=== PATIENT | male | born 1950 | race Caucasian/White ===

== ENCOUNTER 2016-09-20 20:37 | Emergency (ER) | payer MEDICARE, OTHER ==
[~2016-09-20] VITALS: Ht 167.6 cm; Wt 77.0 kg
[~2016-09-20 20:37] MED LIST: ACET325 PO; BACL10TA PO; CALC0.25 PO; CARB0.5D16 EACH EYE; CLON.5 PO; ERYT1O EACH EYE; FERR324T4 PO; KONS520C PO; LEVE750T8 PO; PHEN100 PO; POTA-243 PO; RISP1 PO; SUPETAB30 PO; VITA500C PO; VITATAB25 PO; [UNRECOGNIZED DRUG - CODE] PO
[2016-09-20 20:43] VITALS: PULSE 97; RESP 14; TEMP 97.8; O2SAT 97
--- NOTE | 2016-09-20 21:13 | PD ---
Physical Exam Time Seen by Provider: 21:10 Narrative 65yo M comes from [facility] ([place]). Had x-ray of L clavicle today and is fractured. Unknown fall or injury. Noticed on Saturday. note taker denies change in behavior. Patient nonverbal. No fever or vomiting. Patient stable. Patient seen in triage. Patient awaiting bed placement. Data Data Last Documented VS Vital Signs Date Time Temp Pulse Resp B/P Pulse Ox O2 Delivery O2 Flow Rate FiO2 09/20/16 20:43 97.8 97 14 97 Room Air MDM Supervised Visit with VERONICA: Alondra Morton Sep 20, 2016 21:13
[2016-09-20 21:14] VITALS: BP 118/83; PULSE 97; RESP 14; TEMP 97.8; O2SAT 97
--- NOTE | 2016-09-20 21:29 | PD ---
HPI Chief Complaint: Injury Time Seen by Provider: 21:20 Travel History International Travel<30 days: No Contact w/Intl Traveler<30days: No Traveled to known affect area: No History of Present Illness HPI 65-year-old male with history of mental retardation presents with a turbo operator for evaluation of reported left clavicle fracture. The patient is a [facility] The turbo operator who is with him reports that yesterday when she saw him she noticed a deformity to his left clavicle. An x-ray performed today reportedly showed a left clavicle fracture and he was sent here for further evaluation. There was no known injury. The patient was not seen on the ground and there is no reported fall. The turbo operator last saw his left shoulder 2 days ago and it appeared normal at that time. He has had no change in mentation. He has had no vomiting. He ambulates mostly in a wheelchair but he is able to walk and he doesn't appear to have any gait disturbance per the turbo operator. She has not noticed any bruises or open wounds. No other complaints at this time. History limited secondary to the patient being nonverbal. PFSH Past Medical History Arthritis: Yes Autoimmune Disease: No Anxiety: Yes Heart Rhythm Problems: Yes (bradycardia) Cancer: No Cardiovascular Problems: Yes High Cholesterol: No Chest Pain: No Congestive Heart Failure: No Cerebrovascular Accident: No Diabetes: No Diminished Hearing: No Endocrine: No Genitourinary: Yes Hypertension: Yes Immune Disorder: No Kidney Stones: No Musculoskeletal: Yes Neurologic: Yes Psychiatric: Yes (significant hx of mental disorders) Reproductive: No Respiratory: No Migraines: No Renal Failure: Yes Seizures: Yes (last seizure >6 yrs) Thyroid Disease: No Past Surgical History Other Surgery: No ( ) Social History Alcohol Use: No Tobacco Use: No Substance Use: No Allergies-Medications (Allergen,Severity, Reaction): Coded Allergies: *MDRO Multi-Drug Resistant Organism (Verified Allergy, Unknown, 09/20/16) MRSA wound 2004 Gabapentin (Verified Allergy, Unknown, 09/20/16) Mellaril (Verified Allergy, Unknown, 09/20/16) Neurontin (Verified Allergy, Unknown, 09/20/16) Thioridazine Hcl (Verified Allergy, Unknown, 09/20/16) Septra (Verified Adverse Reaction, Severe, 09/20/16) Reported Meds & Prescriptions Reported Meds & Active Scripts Active Reported Klonopin (Clonazepam) 0.5 Mg Tab 0.5 Mg PO BID Dilantin 100 Mg Kapseals (Phenytoin Sodium) 100 Mg Caper 100 Mg PO TID Ascorbic Acid 500 Mg Tab 500 Mg PO DAILY Calcitriol 0.25 Mcg Cap 0.25 Mcg PO DAILY Vitamin D-1000 (Cholecalciferol) 1,000 Unit Tab 1,000 Unit PO DAILY Tears Naturale (Artificial Tears) 15 Ml Soln 2 Drop EACH EYE BID PRN Tylenol (Acetaminophen) 325 Mg Tab 650 Mg PO Q6 PRN 2 [id number] Theragran M (Multivitamins/Minerals Therapeutic) 1 Tab Tab 1 Tab PO EVERY OTHER DAY Risperdal (Risperidone) 1 Mg Tab 1.5 Mg PO BID 1&1/2 TABS=1.5MG Antiseptic Mouth Rinse (Mouthwashes) Original Liq 1 Applic PO BID MOISTEN TOOTHETTE SWAB Keppra (Levetriacetam) 750 Mg Tab 750 Mg PO BID Ferrous Sulfate 325 Mg Tab 325 Mg PO BID Erythromycin Opht 0.5% Oint (Erythromycin) 0.5 % Oint 1 Applic EACH EYE HS APPLY 1/4 INCH RIBBON Lioresal (Baclofen) 10 Mg Tab 10 Mg PO BID Klor-Con 10 Meq (Potassium Chloride) 10 Meq Tabcr 10 Meq PO DAILY Metamucil (Psyllium Hydrophilic Mucilloid) 0.52 Gm Cap 2 Cap PO MON,E,SAT,TH ,FRI Review of Systems ROS Limitations: Poor Historian Except as stated in HPI: all other systems reviewed are Neg Physical Exam Exam Limitations: Poor Historian Narrative GENERAL: This is a well-developed well-nourished male in no acute distress. SKIN: Warm and dry. No open wounds. No bruising noted. HEAD: Atraumatic. Normocephalic. EYES: Pupils equal and round. No scleral icterus. No injection or drainage. ENT: No nasal bleeding or discharge. Mucous membranes pink and moist. NECK: Trachea midline. No JVD. CARDIOVASCULAR: Regular rate and rhythm. No murmur appreciated. RESPIRATORY: No accessory muscle use. Clear to auscultation. Breath sounds equal bilaterally. GASTROINTESTINAL: Abdomen soft, non-tender, nondistended. Hepatic and splenic margins not palpable. MUSCULOSKELETAL: There appears to be a deformity to the left clavicle. There is no apparent tenderness to palpation. He does not wince or withdrawal to palpation. He is using his left and right arm spontaneously without apparent discomfort. He has no evidence of discomfort with palpation along the cervical thoracic or lumbar midline spine. There is no bony crepitus. There is no apparent discomfort with palpation of the hips, legs, rib cage. The patient is able to ambulate with assistance with no apparent limp. NEUROLOGICAL: Awake and alert. No obvious cranial nerve deficits. Data Data Last Documented VS Vital Signs Date Time Temp Pulse Resp B/P Pulse Ox O2 Delivery O2 Flow Rate FiO2 09/20/16 21:14 97.8 97 14 118/83 97 Room Air Orders Lorazepam Inj (Ativan Inj) (09/20/16 21:45) Shoulder, One View (09/20/16 ) MDM Medical Decision Making Medical Screen Exam Complete: Yes Emergency Medical Condition: Yes Medical Record Reviewed: Yes Differential Diagnosis Left clavicle fracture, acromioclavicular separation, sprain Narrative Course This is a 65-year-old male who reportedly was found to have a left clavicle deformity yesterday by caretakers at his assisted living facility. Sent here for further evaluation. No apparent discomfort with movement. Appears to have a deformity to the left clavicle. The history is very limited secondary to patient's condition, CT of the brain and cervical spine have been ordered. Left shoulder x-ray has been ordered. I was called by the community service technician and told that the patient is being significantly combative during attempts at CT and x-ray imaging. Ativan has been ordered. 2258: CT of the brain and cervical spine at been canceledthe history is that the patients shoulder injury was first noticed yesterday and he has no evidence of neurologic change at his assisted living building facility or here and he has been observed several times rotating his neck about with no apparent difficulty. Awaiting left shoulder x-ray. The tech was able to obtain only a single view of the left shoulder and this reveals a distal left clavicle fracture of uncertain chronicity. Once again the patient has no apparent limitation in range of motion of the left shoulder, he is using his left arm spontaneously and he has no apparent tenderness to palpation of the left clavicle. This is suggesting at this clavicle fracture is chronic and not acute. We attempted to put a sling on the patient however he was very combative and was fighting against us and most likely this patient would be noncompliant with a sling on. I discussed with my attending Dr. Stevens who agrees with plan of care. At this point in time the plan is to have him follow-up as an outpatient with an orthopedic physician. Discussed this with the turbo operator. He is stable for discharge. Diagnosis Primary Impression: Closed left clavicular fracture Qualified Code: S42.002A - Closed displaced fracture of left clavicle, unspecified part of clavicle, initial encounter Referrals: Isaac Hastings Jr., MD, Todd A. MD Additional Instructions: Follow-up with an orthopedist such as Dr. Hastings or Dr. Garcias next week. Sling as tolerated. Return for any emergent medical conditions. Med/Other Pt SpecificInfo: Orthopedic Instructions Disposition: 01 DISCHARGE HOME Condition: Stable Josh Denney Sep 20, 2016 21:29
[2016-09-20] MEDS ORDERED: LORazepam 2 MG/ML VIAL IM ONE (21:45)
--- NOTE | 2016-09-20 23:55 | RADRPT ---
EXAM DATE/TIME: 09/20/2016 23:11 [facility] COMPARISON: No previous studies available for comparison. INDICATIONS : Left shoulder pain. MEDICAL HISTORY : Unobtainable. SURGICAL HISTORY : Unobtainable. ENCOUNTER: Initial ACUITY: 1 day PAIN SCORE: Non-responsive. LOCATION: Left shoulder. FINDINGS: A single frontal view of the left shoulder is within significant obliquity. This generates significan t limitations. There is a fracture involving the distal third of the clavicle. I'm unable to determin e whether this is acute or chronic. The proximal humerus is intact. CONCLUSION: 1. Significantly limited study. 2. Distal clavicular fracture. I cannot determine whether this is acute or chronic. Alfa Ugarte Jr., MD on September 20, 2016 at 23:53 Board Certified Radiologist. This report was verified electronically.
== END 2016-09-21 00:23 | disposition home or self-care (01) ==
LOC: NEPK 20:37
DX: S42.035A Nondisplaced fracture of lateral end of left clavicle, initial encounter for closed fracture (principal); X58.XXXA Exposure to other specified factors, initial encounter; Y93.9 Activity, unspecified; Y92.199 Unspecified place in other specified residential institution as the place of occurrence of the external cause; Y99.9 Unspecified external cause status; I10 Essential (primary) hypertension
CPT/HCPCS: 73020; 96372; 99283; J2060

== ENCOUNTER 2017-01-31 10:34 | Inpatient (IN) | payer MEDICARE, OTHER ==
[2017-01-31 10:55] VITALS: PULSE 115; RESP 18; O2SAT 100
[2017-01-31] MEDS ORDERED: SODIUM CHLOR 0.9% 1000 ML INJ 1,000 ML IV SCH (11:07)
[2017-01-31] MEDS ORDERED: LORazepam 2 MG/ML VIAL IM ONE (11:15)
[2017-01-31] MEDS ORDERED: SODIUM CHLORIDE 0.9% FLUSH 10 ML FLUSH IV FLUSH PRN ×2 (11:15→14:15)
--- NOTE | 2017-01-31 11:17 | PD ---
HPI Chief Complaint: Edema Time Seen by Provider: 11:07 Travel History International Travel<30 days: No Contact w/Intl Traveler<30days: No Traveled to known affect area: No History of Present Illness HPI [facility] evaluation of left lower extremity erythema, edema, and warmth to touch per paperwork. Patient's caregiver with him states this is new. Patient has a speech impairment and suffers from mental retardation is not able to contribute to his history at this time. Patient has a history of seizures, psychosis, anemia, autism, systolic ejection murmur, hypertension, stage II kidney disease , BPH, bipolar disorder, OCD, onychomycosis, PVD, cerebral atrophy, arachnoid cyst in the posterior fossa, weakness, cellulitis of the left lower extremity, and DVT per his records that were sent with him. Patient is on Xerelto for his DVT. Patient is being combative currently. PFSH Past Medical History Hx Anticoagulant Therapy: Yes Arthritis: Yes Autoimmune Disease: No Anxiety: Yes Heart Rhythm Problems: Yes (bradycardia) Cancer: No Cardiovascular Problems: Yes High Cholesterol: No Chest Pain: No Congestive Heart Failure: No Cerebrovascular Accident: No Diabetes: No Diminished Hearing: No Endocrine: No Genitourinary: Yes Hypertension: Yes Immune Disorder: No Kidney Stones: No Musculoskeletal: Yes Neurologic: Yes Psychiatric: Yes (significant hx of mental disorders) Reproductive: No Respiratory: No Migraines: No Renal Failure: Yes Seizures: Yes (last seizure >6 yrs) Thyroid Disease: No Past Surgical History Other Surgery: No ( ) Social History Alcohol Use: No Tobacco Use: No Substance Use: No Allergies-Medications (Allergen,Severity, Reaction): Coded Allergies: *MDRO Multi-Drug Resistant Organism (Verified Allergy, Unknown, 01/31/17) MRSA wound 2004 gabapentin (Verified Allergy, Unknown, 01/31/17) thioridazine (Verified Allergy, Unknown, 01/31/17) sulfamethoxazole (Verified Adverse Reaction, Severe, 01/31/17) trimethoprim (Verified Adverse Reaction, Severe, 01/31/17) Reported Meds & Prescriptions Reported Meds & Active Scripts Active Reported Klonopin (Clonazepam) 0.5 Mg Tab 0.5 Mg PO BID Dilantin 100 Mg Kapseals (Phenytoin Sodium) 100 Mg Caper 100 Mg PO TID Ascorbic Acid 500 Mg Tab 500 Mg PO DAILY Calcitriol 0.25 Mcg Cap 0.25 Mcg PO DAILY Vitamin D-1000 (Cholecalciferol) 1,000 Unit Tab 1,000 Unit PO DAILY Tears Naturale (Artificial Tears) 15 Ml Soln 2 Drop EACH EYE BID PRN Tylenol (Acetaminophen) 325 Mg Tab 650 Mg PO Q6 PRN 2 [id number] Theragran M (Multivitamins/Minerals Therapeutic) 1 Tab Tab 1 Tab PO EVERY OTHER DAY Risperdal (Risperidone) 1 Mg Tab 1.5 Mg PO BID 1&1/2 TABS=1.5MG Antiseptic Mouth Rinse (Mouthwashes) Original Liq 1 Applic PO BID MOISTEN TOOTHETTE SWAB Keppra (Levetriacetam) 750 Mg Tab 750 Mg PO BID Ferrous Sulfate 325 Mg Tab 325 Mg PO BID Erythromycin Opht 0.5% Oint (Erythromycin) 0.5 % Oint 1 Applic EACH EYE HS APPLY 1/4 INCH RIBBON Lioresal (Baclofen) 10 Mg Tab 10 Mg PO BID Klor-Con 10 Meq (Potassium Chloride) 10 Meq Tabcr 10 Meq PO DAILY Metamucil (Psyllium Hydrophilic Mucilloid) 0.52 Gm Cap 2 Cap PO MON,E,SAT, ,SAT Review of Systems ROS Limitations: Speech Impaired, Poor Historian Except as stated in HPI: all other systems reviewed are Neg Physical Exam Exam Limitations: Poor Historian, Combative Narrative GENERAL: Well-developed, well nourished, in no acute distress, and non-ill appearing. SKIN: Erythematous, edema, and febrile feeling left leg findings are consistent with cellulitis there are some scabbed over lesions as well. There is no fluctuation, drainage, or crepitus. HEAD: Atraumatic. Normocephalic. EYES: Pupils equal and round. EOMI. No scleral icterus. ENT: No nasal bleeding or discharge. Mucous membranes pink and moist. NECK: Trachea midline. Supple. No nuclear rigidity. CARDIOVASCULAR: Regular rate and rhythm. Murmur appreciated. Dorsal pulses 2+ , nontender, and equal bilaterally. RESPIRATORY: No accessory muscle use. No respiratory distress. Clear to auscultation. Breath sounds equal bilaterally. MUSCULOSKELETAL: No obvious deformities. No clubbing. No cyanosis. 1+ edema left lower extremity. Full range of motion. NEUROLOGICAL: Awake and alert. No obvious cranial nerve deficits. Motor grossly within normal limits. PSYCHIATRIC: Combative. Data Data Last Documented VS Vital Signs Date Time Temp Pulse Resp B/P (MAP) Pulse Ox O2 Delivery O2 Flow Rate FiO2 01/31/17 13:27 98 Room Air 01/31/17 12:30 105 14 127/91 (103) Orders Orders Lorazepam Inj (Ativan Inj) (01/31/17 11:15) Complete Blood Count With Diff (01/31/17 11:07) Prothrombin Time / Inr (Pt) (01/31/17 11:07) Act Partial Throm Time (Ptt) (01/31/17 11:07) Iv Access Insert/Monitor (01/31/17 11:07) Ecg Monitoring (01/31/17 11:07) Oximetry (01/31/17 11:07) Sodium Chlor 0.9% 1000 Ml Inj (Ns 1000 M (01/31/17 11:07) Sodium Chloride 0.9% Flush (Ns Flush) (01/31/17 11:15) Us Leg Venous Doppler (01/31/17 11:15) Electrocardiogram (01/31/17 11:26) Comprehensive Metabolic Panel (01/31/17 11:26) Lactic Acid Sepsis Protocol (01/31/17 11:26) Urinalysis - C+S If Indicated (01/31/17 11:26) Blood Culture (01/31/17 11:26) Chest, Single Ap (01/31/17 11:26) Blood Glucose (01/31/17 11:26) Oxygen Administration (01/31/17 11:26) Piperacil-Tazo 4.5 Gm Premix (Zosyn 4.5 (01/31/17 11:26) Vancomycin Inj (Vancomycin Inj) (01/31/17 11:26) Acetaminophen Supp (Tylenol Supp) (01/31/17 11:30) Phenytoin (Dilantin) (01/31/17 11:44) Levetiracetam (01/31/17 11:44) Haloperidol Inj (Haldol Inj) (01/31/17 12:15) Sodium Chlor 0.9% 1000 Ml Inj (Ns 1000 M (01/31/17 13:15) Cath For Specimen (01/31/17 13:15) Sodium Chlor 0.9% 1000 Ml Inj (Ns 1000 M (01/31/17 13:45) Admit To Inpatient (01/31/17 ) Vital Signs (Adult) Q4H (01/31/17 14:08) Activity Oob With Assistance (01/31/17 14:08) Matte Cutter / Telemetry .CONTINUOUS (01/31/17 14:08) Intake + Output CATERINA.QSHIFT (01/31/17 14:08) Diet Heart Healthy (01/31/17 Dinner) Sodium Chlor 0.45% 1000 Ml Inj (1/2 Ns 1 (01/31/17 15:00) Sodium Chloride 0.9% Flush (Ns Flush) (01/31/17 14:15) Sodium Chloride 0.9% Flush (Ns Flush) (01/31/17 21:00) Acetaminophen (Tylenol) (01/31/17 14:15) Ondansetron Inj (Zofran Inj) (01/31/17 14:15) Naloxone Inj (Narcan Inj) (01/31/17 14:15) Docusate Sodium-Senna (Inna-Colace) (01/31/17 21:00) Magnesium Hydroxide Liq (Milk Of Magnesi (01/31/17 14:15) Sennosides (Senokot) (01/31/17 14:15) Bisacodyl Supp (Dulcolax Supp) (01/31/17 14:15) Lactulose Liq (Lactulose Liq) (01/31/17 14:15) Inpatient Certification (01/31/17 ) Vancomycin Consult Pharmacy (Vancomycin (01/31/17 14:15) Piperacil-Tazo 3.375 Gm Premix (Zosyn 3. (01/31/17 18:00) Admit Order (Ed Use Only) (01/31/17 14:11) Labs Laboratory Tests Test 01/31/17 12:10 01/31/17 13:45 White Blood Count 26.0 TH/MM3 Red Blood Count 3.48 MIL/MM3 Hemoglobin 10.5 GM/DL Hematocrit 31.8 % Mean Corpuscular Volume 91.4 FL Mean Corpuscular Hemoglobin 30.1 PG Mean Corpuscular Hemoglobin Concent 32.9 % Red Cell Distribution Width 14.0 % Platelet Count 163 TH/MM3 Mean Platelet Volume 8.2 FL Neutrophils (%) (Auto) 92.2 % Lymphocytes (%) (Auto) 2.9 % Monocytes (%) (Auto) 4.8 % Eosinophils (%) (Auto) 0.0 % Basophils (%) (Auto) 0.1 % Neutrophils # (Auto) 23.9 TH/MM3 Lymphocytes # (Auto) 0.7 TH/MM3 Monocytes # (Auto) 1.2 TH/MM3 Eosinophils # (Auto) 0.0 TH/MM3 Basophils # (Auto) 0.0 TH/MM3 CBC Comment DIFF FINAL Differential Comment Prothrombin Time 13.3 SEC Prothromb Time International Ratio 1.2 RATIO Activated Partial Thromboplast Time 36.2 SEC Blood Urea Nitrogen 19 MG/DL Creatinine 1.25 MG/DL Random Glucose 119 MG/DL Total Protein 7.7 GM/DL Albumin 2.7 GM/DL Calcium Level 7.9 MG/DL Alkaline Phosphatase 127 U/L Aspartate Amino Transf (AST/SGOT) 29 U/L Alanine Aminotransferase (ALT/SGPT) 22 U/L Total Bilirubin 0.6 MG/DL Sodium Level 137 MEQ/L Potassium Level 4.2 MEQ/L Chloride Level 102 MEQ/L Carbon Dioxide Level 23.0 MEQ/L Anion Gap 12 MEQ/L Estimat Glomerular Filtration Rate 58 ML/MIN Lactic Acid Level 3.0 mmol/L Urine Color YELLOW Urine Turbidity CLEAR Urine pH 6.0 Urine Specific [place] 1.008 Urine Protein TRACE mg/dL Urine Glucose (UA) NEG mg/dL Urine Ketones NEG mg/dL Urine Occult Blood SMALL Urine Nitrite NEG Urine Bilirubin NEG Urine Urobilinogen LESS THAN 2.0 MG/DL Urine Leukocyte Esterase MOD Urine RBC 1 /hpf Urine WBC 7 /hpf Urine Bacteria MANY /hpf Urine Mucus FEW /lpf Microscopic Urinalysis Comment CATH-CULTURE IND MDM Medical Decision Making Medical Screen Exam Complete: Yes Emergency Medical Condition: Yes Interpretation(s) Ultrasound read by the radiologist shows: Normal examination. Chest x-ray read by the radiologist shows: Scattered interstitial nodular opacity particularly within the right upper lobe is new from the prior exam of 2013. This could relate to chronic interstitial changes. I cannot exclude acute developing infiltrate. Consider followup studies to document stability. Cardiomegaly. EKG reviewed by Dr. Valdivia shows tachycardia with ventricular rate of 112. No STEMI. Differential Diagnosis Cellulitis, DVT, sepsis, electrolyte abnormality, UTI, other Narrative Course Patient was seen and evaluated this to combative and violent to examine at this time. We'll try to calm patient down so he can be evaluated. Initial laboratory and radiologic studies were ordered. 1120 patient was initially attempted placed in soft restraints as he was being combative and violent towards staff delaying his care and trying to fall out of bed. Patient however he bit through the soft restraints and will be placed and locked restraints. Patient will also be given Ativan IM to try to help calm him. 1210 patient reassessed remains combative. Will give patient a dose of Haldol IM to protect patient and staff along with allowing the patient to receive appropriate treatment. Laboratory and Radiological studies were reviewed. Patient was given Tylenol rectally for his fever. Hydrated with IV fluid. Given IV Zosyn and vancomycin. Will admit patient for intrauterine IV antibiotic secondary to sepsis. Discussed patient with Dr. Valdivia, who is in agreement with plan of care and disposition. Discussed patient with hospitalist who is agreeable to admit the patient. Sepsis Criteria SIRS Criteria (2 or more): Temp > 100.9 or < 96.8, Heart rate over 90, WBC > 55692, < 4000 or > 10% bands Sepsis Criteria (SIRS+source): Infect source susp/known Severe Sepsis (+one): Lactate >2 Physician Communication Physician Communication [address] Alejandre, who is agreeable to admit the patient. Diagnosis Primary Impression: Sepsis Qualified Codes: A41.9 - Sepsis, unspecified organism Additional Impressions: Left leg cellulitis UTI (urinary tract infection) Qualified Codes: N39.0 - Urinary tract infection, site not specified Admitting Information Admitting Physician Requests: Admit Condition: Stable Elotn Cardona Jan 31, 2017 11:17
[2017-01-31] MEDS ORDERED: VANCOMYCIN INJ 1,000 MG in SODIUM CHLOR 0.9% 250 ML INJ 250 ML IV STA (11:26)
[2017-01-31] MEDS ORDERED: PIPERACIL-TAZO 4.5 GM PREMIX 100 ML IV STA (11:26)
[2017-01-31] MEDS ORDERED: ACETAMINOPHEN 650 MG SUPP RECTAL ONE (11:30)
--- NOTE | 2017-01-31 12:11 | RADRPT ---
EXAM DATE/TIME: 01/31/2017 11:37 [facility] COMPARISON: No previous studies available for comparison. INDICATIONS : Left leg swelling. MEDICAL HISTORY : Hypertension. Arthritis. Vision impaired. Seizures. Dizziness. Anticoagulant therapy. Venous insu fficiancy. Bradycardia. Renal disease. Renal failure. Urinary tract infection. Anxiety. Violent behav ior. MRSA. SURGICAL HISTORY : None. ENCOUNTER: Initial ACUITY: 2 day PAIN SCORE: Non-responsive LOCATION: Left leg. TECHNIQUE: Venous ultrasound of the leg was performed from the inguinal ligament to the proximal calf. Real-obie e, color Doppler and spectral tracing, compression and augmentation techniques were used. FINDINGS: There is normal compressibility of the deep venous system from the inguinal region to the proximal ca lf. No echogenic clot is seen in the lumen of the common femoral, femoral, popliteal, and posterior tibial veins. There is a normal response of the venous system to proximal and distal augmentation an d respiration. CONCLUSION: Normal examination. Carlos Turner MD on January 31, 2017 at 12:04 Board Certified Radiologist. This report was verified electronically.
--- NOTE | 2017-01-31 12:14 | RADRPT ---
EXAM DATE/TIME: 01/31/2017 11:52 [facility] COMPARISON: CHEST SINGLE AP, September 03, 2013, 13:35. INDICATIONS : Fever. MEDICAL HISTORY : Hypertension. SURGICAL HISTORY : None. ENCOUNTER: Initial ACUITY: 1 day PAIN SCORE: Non-responsive. LOCATION: Bilateral chest FINDINGS: A single portable frontal view of the chest is obliqued towards the patient's right. Moderate cardiom egaly. Scattered areas of interstitial prominence some of which is nodular located within the right u pper lobe. No intralobular opacity. No effusions. Bony structures are unremarkable for a patient of t his age. CONCLUSION: Scattered interstitial nodular opacity particularly within the right upper lobe is new from the prior exam of 2013. This could relate to chronic interstitial changes. I cannot exclude acute developing i nfiltrate. Consider followup studies to document stability. Cardiomegaly. Alfa Ugarte Jr., MD on January 31, 2017 at 12:10 Board Certified Radiologist. This report was verified electronically.
[2017-01-31] MEDS ORDERED: HALOPERIDOL LACTATE 5 MG/ML AMP IM ONE (12:15)
[2017-01-31 12:30] VITALS: BP_SYST 121; BP_SYST 127; BP_DIAS 62; BP_DIAS 91; PULSE 105; PULSE 113; RESP 14; O2SAT 97; O2SAT 98
[2017-01-31 13:01] LABS: AUTOMATED NEUTROPHIL # 23.9 TH/MM3 (1.8-7.7); BASOPHIL % 0.1 % (0.0-2.0); HEMATOCRIT 31.8 % (39.0-51.0); HEMO FLAGS DIFF FINAL; LYMPH % 2.9 % (9.0-44.0); LYMPHOCYTE # 0.7 TH/MM3 (1.0-4.8); MEAN CELL VOLUME 91.4 FL (80.0-100.0); MEAN CORPUSCULAR HEMOGLOBIN 30.1 PG (27.0-34.0); MEAN CORPUSCULAR HGB CONC 32.9 % (32.0-36.0); MONO % 4.8 % (0.0-8.0); NEUT % 92.2 % (16.0-70.0); PLATELET COUNT 163 TH/MM3 (150-450); RED BLOOD COUNT 3.48 MIL/MM3 (4.50-5.90)
[2017-01-31] MEDS ORDERED: SODIUM CHLOR 0.9% 1000 ML INJ 1,000 ML IV ONE ×2 (13:15→13:45)
[2017-01-31 13:19] LABS: APTT (PATIENT) 36.2 SEC (24.3-30.1); INTERNATIONAL NORMALIZED RATIO 1.2 RATIO; PROTHROMBIN TIME - PATIENT 13.3 SEC (9.8-11.6)
[2017-01-31 13:27] LABS: ALKALINE PHOSPHATASE 127 U/L (45-117); ALT (GPT) 22 U/L (12-78); TOTAL BILIRUBIN ADULT 0.6 MG/DL (0.2-1.0)
[2017-01-31 13:30] LABS: ANION GAP 12 MEQ/L (5-15); AST (GOT) 29 U/L (15-37); BLOOD UREA NITROGEN 19 MG/DL (7-18); CHLORIDE 102 MEQ/L (98-107); GLOMERULAR FILTRATION RATE 58 ML/MIN (>89); SODIUM (NA) 137 MEQ/L (136-145)
[2017-01-31 13:32] LABS: POTASSIUM 4.2 MEQ/L (3.5-5.1)
[2017-01-31] MEDS ORDERED: ONDANSETRON HCL 4 MG/2 ML VIAL IVP PRN (14:15)
[2017-01-31] MEDS ORDERED: LACTULOSE SYRUP 20 GM/30 ML CUP PO PRN (14:15)
[2017-01-31] MEDS ORDERED: MAGNESIUM HYDROXIDE SUSP 30 ML CUP PO PRN (14:15)
[2017-01-31] MEDS ORDERED: SENNOSIDES 8.6 MG TAB PO PRN (14:15)
[2017-01-31] MEDS ORDERED: Vancomycin Consult Pharmacy 1 EA OTHER SCH (14:15)
[2017-01-31] MEDS ORDERED: BISACODYL 10 MG SUPP RECTAL PRN (14:15)
[2017-01-31] MEDS ORDERED: NALOXONE HCL 0.4 MG/ML AMP IV PRN (14:15)
[2017-01-31] MEDS ORDERED: ACETAMINOPHEN 325 MG TAB PO PRN (14:15)
[2017-01-31 14:32] LABS: BACTERIA, URINE MANY /hpf; BLOOD, URINE SMALL (NEG); GLUCOSE,URINE NEG (NEG); KETONE, URINE NEG (NEG); MUCUS URINE FEW /lpf (OCC); NITRITE,URINE NEG (NEG); URINE COLOR YELLOW (YELLW/STRAW)
[2017-01-31 14:33] LABS: COMMENT (UR) CATH-CULTURE IND; CULTURE IF INDICATED CATH CULTURE IND
[2017-01-31 14:35] VITALS: BP 121/62; PULSE 113; RESP 15; TEMP 99; O2SAT 97
--- NOTE | 2017-01-31 14:39 | HHI.HP ---
[facility] Service [facility] Primary Care Physician Cesario Martin MD Admission Diagnosis sepsis, left lower extremity cellulitis Diagnoses: Chief Complaint: Sepsis and lower extremity cellulitis Travel History International Travel<30 Days: No Contact w/Intl Traveler <30 Da: No Traveled to Known Affected Are: No History of Present Illness This is a 66-year-old male past medical history of seizure disorder and mental retardation who presented with evaluation for left lower extremity. Due to patient's mental status unable to get a history. Dealt with [facility] emergency medicine and his nurse. Patient was brought in from a detention secondary to lower extremity edema and erythema. His caregiver stated that this was happening overnight. Patient has a history of speech impairment and suffers from mental retardation. Per patient's nurse patient was agitated and was given Haldol and put in restraints. Patient's nurse also stated that DCF just saw patient due to patient having a black eye. He stated that his caregiver stated that patient sometimes would drop to the ground to get attention and they let him do this which may be the reason why he has a black eye. Unable to do ROS secondary to patient's mental status. Past Family Social History Past Medical History 1. Bipolar disorder. 2. Obsessive-compulsive disorder. 3. BPH. 4. Onychomycosis. 5. Arachnoid cyst. 6. Chronic kidney disease. 7. Seizures. 8. Bradycardia. Has seen Dr. Heredia in the past. 9. Orthostatic hypotension. 10. Peripheral vascular disease. 11. Hypertension. 12. Seizure disorder. 13. Chronic cellulitis lower extremity. 14. Previous UTIs. 15. Mental retardation. 16. Venous insufficiency. 17. Tremors. 18. History of DVT MEDICATION ALLERGIES GABAPENTIN. MELLARIL. NEURONTIN. SEPTRA. THIORIDAZINE HCl. HOME MEDICATIONS Reviewed. See electronic medical record. SOCIAL HISTORY There is no history of smoking, alcohol or substance abuse. The patient is a resident of a detention for the last 15 years. He has no other family. He does not require any assistive devices for ambulation. FAMILY HISTORY Unable to obtain. Past Surgical History Unable to obtain. Reported Medications Unable to obtain. Allergies: Coded Allergies: *MDRO Multi-Drug Resistant Organism (Verified Allergy, Unknown, 01/31/17) MRSA wound 2005 gabapentin (Verified Allergy, Unknown, 01/31/17) thioridazine (Verified Allergy, Unknown, 01/31/17) sulfamethoxazole (Verified Adverse Reaction, Severe, 01/31/17) trimethoprim (Verified Adverse Reaction, Severe, 01/31/17) Active Ordered Medications Current Medications Lorazepam (Ativan Inj) 2 mg ONCE ONCE IM Last administered on 01/31/17 11:16 ; Start 01/31/17 at 11:15; Stop 01/31/17 at 11:16; Status DC Sodium Chloride 1,000 ml @ 1,000 mls/hr Q1H IV Last administered on 01/31/17 11:17; Start 01/31/17 at 11:07; Stop 01/31/17 at 12:06; Status DC Sodium Chloride (NS Flush) 2 ml UNSCH PRN IV FLUSH FLUSH AFTER USING IV ACCESS ; Start 01/31/17 at 11:15; Stop 01/31/17 at 14:29; Status DC Piperacillin Sod/ Tazobactam Sod 100 ml @ 200 mls/hr ONCE STAT IV Last administered on 01/31/17 11:54; Start 01/31/17 at 11:26; Stop 01/31/17 at 11:55 ; Status DC Vancomycin HCl 1000 mg/Sodium Chloride 250 ml @ 250 mls/hr ONCE STAT IV Last administered on 01/31/17 11:55; Start 01/31/17 at 11:26; Stop 01/31/17 at 12:25 ; Status DC Acetaminophen (Tylenol Supp) 650 mg ONCE ONCE RECTAL Last administered on 01/31 11:55; Start 01/31/17 at 11:30; Stop 01/31/17 at 11:31; Status DC Haloperidol Lactate (Haldol Inj) 5 mg ONCE ONCE IM Last administered on 12:40; Start 01/31/17 at 12:15; Stop 01/31/17 at 12:16; Status DC Sodium Chloride 1,000 ml @ 999 mls/hr BOLUS ONCE IV Last administered on 01/31 13:15; Start 01/31/17 at 13:15; Stop 01/31/17 at 14:15; Status DC Sodium Chloride 1,000 ml @ 999 mls/hr BOLUS ONCE IV Last administered on 01/31t 13:45; Start 01/31/17 at 13:45; Stop 01/31/17 at 14:45 Sodium Chloride 1,000 ml @ 75 mls/hr [id number] IV ; Start 01/31/17 at 15:00 Sodium Chloride (NS Flush) 2 ml UNSCH PRN IV FLUSH FLUSH AFTER USING IV ACCESS ; Start 01/31/17 at 14:15 Sodium Chloride (NS Flush) 2 ml BID IV FLUSH ; Start 01/31/17 at 21:00 Acetaminophen (Tylenol) 650 mg Q4H PRN PO TEMP > 100.4; Start 01/31/17 at 14:15 Ondansetron HCl (Zofran Inj) 4 mg Q6H PRN IVP NAUSEA OR VOMITING; Start at 14:15 Naloxone HCl (Narcan Inj) 0.4 mg UNSCH PRN IV SEE LABEL COMMENTS; Start at 14:15 Senna/Docusate Sodium (Inna-Colace) 1 tab BID PO ; Start 01/31/17 at 21:00 Magnesium Hydroxide (Milk Of Magnesia Liq) 30 ml Q12H PRN PO MILD - MODERATE CONSTIPATION; Start 01/31/17 at 14:15 Sennosides (Senokot) 17.2 mg Q12H PRN PO MODERATE - SEVERE CONSTIPATION; Start 01/31/17 at 14:15 Bisacodyl (Dulcolax Supp) 10 mg DAILY PRN RECTAL SEVERE CONSITIPATION; Start at 14:15 Lactulose (Lactulose Liq) 30 ml DAILY PRN PO SEVERE CONSITIPATION; Start at 14:15 Pharmacy Profile Note 0 ml @ 0 mls/hr UNSCH OTHER ; Start 01/31/17 at 14:15 Piperacillin Sod/ Tazobactam Sod 50 ml @ 100 mls/hr Q6H IV ; Start 01/31/17 at 18:00 Family History Unable to obtain due to mental status. Social History Patient lives in a detention. Physical Exam Vital Signs Vital Signs Date Time Temp Pulse Resp B/P (MAP) Pulse Ox O2 Delivery O2 Flow Rate FiO2 01/31/17 13:27 98 Room Air 01/31/17 12:30 113 121/62 (81) 97 01/31/17 10:55 97 Room Air 01/31/17 10:55 115 18 100 Room Air Physical Exam GENERAL: This is an unkempt male in NAD SKIN: Left lower extremity with some excoriations and erythema below the knee with swelling and warmth. HEAD: Atraumatic. Normocephalic. No temporal or scalp tenderness. EYES: Pupils equal round and reactive. Extraocular motions intact. Positive for bilateral injection. Ecchymosis of the left eye ENT: Nose without bleeding, purulent drainage or septal hematoma. Throat without erythema, tonsillar hypertrophy or exudate. Uvula midline. Airway patent. NECK: Trachea midline. No JVD or lymphadenopathy. Supple, nontender, no meningeal signs. CARDIOVASCULAR: Regular rate and rhythm without murmurs, gallops, or rubs. RESPIRATORY: Clear to auscultation. Breath sounds equal bilaterally. No wheezes , rales, or rhonchi. GASTROINTESTINAL: Abdomen soft, non-tender, nondistended. No hepato-splenomegaly , or palpable masses. No guarding. MUSCULOSKELETAL: Extremities without clubbing, cyanosis, or edema. No joint tenderness, effusion, or edema noted. No calf tenderness. Negative Homans sign bilaterally. NEUROLOGICAL: Awake. Motor is grossly intact. The heart to do a neurological exam since patient does not follow command. He does look [employer]rak. Laboratory Laboratory Tests Test 01/31/17 12:10 01/31/17 13:45 White Blood Count 26.0 Red Blood Count 3.48 Hemoglobin 10.5 Hematocrit 31.8 Mean Corpuscular Volume 91.4 Mean Corpuscular Hemoglobin 30.1 Mean Corpuscular Hemoglobin Concent 32.9 Red Cell Distribution Width 14.0 Platelet Count 163 Mean Platelet Volume 8.2 Neutrophils (%) (Auto) 92.2 Lymphocytes (%) (Auto) 2.9 Monocytes (%) (Auto) 4.8 Eosinophils (%) (Auto) 0.0 Basophils (%) (Auto) 0.1 Neutrophils # (Auto) 23.9 Lymphocytes # (Auto) 0.7 Monocytes # (Auto) 1.2 Eosinophils # (Auto) 0.0 Basophils # (Auto) 0.0 CBC Comment DIFF FINAL Differential Comment Prothrombin Time 13.3 Prothromb Time International Ratio 1.2 Activated Partial Thromboplast Time 36.2 Blood Urea Nitrogen 19 Creatinine 1.25 Random Glucose 119 Total Protein 7.7 Albumin 2.7 Calcium Level 7.9 Alkaline Phosphatase 127 Aspartate Amino Transf (AST/SGOT) 29 Alanine Aminotransferase (ALT/SGPT) 22 Total Bilirubin 0.6 Sodium Level 137 Potassium Level 4.2 Chloride Level 102 Carbon Dioxide Level 23.0 Anion Gap 12 Estimat Glomerular Filtration Rate 58 Lactic Acid Level 3.0 Urine Color YELLOW Urine Turbidity CLEAR Urine pH 6.0 Urine Specific [place] 1.008 Urine Protein TRACE Urine Glucose (UA) NEG Urine Ketones NEG Urine Occult Blood SMALL Urine Nitrite NEG Urine Bilirubin NEG Urine Urobilinogen LESS THAN 2.0 Urine Leukocyte Esterase MOD Urine RBC 1 Urine WBC 7 Urine Bacteria MANY Urine Mucus FEW Microscopic Urinalysis Comment CATH-CULTURE IND Date/Time Source Procedure Growth Status 01/31/17 12:00 Blood Peripheral Aerobic Blood Culture Pending Received 01/31/17 12:00 Blood Peripheral Anaerobic Blood Culture Pending Received 01/31/17 13:45 Urine Catheterized Urine Urine Culture Pending Received Result Diagram: 01/31/17 1210 01/31/17 1210 Imaging Last Impressions Chest X-Ray 01/31/17 1126 Signed Impressions: Service Date/Time: January 11:52 - CONCLUSION: Scattered interstitial nodular opacity particularly within the right upper lobe is new from the prior exam of 2013. This could relate to chronic interstitial changes. I cannot exclude acute developing infiltrate. Consider followup studies to document stability. Cardiomegaly. Alfa Ugarte Jr., MD Lower Extremity Ultrasound 01/31/17 1115 Signed Impressions: Service Date/Time: January 11:37 - CONCLUSION: Normal examination. Carlos Turner MD Septic Shock Reassessment Heart: Irregular Lungs: Clear Skin: Warm Capillary Refill: Brisk Caprini VTE Risk Assessment Caprini VTE Risk Assessment: Mod/High Risk (score >= 2) Caprini Risk Assessment Model Point Value = 1 Point Value = 2 Point Value = 3 Point Value = 5 Age 41-60 Minor surgery BMI > 25 kg/m2 Swollen legs Varicose veins or History of unexplained or recurrent spontaneous Oral contraceptives or hormone replacement Sepsis (< 1 month) Serious lung disease, including pneumonia (< 1 month) Abnormal pulmonary function Acute myocardial infarction Congestive heart failure (< 1 month) History of inflammatory bowel disease Medical patient at bed rest Age 61-74 Arthroscopic surgery Major open surgery (> 45 min) Laparoscopic surgery (> 45 min) Malignancy Confined to bed (> 72 hours) Immobilizing plaster cast Central venous access Age >= 75 History of VTE Family history of VTE Factor V Leiden Prothrombin [id number] Lupus anticoagulant Anticardiolipin antibodies Elevated serum homocysteine Heparin-induced thrombocytopenia Other congenital or acquired thrombophilia Stroke (< 1 month) Elective arthroplasty Hip, pelvis, or leg fracture Acute spinal cord injury (< 1 month) Prophylaxis Regimen Total Risk Factor Score Risk Level Prophylaxis Regimen 0-1 Low Early ambulation 2 Moderate Order ONE of the following: *Sequential Compression Device (SCD) *Heparin 5000 units SQ BID 3-4 Higher Order ONE of the following medications: *Heparin 5000 units SQ TID *Enoxaparin/Lovenox 40 mg SQ daily (WT < 150 kg, CrCl > 30 mL/min) *Enoxaparin/Lovenox 30 mg SQ daily (WT < 150 kg, CrCl > 10-29 mL/min) *Enoxaparin/Lovenox 30 mg SQ BID (WT < 150 kg, CrCl > 30 mL/min) AND/OR *Sequential Compression Device (SCD) 5 or more Highest Order ONE of the following medications: *Heparin 5000 units SQ TID (Preferred with Epidurals) *Enoxaparin/Lovenox 40 mg SQ daily (WT < 150 kg, CrCl > 30 mL/min) *Enoxaparin/Lovenox 30 mg SQ daily (WT < 150 kg, CrCl > 10-29 mL/min) *Enoxaparin/Lovenox 30 mg SQ BID (WT < 150 kg, CrCl > 30 mL/min) AND *Sequential Compression Device (SCD) Assessment and Plan Assessment and Plan 57-year-old male with recent mental retardation, seizure disorder and bipolar disorder who presented with left lower extremity edema, erythema, warmth Sepsis -Source left lower extremity cellulitis. WBC 26,000, tachycardia 1:15, lactic acid 3.0. UA suggesting UTI. Urine cultures obtained. Chest x-ray showed scattered interstitial nodule in the upper right upper lobe was suggest a new infiltrate versus chronic interstitial lung disease. Recommend to repeat chest x-ray later on to look for resolution versus stability. -Will give fluid resuscitation. Patient received vancomycin and Zosyn in the emergency department. Will continue her regimen. -Blood Cultures already obtained. Will follow cultures. -Continue to monitor clinically. Left lower extremity cellulitis -Will continue with vancomycin and Zosyn. Continue to monitor clinically. History of seizure disorder, bipolar disorder, mental retardation, orthostatic hypotension, hypertension, chronic kidney disease, chronic UTIs, history of DVT -Patient med list is not updated. Dealt with patient's nurse who contacted electron beam photo mask technician to update med list. -Once completed can do med reconciliation. -Pending lab to be drawn for Dilantin and Keppra and level Left eye ecchymosis -DCF is involved. Will need to consult case management. DVT prophylaxis -Patient is on Xarelto. Discussed Condition With nurse Physician Certification 2 Midnight Certification Type: Admission for Inpatient Services Order for Inpatient Services The services are ordered in accordance with Medicare regulations or non- Medicare payer requirements, as applicable. In the case of services not specified as inpatient-only, they are appropriately provided as inpatient services in accordance with the 2-midnight benchmark. Estimated LOS (days): 3 3 days is the estimated time the patient will need to remain in the hospital, assuming treatment plan goals are met and no additional complications. Post-Hospital Plan: [facility] Bessy Alejandre MD Jan 31, 2017 14:39
[2017-01-31 14:52] LABS: LACTIC ACID GHOST NOT REPORTABLE
[2017-01-31] MEDS ORDERED: HALOPERIDOL LACTATE 5 MG/ML AMP IM PRN (15:00)
[2017-01-31] MEDS: SODIUM CHLOR 0.45% 1000 ML INJ 1,000 ML IV SCH ×2 (15:00→23:40)
[2017-01-31 16:32] VITALS: BP 126/82
[2017-01-31 17:00] VITALS: BP 159/58; PULSE 107; RESP 19; TEMP 97.2
[2017-01-31] MEDS: PIPERACIL-TAZO 3.375 GM PREMIX 50 ML IV SCH ×2 (17:58→23:40)
[2017-01-31 20:00] VITALS: BP 103/65; PULSE 114; RESP 17; TEMP 98; O2SAT 96
[2017-01-31] MEDS: SODIUM CHLORIDE 0.9% FLUSH 10 ML FLUSH IV FLUSH SCH (20:20)
[2017-01-31] MEDS: DOCUSATE SODIUM 50 MG/SENNA 8.6 MG TAB PO SCH (20:20)
[2017-01-31] MEDS: LORazepam 2 MG/ML VIAL IV PUSH PRN (20:21)
[2017-02-01] VITALS: BP 117/61; PULSE 58; RESP 18; TEMP 97.7; O2SAT 96
[2017-02-01 04:00] VITALS: BP 129/88; PULSE 74; RESP 17; TEMP 98.6; O2SAT 96
[2017-02-01] MEDS: PIPERACIL-TAZO 3.375 GM PREMIX 50 ML IV SCH ×4 (05:58→23:06)
[2017-02-01] MEDS: SODIUM CHLOR 0.45% 1000 ML INJ 1,000 ML IV SCH ×3 (07:03→23:03)
[2017-02-01 07:17] LABS: BICARBONATE 20.2 MEQ/L (21.0-32.0); MAGNESIUM 2.1 MG/DL (1.5-2.5); POTASSIUM 3.9 MEQ/L (3.5-5.1)
[2017-02-01] MEDS ORDERED: LORazepam 2 MG/ML VIAL IM ONE (07:45)
[2017-02-01] MEDS: SODIUM CHLORIDE 0.9% FLUSH 10 ML FLUSH IV FLUSH SCH ×2 (08:10→19:22)
[2017-02-01] MEDS: DOCUSATE SODIUM 50 MG/SENNA 8.6 MG TAB PO SCH ×2 (08:10→19:21)
[2017-02-01 12:00] VITALS: BP 139/75; PULSE 138; RESP 17; TEMP 98.2; O2SAT 98
[2017-02-01] MEDS: VANCOMYCIN INJ 1,750 MG in SODIUM CHLORID 0.9% 500 ML INJ 500 ML IV SCH (12:00)
[2017-02-01] MEDS: LORazepam 2 MG/ML VIAL IV PUSH PRN ×2 (13:09→18:14)
--- NOTE | 2017-02-01 15:34 | PD.ID.CON ---
History of Present Illness Service ID Consult Requested By Dr Alejandre Reason for Consult UTI Primary Care Physician Cesario Martin MD Diagnoses: History of Present Illness Chart was reviewe Pt with mental disability and unable to to contribute to his history Pt is 66 yo male with speech impairment, mental retardation and a history of seizures, psychosis, anemia, autism, systolic ejection murmur, hypertension, stage II kidney disease, BPH, bipolar disorder, OCD, onychomycosis, PVD, cerebral atrophy, arachnoid cyst in the posterior fossa, non verbal He presented yday to emergency Department from the intermediate where he lives for evaluation of left lower extremity new onset erythema, edema, and warmth to touch per paperwork. On presentation he was found to have bordeline temp elevation of 99.0 , but significant leukocytosis of 26K, lactic cidosisi, mild pyurina in UA Creatinine is elevated HIs blood and urine cultures are negative CXR showed scattered interstitial nodular opacity particularly within the right upper lobe is new from the prior exam of 2013. This could relate to chronic interstitial changes vs acute developing infiltrate. Review of Systems ROS Limitations: Clinical Condition, Speech Impaired Past Family Social History Allergies: Coded Allergies: gabapentin (Verified Allergy, Unknown, 01/31/17) thioridazine (Verified Allergy, Unknown, 01/31/17) sulfamethoxazole (Verified Adverse Reaction, Severe, 01/31/17) trimethoprim (Verified Adverse Reaction, Severe, 01/31/17) Past Medical History 1. Bipolar disorder. 2. Obsessive-compulsive disorder. 3. BPH. 4. Onychomycosis. 5. Arachnoid cyst. 6. Chronic kidney disease. 7. Seizures. 8. Bradycardia. Has seen Dr. Heredia in the past. 9. Orthostatic hypotension. 10. Peripheral vascular disease. 11. Hypertension. 12. Seizure disorder. 13. Chronic cellulitis lower extremity. 14. Previous UTIs. 15. Mental retardation. 16. Venous insufficiency. 17. Tremors. 18. History of DVT Past Surgical History Unable to obtain. Active Ordered Medications Medications where reviewed in EMR Antibiotics Include: zosyn vancomycin Family History Unable to obtain. Social History There is no history of smoking, alcohol or substance abuse. The patient resides in a intermediate for the last 15 years. He has no other family. He does not require any assistive devices for ambulation. Physical Exam Vital Signs Vital Signs Date Time Temp Pulse Resp B/P (MAP) Pulse Ox O2 Delivery O2 Flow Rate FiO2 02/01/17 12:00 98.2 138 17 139/75 (96) 98 02/01/17 04:00 98.6 74 17 129/88 (102) 96 02/01/17 00:00 97.7 58 18 117/61 (79) 96 01/31/17 20:00 98.0 114 17 103/65 (78) 96 01/31/17 17:00 97.2 107 19 159/58 (91) 01/31/17 16:32 113 15 126/82 (97) 98 Physical Exam CONSTITUTIONAL/GENERAL: This is an adequately nourished patient, in no apparent distress. TUBES/LINES/DRAINS: SKIN: No jaundice, rashes, or lesions. . Skin temperature appropriate. Not diaphoretic. HEAD: L periorbital echymoses Normocephalic. EYES: Pupils equal and round and reactive. Extraocular motions intact. No scleral icterus. No injection or drainage. Fundi not examined. ENT: Hearing not tested Nose without bleeding or purulent drainage. Throat without visible erythema, exudates, masses, or lesions. CARDIOVASCULAR: Regular rate and rhythm without murmurs, gallops, or rubs. No JVD. Peripheral pulses symmetric. RESPIRATORY/CHEST: Symmetric, unlabored respirations. Clear to auscultation. Breath sounds equal bilaterally. No wheezes, rales, or rhonchi. GASTROINTESTINAL: Abdomen soft, non-tender, nondistended. No hepato-splenomegaly , or palpable masses. No guarding. Bowel sounds present. GENITOURINARY: Without palpable bladder distension. MUSCULOSKELETAL: Extremities without clubbing, cyanosis, + b/l significant onychomycosis LLE prominen t erythema, edema. Extremiety does not appear to be tendet topalpation LYMPHATICS: No palpable cervical or supraclavicular adenopathy. NEUROLOGICAL: Awake and alert. Non verbal. Monimally interactive. Moves all extremities. PSYCHIATRIC: unable to assess Laboratory Laboratory Tests Test 01/31/17 16:00 01/31/17 16:15 02/01/17 05:23 Lactic Acid Level 1.6 Phenytoin (Dilantin) Level 14.3 Blood Urea Nitrogen 16 Creatinine 1.24 Random Glucose 99 Calcium Level 8.3 Magnesium Level 2.1 Sodium Level 141 Potassium Level 3.9 Chloride Level 111 Carbon Dioxide Level 20.2 Anion Gap 10 Estimat Glomerular Filtration Rate 59 Date/Time Source Procedure Growth Status 01/31/17 12:00 Blood Peripheral Aerobic Blood Culture - Preliminary NO GROWTH IN 1 DAY Resulted 01/31/17 12:00 Blood Peripheral Anaerobic Blood Culture - Preliminary NO GROWTH IN 1 DAY Resulted 01/31/17 13:45 Urine Catheterized Urine Urine Culture - Preliminary NO GROWTH IN 24 HOURS. Resulted Result Diagram: 01/31/17 1210 02/01/17 0523 Imaging Last Impressions Chest X-Ray 01/31/17 1126 Signed Impressions: Service Date/Time: , January 31, 2017 11:52 - CONCLUSION: Scattered interstitial nodular opacity particularly within the right upper lobe is new from the prior exam of 2013. This could relate to chronic interstitial changes. I cannot exclude acute developing infiltrate. Consider followup studies to document stability. Cardiomegaly. Alfa Ugarte Jr., MD Lower Extremity Ultrasound 01/31/17 1115 Signed Impressions: Service Date/Time: January 11:37 - CONCLUSION: Normal examination. Carlos Turner MD Assessment and Plan Assessment and Plan Leukocytosis , leukemoid reaction Severe LLE cellulitis - most obvious source ? UTI PATRICIA Non verbal pt with severe mental disability cont current abx fu P blood clx fu urine clx monitor WBC Colleen Page MD Feb 01, 2017 15:34
[2017-02-01 16:00] VITALS: BP 142/65; PULSE 100; RESP 17; TEMP 97.2; O2SAT 98
--- NOTE | 2017-02-01 16:56 | HHI.PR ---
Subjective Remarks Pt doesn't really say much except for "where is my car". He has a toy car that he likes to hold. Currently on restraints as he has pulled TELE monitor and IVs. He keps pulling his clothes off as well. Discussed w RN, ativan works better than Hadol. Objective Vitals Vital Signs Date Time Temp Pulse Resp B/P (MAP) Pulse Ox O2 Delivery O2 Flow Rate FiO2 02/01/17 12:00 98.2 138 17 139/75 (96) 98 02/01/17 04:00 98.6 74 17 129/88 (102) 96 02/01/17 00:00 97.7 58 18 117/61 (79) 96 01/31/17 20:00 98.0 114 17 103/65 (78) 96 01/31/17 17:00 97.2 107 19 159/58 (91) I/O 01/31/17 01/31/17 01/31/17 02/01/17 02/01/17 02/01/17 07:00 15:00 23:00 07:00 15:00 23:00 Intake Total 3350 ml 240 ml 1063 ml Output Total 950 ml Balance 3350 ml -710 ml 1063 ml Intake Oral 240 ml 120 ml IV Total 3350 ml 943 ml Output Urine Total 950 ml # Voids 3 # Bowel Movements 4 Result Diagram: 01/31/17 1210 02/01/17 0523 Imaging Last Impressions Chest X-Ray 01/31/17 1126 Signed Impressions: Service Date/Time: January 11:52 - CONCLUSION: Scattered interstitial nodular opacity particularly within the right upper lobe is new from the prior exam of 2013. This could relate to chronic interstitial changes. I cannot exclude acute developing infiltrate. Consider followup studies to document stability. Cardiomegaly. Alfa Ugarte Jr., MD Lower Extremity Ultrasound 01/31/17 1115 Signed Impressions: Service Date/Time: January 11:37 - CONCLUSION: Normal examination. Carlos Turner MD Objective Remarks GENERAL: This is an unkempt male in NAD SKIN: Left lower extremity with some excoriations and erythema below the knee with swelling and warmth. some bruising noted on chest where TELE pads were located. ENT: Nose without drainage. Airway patent. NECK: Trachea midline. No JVD or lymphadenopathy. Supple, nontender, no meningeal signs. CARDIOVASCULAR: Regular rate and rhythm without murmurs. RESPIRATORY: Clear to auscultation. Breath sounds equal bilaterally. No wheezes , rales, or rhonchi. GASTROINTESTINAL: Abdomen soft, non-tender, nondistended. No hepato-splenomegaly , or palpable masses. No guarding. MUSCULOSKELETAL: mild edema on the left lower extremity NEUROLOGICAL: Awake. Motor is grossly intact. it is hard to do a neurological exam since patient does not follow command. A/P Assessment and Plan 57-year-old male with recent mental retardation, seizure disorder and bipolar disorder who presented with left lower extremity edema, erythema, warmth Sepsis -Source left lower extremity cellulitis. WBC 26,000, tachycardia 1:15, lactic acid 3.0. UA suggesting UTI. Urine cultures obtained. Chest x-ray showed scattered interstitial nodule in the upper right upper lobe was suggest a new infiltrate versus chronic interstitial lung disease. will repeat chest x-ray in AM -on vancomycin and Zosyn in the emergency department. if no improvement will consult ID. -Blood Cultures neg x 1 day -Continue to monitor clinically. Left lower extremity cellulitis -Will continue with vancomycin and Zosyn. Continue to monitor clinically. History of seizure disorder, bipolar disorder, mental retardation, orthostatic hypotension, hypertension, chronic kidney disease, chronic UTIs, history of DVT -Patient med list is not updated. RN will try again to contact date night caregiver or pharmacy -Once completed can do med reconciliation. -Dilantin level wnl and Keppra level pending Left eye ecchymosis -DCF is involved. Consult case management. DVT prophylaxis -Patient is on Xarelto. Discharge Planning Pt still requiring restraints. switch hadol to IV/IM ativan as this seems to work better. Will try to obtain sitter if available. Lois Jacobo MD Feb 01, 2017 16:56
[2017-02-01] MEDS ORDERED: CLON1TAB PO (19:46)
[2017-02-01] MEDS ORDERED: LEVE750T8 PO (19:48)
[2017-02-01 20:00] VITALS: BP 141/86; PULSE 82; RESP 18; TEMP 96.9; O2SAT 95
[2017-02-01] MEDS ORDERED: PHEN200C3 PO (20:01)
[2017-02-01] MEDS ORDERED: XARE20TA PO (20:01)
[2017-02-01] MEDS ORDERED: ESCI20TA PO (20:01)
[2017-02-01] MEDS ORDERED: DILA100C PO (20:01)
[2017-02-02] VITALS: BP 170/95; PULSE 120; RESP 18; TEMP 98.7; O2SAT 96
--- NOTE | 2017-02-02 01:18 | EKG ---
Date Performed: 01/31/2017 Time Performed: 14:04:03 PTAGE: 66 years EKG: ATRIAL FLUTTER/TACHYCARDIA WITH RAPID VENTRICULAR RESPONSE INTRAVENTRICULAR CONDUCTION JOE Y LEFT VENTRICULAR HYPERTROPHY AND ST-T CHANGE ABNORMAL ECG PREVIOUS TRACING : 09/03/2013 13.57 Compared to the previous tracing, rate has increased DOCTOR: Mao Stewart Interpretating Date/Time 02/02/2017 01:16:24
[2017-02-02] MEDS: PIPERACIL-TAZO 3.375 GM PREMIX 50 ML IV SCH ×3 (05:27→17:57)
[2017-02-02] MEDS: SODIUM CHLOR 0.45% 1000 ML INJ 1,000 ML IV SCH ×4 (05:28→22:18)
--- NOTE | 2017-02-02 06:45 | RADRPT ---
EXAM DATE/TIME: 02/02/2017 05:24 [facility] COMPARISON: CHEST SINGLE AP, January 31, 2017, 11:52. INDICATIONS : Infiltrate. MEDICAL HISTORY : Hypertension. SURGICAL HISTORY : None. ENCOUNTER: Subsequent ACUITY: 1 day PAIN SCORE: Non-responsive. LOCATION: Bilateral chest FINDINGS: A single view of the chest demonstrates cardiomegaly with mild edema pattern. There is also some cons olidation in the right upper lobe. Trace pleural fluid. No pneumothorax. CONCLUSION: 1. Cardiomegaly with mild edema pattern. Airspace disease in right upper lobe could represent superim posed pneumonia. Mike Naik MD on February 02, 2017 at 6:41 Board Certified Radiologist. This report was verified electronically.
[2017-02-02 08:00] VITALS: BP 136/91; PULSE 126; RESP 17; TEMP 99.2; O2SAT 95
[2017-02-02] MEDS: LORazepam 2 MG/ML VIAL IV PUSH PRN (09:29)
[2017-02-02] MEDS: DOCUSATE SODIUM 50 MG/SENNA 8.6 MG TAB PO SCH ×2 (09:29→20:58)
[2017-02-02 10:00] VITALS: PULSE 113
[2017-02-02 12:00] VITALS: BP 123/89; PULSE 121; RESP 18; TEMP 97.3; O2SAT 94
--- NOTE | 2017-02-02 14:01 | HHI.PR ---
Subjective Remarks Pt doesn't talk much to me. Doesn't want his toy car. A bit agitated but not violent Objective Vitals Vital Signs Date Time Temp Pulse Resp B/P (MAP) Pulse Ox O2 Delivery O2 Flow Rate FiO2 02/02/17 12:00 97.3 121 18 123/89 (100) 94 02/02/17 10:00 113 02/02/17 08:00 99.2 126 17 136/91 (106) 95 02/02/17 00:00 98.7 120 18 170/95 (120) 96 02/01/17 20:00 96.9 82 18 141/86 (104) 95 02/01/17 16:00 97.2 100 17 142/65 (90) 98 I/O 02/01/17 02/01/17 02/01/17 02/02/17 02/02/17 02/02/17 07:00 15:00 23:00 07:00 15:00 23:00 Intake Total 1063 ml 120 ml 340 ml Output Total 800 ml 600 ml Balance 1063 ml -680 ml -260 ml Intake Oral 120 ml 120 ml 240 ml IV Total 943 ml 100 ml Output Urine Total 800 ml 600 ml # Voids 3 Result Diagram: 01/31/17 1210 02/01/17 0523 Imaging Last Impressions Chest X-Ray 02/02/17 0000 Signed Impressions: Service Date/Time: Thursday, February 02, 2017 05:24 - CONCLUSION: 1. Cardiomegaly with mild edema pattern. Airspace disease in right upper lobe could represent superimposed pneumonia. Mike Naik MD Lower Extremity Ultrasound 01/31/17 1115 Signed Impressions: Service Date/Time: January 11:37 - CONCLUSION: Normal examination. Carlos Turner MD Objective Remarks GENERAL: This is an unkempt male in NAD SKIN: Left lower extremity with some excoriations and erythema below the knee with swelling and warmth. some bruising noted on chest where TELE pads were located but are fading. ENT: Airway patent. NECK: Trachea midline. No JVD or lymphadenopathy. Supple, nontender, no meningeal signs. CARDIOVASCULAR: Regular rate and rhythm without murmurs. RESPIRATORY: Clear to auscultation. Breath sounds equal bilaterally. No wheezes , rales, or rhonchi. GASTROINTESTINAL: Abdomen soft, non-tender, nondistended. No hepato-splenomegaly , or palpable masses. No guarding. MUSCULOSKELETAL: mild edema on the left lower extremity, erythema much improved. NEUROLOGICAL: Awake. Motor is grossly intact. it is hard to do a neurological exam since patient does not follow command. A/P Assessment and Plan 57-year-old male with recent mental retardation, seizure disorder and bipolar disorder who presented with left lower extremity edema, erythema, warmth Sepsis -Source left lower extremity cellulitis. WBC 26,000, tachycardia 115, lactic acid 3.0. UA suggesting UTI. Urine cultures obtained. Chest x-ray showed scattered interstitial nodule in the upper right upper lobe was suggest a new infiltrate versus chronic interstitial lung disease. Repeat chest x-ray airspace disease w ? superimposed PNA. Pt on abx. -on vancomycin and Zosyn in the emergency department. ID following and recommends continuing abx. -Blood Cultures neg x 2 days and urine cx neg x 48hrs -Continue to monitor clinically. Left lower extremity cellulitis -continue with vancomycin and Zosyn. monitor clinically. He is improving. repeat CBC in AM History of seizure disorder, bipolar disorder, mental retardation, orthostatic hypotension, hypertension, chronic kidney disease, chronic UTIs, history of DVT -I have restarted pt's home meds -Dilantin level wnl and Keppra level pending Left eye ecchymosis -DCF is involved. case management consulted. DVT prophylaxis -Patient is on Xarelto. Discharge Planning Pt still requiring restraints. repeat labs in AM Lois Jacobo MD Feb 02, 2017 14:01
[2017-02-02] MEDS: VANCOMYCIN INJ 1,750 MG in SODIUM CHLORID 0.9% 500 ML INJ 500 ML IV SCH (14:47)
[2017-02-02] MEDS: LORazepam 2 MG/ML VIAL IM PRN (14:55)
[2017-02-02 16:00] VITALS: BP 147/88; PULSE 125; RESP 19; TEMP 96.6
[2017-02-02 16:33] LABS: HEMATOCRIT 33.8 % (39.0-51.0); MEAN CELL VOLUME 91.8 FL (80.0-100.0); MEAN CORPUSCULAR HEMOGLOBIN 29.5 PG (27.0-34.0); MEAN CORPUSCULAR HGB CONC 32.1 % (32.0-36.0); PLATELET COUNT 155 TH/MM3 (150-450); RED BLOOD COUNT 3.68 MIL/MM3 (4.50-5.90); RED CELL DISTRIBUTION WIDTH 14.2 % (11.6-17.2); REVIEW FLAG FINAL; WHITE BLOOD COUNT 16.4 TH/MM3 (4.0-11.0)
[2017-02-02] MEDS ORDERED: METOPROLOL TARTRATE 25 MG TAB PO ONE (17:30)
[2017-02-02] MEDS: SODIUM CHLORIDE 0.9% FLUSH 10 ML FLUSH IV FLUSH SCH ×2 (17:55→20:57)
[2017-02-02] MEDS: PHENYTOIN SODIUM 100 MG CAP PO SCH (17:55)
--- NOTE | 2017-02-02 18:47 | HHI.IDPN ---
Subjective Subjective Remarks no fever urine, blood clx negative @ 48 hrs Antibiotics zosyn vancomycin Allergies: Coded Allergies: gabapentin (Verified Allergy, Unknown, 01/31/17) thioridazine (Verified Allergy, Unknown, 01/31/17) sulfamethoxazole (Verified Adverse Reaction, Severe, 01/31/17) trimethoprim (Verified Adverse Reaction, Severe, 01/31/17) Objective . Vital Signs Date Time Temp Pulse Resp B/P (MAP) Pulse Ox O2 Delivery O2 Flow Rate FiO2 02/02/17 16:00 96.6 125 19 147/88 (107) 02/02/17 12:00 97.3 121 18 123/89 (100) 94 02/02/17 10:00 113 02/02/17 08:00 99.2 126 17 136/91 (106) 95 02/02/17 00:00 98.7 120 18 170/95 (120) 96 02/01/17 20:00 96.9 82 18 141/86 (104) 95 02/02/17 02/02/17 02/03/17 15:00 23:00 07:00 Intake Total 140 ml Output Total 200 ml Balance -60 ml Intake Oral 140 ml Output Urine Total 200 ml # Voids 2 # Bowel Movements 2 . Laboratory Tests Test 02/02/17 16:25 White Blood Count 16.4 TH/MM3 Red Blood Count 3.68 MIL/MM3 Hemoglobin 10.9 GM/DL Hematocrit 33.8 % Mean Corpuscular Volume 91.8 FL Mean Corpuscular Hemoglobin 29.5 PG Mean Corpuscular Hemoglobin Concent 32.1 % Red Cell Distribution Width 14.2 % Platelet Count 155 TH/MM3 Mean Platelet Volume 7.8 FL Laboratory Tests Test 02/01/17 05:23 Blood Urea Nitrogen 16 MG/DL Creatinine 1.24 MG/DL Random Glucose 99 MG/DL Calcium Level 8.3 MG/DL Magnesium Level 2.1 MG/DL Sodium Level 141 MEQ/L Potassium Level 3.9 MEQ/L Chloride Level 111 MEQ/L Carbon Dioxide Level 20.2 MEQ/L Anion Gap 10 MEQ/L Estimat Glomerular Filtration Rate 59 ML/MIN Microbiology Date/Time Source Procedure Growth Status 01/31/17 12:00 Blood Peripheral Aerobic Blood Culture - Preliminary NO GROWTH IN 2 DAYS Resulted 01/31/17 12:00 Blood Peripheral Anaerobic Blood Culture - Preliminary NO GROWTH IN 2 DAYS Resulted 01/31/17 12:00 Blood Peripheral Aerobic Blood Culture - Preliminary NO GROWTH IN 2 DAYS Resulted 01/31/17 12:00 Blood Peripheral Anaerobic Blood Culture - Preliminary NO GROWTH IN 2 DAYS Resulted 01/31/17 13:45 Urine Catheterized Urine Urine Culture - Final NO GROWTH IN 48 HOURS. Complete Imaging Last Impressions Chest X-Ray 02/02/17 0000 Signed Impressions: Service Date/Time: Thursday, February 02, 2017 05:24 - CONCLUSION: 1. Cardiomegaly with mild edema pattern. Airspace disease in right upper lobe could represent superimposed pneumonia. Mike Naik MD Lower Extremity Ultrasound 01/31/17 1115 Signed Impressions: Service Date/Time: January 11:37 - CONCLUSION: Normal examination. Carlos Turner MD Physical Exam CONSTITUTIONAL/GENERAL: This is an adequately nourished patient, in no apparent distress. TUBES/LINES/DRAINS: SKIN: No jaundice, rashes, or lesions. . CARDIOVASCULAR: Regular rate and rhythm without murmurs, gallops, or rubs. No JVD. Peripheral pulses symmetric. RESPIRATORY/CHEST: Symmetric, unlabored respirations. Clear to auscultation. Breath sounds equal bilaterally. No wheezes, rales, or rhonchi. GASTROINTESTINAL: Abdomen soft, non-tender, nondistended. No hepato-splenomegaly , or palpable masses. No guarding. Bowel sounds present. GENITOURINARY: Without palpable bladder distension. MUSCULOSKELETAL: Extremities without clubbing, cyanosis, + b/l significant onychomycosis LLE with significantly improved erythema, edema. Extremiety does not appear to be tendet topalpation NEUROLOGICAL: Awake and alert. Non verbal. Monimally interactive. Moves all extremities. PSYCHIATRIC: unable to assess Assessment & Plan Remarks Leukocytosis , leukemoid reaction Severe LLE cellulitis - most obvious source improved no e/o UTI PATRICIA Non verbal pt with severe mental disability dc zosyn, cont vancomycin monitor blood clx untill final anticipate transition to oral abx Colleen Page MD Feb 02, 2017 18:47
[2017-02-02 20:00] VITALS: BP 129/91; PULSE 126; RESP 22; TEMP 99.1; O2SAT 95
[2017-02-02] MEDS: clonazePAM 1 MG TAB PO SCH (20:58)
[2017-02-02] MEDS: METOPROLOL TARTRATE 25 MG TAB PO SCH (20:58)
[2017-02-03] VITALS (12 sets, daily range): BP systolic 102–153; BP diastolic 74–101; PULSE 86–131; RESP 16–22; TEMP 96–99.8; O2SAT 94–100
[2017-02-03] MEDS: SODIUM CHLOR 0.45% 1000 ML INJ 1,000 ML IV SCH ×3 (06:33→22:47)
[2017-02-03 07:23] LABS: AUTOMATED NEUTROPHIL # 11.8 TH/MM3 (1.8-7.7); BASOPHIL # 0.1 TH/MM3 (0-0.2); BASOPHIL % 0.5 % (0.0-2.0); EOSINOPHIL # 0.1 TH/MM3 (0-0.4); EOSINOPHIL % 0.5 % (0.0-4.0); HEMATOCRIT 33.3 % (39.0-51.0); HEMO FLAGS DIFF FINAL; LYMPH % 8.5 % (9.0-44.0); LYMPHOCYTE # 1.2 TH/MM3 (1.0-4.8); MEAN CELL VOLUME 93.4 FL (80.0-100.0); MEAN CORPUSCULAR HEMOGLOBIN 30.2 PG (27.0-34.0); MEAN CORPUSCULAR HGB CONC 32.3 % (32.0-36.0); MONO % 7.9 % (0.0-8.0); NEUT % 82.6 % (16.0-70.0); PLATELET COUNT 168 TH/MM3 (150-450); RED BLOOD COUNT 3.56 MIL/MM3 (4.50-5.90); RED CELL DISTRIBUTION WIDTH 14.1 % (11.6-17.2); WHITE BLOOD COUNT 14.3 TH/MM3 (4.0-11.0)
[2017-02-03 07:34] LABS: POTASSIUM 4.5 MEQ/L (3.5-5.1)
[2017-02-03 07:37] LABS: BICARBONATE 15.4 MEQ/L (21.0-32.0)
[2017-02-03] MEDS ORDERED: PHENYTOIN SODIUM 100 MG CAP PO SCH (08:00)
[2017-02-03] MEDS: DOCUSATE SODIUM 50 MG/SENNA 8.6 MG TAB PO SCH ×2 (09:00→21:14)
--- NOTE | 2017-02-03 09:21 | EKG ---
Date Performed: 02/02/2017 Time Performed: 19:29:37 PTAGE: 66 years EKG: ATRIAL FLUTTER/TACHYCARDIA WITH RAPID VENTRICULAR RESPONSE MARKED LEFT AXIS DEVIATION INTRA VENTRICULAR CONDUCTION DELAY ABNORMAL ECG PREVIOUS TRACING : 01/31/2017 14.04 DOCTOR: Michael Quan Interpretating Date/Time 02/03/2017 09:19:39
[2017-02-03] MEDS: levETIRAcetam 250 MG TAB PO SCH (10:39)
[2017-02-03] MEDS: clonazePAM 1 MG TAB PO SCH ×2 (10:41→21:14)
[2017-02-03] MEDS: PHENYTOIN SODIUM 100 MG CAP PO SCH ×3 (10:41→16:02)
[2017-02-03] MEDS: SODIUM CHLORIDE 0.9% FLUSH 10 ML FLUSH IV FLUSH SCH ×2 (10:41→21:00)
[2017-02-03] MEDS: METOPROLOL TARTRATE 25 MG TAB PO SCH ×2 (10:42→21:14)
[2017-02-03] MEDS: RIVAROXABAN 20 MG TAB PO SCH (10:42)
[2017-02-03] MEDS: ESCITALOPRAM OXALATE 20 MG TAB PO SCH (10:47)
[2017-02-03] MEDS: VANCOMYCIN INJ 1,750 MG in SODIUM CHLORID 0.9% 500 ML INJ 500 ML IV SCH (10:47)
[2017-02-03] MEDS ORDERED: DILTIAZEM HCL 25 MG/5 ML VIAL IV PUSH ONE (11:00)
[2017-02-03] MEDS: LORazepam 2 MG/ML VIAL IM PRN (11:45)
--- NOTE | 2017-02-03 11:58 | HHI.PR ---
Subjective Remarks Pt doesn't say much to me, holds his toy car in hand. Discussed w RN, still requiring restraints. Objective Vitals Vital Signs Date Time Temp Pulse Resp B/P (MAP) Pulse Ox O2 Delivery O2 Flow Rate FiO2 02/03/17 08:00 96.0 129 18 137/101 (113) 100 02/03/17 00:00 99.8 123 22 129/87 (101) 95 02/02/17 20:00 99.1 126 22 129/91 (104) 95 02/02/17 16:00 96.6 125 19 147/88 (107) 02/02/17 12:00 97.3 121 18 123/89 (100) 94 I/O 02/02/17 02/02/17 02/02/17 02/03/17 02/03/17 02/03/17 07:00 15:00 23:00 07:00 15:00 23:00 Intake Total 340 ml 1140 ml 1000 ml Output Total 600 ml 200 ml 400 ml Balance -260 ml 940 ml 600 ml Intake Oral 240 ml 140 ml 0 ml IV Total 100 ml 1000 ml 1000 ml Output Urine Total 600 ml 200 ml 400 ml # Voids 2 2 # Bowel Movements 2 2 Result Diagram: 02/03/17 0645 02/03/17 0645 Imaging Last Impressions Chest X-Ray 02/02/17 0000 Signed Impressions: Service Date/Time: Thursday, February 02, 2017 05:24 - CONCLUSION: 1. Cardiomegaly with mild edema pattern. Airspace disease in right upper lobe could represent superimposed pneumonia. Mike Naik MD Lower Extremity Ultrasound 01/31/17 1115 Signed Impressions: Service Date/Time: January 11:37 - CONCLUSION: Normal examination. Carlos Turner MD Objective Remarks GENERAL: This is an unkempt male in NAD SKIN: Left lower extremity with some excoriations and minimal erythema below the knee but much improved. some bruising noted on chest where TELE pads were located but are fading. ENT: Airway patent. NECK: Trachea midline. No JVD or lymphadenopathy. Supple, nontender, no meningeal signs. CARDIOVASCULAR: tachycardic, appears regular. RESPIRATORY: Clear to auscultation. Breath sounds equal bilaterally. No wheezes GASTROINTESTINAL: Abdomen soft, non-tender, nondistended. No hepato-splenomegaly , or palpable masses. No guarding. MUSCULOSKELETAL: mild edema on the left lower extremity, erythema much improved. NEUROLOGICAL: Awake. Motor is grossly intact. it is hard to do a neurological exam since patient does not follow command. A/P Assessment and Plan 57-year-old male with recent mental retardation, seizure disorder and bipolar disorder who presented with left lower extremity edema, erythema, warmth Sepsis -Source left lower extremity cellulitis. WBC 26,000, tachycardia 115, lactic acid 3.0. UA suggesting UTI. Urine cultures obtained. Chest x-ray showed scattered interstitial nodule in the upper right upper lobe was suggest a new infiltrate versus chronic interstitial lung disease. Repeat chest x-ray airspace disease w ? superimposed PNA. Pt on abx. -on vancomycin, ID has stopped Zosyn. appreciate recs -Blood Cultures neg x 2 days and urine cx neg x 48hrs -Continue to monitor clinically. Left lower extremity cellulitis -continue with vancomycin. monitor clinically. He is improving. repeat CBC in AM History of seizure disorder, bipolar disorder, mental retardation, orthostatic hypotension, hypertension, chronic kidney disease, chronic UTIs, history of DVT -I have restarted pt's home meds -Dilantin level wnl and Keppra level wnl Atrial flutter Reviewed EKG and shows atrial flutter, it has been difficult to keep TELE on however will try mittens in addition to soft restraints. will transfer pt to [facility] or any floor capable to managing pt w cardizem gtt. will give one time dose IV of cardizem and start a drip. will consult cardiology for further recs. Left eye ecchymosis -DCF is involved. case management consulted. DVT prophylaxis -Patient is on Xarelto. Discharge Planning Pt still requiring restraints. transfer pt and start pt on a cardizem IV gtt. Monitor pt closely. Lois Jacobo MD Feb 03, 2017 11:58
[2017-02-03] MEDS: DILTIAZEM INJ 125 MG in SODIUM CHLORIDE 0.9% INJ 100 ML IV PRN ×2 (16:02→23:12)
[2017-02-03] MEDS ORDERED: METOPROLOL TARTRATE 5 MG/5 ML VIAL ONE (16:36)
[2017-02-03] MEDS ORDERED: METOPROLOL TARTRATE 5 MG/5 ML VIAL IV PUSH ONE (16:45)
[2017-02-03] MEDS ORDERED: DILTIAZEM HCL 25 MG/5 ML VIAL IV ONE (17:15)
--- NOTE | 2017-02-03 17:59 | MB ---
cc: [facility] DATE OF CONSULTATION: 02/03/2017. REASON FOR CONSULTATION: Cardiology electrophysiology consultation for atrial flutter with fast ventricular response. HISTORY OF PRESENT ILLNESS: Mr. Weldon is a 66-year-old gentleman with mental retardation admitted due to lower extremity cellulitis and sepsis. He has chronic kidney disease, peripheral vascular disease and high blood pressure as well as seizures also. During hospitalization, he developed atrial flutter with fast ventricular response. Heart rate difficult to control. I was consulted for evaluation. The chart was reviewed. The patient was evaluated. Most of the information was obtained from the medical record and after conversation with the nurse and Dr. Jacobo also. ALLERGIES: 1. NEURONTIN. 2. MELLARIL. 3. SEPTRA. 4. THIORIDAZINE. SOCIAL HISTORY: The gentleman never smoked or drank. He is living in a assisted. FAMILY HISTORY: Noncontributory to his current medical condition. MEDICATIONS: Currently he is on: 1. Cardizem IV. 2. Piperacillin / Tazobactam. 3. Vancomycin. 4. Clonazepam. 5. Keppra. 6. Ativan. 7. Magnesium. 8. Metoprolol. REVIEW OF SYSTEMS: A review of systems cannot be performed as the patient has no verbal communication. PHYSICAL EXAMINATION: GENERAL: Alert. VITAL SIGNS: Blood pressure 141/97, pulse 130, LUNGS: Ventilated. CARDIOVASCULAR: S1-S2 irregular. ABDOMEN: Abdomen soft. EXTREMITIES: No edema. No redness. The patient is in four extremity restraints. LABS: Hemoglobin is 10.7, white blood cell 14.3. Potassium 4.5, creatinine 1.16. INR 1.2. EKGS: Electrocardiogram - the last one from yesterday indicated atrial flutter, diffuse S-T changes. ASSESSMENT AND RECOMMENDATIONS Mr. Weldon's heart rate is very high. I did administer a bolus of 5 mg of IV Lopressor. His rate is coming down to around 89. If necessary, a bolus of Cardizem will be given. Will continue on Cardizem IV. The objective at this point is to control heart rate. If the heart rate cannot be controlled, then I will consider possible ablation. The gentleman is already on Xarelto. His condition is of care. MD OCTAVIO Flores/JCNicki /4:48 PM /5:47 PM
[2017-02-04] VITALS (23 sets, daily range): BP systolic 120–133; BP diastolic 75–98; PULSE 86–126; RESP 18–20; TEMP 98–98.7; O2SAT 96–100
[2017-02-04] MEDS: SODIUM CHLOR 0.45% 1000 ML INJ 1,000 ML IV SCH ×3 (05:52→21:50)
[2017-02-04] MEDS: ESCITALOPRAM OXALATE 20 MG TAB PO SCH (08:29)
[2017-02-04] MEDS: levETIRAcetam 250 MG TAB PO SCH (08:29)
[2017-02-04] MEDS: METOPROLOL TARTRATE 25 MG TAB PO SCH ×2 (08:29→21:49)
[2017-02-04] MEDS: RIVAROXABAN 20 MG TAB PO SCH (08:30)
[2017-02-04] MEDS: DOCUSATE SODIUM 50 MG/SENNA 8.6 MG TAB PO SCH ×2 (08:30→21:49)
[2017-02-04] MEDS: SODIUM CHLORIDE 0.9% FLUSH 10 ML FLUSH IV FLUSH SCH ×2 (08:30→21:00)
[2017-02-04] MEDS: PHENYTOIN SODIUM 100 MG CAP PO SCH ×3 (08:30→17:20)
[2017-02-04] MEDS: clonazePAM 1 MG TAB PO SCH ×2 (08:30→21:49)
[2017-02-04] MEDS: DILTIAZEM INJ 125 MG in SODIUM CHLORIDE 0.9% INJ 100 ML IV PRN (08:41)
[2017-02-04 09:05] LABS: AUTOMATED NEUTROPHIL # 7.7 TH/MM3 (1.8-7.7); BASOPHIL # 0.1 TH/MM3 (0-0.2); BASOPHIL % 0.6 % (0.0-2.0); EOSINOPHIL # 0.1 TH/MM3 (0-0.4); EOSINOPHIL % 1.2 % (0.0-4.0); HEMATOCRIT 31.9 % (39.0-51.0); HEMO FLAGS DIFF FINAL; LYMPH % 19.2 % (9.0-44.0); LYMPHOCYTE # 2.1 TH/MM3 (1.0-4.8); MEAN CELL VOLUME 91.9 FL (80.0-100.0); MEAN CORPUSCULAR HEMOGLOBIN 30.2 PG (27.0-34.0); MEAN CORPUSCULAR HGB CONC 32.9 % (32.0-36.0); MONO % 9.8 % (0.0-8.0); NEUT % 69.2 % (16.0-70.0); PLATELET COUNT 198 TH/MM3 (150-450); RED BLOOD COUNT 3.47 MIL/MM3 (4.50-5.90); WHITE BLOOD COUNT 11.1 TH/MM3 (4.0-11.0)
--- NOTE | 2017-02-04 09:43 | HHI.PR ---
Subjective Remarks Pt stays quiet this morning, looks at me then turns his head Discussed w RN, Pt converted to sinus rhythm this morning but still in the 100' s. pt still requiring IV cardizem at 15ml/hr. Objective Vitals Vital Signs Date Time Temp Pulse Resp B/P (MAP) Pulse Ox O2 Delivery O2 Flow Rate FiO2 02/04/17 09:00 95 02/04/17 08:41 115 148/96 02/04/17 08:00 94 02/04/17 07:00 98 02/04/17 07:00 98.7 86 18 128/75 (92) 96 02/04/17 06:00 108 02/04/17 05:00 100 02/04/17 04:00 102 02/04/17 03:30 100 123/92 02/04/17 03:00 101 02/04/17 03:00 100 18 123/92 (102) 98 02/04/17 02:00 100 02/04/17 01:00 98 02/04/17 00:00 100 02/03/17 23:12 90 102/77 02/03/17 23:10 86 102/77 02/03/17 23:00 104 02/03/17 23:00 90 16 102/77 (85) 94 02/03/17 22:00 98 02/03/17 21:00 96 02/03/17 20:00 96 02/03/17 19:30 97.8 97 18 138/74 (95) 98 02/03/17 19:00 114 02/03/17 18:10 127 132/82 02/03/17 18:00 104 02/03/17 17:15 85 126/82 02/03/17 17:00 86 02/03/17 16:45 130 118/78 02/03/17 16:25 131 138/88 02/03/17 16:02 130 141/97 02/03/17 16:00 98.2 131 16 153/94 (113) 100 02/03/17 16:00 131 02/03/17 12:00 97.2 130 19 131/95 (107) 94 I/O 02/03/17 02/03/17 02/03/17 02/04/17 02/04/17 02/04/17 07:00 15:00 23:00 07:00 15:00 23:00 Intake Total 1000 ml 1000 ml 1420 ml Output Total 400 ml 700 ml Balance 600 ml 1000 ml 720 ml Intake Oral 0 ml 240 ml IV Total 1000 ml 1000 ml 1180 ml Output Urine Total 400 ml 700 ml # Voids 2 # Bowel Movements 2 1 Result Diagram: 02/04/17 0838 02/03/17 0645 Imaging Last Impressions Chest X-Ray 02/02/17 0000 Signed Impressions: Service Date/Time: Thursday, February 02, 2017 05:24 - CONCLUSION: 1. Cardiomegaly with mild edema pattern. Airspace disease in right upper lobe could represent superimposed pneumonia. Mike Naik MD Lower Extremity Ultrasound 01/31/17 1115 Signed Impressions: Service Date/Time: January 11:37 - CONCLUSION: Normal examination. Carlos Turner MD Objective Remarks GENERAL: This is an unkempt male in NAD SKIN: Left lower extremity with some excoriations and minimal erythema below the knee but much improved. some bruising noted on chest where TELE pads were located but are fading. ENT: Airway patent. NECK: Trachea midline. No JVD or lymphadenopathy. CARDIOVASCULAR: tachycardic, appears regular. RESPIRATORY: Clear to auscultation. Breath sounds equal bilaterally. No wheezes GASTROINTESTINAL: Abdomen soft, non-tender, nondistended.No guarding. MUSCULOSKELETAL: mild edema on the left lower extremity, erythema much improved. NEUROLOGICAL: Awake. Motor is grossly intact. it is hard to do a neurological exam since patient does not follow command. A/P Assessment and Plan 57-year-old male with recent mental retardation, seizure disorder and bipolar disorder who presented with left lower extremity edema, erythema, warmth Sepsis -Source left lower extremity cellulitis. WBC 26,000, tachycardia 115, lactic acid 3.0. UA suggesting UTI. Urine cultures obtained. Chest x-ray showed scattered interstitial nodule in the upper right upper lobe was suggest a new infiltrate versus chronic interstitial lung disease. Repeat chest x-ray airspace disease w ? superimposed PNA. Pt on abx. -on vancomycin, ID has stopped Zosyn. appreciate recs -Blood Cultures neg x 2 days and urine cx neg x 48hrs -Continue to monitor clinically. Left lower extremity cellulitis -continue with vancomycin. monitor clinically. He is improving. repeat CBC in AM History of seizure disorder, bipolar disorder, mental retardation, orthostatic hypotension, hypertension, chronic kidney disease, chronic UTIs, history of DVT -I have restarted pt's home meds -Dilantin level wnl and Keppra level wnl Atrial flutter Reviewed EKG and shows atrial flutter,pt was transferred to [facility] and currently on IV cardizem gtt requiring 15ml/hr. TELE reviewed and shows sinus tachy. Cardiology following. Appreciate recs. Left eye ecchymosis -DCF is involved. case management consulted. DVT prophylaxis -Patient is on Xarelto. Discharge Planning Pt still requiring restraints as he will pull tele leads and try to get out of bed.. Cardiology following for his atria flutter, this morning converted to sinus. awaiting recs from cards and ID Lois Jacobo MD Feb 04, 2017 09:43
[2017-02-04 11:19] LABS: BICARBONATE 19.3 MEQ/L (21.0-32.0); POTASSIUM 4.2 MEQ/L (3.5-5.1)
[2017-02-04 11:22] LABS: VANCOMYCIN TROUGH 11.2 MCG/ML (5.0-10.0)
[2017-02-04] MEDS: VANCOMYCIN INJ 1,750 MG in SODIUM CHLORID 0.9% 500 ML INJ 500 ML IV SCH (11:36)
[2017-02-04] MEDS ORDERED: PHARMACY ORDERED LAB ONE (11:45)
--- NOTE | 2017-02-04 13:18 | HHI.PR ---
Subjective Remarks No verbal communication Objective Vital Signs Date Time Temp Pulse Resp B/P (MAP) Pulse Ox O2 Delivery O2 Flow Rate FiO2 02/04/17 13:00 87 02/04/17 12:00 98 02/04/17 11:00 94 02/04/17 11:00 98.7 98 18 133/82 (99) 98 02/04/17 10:00 97 02/04/17 09:00 95 02/04/17 08:41 115 148/96 02/04/17 08:00 94 02/04/17 07:00 98 02/04/17 07:00 98.7 86 18 128/75 (92) 96 02/04/17 06:00 108 02/04/17 05:00 100 02/04/17 04:00 102 02/04/17 03:30 100 123/92 02/04/17 03:00 101 02/04/17 03:00 100 18 123/92 (102) 98 02/04/17 02:00 100 02/04/17 01:00 98 02/04/17 00:00 100 02/03/17 23:12 90 102/77 02/03/17 23:10 86 102/77 02/03/17 23:00 104 02/03/17 23:00 90 16 102/77 (85) 94 02/03/17 22:00 98 02/03/17 21:00 96 02/03/17 20:00 96 02/03/17 19:30 97.8 97 18 138/74 (95) 98 02/03/17 19:00 114 02/03/17 18:10 127 132/82 02/03/17 18:00 104 02/03/17 17:15 85 126/82 02/03/17 17:00 86 02/03/17 16:45 130 118/78 02/03/17 16:25 131 138/88 02/03/17 16:02 130 141/97 02/03/17 16:00 98.2 131 16 153/94 (113) 100 02/03/17 16:00 131 I/O 02/03/17 02/03/17 02/03/17 02/04/17 02/04/17 02/04/17 06:59 14:59 22:59 06:59 14:59 22:59 Intake Total 1000 ml 1000 ml 1420 ml Output Total 400 ml 700 ml Balance 600 ml 1000 ml 720 ml Intake Oral 0 ml 240 ml IV Total 1000 ml 1000 ml 1180 ml Output Urine Total 400 ml 700 ml # Voids 2 # Bowel Movements 2 1 Result Diagram: 02/04/17 0838 02/04/17 1045 Imaging Alert, in bed, four extremities restraint lungs: ventilated Heart: S1, S2 irregular Abdomen: soft, no mass Ext: no edema Last Impressions Chest X-Ray 02/02/17 0000 Signed Impressions: Service Date/Time: Thursday, February 02, 2017 05:24 - CONCLUSION: 1. Cardiomegaly with mild edema pattern. Airspace disease in right upper lobe could represent superimposed pneumonia. Mike Naik MD Lower Extremity Ultrasound 01/31/17 1115 Signed Impressions: Service Date/Time: January 11:37 - CONCLUSION: Normal examination. Carlos Turner MD Current Medications Medications (Trade) Dose Ordered Sig/Kely Route Start Time Stop Time Status Last Admin Sodium Chloride 1,000 ml @ 125 mls/hr Q8H IV 01/31/17 15:00 02/04/17 05:52 (NS Flush) 2 ml UNSCH PRN IV FLUSH 01/31/17 14:15 (NS Flush) 2 ml BID IV FLUSH 01/31/17 21:00 02/03/17 10:41 (Tylenol) 650 mg Q4H PRN PO 01/31/17 14:15 (Zofran Inj) 4 mg Q6H PRN IVP 01/31/17 14:15 (Narcan Inj) 0.4 mg UNSCH PRN IV 01/31/17 14:15 (Inna-Colace) 1 tab BID PO 01/31/17 21:00 02/04/17 08:30 (Milk Of Magnesia Liq) 30 ml Q12H PRN PO 01/31/17 14:15 (Senokot) 17.2 mg Q12H PRN PO 01/31/17 14:15 (Dulcolax Supp) 10 mg DAILY PRN RECTAL 01/31/17 14:15 (Lactulose Liq) 30 ml DAILY PRN PO 01/31/17 14:15 Pharmacy Profile Note 0 ml @ 0 mls/hr UNSCH OTHER 01/31/17 14:15 Vancomycin HCl 1750 mg/Sodium Chloride 517.5 ml @ 250 mls/hr Q24H IV 02/01/17 12:00 02/04/17 11:36 (Ativan Inj) 1 mg Q4H PRN IM 02/01/17 17:00 02/03/17 11:45 (Ativan Inj) 1 mg Q4H PRN IV PUSH 02/01/17 17:00 02/02/17 09:29 (KlonoPIN) 1 mg BID PO 02/02/17 21:00 02/04/17 08:30 (Lexapro) 20 mg DAILY PO 02/03/17 09:00 02/04/17 08:29 (Keppra) 750 mg DAILY PO 02/03/17 09:00 02/04/17 08:29 (Dilantin) 200 mg TID PO 02/02/17 18:00 02/04/17 08:30 (Xarelto) 20 mg DAILY PO 02/03/17 09:00 02/04/17 08:30 (Lopressor) 25 mg Q12HR PO 02/02/17 21:00 02/04/17 08:29 Diltiazem HCl 125 mg/Sodium Chloride 125 ml @ 5 mls/hr TITRATE PRN IV 02/03/17 11:00 02/04/17 08:41 Assessment and Plan Problem List: (1) Atrial flutter with rapid ventricular response ICD Codes: I48.92 - Unspecified atrial flutter Plan: HR control On IV cardizem cardizem PO will be initiated IV will be Emmanuel Campos MD Feb 04, 2017 13:18
[2017-02-04] MEDS: DILTIAZEM HCL 60 MG TAB PO SCH ×3 (13:36→23:49)
[2017-02-05] VITALS (23 sets, daily range): BP systolic 120–149; BP diastolic 83–100; PULSE 62–132; RESP 20–34; TEMP 97.5–98.7; O2SAT 95–100
[2017-02-05] MEDS: DILTIAZEM HCL 60 MG TAB PO SCH ×3 (05:23→12:00)
[2017-02-05] MEDS: LORazepam 2 MG/ML VIAL IV PUSH PRN ×2 (05:28→17:30)
[2017-02-05] MEDS: SODIUM CHLOR 0.45% 1000 ML INJ 1,000 ML IV SCH ×2 (05:31→12:42)
[2017-02-05] MEDS ORDERED: DILTIAZEM HCL 25 MG/5 ML VIAL IV ONE ×2 (05:45→13:30)
[2017-02-05] MEDS: ESCITALOPRAM OXALATE 20 MG TAB PO SCH ×2 (09:00→10:32)
[2017-02-05] MEDS: METOPROLOL TARTRATE 25 MG TAB PO SCH ×3 (09:00→20:37)
[2017-02-05] MEDS: clonazePAM 1 MG TAB PO SCH ×3 (09:00→20:37)
[2017-02-05] MEDS: DOCUSATE SODIUM 50 MG/SENNA 8.6 MG TAB PO SCH ×3 (09:00→20:37)
[2017-02-05] MEDS: levETIRAcetam 250 MG TAB PO SCH ×2 (09:00→10:32)
[2017-02-05] MEDS: RIVAROXABAN 20 MG TAB PO SCH ×2 (09:00→10:32)
--- NOTE | 2017-02-05 09:00 | PD.CARD.PN ---
Subjective Subjective Remarks 4 point restraint with mittens, nonverbal. Objective Medications Current Medications Medications (Trade) Dose Ordered Sig/Kely Route Start Time Stop Time Status Last Admin Sodium Chloride 1,000 ml @ 125 mls/hr Q8H IV 01/31/17 15:00 02/05/17 05:31 (NS Flush) 2 ml UNSCH PRN IV FLUSH 01/31/17 14:15 (NS Flush) 2 ml BID IV FLUSH 01/31/17 21:00 02/03/17 10:41 (Tylenol) 650 mg Q4H PRN PO 01/31/17 14:15 (Zofran Inj) 4 mg Q6H PRN IVP 01/31/17 14:15 (Narcan Inj) 0.4 mg UNSCH PRN IV 01/31/17 14:15 (Inna-Colace) 1 tab BID PO 01/31/17 21:00 02/04/17 21:49 (Milk Of Magnesia Liq) 30 ml Q12H PRN PO 01/31/17 14:15 (Senokot) 17.2 mg Q12H PRN PO 01/31/17 14:15 (Dulcolax Supp) 10 mg DAILY PRN RECTAL 01/31/17 14:15 (Lactulose Liq) 30 ml DAILY PRN PO 01/31/17 14:15 Pharmacy Profile Note 0 ml @ 0 mls/hr UNSCH OTHER 01/31/17 14:15 Vancomycin HCl 1750 mg/Sodium Chloride 517.5 ml @ 250 mls/hr Q24H IV 02/01/17 12:00 02/04/17 11:36 (Ativan Inj) 1 mg Q4H PRN IM 02/01/17 17:00 02/03/17 11:45 (Ativan Inj) 1 mg Q4H PRN IV PUSH 02/01/17 17:00 02/05/17 05:28 (KlonoPIN) 1 mg BID PO 02/02/17 21:00 02/04/17 21:49 (Lexapro) 20 mg DAILY PO 02/03/17 09:00 02/04/17 08:29 (Keppra) 750 mg DAILY PO 02/03/17 09:00 02/04/17 08:29 (Dilantin) 200 mg TID PO 02/02/17 18:00 02/04/17 17:20 (Xarelto) 20 mg DAILY PO 02/03/17 09:00 02/04/17 08:30 (Lopressor) 25 mg Q12HR PO 02/02/17 21:00 02/04/17 21:49 (Cardizem) 60 mg Q6HR PO 02/04/17 13:30 02/04/17 17:20 Vital Signs / I&O Vital Signs Date Time Temp Pulse Resp B/P (MAP) Pulse Ox O2 Delivery O2 Flow Rate FiO2 02/05/17 06:00 94 02/05/17 05:00 128 02/05/17 04:00 128 02/05/17 04:00 98.2 128 20 139/98 (112) 100 02/05/17 03:00 126 02/05/17 02:00 106 02/05/17 01:00 126 02/05/17 00:00 101 02/05/17 00:00 97.7 78 20 120/86 (97) 96 02/04/17 23:00 98 02/04/17 22:00 104 02/04/17 21:00 126 02/04/17 20:00 98.0 105 20 120/98 (105) 100 02/04/17 20:00 94 02/04/17 18:00 88 02/04/17 17:00 115 02/04/17 16:00 98 02/04/17 15:00 95 02/04/17 15:00 98.5 97 18 133/86 (102) 99 02/04/17 14:00 102 02/04/17 13:00 87 02/04/17 12:00 98 02/04/17 11:00 94 02/04/17 11:00 98.7 98 18 133/82 (99) 98 02/04/17 10:00 97 02/04/17 09:00 95 I/O 02/04/17 02/04/17 02/04/17 02/05/17 02/05/17 02/05/17 06:59 14:59 22:59 06:59 14:59 22:59 Intake Total 1420 ml 2346 ml 120 ml Output Total 700 ml 550 ml 1650 ml Balance 720 ml 1796 ml -1530 ml Intake Oral 240 ml 960 ml 120 ml IV Total 1180 ml 1386 ml Output Urine Total 700 ml 550 ml 1650 ml # Bowel Movements 1 Physical Exam GENERAL: Well-nourished patient lying in bed with restraints on all 4 extremities and mittens on hands. Not responsive to verbal or tactile stimuli, nonverbal. SKIN: Warm and dry. HEAD: Normocephalic. EYES: No scleral icterus. No injection or drainage. CARDIOVASCULAR: Irregular rhythm, controlled rate without murmurs, gallops, or rubs. RESPIRATORY: Breath sounds equal bilaterally. No accessory muscle use. GASTROINTESTINAL: Abdomen soft, nondistended. EXTREMITIES: No cyanosis, or edema. NEUROLOGICAL: Nonresponsive to tactile or verbal stimuli. History of mental retardation. Laboratory Laboratory Tests Test 02/04/17 10:45 Blood Urea Nitrogen 27 MG/DL Creatinine 1.27 MG/DL Random Glucose 123 MG/DL Calcium Level 8.3 MG/DL Sodium Level 145 MEQ/L Potassium Level 4.2 MEQ/L Chloride Level 117 MEQ/L Carbon Dioxide Level 19.3 MEQ/L Anion Gap 9 MEQ/L Estimat Glomerular Filtration Rate 57 ML/MIN Vancomycin Level Trough 11.2 MCG/ML Imaging Last Impressions Chest X-Ray 02/02/17 0000 Signed Impressions: Service Date/Time: Thursday, February 02, 2017 05:24 - CONCLUSION: 1. Cardiomegaly with mild edema pattern. Airspace disease in right upper lobe could represent superimposed pneumonia. Mike Naik MD Lower Extremity Ultrasound 01/31/17 1115 Signed Impressions: Service Date/Time: January 11:37 - CONCLUSION: Normal examination. Carlos Turner MD Assessment and Plan Problem List: (1) Atrial flutter with rapid ventricular response ICD Codes: I48.92 - Unspecified atrial flutter Status: Acute Plan: Heart rate is currently controlled. IV diltiazem discontinued and oral dosing ordered. Patient refusing oral dosing at this time. Will continue 60 mg every 6 hour dosing at this time pending patient compliance. Once patient taking PO meds, can convert to Cardizem CD 240 mg daily. Assessment and plan per my discussion with Karina Acosta Feb 05, 2017 09:00
[2017-02-05] MEDS: PHENYTOIN SODIUM 100 MG CAP PO SCH ×3 (10:32→17:56)
[2017-02-05] MEDS: SODIUM CHLORIDE 0.9% FLUSH 10 ML FLUSH IV FLUSH SCH ×2 (10:33→21:00)
--- NOTE | 2017-02-05 11:58 | HHI.PR ---
Subjective Remarks Patient is in restraints. He is agitated and not cooperating. Heart rate still in the 120s. He was given a dose of IV Cardizem overnight. Objective Vitals Vital Signs Date Time Temp Pulse Resp B/P (MAP) Pulse Ox O2 Delivery O2 Flow Rate FiO2 02/05/17 06:00 94 02/05/17 05:00 128 02/05/17 04:00 128 02/05/17 04:00 98.2 128 20 139/98 (112) 100 02/05/17 03:00 126 02/05/17 02:00 106 02/05/17 01:00 126 02/05/17 00:00 101 02/05/17 00:00 97.7 78 20 120/86 (97) 96 02/04/17 23:00 98 02/04/17 22:00 104 02/04/17 21:00 126 02/04/17 20:00 98.0 105 20 120/98 (105) 100 02/04/17 20:00 94 02/04/17 18:00 88 02/04/17 17:00 115 02/04/17 16:00 98 02/04/17 15:00 95 02/04/17 15:00 98.5 97 18 133/86 (102) 99 02/04/17 14:00 102 02/04/17 13:00 87 02/04/17 12:00 98 I/O 02/04/17 02/04/17 02/04/17 02/05/17 02/05/17 02/05/17 07:00 15:00 23:00 07:00 15:00 23:00 Intake Total 1420 ml 2346 ml 120 ml Output Total 700 ml 550 ml 1650 ml Balance 720 ml 1796 ml -1530 ml Intake Oral 240 ml 960 ml 120 ml IV Total 1180 ml 1386 ml Output Urine Total 700 ml 550 ml 1650 ml # Bowel Movements 1 Result Diagram: 02/04/17 0838 02/04/17 1045 Imaging Last Impressions Chest X-Ray 02/02/17 0000 Signed Impressions: Service Date/Time: Thursday, February 02, 2017 05:24 - CONCLUSION: 1. Cardiomegaly with mild edema pattern. Airspace disease in right upper lobe could represent superimposed pneumonia. Miek Naik MD Lower Extremity Ultrasound 01/31/17 1115 Signed Impressions: Service Date/Time: January 11:37 - CONCLUSION: Normal examination. Carlos Turner MD Objective Remarks GENERAL: Patient is nonverbal. Appear agitated. In 4. restraints. CARDIOVASCULAR: Rate in the 120 and irregular. RESPIRATORY: Clear to auscultation anteriorly. GASTROINTESTINAL: Abdomen soft, normal active bowel sounds MUSCULOSKELETAL: Extremities without cyanosis, or edema. NEURO: Nonverbal. Agitated. Does not follow commands. A/P Assessment and Plan 57-year-old male with recent mental retardation, seizure disorder and bipolar disorder who presented with left lower extremity edema, erythema, warmth Sepsis -Source left lower extremity cellulitis. WBC 26,000, tachycardia 115, lactic acid 3.0. UA suggesting UTI. Urine cultures negative. Chest x-ray showed scattered interstitial nodule in the upper right upper lobe was suggest a new infiltrate versus chronic interstitial lung disease. Repeat chest x-ray airspace disease w ? superimposed PNA. Pt on abx. -on vancomycin, ID has stopped Zosyn. appreciate recs -Blood Cultures neg x 2 days and urine cx neg x 48hrs -Continue to monitor clinically. Left lower extremity cellulitis -continue with vancomycin. monitor clinically. Resolving. History of seizure disorder, bipolar disorder, mental retardation, orthostatic hypotension, hypertension, chronic kidney disease, chronic UTIs, history of DVT -Continue Dilantin and Keppra. MR/Agitation: Patient's agitation is interfering with medical treatment. He has MR and no capacity to make medical decision. - Haldol to help with agitations. - Consult psychiatry for assistance. Atrial flutter: - Persistent. Repeat a dose of IV Cardizem 1. Continue to monitor. If no improvement, advised RN to alert cardiology. Cardiology following. Appreciate recs. Left eye ecchymosis -DCF is involved. case management consulted. DVT prophylaxis -Patient is on Xarelto. Geneva Shen MD Feb 05, 2017 11:58
[2017-02-05] MEDS: VANCOMYCIN INJ 1,750 MG in SODIUM CHLORID 0.9% 500 ML INJ 500 ML IV SCH (12:00)
[2017-02-05] MEDS: HALOPERIDOL LACTATE 5 MG/ML AMP IM PRN (14:01)
[2017-02-05 17:06] LABS: AUTOMATED NEUTROPHIL # 9.6 TH/MM3 (1.8-7.7); BASOPHIL # 0.1 TH/MM3 (0-0.2); BASOPHIL % 0.5 % (0.0-2.0); EOSINOPHIL # 0.2 TH/MM3 (0-0.4); EOSINOPHIL % 1.7 % (0.0-4.0); HEMATOCRIT 33.6 % (39.0-51.0); HEMO FLAGS DIFF FINAL; LYMPHOCYTE # 1.5 TH/MM3 (1.0-4.8); MEAN CELL VOLUME 92.1 FL (80.0-100.0); MEAN CORPUSCULAR HGB CONC 32.6 % (32.0-36.0); MONO % 8.4 % (0.0-8.0); NEUT % 77.4 % (16.0-70.0); PLATELET COUNT 259 TH/MM3 (150-450); RED BLOOD COUNT 3.64 MIL/MM3 (4.50-5.90); RED CELL DISTRIBUTION WIDTH 14.1 % (11.6-17.2); WHITE BLOOD COUNT 12.5 TH/MM3 (4.0-11.0)
[2017-02-05 17:36] LABS: BICARBONATE 19.1 MEQ/L (21.0-32.0); POTASSIUM 3.9 MEQ/L (3.5-5.1)
[2017-02-05] MEDS ORDERED: BUMETANIDE INJ 1 MG/4 ML VIAL IV PUSH ONE (21:45)
--- NOTE | 2017-02-05 22:36 | RADRPT ---
EXAM DATE/TIME: 02/05/2017 21:53 [facility] COMPARISON: CHEST SINGLE AP, February 02, 2017, 5:24. INDICATIONS : Shortness of breath. MEDICAL HISTORY : None. SURGICAL HISTORY : None. ENCOUNTER: Subsequent ACUITY: 4 - 6 days PAIN SCORE: 0/10 LOCATION: Bilateral chest FINDINGS: A single view of the chest demonstrates mild edema pattern. Small bilateral effusions. Cardiomegaly. No pneumothorax. CONCLUSION: 1. Cardiomegaly with mild edema pattern and small bilateral pleural effusions. No pneumothorax. Mike Naik MD on February 05, 2017 at 22:33 Board Certified Radiologist. This report was verified electronically.
[2017-02-06] VITALS (29 sets, daily range): BP systolic 129–154; BP diastolic 88–94; PULSE 60–135; RESP 18–21; TEMP 97–98.4; O2SAT 94–100
[2017-02-06] MEDS: clonazePAM 1 MG TAB PO SCH (08:45)
[2017-02-06] MEDS: DOCUSATE SODIUM 50 MG/SENNA 8.6 MG TAB PO SCH ×2 (08:45→21:05)
[2017-02-06] MEDS: PHENYTOIN SODIUM 100 MG CAP PO SCH ×3 (08:45→17:52)
[2017-02-06] MEDS: RIVAROXABAN 20 MG TAB PO SCH (08:46)
[2017-02-06] MEDS: ESCITALOPRAM OXALATE 20 MG TAB PO SCH (08:47)
[2017-02-06] MEDS: METOPROLOL TARTRATE 25 MG TAB PO SCH ×2 (08:47→21:05)
[2017-02-06] MEDS: SODIUM CHLORIDE 0.9% FLUSH 10 ML FLUSH IV FLUSH SCH ×2 (08:47→21:06)
[2017-02-06] MEDS: levETIRAcetam 250 MG TAB PO SCH (08:47)
--- NOTE | 2017-02-06 09:54 | HHI.PR ---
Subjective Remarks Patient is still requiring restraint but overall more calm today. Discussed with senior at bedside he is eating and agreeable to oral medications. Discussed with RN, heart rate still in the 130s. Objective Vitals Vital Signs Date Time Temp Pulse Resp B/P (MAP) Pulse Ox O2 Delivery O2 Flow Rate FiO2 02/06/17 07:01 134 02/06/17 06:33 132 02/06/17 05:01 89 02/06/17 04:09 95 02/06/17 03:50 98.4 60 21 129/88 (102) 100 02/06/17 03:40 90 02/06/17 02:52 98 35 02/06/17 02:00 70 02/06/17 01:00 72 02/06/17 00:00 76 02/05/17 23:40 97.5 98 20 121/87 (98) 95 02/05/17 23:00 93 02/05/17 22:00 62 02/05/17 21:00 62 02/05/17 19:30 107 02/05/17 19:30 97.8 115 22 132/83 (99) 98 02/05/17 19:10 97 35 02/05/17 18:00 132 02/05/17 16:00 130 02/05/17 16:00 98.7 130 26 144/98 (113) 97 02/05/17 14:00 130 02/05/17 13:00 96 02/05/17 12:00 128 02/05/17 12:00 98.1 129 34 149/100 (116) 96 02/05/17 11:00 128 02/05/17 10:00 128 I/O 02/05/17 02/05/17 02/05/17 02/06/17 02/06/17 02/06/17 06:59 14:59 22:59 06:59 14:59 22:59 Intake Total 120 ml 120 ml 420 ml Output Total 1650 ml 900 ml 2850 ml Balance -1530 ml -780 ml -2430 ml Intake Oral 120 ml 120 ml 420 ml Output Urine Total 1650 ml 900 ml 2850 ml # Voids 4 Result Diagram: 02/05/17 1642 02/05/17 1642 Objective Remarks GENERAL: Patient is interacting today. He is asked for his little toy car that was on his chest. CARDIOVASCULAR: Rate in the 120 and irregular. RESPIRATORY: Clear to auscultation anteriorly. GASTROINTESTINAL: Abdomen soft, normal active bowel sounds MUSCULOSKELETAL: Extremities without cyanosis, or edema. NEURO: Does not follow commands well. Moves all extremities. A/P Assessment and Plan 57-year-old male with recent mental retardation, seizure disorder and bipolar disorder who presented with left lower extremity edema, erythema, warmth Sepsis -Source left lower extremity cellulitis. WBC 26,000, tachycardia 115, lactic acid 3.0. UA suggesting UTI. Urine cultures negative. Chest x-ray showed scattered interstitial nodule in the upper right upper lobe was suggest a new infiltrate versus chronic interstitial lung disease. Repeat chest x-ray airspace disease w ? superimposed PNA. Pt on abx. -on vancomycin, ID has stopped Zosyn. appreciate recs -Blood Cultures neg x 2 days and urine cx neg x 48hrs -Continue to monitor clinically. Left lower extremity cellulitis -continue with vancomycin. monitor clinically. Resolving. History of seizure disorder, bipolar disorder, mental retardation, orthostatic hypotension, hypertension, chronic kidney disease, chronic UTIs, history of DVT -Continue Dilantin and Keppra. MR/Agitation: Somewhat improved today. Patient's agitation was interfering with medical treatment. He has MR and no capacity to make medical decision. - Haldol to help with agitations. - Consult psychiatry for assistance. Atrial flutter: - Persistent. Still on IV Cardizem. He is not tolerating by mouth. - Restart oral Cardizem 60 mg every 6 hours. Wean off Cardizem drip as tolerated. Cardiology following. Appreciate further input. Left eye ecchymosis -DCF is involved. case management consulted. DVT prophylaxis -Patient is on Xarelto. Geneva Shen MD Feb 06, 2017 09:54
[2017-02-06] MEDS: DIVALPROEX SODIUM E.R. 250 MG TAB PO SCH ×2 (10:45→21:05)
--- NOTE | 2017-02-06 10:50 | PD.PSY.CON ---
Provisional Diagnosis Admission Date Jan 31, 2017 at 14:13 [place]. Delirium due to underlying medical conditions, intellectual disability History of Present Illness Service Psychiatry Consult Requested By Reason for Consult Agitation Primary Care Physician Cesario Martin MD HPI The patient is a 66-year-old man, with psychiatric history of intellectual disability, bipolar disorder, seizure on Keppra, disorder who presented with left lower extremity edema, erythema. Admitted with Sepsis. Source left lower extremity cellulitis. WBC 26,000, tachycardia 115, lactic acid 3.0. UA suggesting UTI. Urine cultures negative. Chest x-ray showed scattered interstitial nodule in the upper right upper lobe was suggest a new infiltrate versus chronic interstitial lung disease. Repeat chest x-ray airspace disease w ? superimposed PNA. Pt on abx. on vancomycin, ID has stopped Zosyn. Recent consulted to psychiatry for agitation. On psychiatric evaluation patient restrained in 4-points. Non-cooperative, oppositional, no responding to any of our questions. As per nursing charge and primary medical team, patient has been agitated, difficult to handle in the unit, disorganized, hostile.Behavior dysregulation has been treated with clonazepam 1 mg twice a day and Haldol 5 mg IM when necessary. Review of Systems ROS Limitations: Uncooperative Past Family Social History Coded Allergies: gabapentin (Verified Allergy, Unknown, 01/31/17) thioridazine (Verified Allergy, Unknown, 01/31/17) sulfamethoxazole (Verified Adverse Reaction, Severe, 01/31/17) trimethoprim (Verified Adverse Reaction, Severe, 01/31/17) Reported Medications Rivaroxaban (Xarelto) 20 Mg Tab, 20 MG PO DAILY for Blood Clot Prevention, TAB 0 Refills 02/01/17 Escitalopram (Escitalopram) 20 Mg Tab, 20 MG PO DAILY, #30 TAB 0 Refills 02/01/17 Phenytoin Extended (Phenytoin Extended) 200 Mg Cap, 200 MG PO TID for Control Seizures, #90 CAP 0 Refills 02/01/17 Phenytoin Extended (Dilantin) 100 Mg Cap, 200 MG PO DAILYAC for Control Seizures , #180 CAP 0 Refills 02/01/17 Levetiracetam (Levetiracetam) 750 Mg Tab, 750 MG PO DAILY for Control Seizures, #60 TAB 0 Refills 02/01/17 Clonazepam (Clonazepam) 1 Mg Tab, 1 MG PO BID, #60 TAB 0 Refills 02/01/17 Clonazepam (Klonopin) 0.5 Mg Tab, 0.5 MG PO BID, TAB 09/03/13 Phenytoin Sodium (Dilantin 100 Mg Kapseals) 100 Mg Caper, 100 MG PO TID 09/03/13 Ascorbic Acid (Ascorbic Acid) 500 Mg Tab, 500 MG PO DAILY, TAB 09/03/13 Calcitriol (Calcitriol) 0.25 Mcg Cap, 0.25 MCG PO DAILY, CAP 08/27/13 Cholecalciferol (Vitamin D-[address]) 1,000 Unit Tab, 1000 UNIT PO DAILY, TAB 08/27/13 Artificial Tears (Tears Naturale) 15 Ml Soln, 2 DROP EACH EYE BID Y for EYE REDNESS, ML 08/27/13 Acetaminophen (Tylenol) 325 Mg Tab, 650 MG PO Q6 Y for PAIN, TAB 2 EAUZ=037LY 08/27/13 Multiple Vitamins W/ Minerals (Theragran M) 1 Tab Tab, 1 TAB PO EVERY OTHER DAY , TAB 08/27/13 Risperidone (Risperdal) 1 Mg Tab, 1.5 MG PO BID, TAB 1&1/2 TABS=1.5MG 08/27/13 Mouthwashes (Antiseptic Mouth Rinse) Original Liq, 1 APPLIC PO BID MOISTEN TOOTHETTE SWAB 08/27/13 Levetiracetam (Keppra) 750 Mg Tab, 750 MG PO BID, TAB 08/27/13 Ferrous Sulfate (Ferrous Sulfate) 325 Mg Tab, 325 MG PO BID, TAB 08/27/13 Erythromycin (Erythromycin Opht 0.5% Oint) 0.5 % Oint, 1 APPLIC EACH EYE HS APPLY 1/4 INCH RIBBON 08/27/13 Baclofen (Lioresal) 10 Mg Tab, 10 MG PO BID, TAB 08/27/13 Potassium Chloride (Klor-Con 10 Meq) 10 Meq Tabcr, 10 MEQ PO DAILY 05/08/09 Psyllium (Metamucil) 0.52 Gm Cap, 2 CAP PO MON,TUE,WED,THUR,FRI, 0 Refills 05/08/09 Current Medications Medications (Trade) Dose Ordered Sig/Kely Route Start Time Stop Time Status Last Admin (NS Flush) 2 ml UNSCH PRN IV FLUSH 01/31/17 14:15 (NS Flush) 2 ml BID IV FLUSH 01/31/17 21:00 02/06/17 08:47 (Tylenol) 650 mg Q4H PRN PO 01/31/17 14:15 (Zofran Inj) 4 mg Q6H PRN IVP 01/31/17 14:15 (Narcan Inj) 0.4 mg UNSCH PRN IV 01/31/17 14:15 (Inna-Colace) 1 tab BID PO 01/31/17 21:00 02/06/17 08:45 (Milk Of Magnesia Liq) 30 ml Q12H PRN PO 01/31/17 14:15 (Senokot) 17.2 mg Q12H PRN PO 01/31/17 14:15 (Dulcolax Supp) 10 mg DAILY PRN RECTAL 01/31/17 14:15 (Lactulose Liq) 30 ml DAILY PRN PO 01/31/17 14:15 Pharmacy Profile Note 0 ml @ 0 mls/hr UNSCH OTHER 01/31/17 14:15 Vancomycin HCl 1750 mg/Sodium Chloride 517.5 ml @ 250 mls/hr Q24H IV 02/01/17 12:00 02/05/17 12:00 (Ativan Inj) 1 mg Q4H PRN IM 02/01/17 17:00 02/03/17 11:45 (Ativan Inj) 1 mg Q4H PRN IV PUSH 02/01/17 17:00 02/05/17 17:30 (KlonoPIN) 1 mg BID PO 02/02/17 21:00 02/06/17 08:45 (Lexapro) 20 mg DAILY PO 02/03/17 09:00 02/06/17 08:47 (Keppra) 750 mg DAILY PO 02/03/17 09:00 02/06/17 08:47 (Dilantin) 200 mg TID PO 02/02/17 18:00 02/06/17 08:45 (Xarelto) 20 mg DAILY PO 02/03/17 09:00 02/06/17 08:46 (Lopressor) 25 mg Q12HR PO 02/02/17 21:00 02/06/17 08:47 (Haldol Inj) 5 mg Q6H PRN IM 02/05/17 12:00 02/05/17 14:01 Diltiazem HCl 125 mg/Sodium Chloride 125 ml @ 5 mls/hr TITRATE PRN IV 02/05/17 15:15 Physical Exam Vital Signs Vital Signs Date Time Temp Pulse Resp B/P (MAP) Pulse Ox O2 Delivery O2 Flow Rate FiO2 02/06/17 07:01 134 02/06/17 03:50 98.4 21 129/88 (102) 100 02/06/17 02:52 35 I/O 02/06/17 02/06/17 02/07/17 08:00 16:00 00:00 Intake Total 420 ml Output Total 2850 ml Balance -2430 ml Lab Results Test 02/05/17 16:42 White Blood Count 12.5 TH/MM3 Red Blood Count 3.64 MIL/MM3 Hemoglobin 10.9 GM/DL Hematocrit 33.6 % Mean Corpuscular Volume 92.1 FL Mean Corpuscular Hemoglobin 30.0 PG Mean Corpuscular Hemoglobin Concent 32.6 % Red Cell Distribution Width 14.1 % Platelet Count 259 TH/MM3 Mean Platelet Volume 7.4 FL Neutrophils (%) (Auto) 77.4 % Lymphocytes (%) (Auto) 12.0 % Monocytes (%) (Auto) 8.4 % Eosinophils (%) (Auto) 1.7 % Basophils (%) (Auto) 0.5 % Neutrophils # (Auto) 9.6 TH/MM3 Lymphocytes # (Auto) 1.5 TH/MM3 Monocytes # (Auto) 1.1 TH/MM3 Eosinophils # (Auto) 0.2 TH/MM3 Basophils # (Auto) 0.1 TH/MM3 CBC Comment DIFF FINAL Differential Comment Blood Urea Nitrogen 23 MG/DL Creatinine 1.08 MG/DL Random Glucose 102 MG/DL Calcium Level 8.0 MG/DL Magnesium Level 2.0 MG/DL Sodium Level 147 MEQ/L Potassium Level 3.9 MEQ/L Chloride Level 119 MEQ/L Carbon Dioxide Level 19.1 MEQ/L Anion Gap 9 MEQ/L Estimat Glomerular Filtration Rate 69 ML/MIN Date/Time Source Procedure Growth Status 01/31/17 12:00 Blood Peripheral Aerobic Blood Culture - Final NO GROWTH IN 5 DAYS Complete 01/31/17 12:00 Blood Peripheral Anaerobic Blood Culture - Final NO GROWTH IN 5 DAYS Complete 01/31/17 13:45 Urine Catheterized Urine Urine Culture - Final NO GROWTH IN 48 HOURS. Complete Mental Status Examination Mental status limited due to lack of cooperation Appearance man, uncooperative Assessment & Plan Problem List: (1) Delirium due to another medical condition ICD Codes: F05 - Delirium due to known physiological condition Assessment & Plan: Patient could not be fully assessed due to lack of cooperation, he was restrained in 4 points, oppositional, was recently haldolized. Patient has psychiatric history of bipolar disorder, borderline intellectual dysfunction. Previous psychiatric history and delirium due to underlying medical conditions that the patient a bit risk for aggressive behavior and agitation. To manage his aggressive behavior Haldol 5 mg IM every 8 hours when necessary aggressive behavior and agitation can be continued. Avoid benzodiazepines, discontinue clonazepam 1 mg twice a day, since benzodiazepines can actually increase agitation in patients with documented history of mental retardation. Consider inter-consulting with neurology if Keppra can be switched/ cross titrated with Depakote for seizures, since Keppra can also potentially be a source of agitation and aggressive behavior. Will start Depakote 250 mg bid to help with behavioral dysregulation. We'll continue follow-up. Assessment & Plan Estimated LOS: Adarsh Snyder MD Feb 06, 2017 10:50
[2017-02-06] MEDS: VANCOMYCIN INJ 1,750 MG in SODIUM CHLORID 0.9% 500 ML INJ 500 ML IV SCH (12:00)
[2017-02-06] MEDS: DILTIAZEM HCL 60 MG TAB PO SCH ×2 (12:27→17:52)
[2017-02-07] VITALS (25 sets, daily range): BP systolic 114–148; BP diastolic 29–97; PULSE 80–134; RESP 18–20; TEMP 97.7–99.8; O2SAT 92–98
[2017-02-07] MEDS: DILTIAZEM HCL 60 MG TAB PO SCH ×5 (00:54→23:44)
[2017-02-07] MEDS: LORazepam 2 MG/ML VIAL IV PUSH PRN (01:16)
[2017-02-07 06:39] LABS: HEMATOCRIT 33.8 % (39.0-51.0); MEAN CORPUSCULAR HEMOGLOBIN 30.4 PG (27.0-34.0); MEAN CORPUSCULAR HGB CONC 33.1 % (32.0-36.0); PLATELET COUNT 282 TH/MM3 (150-450); RED BLOOD COUNT 3.67 MIL/MM3 (4.50-5.90); RED CELL DISTRIBUTION WIDTH 14.1 % (11.6-17.2); REVIEW FLAG FINAL; WHITE BLOOD COUNT 12.2 TH/MM3 (4.0-11.0)
[2017-02-07 07:06] LABS: BICARBONATE 24.9 MEQ/L (21.0-32.0); POTASSIUM 3.9 MEQ/L (3.5-5.1)
[2017-02-07] MEDS: RIVAROXABAN 20 MG TAB PO SCH (08:06)
[2017-02-07] MEDS: DOCUSATE SODIUM 50 MG/SENNA 8.6 MG TAB PO SCH ×2 (08:06→21:50)
[2017-02-07] MEDS: DIVALPROEX SODIUM E.R. 250 MG TAB PO SCH ×2 (08:06→21:50)
[2017-02-07] MEDS: ESCITALOPRAM OXALATE 20 MG TAB PO SCH (08:06)
[2017-02-07] MEDS: METOPROLOL TARTRATE 25 MG TAB PO SCH ×2 (08:06→21:50)
[2017-02-07] MEDS: SODIUM CHLORIDE 0.9% FLUSH 10 ML FLUSH IV FLUSH SCH ×2 (08:21→21:00)
[2017-02-07] MEDS: PHENYTOIN SODIUM 100 MG CAP PO SCH ×3 (08:21→18:16)
[2017-02-07] MEDS: levETIRAcetam 250 MG TAB PO SCH (08:21)
[2017-02-07] MEDS ORDERED: METOPROLOL TARTRATE 5 MG/5 ML VIAL IV PUSH ONE (09:45)
[2017-02-07] MEDS: DILTIAZEM 125 MG/NS 100 ML IV PRN ×2 (11:49)
[2017-02-07] MEDS: VANCOMYCIN INJ 1,750 MG in SODIUM CHLORID 0.9% 500 ML INJ 500 ML IV SCH (12:48)
--- NOTE | 2017-02-07 16:48 | HHI.PR ---
Subjective Remarks Patient seen earlier this morning. Discussed with RN. Heart rate still in the 120s in atrial fibrillation/A flutter. Objective Vitals Vital Signs Date Time Temp Pulse Resp B/P (MAP) Pulse Ox O2 Delivery O2 Flow Rate FiO2 02/07/17 16:00 98.5 120 20 114/29 (57) 97 02/07/17 15:00 132 02/07/17 14:00 132 02/07/17 13:00 134 02/07/17 12:03 133 02/07/17 12:00 99.8 134 20 145/53 (83) 98 02/07/17 11:49 134 145/97 02/07/17 11:00 132 02/07/17 10:00 134 02/07/17 09:00 134 02/07/17 08:00 134 02/07/17 08:00 Room Air 02/07/17 08:00 97.7 133 20 148/94 (112) 96 02/07/17 07:08 133 02/07/17 06:00 132 02/07/17 05:00 132 02/07/17 04:00 130 02/07/17 04:00 Room Air 02/07/17 04:00 98.3 133 20 138/90 (106) 92 02/07/17 03:00 115 02/07/17 02:00 130 02/07/17 01:00 130 02/07/17 00:00 Room Air 02/07/17 00:00 130 02/07/17 00:00 97.8 131 20 146/97 (113) 92 02/06/17 23:00 130 02/06/17 22:00 108 02/06/17 21:00 132 02/06/17 20:00 Room Air 02/06/17 20:00 132 02/06/17 20:00 97.7 133 20 139/94 (109) 94 02/06/17 19:00 132 02/06/17 18:00 132 02/06/17 17:00 132 I/O 02/06/17 02/06/17 02/06/17 02/07/17 02/07/17 02/07/17 07:00 15:00 23:00 07:00 15:00 23:00 Intake Total 420 ml 1440 ml Output Total 2850 ml 2550 ml 2050 ml Balance -2430 ml -1110 ml -2050 ml Intake Oral 420 ml 1440 ml Output Urine Total 2850 ml 2550 ml 2050 ml # Voids 6 # Bowel Movements 2 Result Diagram: 02/07/1760802/07/17608 Objective Remarks GENERAL: Patient is interacting somewhat today. CARDIOVASCULAR: Rate in the 120 and irregular. RESPIRATORY: Clear to auscultation anteriorly. GASTROINTESTINAL: Abdomen soft, normal active bowel sounds MUSCULOSKELETAL: Extremities without cyanosis, or edema. NEURO: Does not follow commands well. Moves all extremities. A/P Assessment and Plan 57-year-old male with recent mental retardation, seizure disorder and bipolar disorder who presented with left lower extremity edema, erythema, warmth Sepsis -Source left lower extremity cellulitis. WBC 26,000, tachycardia 115, lactic acid 3.0. UA suggesting UTI. Urine cultures negative. Chest x-ray showed scattered interstitial nodule in the upper right upper lobe was suggest a new infiltrate versus chronic interstitial lung disease. Repeat chest x-ray airspace disease w ? superimposed PNA. Pt on abx. -on vancomycin, ID has stopped Zosyn. appreciate recs -Blood Cultures neg and urine cx neg x 48hrs -Continue to monitor clinically. We'll discuss with ID if we can de-escalate antibiotics. Left lower extremity cellulitis -continue with vancomycin. monitor clinically. Resolving. History of seizure disorder, bipolar disorder, mental retardation, orthostatic hypotension, hypertension, chronic kidney disease, chronic UTIs, history of DVT -Continue Dilantin and Keppra. MR/Agitation: Somewhat improved today. Patient's agitation was interfering with medical treatment. He has MR and no capacity to make medical decision. - Haldol to help with agitations. - Consult psychiatry for assistance. Atrial flutter: - Persistent. Will give a dose of IV metoprolol 5 mg 1. Advised nurse to call cardiology for further input. -Continue oral Cardizem 60 mg every 6 hours. Cardiology following. Appreciate further input. Left eye ecchymosis -DCF is involved. case management consulted. DVT prophylaxis -Patient is on Xarelto. Geneva Shen MD Feb 07, 2017 16:48
[2017-02-08] VITALS (23 sets, daily range): BP systolic 110–147; BP diastolic 71–91; PULSE 65–129; RESP 16–18; TEMP 97.5–98.4; O2SAT 96–99
[2017-02-08] MEDS: DILTIAZEM HCL 60 MG TAB PO SCH ×3 (06:01→18:10)
--- NOTE | 2017-02-08 10:53 | HHI.PR ---
Subjective Remarks Persistent afib with rate in the 130's on 15 mcg of Cardizem drip. Patient has significant MR. Does not interact well Objective Vitals Vital Signs Date Time Temp Pulse Resp B/P (MAP) Pulse Ox O2 Delivery O2 Flow Rate FiO2 02/08/17 09:00 126 02/08/17 08:00 129 02/08/17 08:00 129 02/08/17 07:00 101 02/08/17 07:00 97.5 129 16 147/91 (109) 02/08/17 07:00 Room Air 35 02/08/17 07:00 101 02/08/17 06:00 112 02/08/17 05:00 92 02/08/17 04:00 85 02/08/17 03:00 98.0 65 18 140/77 (98) 97 02/08/17 03:00 92 02/08/17 02:00 67 02/08/17 01:00 97 02/08/17 00:00 129 02/07/17 23:00 102 02/07/17 23:00 98.7 80 18 119/78 (92) 97 02/07/17 22:00 132 02/07/17 21:00 96 02/07/17 20:00 97.9 132 18 128/85 (99) 98 02/07/17 20:00 96 Room Air 02/07/17 20:00 132 02/07/17 19:00 131 02/07/17 18:00 132 02/07/17 17:00 106 02/07/17 16:00 133 02/07/17 16:00 98.5 120 20 114/29 (57) 97 02/07/17 15:00 132 02/07/17 14:00 132 02/07/17 13:00 134 02/07/17 12:03 133 02/07/17 12:00 99.8 134 20 145/53 (83) 98 02/07/17 11:49 134 145/97 02/07/17 11:00 132 I/O 02/07/17 02/07/17 02/07/17 02/08/17 02/08/17 02/08/17 07:00 15:00 23:00 07:00 15:00 23:00 Intake Total 480 ml 1680 ml Output Total 2050 ml 1500 ml 1800 ml Balance -2050 ml -1020 ml -120 ml Intake Oral 480 ml 1680 ml Output Urine Total 2050 ml 1500 ml 1800 ml # Bowel Movements 1 Result Diagram: 02/07/1760802/07/17 06 Objective Remarks GENERAL: Patient is interacting somewhat today. CARDIOVASCULAR: Rate in the 120 and irregular. RESPIRATORY: Clear to auscultation anteriorly. GASTROINTESTINAL: Abdomen soft, normal active bowel sounds MUSCULOSKELETAL: Extremities without cyanosis, or edema. Cellulitis have pretty much resolved. NEURO: Does not follow commands well. Moves all extremities. A/P Assessment and Plan 57-year-old male with recent mental retardation, seizure disorder and bipolar disorder who presented with left lower extremity edema, erythema, warmth. In summary the patient had sepsis secondary to cellulitis. Sepsis resolved but persistent rapid afib remain an issue. DCF is involved because he was admitted with a black eye. He has MR and placement may be an issue. Sepsis: Resolving -Source left lower extremity cellulitis. On presentation WBC 26,000, tachycardia 115, lactic acid 3.0. UA suggesting UTI. Urine cultures negative. Chest x-ray showed scattered interstitial nodule in the upper right upper lobe was suggest a new infiltrate versus chronic interstitial lung disease. Repeat chest x-ray airspace disease w ? superimposed PNA. Pt on abx. -on vancomycin, ID has stopped Zosyn. appreciate recs -Blood Cultures neg and urine cx neg x 48hrs -Continue to monitor clinically. We'll discuss with ID if we can de-escalate antibiotics. Atrial flutter: - Persistent. Will give a dose of IV metoprolol 5 mg 1 today again. I discussed the case with Dr. Aguilar who advised increasing Metoprolol to 50 mg q6hrs. Ordered. - Continue oral Cardizem 60 mg every 6 hours. Wean off Cardizem drip as tolerated. Left lower extremity cellulitis -continue with vancomycin. monitor clinically. Resolving. History of seizure disorder, bipolar disorder, mental retardation, orthostatic hypotension, hypertension, chronic kidney disease, chronic UTIs, history of DVT -Continue Dilantin and Keppra. MR/Agitation: Somewhat improved today. Patient's agitation was interfering with medical treatment. He has MR and no capacity to make medical decision. - Haldol to help with agitations. - Appreciate psychiatry assistance. Left eye ecchymosis -DCF is involved. case management consulted. DVT prophylaxis -Patient is on Xarelto. Geneva Shen MD Feb 08, 2017 10:53
[2017-02-08] MEDS ORDERED: METOPROLOL TARTRATE 5 MG/5 ML VIAL IV PUSH ONE (11:00)
[2017-02-08] MEDS: RIVAROXABAN 20 MG TAB PO SCH (11:02)
[2017-02-08] MEDS: ESCITALOPRAM OXALATE 20 MG TAB PO SCH (11:02)
[2017-02-08] MEDS: levETIRAcetam 250 MG TAB PO SCH (11:02)
[2017-02-08] MEDS: DIVALPROEX SODIUM E.R. 250 MG TAB PO SCH ×2 (11:02→20:41)
[2017-02-08] MEDS: DOCUSATE SODIUM 50 MG/SENNA 8.6 MG TAB PO SCH ×2 (11:02→20:41)
[2017-02-08] MEDS: PHENYTOIN SODIUM 100 MG CAP PO SCH ×3 (11:02→18:10)
[2017-02-08] MEDS: SODIUM CHLORIDE 0.9% FLUSH 10 ML FLUSH IV FLUSH SCH ×2 (12:26→20:41)
[2017-02-08] MEDS: VANCOMYCIN INJ 1,750 MG in SODIUM CHLORID 0.9% 500 ML INJ 500 ML IV SCH (12:26)
[2017-02-08] MEDS: LORazepam 2 MG/ML VIAL IV PUSH PRN (15:09)
[2017-02-08] MEDS: METOPROLOL TARTRATE 50 MG TAB PO SCH (18:10)
[2017-02-08] MEDS ORDERED: METOPROLOL TARTRATE 50 MG TAB PO SCH (21:00)
[2017-02-08] MEDS: DILTIAZEM 125 MG/NS 100 ML IV PRN ×2 (22:24)
[2017-02-09] VITALS (25 sets, daily range): BP systolic 112–134; BP diastolic 54–91; PULSE 74–125; RESP 16–18; TEMP 97.6–98.9; O2SAT 96–99
[2017-02-09] MEDS: METOPROLOL TARTRATE 50 MG TAB PO SCH ×4 (00:05→18:30)
[2017-02-09] MEDS: DILTIAZEM HCL 60 MG TAB PO SCH ×4 (00:05→18:30)
[2017-02-09] MEDS: LORazepam 2 MG/ML VIAL IV PUSH PRN (02:12)
[2017-02-09] MEDS: DOCUSATE SODIUM 50 MG/SENNA 8.6 MG TAB PO SCH ×2 (09:00→20:25)
[2017-02-09] MEDS: ESCITALOPRAM OXALATE 20 MG TAB PO SCH (09:00)
[2017-02-09] MEDS: DIVALPROEX SODIUM E.R. 250 MG TAB PO SCH ×2 (10:01→20:25)
[2017-02-09] MEDS: levETIRAcetam 250 MG TAB PO SCH (10:02)
[2017-02-09] MEDS: RIVAROXABAN 20 MG TAB PO SCH (10:02)
[2017-02-09] MEDS: PHENYTOIN SODIUM 100 MG CAP PO SCH ×3 (10:02→18:29)
[2017-02-09] MEDS: SODIUM CHLORIDE 0.9% FLUSH 10 ML FLUSH IV FLUSH SCH ×2 (10:03→20:25)
[2017-02-09] MEDS: VANCOMYCIN INJ 1,750 MG in SODIUM CHLORID 0.9% 500 ML INJ 500 ML IV SCH (12:16)
[2017-02-09 19:53] LABS: AUTOMATED NEUTROPHIL # 10.2 TH/MM3 (1.8-7.7); BASOPHIL # 0.1 TH/MM3 (0-0.2); BASOPHIL % 0.8 % (0.0-2.0); EOSINOPHIL # 0.3 TH/MM3 (0-0.4); EOSINOPHIL % 1.9 % (0.0-4.0); HEMATOCRIT 36.3 % (39.0-51.0); HEMO FLAGS DIFF FINAL; LYMPH % 14.6 % (9.0-44.0); MEAN CELL VOLUME 93.6 FL (80.0-100.0); MEAN CORPUSCULAR HEMOGLOBIN 29.7 PG (27.0-34.0); MEAN CORPUSCULAR HGB CONC 31.7 % (32.0-36.0); MONO % 6.5 % (0.0-8.0); NEUT % 76.2 % (16.0-70.0); PLATELET COUNT 266 TH/MM3 (150-450); RED BLOOD COUNT 3.88 MIL/MM3 (4.50-5.90); RED CELL DISTRIBUTION WIDTH 14.7 % (11.6-17.2); WHITE BLOOD COUNT 13.4 TH/MM3 (4.0-11.0)
[2017-02-09 20:02] LABS: BICARBONATE 24.4 MEQ/L (21.0-32.0); POTASSIUM 4.5 MEQ/L (3.5-5.1)
--- NOTE | 2017-02-09 23:09 | HHI.PR ---
Subjective Remarks Patient seen this morning. Noncommunicative. Noninteractive. Objective Vital Signs Date Time Temp Pulse Resp B/P (MAP) Pulse Ox O2 Delivery O2 Flow Rate FiO2 02/09/17 21:51 90 02/09/17 20:30 80 02/09/17 19:20 98.3 101 16 127/91 (103) 99 02/09/17 19:00 80 02/09/17 18:00 123 02/09/17 17:00 122 02/09/17 15:00 84 02/09/17 15:00 98.9 81 18 112/74 (87) 96 02/09/17 14:00 112 02/09/17 13:00 96 02/09/17 12:01 120 02/09/17 11:00 97.6 125 18 127/67 (87) 98 02/09/17 11:00 124 02/09/17 10:00 96 02/09/17 09:00 94 02/09/17 08:00 108 02/09/17 07:00 98.9 102 18 132/76 (94) 02/09/17 07:00 102 02/09/17 06:00 94 02/09/17 05:00 99 02/09/17 04:00 74 02/09/17 03:00 83 02/09/17 03:00 98.1 83 18 134/73 (93) 98 02/09/17 02:00 82 02/09/17 01:00 81 02/09/17 00:00 119 I/O 02/09/17 02/09/17 02/09/17 02/10/17 02/10/17 02/10/17 07:00 15:00 23:00 07:00 15:00 23:00 Intake Total 1196 ml 500 ml Output Total 2700 ml 1400 ml Balance -1504 ml -900 ml Intake Oral 1196 ml 500 ml Output Urine Total 2700 ml 1400 ml # Bowel Movements 1 Result Diagram: 02/09/17184602/09/171846 Objective Remarks GENERAL: patient lying in bed. Noninteractive. Moves all extremities spontaneously SKIN: Warm and dry. HEAD: Normocephalic. EYES: No scleral icterus. No injection or drainage. NECK: Supple, trachea midline. No JVD or lymphadenopathy. CARDIOVASCULAR: Regular rate and rhythm without murmurs, gallops, or rubs. RESPIRATORY: Breath sounds equal bilaterally. No accessory muscle use. GASTROINTESTINAL: Abdomen soft, non-tender, nondistended. MUSCULOSKELETAL: No cyanosis, or edema. minimal erythema left lower extremity. BACK: Nontender without obvious deformity. No CVA tenderness. A/P Assessment and Plan == 02/09/17. //A. fib RVR. Heart rate currently controlled. Would consider digoxin if tachycardic in the morning. //Hypernatremia. Repeat labs ordered. Sodium 145 from 150. Improving. Continue to monitor. //the cytosis. 13, slightly worse today. Continue to monitor. 57-year-old male with recent mental retardation, seizure disorder and bipolar disorder who presented with left lower extremity edema, erythema, warmth. In summary the patient had sepsis secondary to cellulitis. Sepsis resolved but persistent rapid afib remain an issue. DCF is involved because he was admitted with a black eye. He has MR and placement may be an issue. Sepsis: Resolving -Source left lower extremity cellulitis. On presentation WBC 26,000, tachycardia 115, lactic acid 3.0. UA suggesting UTI. Urine cultures negative. Chest x-ray showed scattered interstitial nodule in the upper right upper lobe was suggest a new infiltrate versus chronic interstitial lung disease. Repeat chest x-ray airspace disease w ? superimposed PNA. Pt on abx. -on vancomycin, ID has stopped Zosyn. appreciate recs -Blood Cultures neg and urine cx neg x 48hrs -Continue to monitor clinically. We'll discuss with ID if we can de-escalate antibiotics. Atrial flutter: - Persistent. Will give a dose of IV metoprolol 5 mg 1 today again. I discussed the case with Dr. Aguilar who advised increasing Metoprolol to 50 mg q6hrs. Ordered. - Continue oral Cardizem 60 mg every 6 hours. Wean off Cardizem drip as tolerated. Left lower extremity cellulitis -continue with vancomycin. monitor clinically. Resolving. History of seizure disorder, bipolar disorder, mental retardation, orthostatic hypotension, hypertension, chronic kidney disease, chronic UTIs, history of DVT -Continue Dilantin and Keppra. MR/Agitation: Somewhat improved today. Patient's agitation was interfering with medical treatment. He has MR and no capacity to make medical decision. - Haldol to help with agitations. - Appreciate psychiatry assistance. Left eye ecchymosis -DCF is involved. case management consulted. DVT prophylaxis -Patient is on Xarelto. Discharge Planning difficult discharge. Appreciate case management assistance. Jose Goins MD Feb 09, 2017 23:09
[2017-02-10] VITALS (28 sets, daily range): BP systolic 107–156; BP diastolic 64–97; PULSE 64–126; RESP 18–21; TEMP 97.8–98.3; O2SAT 95–100
[2017-02-10] MEDS: DILTIAZEM HCL 60 MG TAB PO SCH ×4 (00:05→17:50)
[2017-02-10] MEDS: METOPROLOL TARTRATE 50 MG TAB PO SCH ×4 (00:05→17:50)
--- NOTE | 2017-02-10 04:21 | RADRPT ---
EXAM DATE/TIME: 02/10/2017 02:55 [facility] COMPARISON: CHEST SINGLE AP, February 05, 2017, 21:53. INDICATIONS : Shortness of breath. MEDICAL HISTORY : Renal disease, end stage. Hypertension. Arthritis. Vision impaired. Seizures. SURGICAL HISTORY : None. ENCOUNTER: Initial ACUITY: 4 - 6 days PAIN SCORE: Non-responsive. LOCATION: Bilateral chest FINDINGS: Mild interstitial prominence persists. No denser confluent consolidation. Small, bilateral pleural ef fusions are noted. No pneumothorax. Mild cardiomegaly is stable. CONCLUSION: No significant change bilateral mild interstitial opacities and small pleural effusions. Carlos Cole MD on February 10, 2017 at 4:18 Board Certified Radiologist. This report was verified electronically.
[2017-02-10] MEDS: PHENYTOIN SODIUM 100 MG CAP PO SCH ×3 (08:36→17:51)
[2017-02-10] MEDS: RIVAROXABAN 20 MG TAB PO SCH (08:37)
[2017-02-10] MEDS: SODIUM CHLORIDE 0.9% FLUSH 10 ML FLUSH IV FLUSH SCH ×2 (08:37→21:04)
[2017-02-10] MEDS: levETIRAcetam 250 MG TAB PO SCH (08:37)
[2017-02-10] MEDS: DIVALPROEX SODIUM E.R. 250 MG TAB PO SCH ×2 (08:37→21:03)
[2017-02-10] MEDS: DOCUSATE SODIUM 50 MG/SENNA 8.6 MG TAB PO SCH ×2 (08:37→21:00)
[2017-02-10] MEDS: ESCITALOPRAM OXALATE 20 MG TAB PO SCH (08:37)
[2017-02-10] MEDS: LORazepam 2 MG/ML VIAL IV PUSH PRN (08:41)
[2017-02-10] MEDS: VANCOMYCIN INJ 1,750 MG in SODIUM CHLORID 0.9% 500 ML INJ 500 ML IV SCH (13:18)
--- NOTE | 2017-02-10 16:56 | HHI.PR ---
Subjective Remarks Patient seen this morning. Lying in bed. Nonverbal as before. Objective Vital Signs Date Time Temp Pulse Resp B/P (MAP) Pulse Ox O2 Delivery O2 Flow Rate FiO2 02/10/17 16:05 123 02/10/17 15:00 117 02/10/17 15:00 64 20 139/77 (97) 95 02/10/17 14:00 123 02/10/17 13:00 125 02/10/17 12:04 101 02/10/17 11:00 102 02/10/17 11:00 122 20 137/70 (92) 99 02/10/17 10:00 126 02/10/17 09:00 112 02/10/17 08:33 143/78 (99) 02/10/17 08:00 122 02/10/17 07:00 104 02/10/17 07:00 123 21 98 02/10/17 06:17 97 02/10/17 05:51 106 02/10/17 04:16 67 02/10/17 03:40 97.8 67 19 138/89 (105) 100 02/10/17 03:16 64 02/10/17 02:14 74 02/10/17 01:10 77 02/10/17 00:00 79 02/09/17 23:26 80 02/09/17 23:22 98.5 83 18 117/54 (75) 97 02/09/17 22:00 76 02/09/17 21:51 90 02/09/17 20:30 80 02/09/17 19:20 98.3 101 16 127/91 (103) 99 02/09/17 19:00 80 02/09/17 18:00 123 02/09/17 17:00 122 I/O 02/09/17 02/09/17 02/09/17 02/10/17 02/10/17 02/10/17 06:59 14:59 22:59 06:59 14:59 22:59 Intake Total 1196 ml 500 ml 1200 ml Output Total 2700 ml 1400 ml 1900 ml Balance -1504 ml -900 ml -700 ml Intake Oral 1196 ml 500 ml 1200 ml Output Urine Total 2700 ml 1400 ml 1900 ml # Bowel Movements 1 2 Result Diagram: 02/09/17184602/09/171846 Objective Remarks GENERAL: patient lying in bed. Noninteractive. Moves all extremities spontaneously. Unchanged from yesterday. SKIN: Warm and dry. HEAD: Normocephalic. EYES: No scleral icterus. No injection or drainage. NECK: Supple, trachea midline. No JVD or lymphadenopathy. CARDIOVASCULAR: Regular rate and rhythm without murmurs, gallops, or rubs. RESPIRATORY: Breath sounds equal bilaterally. No accessory muscle use. GASTROINTESTINAL: Abdomen soft, non-tender, nondistended. MUSCULOSKELETAL: No cyanosis, or edema. minimal erythema left lower extremity. BACK: Nontender without obvious deformity. No CVA tenderness. A/P Assessment and Plan ====02/10/17===== //A. fib RVR. Heart rate in the 120s this morning. Blood pressure stable. Ordered dig loading. Plan to discontinue diltiazem drip. 57-year-old male with recent mental retardation, seizure disorder and bipolar disorder who presented with left lower extremity edema, erythema, warmth. In summary the patient had sepsis secondary to cellulitis. Sepsis resolved but persistent rapid afib remain an issue. DCF is involved because he was admitted with a black eye. He has MR and placement may be an issue. //Sepsis: Resolving -Source left lower extremity cellulitis. On presentation WBC 26,000, tachycardia 115, lactic acid 3.0. UA suggesting UTI. Urine cultures negative. Chest x-ray showed scattered interstitial nodule in the upper right upper lobe was suggest a new infiltrate versus chronic interstitial lung disease. Repeat chest x-ray airspace disease w ? superimposed PNA. Pt on abx. -on vancomycin, ID has stopped Zosyn. appreciate recs -Blood Cultures neg and urine cx neg x 48hrs -Continue to monitor clinically. We'll discuss with ID if we can de-escalate antibiotics. //Atrial flutter: - Persistent. Will give a dose of IV metoprolol 5 mg 1 today again. I discussed the case with Dr. Aguilar who advised increasing Metoprolol to 50 mg q6hrs. Ordered. - Continue oral Cardizem 60 mg every 6 hours. Wean off Cardizem drip as tolerated. //Left lower extremity cellulitis -continue with vancomycin. monitor clinically. Resolving. //History of seizure disorder, bipolar disorder, mental retardation, orthostatic hypotension, hypertension, chronic kidney disease, chronic UTIs, history of DVT -Continue Dilantin and Keppra. //MR/Agitation: Somewhat improved today. Patient's agitation was interfering with medical treatment. He has MR and no capacity to make medical decision. - Haldol to help with agitations. - Appreciate psychiatry assistance. //Left eye ecchymosis -DCF is involved. case management consulted. //DVT prophylaxis -Patient is on Xarelto. Discharge Planning difficult discharge. Appreciate case management assistance. Jose Goins MD Feb 10, 2017 16:56
[2017-02-11] VITALS (24 sets, daily range): BP systolic 119–165; BP diastolic 76–87; PULSE 58–126; RESP 18–20; TEMP 97.7–98.6; O2SAT 97–100
[2017-02-11] MEDS: DILTIAZEM HCL 60 MG TAB PO SCH ×4 (00:03→17:43)
[2017-02-11] MEDS: METOPROLOL TARTRATE 50 MG TAB PO SCH ×4 (00:03→17:43)
[2017-02-11] MEDS: LORazepam 2 MG/ML VIAL IV PUSH PRN ×2 (00:45→11:57)
[2017-02-11 05:53] LABS: AUTOMATED NEUTROPHIL # 10.9 TH/MM3 (1.8-7.7); BASOPHIL # 0.1 TH/MM3 (0-0.2); BASOPHIL % 0.5 % (0.0-2.0); EOSINOPHIL # 0.3 TH/MM3 (0-0.4); EOSINOPHIL % 2.2 % (0.0-4.0); HEMATOCRIT 38.4 % (39.0-51.0); HEMO FLAGS DIFF FINAL; LYMPH % 14.3 % (9.0-44.0); LYMPHOCYTE # 2.1 TH/MM3 (1.0-4.8); MEAN CELL VOLUME 93.8 FL (80.0-100.0); MEAN CORPUSCULAR HEMOGLOBIN 30.2 PG (27.0-34.0); MEAN CORPUSCULAR HGB CONC 32.1 % (32.0-36.0); MONO % 7.7 % (0.0-8.0); NEUT % 75.3 % (16.0-70.0); PLATELET COUNT 302 TH/MM3 (150-450); RED BLOOD COUNT 4.09 MIL/MM3 (4.50-5.90); RED CELL DISTRIBUTION WIDTH 14.8 % (11.6-17.2); WHITE BLOOD COUNT 14.4 TH/MM3 (4.0-11.0)
[2017-02-11 06:30] LABS: BICARBONATE 26.5 MEQ/L (21.0-32.0); MAGNESIUM 2.5 MG/DL (1.5-2.5); POTASSIUM 4.9 MEQ/L (3.5-5.1)
[2017-02-11] MEDS: RIVAROXABAN 20 MG TAB PO SCH (08:41)
[2017-02-11] MEDS: SODIUM CHLORIDE 0.9% FLUSH 10 ML FLUSH IV FLUSH SCH ×2 (08:42→21:00)
[2017-02-11] MEDS: levETIRAcetam 250 MG TAB PO SCH (08:42)
[2017-02-11] MEDS: PHENYTOIN SODIUM 100 MG CAP PO SCH ×3 (08:42→17:43)
[2017-02-11] MEDS: DOCUSATE SODIUM 50 MG/SENNA 8.6 MG TAB PO SCH ×2 (08:42→22:08)
[2017-02-11] MEDS: ESCITALOPRAM OXALATE 20 MG TAB PO SCH (08:42)
[2017-02-11] MEDS: DIVALPROEX SODIUM E.R. 250 MG TAB PO SCH ×2 (08:42→22:08)
[2017-02-11] MEDS: DEXT 5%-NACL 0.45% 1000 ML INJ 1,000 ML IV SCH ×2 (09:55→21:25)
[2017-02-11] MEDS ORDERED: DIGOXIN 0.5 MG/2 ML VIAL IVS STA (10:27)
[2017-02-11] MEDS ORDERED: PHARMACY ORDERED LAB ONE (11:45)
[2017-02-11] MEDS: VANCOMYCIN INJ 1,750 MG in SODIUM CHLORID 0.9% 500 ML INJ 500 ML IV SCH (11:59)
[2017-02-11] MEDS: DIGOXIN 0.5 MG/2 ML VIAL IVS SCH ×2 (16:15→22:30)
--- NOTE | 2017-02-11 17:28 | HHI.PR ---
Subjective Remarks lying in bed. Nonverbal as before. Objective Vital Signs Date Time Temp Pulse Resp B/P (MAP) Pulse Ox O2 Delivery O2 Flow Rate FiO2 02/11/17 17:04 61 02/11/17 16:00 62 02/11/17 15:00 125 20 161/82 (108) 99 02/11/17 15:00 125 02/11/17 14:06 126 02/11/17 13:00 123 02/11/17 12:00 126 02/11/17 11:00 126 02/11/17 11:00 125 18 139/87 (104) 99 02/11/17 10:00 123 02/11/17 09:00 124 02/11/17 08:05 123 02/11/17 07:00 97 02/11/17 07:00 110 19 153/83 (106) 100 02/11/17 06:33 97 02/11/17 05:11 120 02/11/17 04:00 117 02/11/17 03:30 97.7 124 20 145/85 (105) 100 02/11/17 03:30 122 02/11/17 02:09 97 02/11/17 01:13 123 02/11/17 00:58 122 02/10/17 23:27 124 02/10/17 23:10 98.0 122 18 156/97 (116) 97 02/10/17 22:00 120 02/10/17 21:00 120 02/10/17 20:00 110 02/10/17 19:25 124 02/10/17 19:00 98.3 106 20 107/64 (78) 95 02/10/17 18:01 123 I/O 02/10/17 02/10/17 02/10/17 02/11/17 02/11/17 02/11/17 07:00 15:00 23:00 07:00 15:00 23:00 Intake Total 1200 ml 500 ml 1640 ml 960 ml Output Total 1900 ml 3225 ml 1925 ml Balance -700 ml 500 ml -1585 ml -965 ml Intake Oral 1200 ml 1140 ml 960 ml IV Total 500 ml 500 ml Output Urine Total 1900 ml 3225 ml 1925 ml # Bowel Movements 2 4 2 Result Diagram: 02/11/17 0500 02/11/17 0500 Objective Remarks GENERAL: patient lying in bed. Noninteractive. Moves all extremities spontaneously. again unchanged from yesterday. SKIN: Warm and dry. HEAD: Normocephalic. EYES: No scleral icterus. No injection or drainage. NECK: Supple, trachea midline. No JVD. CARDIOVASCULAR: Regular rate and rhythm without murmurs, gallops, or rubs. RESPIRATORY: Breath sounds equal bilaterally. No accessory muscle use. GASTROINTESTINAL: Abdomen soft, non-tender, nondistended. MUSCULOSKELETAL: No cyanosis, or edema. minimal erythema left lower extremity. BACK: Nontender without obvious deformity. No CVA tenderness. A/P Assessment and Plan ====02/11/17===== Discussed with nursing. Patient will benefit from pured diet. //af rvr. Ordered digoxin loading. Discontinue diltiazem drip. //Hypernatremia. Sodium 152. One half normal saline started. 57-year-old male with recent mental retardation, seizure disorder and bipolar disorder who presented with left lower extremity edema, erythema, warmth. In summary the patient had sepsis secondary to cellulitis. Sepsis resolved but persistent rapid afib remain an issue. DCF is involved because he was admitted with a black eye. He has MR and placement may be an issue. //Sepsis: Resolving -Source left lower extremity cellulitis. On presentation WBC 26,000, tachycardia 115, lactic acid 3.0. UA suggesting UTI. Urine cultures negative. Chest x-ray showed scattered interstitial nodule in the upper right upper lobe was suggest a new infiltrate versus chronic interstitial lung disease. Repeat chest x-ray airspace disease w ? superimposed PNA. Pt on abx. -on vancomycin, ID has stopped Zosyn. appreciate recs -Blood Cultures neg and urine cx neg x 48hrs -Continue to monitor clinically. We'll discuss with ID if we can de-escalate antibiotics. //Atrial flutter: - Persistent. Will give a dose of IV metoprolol 5 mg 1 today again. I discussed the case with Dr. Aguilar who advised increasing Metoprolol to 50 mg q6hrs. Ordered. - Continue oral Cardizem 60 mg every 6 hours. Wean off Cardizem drip as tolerated. //Left lower extremity cellulitis -continue with vancomycin. monitor clinically. Resolving. //History of seizure disorder, bipolar disorder, mental retardation, orthostatic hypotension, hypertension, chronic kidney disease, chronic UTIs, history of DVT -Continue Dilantin and Keppra. //MR/Agitation: Somewhat improved today. Patient's agitation was interfering with medical treatment. He has MR and no capacity to make medical decision. - Haldol to help with agitations. - Appreciate psychiatry assistance. //Left eye ecchymosis -DCF is involved. case management consulted. //DVT prophylaxis -Patient is on Xarelto. Discharge Planning difficult discharge. Appreciate case management assistance. Jose Goins MD Feb 11, 2017 17:28
[2017-02-12] VITALS (25 sets, daily range): BP systolic 143–177; BP diastolic 72–96; PULSE 62–128; RESP 14–20; TEMP 97.6–100; O2SAT 97–100
[2017-02-12] MEDS: METOPROLOL TARTRATE 50 MG TAB PO SCH ×5 (02:24→22:41)
[2017-02-12] MEDS: DILTIAZEM HCL 60 MG TAB PO SCH ×5 (02:24→22:41)
[2017-02-12] MEDS: SODIUM CHLORIDE 0.9% FLUSH 10 ML FLUSH IV FLUSH SCH ×2 (09:00→21:00)
[2017-02-12] MEDS: levETIRAcetam 250 MG TAB PO SCH (09:14)
[2017-02-12] MEDS: DIVALPROEX SODIUM E.R. 250 MG TAB PO SCH ×2 (09:14→22:41)
[2017-02-12] MEDS: DIGOXIN 0.125 MG TAB PO SCH (09:15)
[2017-02-12] MEDS: DOCUSATE SODIUM 50 MG/SENNA 8.6 MG TAB PO SCH ×2 (09:15→21:00)
[2017-02-12] MEDS: PHENYTOIN SODIUM 100 MG CAP PO SCH ×3 (09:15→17:09)
[2017-02-12] MEDS: ESCITALOPRAM OXALATE 20 MG TAB PO SCH (09:15)
[2017-02-12] MEDS: RIVAROXABAN 20 MG TAB PO SCH (09:15)
[2017-02-12] MEDS: LORazepam 2 MG/ML VIAL IV PUSH PRN ×2 (11:31→22:36)
[2017-02-12] MEDS: DEXT 5%-NACL 0.45% 1000 ML INJ 1,000 ML IV SCH ×2 (11:37→21:15)
[2017-02-12] MEDS ORDERED: PHARMACY ORDERED LAB ONE (11:45)
[2017-02-12] MEDS: VANCOMYCIN INJ 1,750 MG in SODIUM CHLORID 0.9% 500 ML INJ 500 ML IV SCH (12:37)
--- NOTE | 2017-02-12 18:26 | HHI.PR ---
Subjective Remarks Patient seen this morning around 10 AM. Patient continues agitated per nursing.. Restrained. Discussed with nurse. Heart rate improved. Still agitated. Objective Vital Signs Date Time Temp Pulse Resp B/P (MAP) Pulse Ox O2 Delivery O2 Flow Rate FiO2 02/12/17 06:00 82 02/12/17 05:00 87 02/12/17 04:12 65 02/12/17 03:00 62 02/12/17 03:00 98.2 62 20 177/72 (107) 98 02/12/17 02:00 65 02/12/17 00:00 62 02/11/17 23:00 97.9 58 18 119/76 (90) 98 02/11/17 23:00 58 02/11/17 21:00 59 02/11/17 20:00 63 02/11/17 19:00 61 02/11/17 19:00 98.6 61 18 140/85 (103) 97 I/O 02/11/17 02/11/17 02/11/17 02/12/17 02/12/17 02/12/17 06:59 14:59 22:59 06:59 14:59 22:59 Intake Total 960 ml 1815 ml 1248 ml Output Total 1925 ml 2200 ml 1800 ml Balance -965 ml -385 ml -552 ml Intake Oral 960 ml 840 ml 300 ml IV Total 975 ml 948 ml Output Urine Total 1925 ml 2200 ml 1800 ml # Bowel Movements 2 0 Result Diagram: 02/11/17 0500 02/11/17 0500 Objective Remarks GENERAL: patient lying in bed. Moves all extremities spontaneously. says "no " to exam today, makes motions as if to punch. SKIN: Warm and dry. HEAD: Normocephalic. EYES: No scleral icterus. No injection or drainage. NECK: Supple, trachea midline. No JVD. CARDIOVASCULAR: Regular rate and rhythm without murmurs, gallops, or rubs. RESPIRATORY: Breath sounds equal bilaterally. No accessory muscle use. GASTROINTESTINAL: Abdomen soft, non-tender, nondistended. MUSCULOSKELETAL: No cyanosis, or edema. minimal erythema left lower extremity. BACK: Nontender without obvious deformity. No CVA tenderness. A/P Assessment and Plan 66-year-old male with severe developmental disorder who presented with sepsis, left lower extremity cellulitis, A. fib, RVR. Patient was treated for cellulitis with resolution, A. fib RVR. However, still with agitation, for which psychiatry is assisting. Neurology was consult and to see if we can switch Keppra to an antipsychotic. Neurology consult pending. ====02/12/17===== //A. fib RVR. Heart rate improved on digoxin. Continue diltiazem, metoprolol as per cardiology. Continue anticoagulation as per cardiology. //Hypernatremia. Placed on one half normal saline. Repeat labs pending for today. //Agitation. 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 Continue antipsychotics, consult psychiatry. Consult neurology to see if Keppra can be switched to Depakote. //Sepsis/cellulitis. Appears resolved. Discontinue vancomycin. 57-year-old male with recent mental retardation, seizure disorder and bipolar disorder who presented with left lower extremity edema, erythema, warmth. In summary the patient had sepsis secondary to cellulitis. Sepsis resolved but persistent rapid afib remain an issue. [facility] is involved because he was admitted with a black eye. He has MR and placement may be an issue. //Sepsis: Resolving //Left lower extremity cellulitis //Leukocytosis. -Source left lower extremity cellulitis. On presentation WBC 26,000, tachycardia 115, lactic acid 3.0. UA suggesting UTI. Urine cultures negative. Chest x-ray showed scattered interstitial nodule in the upper right upper lobe was suggest a new infiltrate versus chronic interstitial lung disease. Repeat chest x-ray airspace disease w ? superimposed PNA. Pt on abx. -on vancomycin, ID has stopped Zosyn. appreciate recs -Blood Cultures neg and urine cx neg x 48hrs -Continue to monitor clinically. -02/11. Leukocytosis still 14.4. Could be secondary to agitation. No fevers. -Status post 12 days of antibiotics. Resolved. Discontinue vancomycin. //Atrial flutter: - Persistent. Will give a dose of IV metoprolol 5 mg 1 today again. I discussed the case with Dr. Aguilar who advised increasing Metoprolol to 50 mg q6hrs. Ordered. - Continue oral Cardizem 60 mg every 6 hours. //History of seizure disorder, bipolar disorder, mental retardation, orthostatic hypotension, hypertension, chronic kidney disease, chronic UTIs, history of DVT -Continue Dilantin and Keppra. //MR/Agitation: Somewhat improved today. Patient's agitation was interfering with medical treatment. He has MR and no capacity to make medical decision. - Haldol to help with agitations. - Appreciate psychiatry assistance. - //Left eye ecchymosis -DCF is involved. case management consulted. //DVT prophylaxis -Patient is on Xarelto. Discharge Planning difficult discharge. -cellulitis has resolved. -still with agitation requiring restraints. -neurology consults pending. Appreciate case management assistance. Jose Goins MD Feb 12, 2017 18:26
[2017-02-12 22:34] LABS: BICARBONATE 24.1 MEQ/L (21.0-32.0)
[2017-02-12 22:36] LABS: POTASSIUM 5.2 MEQ/L (3.5-5.1)
[2017-02-13] VITALS (28 sets, daily range): BP systolic 121–155; BP diastolic 82–93; PULSE 63–128; RESP 16–24; TEMP 96.5–99.5; O2SAT 100
[2017-02-13] MEDS: DILTIAZEM HCL 60 MG TAB PO SCH ×4 (05:36→23:42)
[2017-02-13] MEDS: METOPROLOL TARTRATE 50 MG TAB PO SCH ×4 (05:36→23:42)
[2017-02-13] MEDS: LORazepam 2 MG/ML VIAL IV PUSH PRN (05:37)
[2017-02-13 07:13] LABS: AUTOMATED NEUTROPHIL # 6.9 TH/MM3 (1.8-7.7); BASOPHIL # 0.1 TH/MM3 (0-0.2); BASOPHIL % 0.8 % (0.0-2.0); EOSINOPHIL # 0.2 TH/MM3 (0-0.4); EOSINOPHIL % 2.3 % (0.0-4.0); HEMATOCRIT 38.9 % (39.0-51.0); HEMO FLAGS DIFF FINAL; LYMPH % 16.7 % (9.0-44.0); LYMPHOCYTE # 1.6 TH/MM3 (1.0-4.8); MEAN CELL VOLUME 93.1 FL (80.0-100.0); MEAN CORPUSCULAR HEMOGLOBIN 30.5 PG (27.0-34.0); MEAN CORPUSCULAR HGB CONC 32.7 % (32.0-36.0); MONO % 7.5 % (0.0-8.0); NEUT % 72.7 % (16.0-70.0); PLATELET COUNT 335 TH/MM3 (150-450); RED BLOOD COUNT 4.18 MIL/MM3 (4.50-5.90); RED CELL DISTRIBUTION WIDTH 14.6 % (11.6-17.2); WHITE BLOOD COUNT 9.5 TH/MM3 (4.0-11.0)
[2017-02-13] MEDS: DEXT 5%-NACL 0.45% 1000 ML INJ 1,000 ML IV SCH ×2 (09:10→21:05)
[2017-02-13] MEDS: DOCUSATE SODIUM 50 MG/SENNA 8.6 MG TAB PO SCH ×2 (10:07→21:00)
[2017-02-13] MEDS: ESCITALOPRAM OXALATE 20 MG TAB PO SCH (10:08)
[2017-02-13] MEDS: DIGOXIN 0.125 MG TAB PO SCH (10:08)
[2017-02-13] MEDS: levETIRAcetam 250 MG TAB PO SCH (10:08)
[2017-02-13] MEDS: DIVALPROEX SODIUM E.R. 250 MG TAB PO SCH ×2 (10:08→21:00)
[2017-02-13] MEDS: RIVAROXABAN 20 MG TAB PO SCH (10:08)
[2017-02-13] MEDS: SODIUM CHLORIDE 0.9% FLUSH 10 ML FLUSH IV FLUSH SCH ×2 (10:09→21:00)
[2017-02-13] MEDS: PHENYTOIN SODIUM 100 MG CAP PO SCH ×3 (10:09→17:12)
--- NOTE | 2017-02-13 11:40 | HHI.PYPN ---
Subjective Remarks Patient seen for psychiatric reevaluation today patient is uncooperative, guarded, oppositional and irritable. In spite of multiple redirection, patient does not answer any of our questions. However, he is able to follow some simple commands such as hold a finger and open his mouth. Nurse in charge reports that patient has been episodically agitated and hostile. His behavioral dysregulation has been mostly controlled with Ativan. Review of Systems Other No somatic complaints Objective Alert: Yes [place]: Person Mood: Oppositional Affect: Other (irritable) Memory Intact: Comment (able to be assessed) Hallucinations: Other (able to be assessed) Delusions: No Delusion Type: Other (able to be assessed) Suicidal: Ideation (able to be assessed) Homicidal: Ideation (able to be assessed) Insight/Judgment poor Labs Test 02/12/17 22:02 02/13/17 06:20 Blood Urea Nitrogen 8 MG/DL Creatinine 0.99 MG/DL Random Glucose 116 MG/DL Calcium Level 8.6 MG/DL Sodium Level 148 MEQ/L Potassium Level 5.2 MEQ/L Chloride Level 115 MEQ/L Carbon Dioxide Level 24.1 MEQ/L Anion Gap 9 MEQ/L Estimat Glomerular Filtration Rate 76 ML/MIN Vancomycin Level Trough 31.0 MCG/ML White Blood Count 9.5 TH/MM3 Red Blood Count 4.18 MIL/MM3 Hemoglobin 12.7 GM/DL Hematocrit 38.9 % Mean Corpuscular Volume 93.1 FL Mean Corpuscular Hemoglobin 30.5 PG Mean Corpuscular Hemoglobin Concent 32.7 % Red Cell Distribution Width 14.6 % Platelet Count 335 TH/MM3 Mean Platelet Volume 7.8 FL Neutrophils (%) (Auto) 72.7 % Lymphocytes (%) (Auto) 16.7 % Monocytes (%) (Auto) 7.5 % Eosinophils (%) (Auto) 2.3 % Basophils (%) (Auto) 0.8 % Neutrophils # (Auto) 6.9 TH/MM3 Lymphocytes # (Auto) 1.6 TH/MM3 Monocytes # (Auto) 0.7 TH/MM3 Eosinophils # (Auto) 0.2 TH/MM3 Basophils # (Auto) 0.1 TH/MM3 CBC Comment DIFF FINAL Differential Comment Date/Time Source Procedure Growth Status 01/31/17 12:00 Blood Peripheral Aerobic Blood Culture - Final NO GROWTH IN 5 DAYS Complete 01/31/17 12:00 Blood Peripheral Anaerobic Blood Culture - Final NO GROWTH IN 5 DAYS Complete 01/31/17 13:45 Urine Catheterized Urine Urine Culture - Final NO GROWTH IN 48 HOURS. Complete Vitals/IOs Vital Signs Date Time Temp Pulse Resp B/P (MAP) Pulse Ox O2 Delivery O2 Flow Rate FiO2 02/13/17 11:07 100 16 121/86 (98) 100 02/13/17 05:00 96.5 Intake and Output 02/13/17 02/13/17 02/14/17 08:00 16:00 00:00 Intake Total 1284 ml Output Total 2350 ml Balance -1066 ml Assessment & Plan Problem List: (1) Delirium due to another medical condition ICD Codes: F05 - Delirium due to known physiological condition (2) Adjustment disorder with mixed disturbance of emotions and conduct ICD Codes: F43.25 - Adjustment disorder with mixed disturbance of emotions and conduct Assessment & Plan: Patient seen for psychiatric reevaluation. Case discussed with nurse in charge. Patient continues to show episodic psychomotor agitation and behavioral dysregulation. Try to avoid benzodiazepines as much as possible. Benzodiazepines are associated with paradoxical reaction in patient with history of intellectual dysfunction and TBI. For breakthrough agitation and aggressive behavior would prefer Haldol 5 mg IM every 8 hours if necessary. We will increase Depakote to 500 mg twice a day for behavioral control. Will order Depakote levels. Would ask neurology if Keppra could be substituted with Depakote for seizure prevention since Keppra can induce psychosis and aggressiveness. Labs reviled. Assessment & Plan Estimated LOS: days Justification for Cont. Inpt. Patient does not meet criteria for psychiatric admission at this moment. Adarsh Meeks MD Feb 13, 2017 11:40
[2017-02-13] MEDS ORDERED: PHARMACY ORDERED LAB ONE (11:45)
--- NOTE | 2017-02-13 12:08 | HHI.PR ---
Subjective Remarks Patient is calm this morning. He received Ativan earlier because he was very agitated. Discussed with RN. No new issues. Objective Vitals Vital Signs Date Time Temp Pulse Resp B/P (MAP) Pulse Ox O2 Delivery O2 Flow Rate FiO2 02/13/17 11:07 100 16 121/86 (98) 100 02/13/17 11:00 104 02/13/17 10:16 63 16 155/93 (113) 100 02/13/17 10:00 84 02/13/17 09:00 64 02/13/17 08:00 72 02/13/17 07:45 86 16 100 02/13/17 07:00 77 02/13/17 06:00 102 02/13/17 05:00 122 02/13/17 05:00 96.5 81 18 140/84 (102) 100 02/13/17 04:00 88 02/13/17 03:00 80 02/13/17 02:00 64 02/13/17 01:00 68 02/13/17 00:00 64 02/12/17 23:00 128 02/12/17 23:00 100.0 65 14 144/82 (102) 98 02/12/17 21:00 88 02/12/17 20:00 66 02/12/17 20:00 98.2 66 14 143/80 (101) 97 02/12/17 19:00 77 02/12/17 18:00 68 02/12/17 17:00 92 02/12/17 16:00 100 02/12/17 15:45 71 18 146/91 (109) 100 02/12/17 15:00 124 02/12/17 14:00 82 02/12/17 13:00 82 I/O 02/12/17 02/12/17 02/12/17 02/13/17 02/13/17 02/13/17 07:00 15:00 23:00 07:00 15:00 23:00 Intake Total 1248 ml 480 ml 1284 ml Output Total 1800 ml 1900 ml 2350 ml Balance -552 ml -1420 ml -1066 ml Intake Oral 300 ml 480 ml 360 ml IV Total 948 ml 924 ml Output Urine Total 1800 ml 1900 ml 2350 ml # Bowel Movements 0 4 Result Diagram: 02/13/1761902/12/172201 Objective Remarks GENERAL: Patient is somnolent but briefly woke up. CARDIOVASCULAR: Normal rate, irregular. RESPIRATORY: Clear to auscultation anteriorly. GASTROINTESTINAL: Abdomen soft, normal active bowel sounds MUSCULOSKELETAL: Extremities without cyanosis, or edema. NEURO: Does not follow commands well. Moves all extremities. A/P Assessment and Plan 66-year-old male with mental retardation, seizure disorder and bipolar disorder who presented with left lower extremity edema, erythema, warmth. In summary the patient had sepsis secondary to cellulitis. Persistent rapid afib resolved. However he remains agitated. DCF is involved because he was admitted with a black eye. He has MR and placement may be an issue. Sepsis: Resolved Left lower extremity cellulitis Leukocytosis. -Source left lower extremity cellulitis. On presentation WBC 26,000, tachycardia 115, lactic acid 3.0. UA suggesting UTI. Urine cultures negative. Chest x-ray showed scattered interstitial nodule in the upper right upper lobe was suggest a new infiltrate versus chronic interstitial lung disease. Repeat chest x-ray airspace disease w ? superimposed PNA. Pt on abx. -on vancomycin, ID has stopped Zosyn. appreciate recs -Blood Cultures neg and urine cx neg x 48hrs -Continue to monitor clinically. -02/11. Leukocytosis still 14.4. Could be secondary to agitation. No fevers. -Status post 12 days of antibiotics. Resolved. Discontinue vancomycin. Atrial flutter: -Heart rate improved on digoxin. Continue diltiazem, metoprolol as per cardiology. Continue anticoagulation as per cardiology. History of seizure disorder, bipolar disorder, mental retardation, orthostatic hypotension, hypertension, chronic kidney disease, chronic UTIs, history of DVT -Continue Dilantin and Keppra. Consult neurology to see if Keppra can be switched to Depakote. MR/Agitation: Patient's agitation was interfering with medical treatment. He has MR and no capacity to make medical decision. - Haldol to help with agitations. - Appreciate psychiatry following. Avoid Ativan. Left eye ecchymosis -[facility] is involved. case management consulted. DVT prophylaxis -Patient is on Xarelto. Discharge Planning difficult discharge. -cellulitis has resolved. -still with agitation requiring restraints. -neurology consults pending. Appreciate case management assistance. Patient can go to [facility]. Geneva Shen MD Feb 13, 2017 12:08
[2017-02-13] MEDS ORDERED: VALPROATE INJ 500 MG in SODIUM CHLORIDE 0.9% INJ 100 ML IV ONE (20:00)
--- NOTE | 2017-02-13 20:47 | MB ---
cc: LATRICIA GALO M.D. DATE OF CONSULTATION 02/13/2017 REASON FOR CONSULTATION Anticonvulsant therapy. HISTORY OF PRESENT ILLNESS Mr. Weldon is a 66-year-old man who has a history of mental retardation, seizure disorder who was admitted from a care home due to lower extremity edema, erythema from cellulitis. The patient has been very agitated, and uncooperative. He has been followed by the psychiatry service. The patient is currently on Depakote as well as Keppra. The question is whether or not Keppra could be substituted with Depakote for seizure precaution due to concerns of the Keppra aggravating the patient's psychiatric condition. NEUROLOGIC EXAMINATION Today blood pressure is 121/86, pulse is 100, respiratory rate is 16. Higher cortical function, the patient is alert. He does not follow commands. He is not cooperative. He is somewhat agitated. Cranial nerves grossly intact. Motor exam, it is difficult to fully assess as the patient does not cooperate with exam, but no gross focal deficits are seen. LABORATORY DATA The white count is 9500, hemoglobin 12.7, hematocrit 38.9% platelet count 335,000, Depakote level 23, Keppra level 20.8. Sodium is 148, potassium 5.2, chloride 115, CO2 24.1, creatinine 0.99, glucose 116. IMPRESSION Mental retardation and seizure disorder. I feel that it would be reasonable to try Depakote monotherapy for the patient's seizure disorder and wean off Keppra since the Keppra may be exacerbating his psychiatric condition. Would recommend that she increase the Depakote dose to achieve a therapeutic level between 50 and 100. Once the Depakote is therapeutic for seizures, we could then wean off the Keppra slowly. Currently he is on 750 mg a day. Would reduce the dose to 500 mg daily for three days, then 250 mg daily for three days and then stop Keppra. The patient also continues on Dilantin 200 mg t.i.d. I will check a Dilantin level as well. MD LELA Salinas/HAIDER /6:48 PM /8:33 PM
[2017-02-14] VITALS (18 sets, daily range): BP systolic 130–163; BP diastolic 79–101; PULSE 63–130; RESP 16–20; TEMP 96.8–98.6; O2SAT 93–100
[2017-02-14] MEDS: HALOPERIDOL LACTATE 5 MG/ML AMP IM PRN (05:45)
[2017-02-14] MEDS: DILTIAZEM HCL 60 MG TAB PO SCH ×3 (06:00→17:17)
[2017-02-14] MEDS: METOPROLOL TARTRATE 50 MG TAB PO SCH ×3 (06:00→17:17)
[2017-02-14] MEDS: DEXT 5%-NACL 0.45% 1000 ML INJ 1,000 ML IV SCH ×2 (09:00→20:59)
[2017-02-14] MEDS: SODIUM CHLORIDE 0.9% FLUSH 10 ML FLUSH IV FLUSH SCH ×2 (09:00→20:59)
[2017-02-14] MEDS: ESCITALOPRAM OXALATE 20 MG TAB PO SCH (09:00)
[2017-02-14] MEDS: DIVALPROEX SODIUM E.R. 250 MG TAB PO SCH ×2 (09:35→21:00)
[2017-02-14] MEDS: PHENYTOIN SODIUM 100 MG CAP PO SCH ×3 (09:35→17:17)
[2017-02-14] MEDS: DIGOXIN 0.125 MG TAB PO SCH (09:36)
[2017-02-14] MEDS: RIVAROXABAN 20 MG TAB PO SCH (09:36)
[2017-02-14] MEDS: levETIRAcetam 250 MG TAB PO SCH (09:36)
[2017-02-14] MEDS: DOCUSATE SODIUM 50 MG/SENNA 8.6 MG TAB PO SCH ×2 (09:36→21:00)
--- NOTE | 2017-02-14 11:03 | HHI.PR ---
Subjective Remarks Patient still intermittently agitated and combative. Discussed with RN. Objective Vitals Vital Signs Date Time Temp Pulse Resp B/P (MAP) Pulse Ox O2 Delivery O2 Flow Rate FiO2 02/14/17 09:01 83 02/14/17 08:00 88 02/14/17 07:00 83 02/14/17 06:00 128 02/14/17 05:00 92 02/14/17 04:00 86 02/14/17 03:00 96.8 63 16 148/91 (110) 98 02/14/17 03:00 63 02/14/17 02:00 68 02/14/17 01:00 74 02/14/17 00:00 82 02/13/17 23:00 99.5 78 24 148/88 (108) 100 02/13/17 23:00 106 02/13/17 22:00 82 02/13/17 21:00 82 02/13/17 20:00 97.5 67 24 143/82 (102) 100 02/13/17 20:00 72 02/13/17 19:00 74 02/13/17 18:00 123 02/13/17 17:00 128 02/13/17 16:00 128 02/13/17 15:30 126 16 100 02/13/17 15:00 90 02/13/17 14:00 124 02/13/17 13:00 102 02/13/17 12:00 128 02/13/17 11:07 100 16 121/86 (98) 100 I/O 02/13/17 02/13/17 02/13/17 02/14/17 02/14/17 02/14/17 07:00 15:00 23:00 07:00 15:00 23:00 Intake Total 1284 ml 960 ml 1744 ml Output Total 2350 ml 1350 ml 2750 ml Balance -1066 ml -390 ml -1006 ml Intake Oral 360 ml 960 ml 720 ml IV Total 924 ml 1024 ml Output Urine Total 2350 ml 1350 ml 2750 ml # Bowel Movements 4 Result Diagram: 02/13/1761902/12/172201 Objective Remarks GENERAL: Patient is awake. CARDIOVASCULAR: Normal rate, irregular. RESPIRATORY: Clear to auscultation anteriorly. GASTROINTESTINAL: Abdomen soft, normal active bowel sounds MUSCULOSKELETAL: Extremities without cyanosis, or edema. NEURO: Does not follow commands well. Moves all extremities. A/P Assessment and Plan 66-year-old male with mental retardation, seizure disorder and bipolar disorder who presented with left lower extremity edema, erythema, warmth. In summary the patient had sepsis secondary to cellulitis. Persistent rapid afib resolved. However he remains agitated. DCF is involved because he was admitted with a black eye. He has MR and placement may be an issue. Sepsis: Resolved Left lower extremity cellulitis Leukocytosis. -Source left lower extremity cellulitis. On presentation WBC 26,000, tachycardia 115, lactic acid 3.0. UA suggesting UTI. Urine cultures negative. Chest x-ray showed scattered interstitial nodule in the upper right upper lobe was suggest a new infiltrate versus chronic interstitial lung disease. Repeat chest x-ray airspace disease w ? superimposed PNA. Pt on abx. -on vancomycin, ID has stopped Zosyn. appreciate recs -Blood Cultures neg and urine cx neg x 48hrs -Continue to monitor clinically. -02/11. Leukocytosis still 14.4. Could be secondary to agitation. No fevers. -Status post 12 days of antibiotics. Resolved. Discontinue vancomycin. Atrial flutter: -Heart rate improved on digoxin. Continue diltiazem, metoprolol as per cardiology. Continue anticoagulation as per cardiology. History of seizure disorder, bipolar disorder, mental retardation, orthostatic hypotension, hypertension, chronic kidney disease, chronic UTIs, history of DVT -Continue Dilantin and Keppra. Nephrology following recommend titrating Depakote upward to achieve therapeutic level between 50-100 and wean off Keppra by reducing the dose to 500 mg daily for 3 days, then 200 mg daily for 3 days and then stop. MR/Agitation: Patient's agitation was interfering with medical treatment. He has MR and no capacity to make medical decision. - Haldol to help with agitations. - Appreciate psychiatry following. Avoid Ativan. Left eye ecchymosis -DCF is involved. case management consulted. DVT prophylaxis -Patient is on Xarelto. Discharge Planning difficult discharge. -cellulitis has resolved. -Psychosis and aggressiveness, occasionally require restraints. Appreciate case management assistance. Geneva Shen MD Feb 14, 2017 11:03
[2017-02-14 15:14] LABS: BICARBONATE 19.1 MEQ/L (21.0-32.0); POTASSIUM 5.6 MEQ/L (3.5-5.1)
[2017-02-15] VITALS (11 sets, daily range): BP systolic 94–162; BP diastolic 63–99; PULSE 77–133; RESP 18–20; TEMP 97.1–98.8; O2SAT 94–97
[2017-02-15] MEDS ORDERED: ALPRAZolam 0.5 MG TAB PO ONE (04:15)
[2017-02-15] MEDS: DILTIAZEM HCL 60 MG TAB PO SCH ×5 (06:52→23:57)
[2017-02-15] MEDS: METOPROLOL TARTRATE 50 MG TAB PO SCH ×5 (06:56→23:57)
[2017-02-15] MEDS: DIGOXIN 0.125 MG TAB PO SCH (08:57)
[2017-02-15] MEDS: PHENYTOIN SODIUM 100 MG CAP PO SCH ×3 (08:57→18:00)
[2017-02-15] MEDS: ESCITALOPRAM OXALATE 20 MG TAB PO SCH (08:58)
[2017-02-15] MEDS: DIVALPROEX SODIUM E.R. 250 MG TAB PO SCH (08:58)
[2017-02-15] MEDS: DOCUSATE SODIUM 50 MG/SENNA 8.6 MG TAB PO SCH ×2 (08:58→21:00)
[2017-02-15] MEDS: SODIUM CHLORIDE 0.9% FLUSH 10 ML FLUSH IV FLUSH SCH ×2 (08:58→21:00)
[2017-02-15] MEDS: RIVAROXABAN 20 MG TAB PO SCH (08:58)
[2017-02-15] MEDS ORDERED: levETIRAcetam 500 MG TAB PO SCH (09:00)
[2017-02-15] MEDS: DEXT 5%-NACL 0.45% 1000 ML INJ 1,000 ML IV SCH ×2 (09:08→22:13)
--- NOTE | 2017-02-15 16:45 | HHI.PR ---
Subjective Remarks Patient still gets agitated requiring restraints. A couple of loose stools today. No other new issues. Objective Vitals Vital Signs Date Time Temp Pulse Resp B/P (MAP) Pulse Ox O2 Delivery O2 Flow Rate FiO2 02/15/17 12:00 97.3 127 20 149/94 (112) 96 02/15/17 09:00 77 02/15/17 08:00 97.9 86 20 121/66 (84) 94 02/15/17 06:50 126 136/97 (110) 02/15/17 04:00 97.2 123 20 94/63 (73) 97 02/15/17 00:00 97.7 133 20 141/86 (104) 97 02/14/17 20:00 129 02/14/17 20:00 98.1 123 20 142/79 (100) 93 I/O 02/14/17 02/14/17 02/14/17 02/15/17 02/15/17 02/15/17 07:00 15:00 23:00 07:00 15:00 23:00 Intake Total 1744 ml 840 ml 1000 ml Output Total 2750 ml 1900 ml Balance -1006 ml -1060 ml 1000 ml Intake Oral 720 ml 840 ml IV Total 1024 ml 1000 ml Output Urine Total 2750 ml 1900 ml # Bowel Movements 1 Result Diagram: 02/13/17 0620 02/14/17 0554 Objective Remarks GENERAL: Patient is awake. CARDIOVASCULAR: Normal rate, irregular. RESPIRATORY: Clear to auscultation anteriorly. GASTROINTESTINAL: Abdomen soft, normal active bowel sounds MUSCULOSKELETAL: Extremities without cyanosis, or edema. NEURO: Does not follow commands well. Moves all extremities. A/P Assessment and Plan 66-year-old male with mental retardation, seizure disorder and bipolar disorder who presented with left lower extremity edema, erythema, warmth. In summary the patient had sepsis secondary to cellulitis. Persistent rapid afib resolved. However he remains agitated. DCF is involved because he was admitted with a black eye. He has MR and placement may be an issue. Sepsis: Resolved Left lower extremity cellulitis Leukocytosis. -Source left lower extremity cellulitis. On presentation WBC 26,000, tachycardia 115, lactic acid 3.0. UA suggesting UTI. Urine cultures negative. Chest x-ray showed scattered interstitial nodule in the upper right upper lobe was suggest a new infiltrate versus chronic interstitial lung disease. Repeat chest x-ray airspace disease w ? superimposed PNA. Pt on abx. -on vancomycin, ID has stopped Zosyn. appreciate recs -Blood Cultures neg and urine cx neg x 48hrs -Continue to monitor clinically. -02/11. Leukocytosis still 14.4. Could be secondary to agitation. No fevers. -Status post 12 days of antibiotics. Resolved. Discontinue vancomycin. Atrial flutter: -Heart rate improved on digoxin. Continue diltiazem, metoprolol as per cardiology. Continue anticoagulation as per cardiology. History of seizure disorder, bipolar disorder, mental retardation, orthostatic hypotension, hypertension, chronic kidney disease, chronic UTIs, history of DVT -Continue Dilantin and Keppra. Nephrology following recommend titrating Depakote upward to achieve therapeutic level between 50-100 and wean off Keppra by reducing the dose to 500 mg daily for 3 days, then 200 mg daily for 3 days and then stop. -Follow-up Depakote level in a.m. MR/Agitation: Patient's agitation was interfering with medical treatment. He has MR and no capacity to make medical decision. - Haldol to help with agitations. - Appreciate psychiatry following. Avoid Ativan. Hyponatremia: Change IV fluid to D5 quarter normal saline. Continue to follow. Hyperkalemia: He is having diarrhea. Expect that to improve. Follow-up labs in a.m. Left eye ecchymosis -DCF is involved. case management consulted. DVT prophylaxis -Patient is on Xarelto. Discharge Planning difficult discharge. -cellulitis has resolved. -Psychosis and aggressiveness, occasionally require restraints. Appreciate case management assistance. May be appropriate for med psych. Geneva Shen MD Feb 15, 2017 16:45
[2017-02-15] MEDS ORDERED: PHENYTOIN SODIUM 100 MG CAP PO ONE (18:15)
--- NOTE | 2017-02-15 18:16 | HHI.PR ---
Review/Management Diagnosis SZ--stable Plan increase dilantin and depakote and recheck levels saturday stop keppra. Diagnosis/Plan: Subjective Subjective Comments No acute events reported No sz. Active Medications Current Medications Medications (Trade) Dose Ordered Sig/Kely Route Start Time Stop Time Status Last Admin (NS Flush) 2 ml UNSCH PRN IV FLUSH 01/31/17 14:15 (NS Flush) 2 ml BID IV FLUSH 01/31/17 21:00 02/14/17 09:00 (Tylenol) 650 mg Q4H PRN PO 01/31/17 14:15 (Zofran Inj) 4 mg Q6H PRN IVP 01/31/17 14:15 (Narcan Inj) 0.4 mg UNSCH PRN IV 01/31/17 14:15 (Inna-Colace) 1 tab BID PO 01/31/17 21:00 02/15/17 08:58 (Milk Of Magnesia Liq) 30 ml Q12H PRN PO 01/31/17 14:15 (Senokot) 17.2 mg Q12H PRN PO 01/31/17 14:15 (Dulcolax Supp) 10 mg DAILY PRN RECTAL 01/31/17 14:15 (Lactulose Liq) 30 ml DAILY PRN PO 01/31/17 14:15 (Lexapro) 20 mg DAILY PO 02/03/17 09:00 02/15/17 08:58 (Dilantin) 200 mg TID PO 02/02/17 18:00 02/15/17 18:00 (Xarelto) 20 mg DAILY PO 02/03/17 09:00 02/15/17 08:58 (Haldol Inj) 5 mg Q6H PRN IM 02/05/17 12:00 02/14/17 05:45 (Cardizem) 60 mg Q6HR PO 02/06/17 12:00 02/15/17 18:00 (Lopressor) 50 mg Q6HR PO 02/08/17 18:00 02/15/17 18:00 (Lanoxin) 0.125 mg DAILY PO 02/12/17 09:00 02/15/17 08:57 (Depakote Er) 500 mg BID PO 02/13/17 21:00 02/15/17 08:58 (Keppra) 500 mg DAILY PO 02/15/17 09:00 02/15/17 08:57 Dextrose/Sodium Chloride 1,000 ml @ 100 mls/hr Q10H IV 02/15/17 17:45 UNV Allergies Allergies Coded Allergies gabapentin (Verified Allergy, Unknown, 01/31/17) thioridazine (Verified Allergy, Unknown, 01/31/17) sulfamethoxazole (Verified Adverse Reaction, Severe, 01/31/17) trimethoprim (Verified Adverse Reaction, Severe, 01/31/17) Exam I&O / VS 02/15/17 02/15/17 02/16/17 15:00 23:00 07:00 Intake Total 1000 ml Balance 1000 ml IV Total 1000 ml Vital Signs Date Time Temp Pulse Resp B/P (MAP) Pulse Ox O2 Delivery O2 Flow Rate FiO2 02/15/17 16:03 98.8 124 19 128/84 (99) 95 02/15/17 12:00 97.3 127 20 149/94 (112) 96 02/15/17 09:00 77 02/15/17 08:00 97.9 86 20 121/66 (84) 94 02/15/17 06:50 126 136/97 (110) 02/15/17 04:00 97.2 123 20 94/63 (73) 97 02/15/17 00:00 97.7 133 20 141/86 (104) 97 02/14/17 20:00 129 02/14/17 20:00 98.1 123 20 142/79 (100) 93 Exam Comments alert, no speech at this time CN intact Motor--equal strength BUE and BLE Objective Micro and Labs Date/Time Source Procedure Growth Status 01/31/17 12:00 Blood Peripheral Aerobic Blood Culture - Final NO GROWTH IN 5 DAYS Complete 01/31/17 12:00 Blood Peripheral Anaerobic Blood Culture - Final NO GROWTH IN 5 DAYS Complete 01/31/17 13:45 Urine Catheterized Urine Urine Culture - Final NO GROWTH IN 48 HOURS. Complete Flex Tejada PhD Feb 15, 2017 18:16
[2017-02-15] MEDS: DEXTROSE 5%-NACL 0.225% INJ 1,000 ML IV SCH (22:45)
[2017-02-16] MEDS: DEXTROSE 5%-NACL 0.225% INJ 1,000 ML IV SCH ×2 (04:00→12:54)
[2017-02-16 04:30] VITALS: BP 134/91; PULSE 74; RESP 18; TEMP 97.3; O2SAT 98
[2017-02-16 04:50] VITALS: BP 140/84
[2017-02-16] MEDS: DILTIAZEM HCL 60 MG TAB PO SCH ×3 (06:00→18:37)
[2017-02-16] MEDS: METOPROLOL TARTRATE 50 MG TAB PO SCH ×3 (06:00→18:37)
[2017-02-16 08:00] VITALS: BP 156/88; PULSE 76; PULSE 96; RESP 20; TEMP 97.5; O2SAT 100
[2017-02-16] MEDS: DIVALPROEX SODIUM E.R. 250 MG TAB PO SCH ×2 (09:00→13:00)
[2017-02-16] MEDS: RIVAROXABAN 20 MG TAB PO SCH (10:13)
[2017-02-16] MEDS: PHENYTOIN SODIUM 100 MG CAP PO SCH ×2 (10:13→13:00)
[2017-02-16] MEDS: ESCITALOPRAM OXALATE 20 MG TAB PO SCH (10:13)
[2017-02-16] MEDS: DIGOXIN 0.125 MG TAB PO SCH (10:14)
[2017-02-16] MEDS: DOCUSATE SODIUM 50 MG/SENNA 8.6 MG TAB PO SCH ×2 (10:14→22:08)
[2017-02-16] MEDS: SODIUM CHLORIDE 0.9% FLUSH 10 ML FLUSH IV FLUSH SCH ×2 (10:16→22:08)
--- NOTE | 2017-02-16 11:25 | HHI.PR ---
Subjective Remarks Discuss with RN, the patient is not cooperating with taking the medications. He is spitting out the pills that cannot be crushed, including Dilantin and Depakote. Objective Vitals Vital Signs Date Time Temp Pulse Resp B/P (MAP) Pulse Ox O2 Delivery O2 Flow Rate FiO2 02/16/17 08:00 97.5 96 20 156/88 (110) 100 Manual Cuff/Auscultation 02/16/17 04:50 140/84 (102) Automatic Cuff 02/16/17 04:30 97.3 74 18 134/91 (105) 98 02/16/17 04:00 Room Air 02/16/17 00:00 Room Air 02/15/17 23:55 97.1 77 18 162/90 (114) 94 02/15/17 20:00 Room Air 02/15/17 20:00 85 02/15/17 19:30 97.8 122 19 157/99 (118) 97 02/15/17 16:03 98.8 124 19 128/84 (99) 95 02/15/17 16:00 97.3 127 20 149/94 (112) 96 02/15/17 12:00 97.3 127 20 149/94 (112) 96 I/O 02/15/17 02/15/17 02/15/17 02/16/17 02/16/17 02/16/17 07:00 15:00 23:00 07:00 15:00 23:00 Intake Total 840 ml 1000 ml 1265 ml 639 ml Output Total 1900 ml 1750 ml 1300 ml Balance -1060 ml 1000 ml -485 ml -661 ml Intake Oral 840 ml 265 ml 50 ml IV Total 1000 ml 1000 ml 589 ml Output Urine Total 1900 ml 1750 ml 1300 ml # Bowel Movements 1 5 0 Result Diagram: 02/13/17 0620 02/14/17 0554 Objective Remarks GENERAL: Patient is awake. CARDIOVASCULAR: Normal rate, irregular. RESPIRATORY: Clear to auscultation anteriorly. GASTROINTESTINAL: Abdomen soft, normal active bowel sounds MUSCULOSKELETAL: Extremities without cyanosis, or edema. NEURO: Does not follow commands. Moves all extremities. A/P Assessment and Plan 66-year-old male with mental retardation, seizure disorder and bipolar disorder who presented with left lower extremity edema, erythema, warmth. In summary the patient had sepsis secondary to cellulitis. Persistent rapid afib resolved. However he remains agitated. DCF is involved because he was admitted with a black eye. He has MR and placement may be an issue. History of seizure disorder, bipolar disorder, mental retardation, orthostatic hypotension, hypertension, chronic kidney disease, chronic UTIs, history of DVT -Appreciate neurology following. Increase Dilantin and Depakote, follow-up levels on Saturday morning. Stop Keppra. - Patient having issues with capsules. Discussed with pharmacy to change Dilantin and Depakote to formulations that can be crushed or given IV. MR/Agitation: Patient's agitation was interfering with medical treatment. He has MR and no capacity to make medical decision. - Haldol to help with agitations. - Appreciate psychiatry following. Avoid Ativan. Sepsis: Resolved Left lower extremity cellulitis Leukocytosis. -Source left lower extremity cellulitis. On presentation WBC 26,000, tachycardia 115, lactic acid 3.0. UA suggesting UTI. Urine cultures negative. Chest x-ray showed scattered interstitial nodule in the upper right upper lobe was suggest a new infiltrate versus chronic interstitial lung disease. Repeat chest x-ray airspace disease w ? superimposed PNA. Pt on abx. -on vancomycin, ID has stopped Zosyn. appreciate recs -Blood Cultures neg and urine cx neg x 48hrs -Continue to monitor clinically. -02/11. Leukocytosis still 14.4. Could be secondary to agitation. No fevers. -Status post 12 days of antibiotics. Resolved. Discontinue vancomycin. Atrial flutter: -Heart rate improved on digoxin. Continue diltiazem, metoprolol as per cardiology. Continue anticoagulation as per cardiology. Hyponatremia: Change IV fluid to D5 quarter normal saline. Continue to follow. Labs pending Left eye ecchymosis -DCF is involved. case management consulted. DVT prophylaxis -Patient is on Xarelto. Discharge Planning difficult discharge. -cellulitis has resolved. -Psychosis and aggressiveness, occasionally require restraints. Appreciate case management assistance. May be appropriate for med psych. Geneva Shen MD Feb 16, 2017 11:25
[2017-02-16 12:00] VITALS: BP 164/75; PULSE 122; RESP 22; TEMP 97.7; O2SAT 100
[2017-02-16 15:11] VITALS: BP 164/78; PULSE 109; RESP 20; TEMP 97; O2SAT 98
[2017-02-16] MEDS: DIVALPROEX SODIUM SPRINKLES 125 MG CAP PO SCH (18:00)
[2017-02-16] MEDS: PHENYTOIN INJ 250 MG/5 ML VIAL IV SCH (18:37)
[2017-02-16 20:00] VITALS: BP 175/81; PULSE 110; PULSE 54; RESP 20; O2SAT 98
[2017-02-17] VITALS (7 sets, daily range): BP systolic 136–182; BP diastolic 72–104; PULSE 62–126; RESP 18–22; TEMP 97–97.9; O2SAT 93–100
[2017-02-17] MEDS: METOPROLOL TARTRATE 50 MG TAB PO SCH ×4 (00:41→16:28)
[2017-02-17] MEDS: DILTIAZEM HCL 60 MG TAB PO SCH ×4 (00:41→16:28)
[2017-02-17] MEDS: DEXTROSE 5%-NACL 0.225% INJ 1,000 ML IV SCH ×4 (03:11→21:35)
[2017-02-17] MEDS: DOCUSATE SODIUM 50 MG/SENNA 8.6 MG TAB PO SCH ×2 (09:00→21:34)
[2017-02-17] MEDS: DIGOXIN 0.125 MG TAB PO SCH (09:00)
[2017-02-17] MEDS: DIVALPROEX SODIUM SPRINKLES 125 MG CAP PO SCH ×3 (09:00→18:00)
[2017-02-17] MEDS: ESCITALOPRAM OXALATE 20 MG TAB PO SCH (09:00)
[2017-02-17] MEDS: RIVAROXABAN 20 MG TAB PO SCH (09:00)
[2017-02-17] MEDS: PHENYTOIN INJ 250 MG/5 ML VIAL IV SCH ×3 (09:00→18:00)
--- NOTE | 2017-02-17 10:21 | HHI.PR ---
Subjective Remarks Follow up seizure disorder, agitation, psychosis, cellulitis. Patient seen and examined, lying in bed in no apparent distress at the time. Continued use of bilateral upper extremity soft wrist restraints and mittens. Spoke to RN at bedside, does admit to some agitation overnight, has been comfortable and compliant this morning. Has been able to take his medications. Afebrile. Positive BM. Awaiting labs, called and requested lab draw this morning. Objective Vitals Vital Signs Date Time Temp Pulse Resp B/P (MAP) Pulse Ox O2 Delivery O2 Flow Rate FiO2 02/17/17 04:00 97.7 62 18 141/90 (107) 94 02/17/17 00:00 Room Air 02/17/17 00:00 97.6 124 22 149/100 (116) 98 182/98 (126) 02/16/17 20:15 Room Air 02/16/17 20:00 110 02/16/17 20:00 54 20 175/81 (112) 98 02/16/17 15:11 97.0 109 20 164/78 (106) 98 02/16/17 12:00 97.7 122 22 164/75 (104) 100 I/O 02/16/17 02/16/17 02/16/17 02/17/17 02/17/17 02/17/17 07:00 15:00 23:00 07:00 15:00 23:00 Intake Total 639 ml 1243 ml 1263 ml Output Total 1300 ml 1750 ml 700 ml Balance -661 ml -507 ml 563 ml Intake Oral 50 ml 240 ml 720 ml IV Total 589 ml 1003 ml 543 ml Output Urine Total 1300 ml 1750 ml 700 ml # Bowel Movements 0 0 1 Result Diagram: 02/13/17 0620 02/14/17 0554 Imaging Last Impressions Chest X-Ray 02/10/17 0600 Signed Impressions: Service Date/Time: Friday, February 10, 2017 02:55 - CONCLUSION: No significant change bilateral mild interstitial opacities and small pleural effusions. Carlos Cole MD Lower Extremity Ultrasound 01/31/17 1115 Signed Impressions: Service Date/Time: January 11:37 - CONCLUSION: Normal examination. Carlos Turner MD Objective Remarks GENERAL: Thin appearing, male patient lying in bed comfortably, with bilateral wrist mittens and bilateral upper extremity soft wrist restraints. Does not follow commands, moves all extremities. SKIN: Warm and dry. No rash. HEAD: Normocephalic. EYES: No scleral icterus. No injection or drainage. NECK: Supple, trachea midline. No JVD. CARDIOVASCULAR: Regular rate and rhythm without murmurs, gallops, or rubs. RESPIRATORY: Breath sounds equal bilaterally. No accessory muscle use. GASTROINTESTINAL: Abdomen soft, non-tender, nondistended. Active BS x 4 q. MUSCULOSKELETAL: No cyanosis, or edema. BACK: Nontender without obvious deformity. No CVA tenderness. A/P Assessment and Plan 66-year-old male with mental retardation, seizure disorder and bipolar disorder who presented with left lower extremity edema, erythema, warmth. In summary the patient had sepsis secondary to cellulitis. Persistent rapid afib resolved. However he remains agitated. [facility] is involved because he was admitted with a black eye. He has MR and placement may be an issue. History of seizure disorder, bipolar disorder, mental retardation, orthostatic hypotension, hypertension, chronic kidney disease, chronic UTIs, history of DVT - Appreciate neurology following. Recommendations to increase Dilantin and Depakote, follow-up levels on Saturday morning. Stop Keppra. - Patient now able to take Dilantin and Depakote with formulary change. Per RN, tolerating well. Will continue to monitor. MR/Agitation: Patient's agitation was interfering with medical treatment. He has MR and no capacity to make medical decision. - Haldol to help with agitations. - Appreciate psychiatry following. Avoid Ativan. Sepsis, resolved. Left lower extremity cellulitis Leukocytosis, resolved. -Source left lower extremity cellulitis. On presentation WBC 26,000, tachycardia 115, lactic acid 3.0. UA suggesting UTI. Urine cultures negative. Chest x-ray showed scattered interstitial nodule in the upper right upper lobe was suggest a new infiltrate versus chronic interstitial lung disease. Chest x- ray 02/02/17 airspace disease w ? superimposed PNA. Repeat CXR 02/10/17 no significant change bilateral mild interstitial opacities and small pleural effusions. - Blood Cultures neg and urine cx 01/31/17, NGTD. - Continue to monitor clinically. - WBC 9.5 02/13/17. Labs for this morning pending. follow. - Status post 12 days of antibiotics. Resolved. Discontinue vancomycin. Atrial flutter: Heart rate improved on digoxin. Continue diltiazem, metoprolol as per cardiology. Continue anticoagulation as per cardiology. Hyponatremia: Change IV fluid to D5 quarter normal saline. Continue to follow. Labs pending this morning. Follow. Left eye ecchymosis, improving. DCF is involved. Case management consulted. DVT prophylaxis: Xarelto. Discharge Planning Difficult discharge. Psychosis and aggressiveness, occasionally require restraints. Appreciate case management assistance. May be appropriate for med psych. Last CM note: -02/15/17 Spoke to Mari who informed [facility] that pt resides on the campus in the [facility], [address] [address] Street and can return when discharged. Mari also provided number for ([phone]) who is POA for pt and is also a contracted speech therapist for [facility]. Called spoke with her about pt d/c plans. Per pt has been to rehab before but it did not go well due to pt disability and the facility just had him Jo Acted. would prefer pt be discharged back to [facility] They have PT and OT available they would just need orders to get it all arranged. Called DCF worker Gary Epstein ([phone]) left for call back for any updates on case. [phone] placed on chart facility does have transport will need to call facility to arrange.. Altagracia Dunbar Feb 17, 2017 10:21
[2017-02-17 16:48] LABS: HEMATOCRIT 43.4 % (39.0-51.0); MEAN CELL VOLUME 92.3 FL (80.0-100.0); MEAN CORPUSCULAR HEMOGLOBIN 29.5 PG (27.0-34.0); MEAN CORPUSCULAR HGB CONC 31.9 % (32.0-36.0); PLATELET COUNT 351 TH/MM3 (150-450); RED CELL DISTRIBUTION WIDTH 14.1 % (11.6-17.2); REVIEW FLAG FINAL; WHITE BLOOD COUNT 9.2 TH/MM3 (4.0-11.0)
[2017-02-17 17:14] LABS: BICARBONATE 25.5 MEQ/L (21.0-32.0); POTASSIUM 4.5 MEQ/L (3.5-5.1)
[2017-02-17] MEDS: SODIUM CHLORIDE 0.9% FLUSH 10 ML FLUSH IV FLUSH SCH (21:00)
[2017-02-18] VITALS (10 sets, daily range): BP systolic 109–144; BP diastolic 57–93; PULSE 57–133; RESP 18–20; TEMP 97.3–98.3; O2SAT 90–100
[2017-02-18] MEDS: DILTIAZEM HCL 60 MG TAB PO SCH ×5 (00:04→23:50)
[2017-02-18] MEDS: METOPROLOL TARTRATE 50 MG TAB PO SCH ×5 (00:04→23:50)
[2017-02-18] MEDS: HALOPERIDOL LACTATE 5 MG/ML AMP IM PRN (01:22)
[2017-02-18] MEDS: DEXTROSE 5%-NACL 0.225% INJ 1,000 ML IV SCH ×2 (05:28→22:40)
[2017-02-18] MEDS: DOCUSATE SODIUM 50 MG/SENNA 8.6 MG TAB PO SCH ×2 (09:00→21:00)
[2017-02-18] MEDS: PHENYTOIN INJ 250 MG/5 ML VIAL IV SCH ×3 (09:00→18:13)
[2017-02-18] MEDS: RIVAROXABAN 20 MG TAB PO SCH (09:00)
[2017-02-18] MEDS: SODIUM CHLORIDE 0.9% FLUSH 10 ML FLUSH IV FLUSH SCH ×2 (09:00→21:00)
[2017-02-18] MEDS: ESCITALOPRAM OXALATE 20 MG TAB PO SCH (09:00)
[2017-02-18] MEDS: DIVALPROEX SODIUM SPRINKLES 125 MG CAP PO SCH ×3 (09:00→18:12)
[2017-02-18] MEDS: DIGOXIN 0.125 MG TAB PO SCH (09:00)
--- NOTE | 2017-02-18 11:03 | HHI.PR ---
Subjective Remarks Follow up seizure disorder, agitation, psychosis, cellulitis. Patient seen and examined lying in bed comfortably. RN at bedside. Does state patient has had intermittent occurrences of agitation, HR overnight in the 130's due to agitation. Now controlled and patient calm. Continued wrist and mitten restraints. Tolerating PO intake, per RN consumed 90% of breakfast. Afebrile. Objective Vitals Vital Signs Date Time Temp Pulse Resp B/P (MAP) Pulse Ox O2 Delivery O2 Flow Rate FiO2 02/18/17 08:00 97.7 99 20 134/93 (107) 99 02/18/17 05:25 98.0 115 20 137/63 (87) 100 02/18/17 04:44 Room Air 02/18/17 00:39 128 02/18/17 00:00 97.3 133 18 144/87 (106) 100 02/17/17 20:18 97.9 118 18 160/72 (101) 100 02/17/17 20:00 Room Air 02/17/17 19:59 126 02/17/17 16:00 97.0 65 18 136/89 (105) 94 02/17/17 12:00 97.7 120 20 155/104 (121) 93 I/O 02/17/17 02/17/17 02/17/17 02/18/17 02/18/17 02/18/17 07:00 15:00 23:00 07:00 15:00 23:00 Intake Total 1263 ml 2240 ml 2000 ml Output Total 700 ml 1 ml Balance 563 ml 2240 ml 1999 ml Intake Oral 720 ml 360 ml 1000 ml IV Total 543 ml 1880 ml 1000 ml Output Urine Total 700 ml Stool Total 1 ml # Voids 2 5 # Bowel Movements 1 0 Result Diagram: 02/17/17 1639 02/17/17 1639 Imaging Last Impressions Chest X-Ray 02/10/17 0600 Signed Impressions: Service Date/Time: Friday, February 10, 2017 02:55 - CONCLUSION: No significant change bilateral mild interstitial opacities and small pleural effusions. Carlos Cole MD Lower Extremity Ultrasound 01/31/17 1115 Signed Impressions: Service Date/Time: January 11:37 - CONCLUSION: Normal examination. Carlos Turner MD Objective Remarks GENERAL: Thin appearing, male patient lying in bed comfortably, with bilateral wrist mittens and bilateral upper extremity soft wrist restraints. Does not follow commands, moves all extremities. SKIN: Warm and dry. No rash. HEAD: Normocephalic. EYES: No scleral icterus. No injection or drainage. NECK: Supple, trachea midline. No JVD. CARDIOVASCULAR: Regular rate and rhythm without murmurs, gallops, or rubs. RESPIRATORY: Breath sounds equal bilaterally. No accessory muscle use. GASTROINTESTINAL: Abdomen soft, non-tender, nondistended. Active BS x 4 q. MUSCULOSKELETAL: No cyanosis, or edema. BACK: Nontender without obvious deformity. No CVA tenderness. A/P Assessment and Plan 66-year-old male with mental retardation, seizure disorder and bipolar disorder who presented with left lower extremity edema, erythema, warmth. In summary the patient had sepsis secondary to cellulitis. Persistent rapid afib resolved. However he remains agitated. [facility] is involved because he was admitted with a black eye. He has MR and placement may be an issue. History of seizure disorder, bipolar disorder, mental retardation, orthostatic hypotension, hypertension, chronic kidney disease, chronic UTIs, history of DVT - Appreciate neurology following. Continue Dilantin and Depakote per neuro recommendations. Phenytoin level 4.8, Valproic acid 24 today. Await neuro recommendations. MR/Agitation: Patient's agitation was interfering with medical treatment. He has MR and no capacity to make medical decision. - Haldol to help with agitations. - Appreciate psychiatry following. Avoid Ativan. Sepsis, resolved. Left lower extremity cellulitis Leukocytosis, resolved. -Source left lower extremity cellulitis. On presentation WBC 26,000, tachycardia 115, lactic acid 3.0. UA suggesting UTI. Urine cultures negative. Chest x-ray showed scattered interstitial nodule in the upper right upper lobe was suggest a new infiltrate versus chronic interstitial lung disease. Chest x-ray 02/02/17 airspace disease w ? \ superimposed PNA. Repeat CXR 02/10/17 no significant change bilateral mild interstitial opacities and small pleural effusions. - Blood Cultures neg and urine cx 01/31/17, NGTD. - Continue to monitor clinically. - WBC 9.3 02/18/17. - Status post 12 days of antibiotics. Resolved. Discontinue vancomycin. Atrial flutter: Heart rate improved on digoxin. Continue diltiazem, metoprolol as per cardiology. Continue anticoagulation as per cardiology. Hyponatremia, improving. Na 141 today. Decrease D5 quarter normal saline at 50ml /hr. Continue to follow. Left eye ecchymosis, improving. DCF is involved. Case management consulted. DVT prophylaxis: Xarelto. Discharge Planning Difficult discharge. Psychosis and aggressiveness, occasionally require restraints. Appreciate case management assistance. Last CM note: -02/15/17 spoke to Guerrero the barnworker groom at the [facility] [phone] she requested for to send [phone] with the pt and to request for Physical therapy orders on the [phone], they will arrange Phy Therapy from that point. Prev Called number for Royal Connolly ([phone]) this number is actually number for [facility] ([facility]) for handicapped individual. Spoke to Mari who informed [facility] that pt resides on the campus in the [facility], [address] and can return when discharged. Mari also provided number for ([phone]) who is POA for pt and is also a contracted speech therapist for [facility]. Called spoke with her about pt d/c plans. Per pt has been to rehab before but it did not go well due to pt disability and the facility just had him Deysi Acted. would prefer pt be discharged back to [facility] They have PT and OT available they would just need orders to get it all arranged. Called DCF worker Gary Epstein ([phone]) left for call back for any updates on case. [phone] placed on chart facility does have transport will need to call facility to arrange. Altagracia Dunbar Feb 18, 2017 11:03
[2017-02-19] VITALS (7 sets, daily range): BP systolic 106–151; BP diastolic 60–99; PULSE 54–124; RESP 16–21; TEMP 97.5–98.3; O2SAT 96–100
[2017-02-19] MEDS: DILTIAZEM HCL 60 MG TAB PO SCH ×4 (05:34→23:55)
[2017-02-19] MEDS: METOPROLOL TARTRATE 50 MG TAB PO SCH ×4 (05:34→23:55)
[2017-02-19] MEDS: SODIUM CHLORIDE 0.9% FLUSH 10 ML FLUSH IV FLUSH SCH ×2 (08:01→20:16)
[2017-02-19] MEDS: PHENYTOIN INJ 250 MG/5 ML VIAL IV SCH (08:01)
[2017-02-19] MEDS: DIGOXIN 0.125 MG TAB PO SCH (08:02)
[2017-02-19] MEDS: DOCUSATE SODIUM 50 MG/SENNA 8.6 MG TAB PO SCH ×2 (08:02→20:16)
[2017-02-19] MEDS: RIVAROXABAN 20 MG TAB PO SCH (08:02)
[2017-02-19] MEDS: ESCITALOPRAM OXALATE 20 MG TAB PO SCH (08:02)
[2017-02-19] MEDS: DIVALPROEX SODIUM SPRINKLES 125 MG CAP PO SCH ×3 (08:02→20:16)
--- NOTE | 2017-02-19 11:30 | HHI.PR ---
Subjective Remarks Follow up seizure disorder, agitation, psychosis, cellulitis. Patient seen and examined lying in bed comfortably. Patient with cognitive limitations, reportedly responded one-word answers. Not significantly involved in personal care. Per RN (Janett) patient without behavioral issues overnight. No agitation reported. Mitten restraints continue. Per RN, no acute issues reported overnight or since start of shift. Objective Vitals Vital Signs Date Time Temp Pulse Resp B/P (MAP) Pulse Ox O2 Delivery O2 Flow Rate FiO2 02/19/17 08:33 97.9 62 21 139/64 (89) 97 02/19/17 08:20 79 02/19/17 08:00 Room Air 02/19/17 04:00 98.1 92 16 136/68 (90) 98 02/19/17 04:00 Room Air 02/19/17 00:00 Room Air 02/19/17 00:00 98.2 94 16 106/60 (75) 99 02/18/17 20:00 97.8 96 18 137/67 (90) 99 02/18/17 20:00 118 02/18/17 20:00 96 Room Air 35 02/18/17 16:00 98.3 59 18 109/57 (74) 99 02/18/17 12:00 98.3 57 18 112/77 (89) 90 I/O 02/18/17 02/18/17 02/18/17 02/19/17 02/19/17 02/19/17 07:00 15:00 23:00 07:00 15:00 23:00 Intake Total 2000 ml 1720 ml Output Total 1 ml 450 ml Balance 1999 ml 1270 ml Intake Oral 1000 ml 720 ml IV Total 1000 ml 1000 ml Output Urine Total 450 ml Stool Total 1 ml # Voids 5 7 # Bowel Movements 2 2 Result Diagram: 02/17/17 1639 02/17/17 1639 Imaging Last Impressions Chest X-Ray 02/10/17 0600 Signed Impressions: Service Date/Time: Friday, February 10, 2017 02:55 - CONCLUSION: No significant change bilateral mild interstitial opacities and small pleural effusions. Carlos Cole MD Lower Extremity Ultrasound 01/31/17 1115 Signed Impressions: Service Date/Time: January 11:37 - CONCLUSION: Normal examination. Carlos Turner MD Objective Remarks GENERAL: Patient encountered laying a bed, smiling and laughing, NAD. SKIN: Warm and dry. HEAD: Normocephalic. EYES: No scleral icterus. No injection or drainage. NECK: Supple, trachea midline. No lymphadenopathy. CARDIOVASCULAR: Regular rate (62) and rhythm without murmurs, gallops, or rubs. RESPIRATORY: Breath sounds equal bilaterally. No wheezes rhonchi or crackles. No accessory muscle use. GASTROINTESTINAL: Abdomen soft, non-tender, nondistended. MUSCULOSKELETAL: No cyanosis, or edema. PSYCHIATRIC: Mood and affect bright; insight and judgment could not be ascertained. Patient was pleasant. Medications and IVs Current Medications Medications (Trade) Dose Ordered Sig/Kely Route Start Time Stop Time Status Last Admin (NS Flush) 2 ml UNSCH PRN IV FLUSH 01/31/17 14:15 (NS Flush) 2 ml BID IV FLUSH 01/31/17 21:00 02/19/17 08:01 (Tylenol) 650 mg Q4H PRN PO 01/31/17 14:15 (Zofran Inj) 4 mg Q6H PRN IVP 01/31/17 14:15 (Narcan Inj) 0.4 mg UNSCH PRN IV 01/31/17 14:15 (Inna-Colace) 1 tab BID PO 01/31/17 21:00 02/18/17 09:00 (Milk Of Magnesia Liq) 30 ml Q12H PRN PO 01/31/17 14:15 (Senokot) 17.2 mg Q12H PRN PO 01/31/17 14:15 (Dulcolax Supp) 10 mg DAILY PRN RECTAL 01/31/17 14:15 (Lactulose Liq) 30 ml DAILY PRN PO 01/31/17 14:15 (Lexapro) 20 mg DAILY PO 02/03/17 09:00 02/19/17 08:02 (Xarelto) 20 mg DAILY PO 02/03/17 09:00 02/19/17 08:02 (Haldol Inj) 5 mg Q6H PRN IM 02/05/17 12:00 02/18/17 01:22 (Cardizem) 60 mg Q6HR PO 02/06/17 12:00 02/19/17 05:34 (Lopressor) 50 mg Q6HR PO 02/08/17 18:00 02/19/17 05:34 (Lanoxin) 0.125 mg DAILY PO 02/12/17 09:00 02/19/17 08:02 Dextrose/Sodium Chloride 1,000 ml @ 50 mls/hr Q20H IV 02/15/17 18:00 02/18/17 22:40 (Depakote Sprinkles) 500 mg TID PO 02/16/17 18:00 02/19/17 08:02 (Dilantin Liq) 200 mg Q8HR PO 02/19/17 14:00 Urinary Catheter: Yes (Condom catheter) Assessment to: Continue Thapa insert reason: Prolonged Immobilization A/P Problem List: (1) Left leg cellulitis ICD Code: L03.116 - Cellulitis of left lower limb Status: Resolved (2) Sepsis ICD Code: A41.9 - Sepsis, unspecified organism Status: Resolved (3) Atrial flutter with rapid ventricular response ICD Code: I48.92 - Unspecified atrial flutter Status: Chronic (4) MR (mental retardation), severe ICD Code: F72 - Severe intellectual disabilities Status: Chronic (5) Behavior disturbance ICD Code: F91.9 - Conduct disorder, unspecified Status: Acute (6) Hyponatremia ICD Code: E87.1 - Hypo-osmolality and hyponatremia Status: Acute Assessment and Plan 66-year-old male with mental retardation, seizure disorder and bipolar disorder who presented with left lower extremity edema, erythema, warmth. In summary the patient had sepsis secondary to cellulitis. Persistent rapid afib resolved. However he remains agitated. [facility] is involved because he was admitted with a black eye. He has MR and placement may be an issue. Seizure disorder: Discontinued IV Dilantin. Initiated Dilantin liquid 200 mg PO 3 times a day. Dilantin and Depakote levels both low. MR/Agitation: Consulted psychiatry for transfer to their service. History of seizure disorder, bipolar disorder, mental retardation, orthostatic hypotension, hypertension, chronic kidney disease, chronic UTIs, history of DVT - Appreciate neurology following. Continue Dilantin and Depakote per neuro recommendations. Phenytoin level 4.8, Valproic acid 24 today. Await neuro recommendations. MR/Agitation: Patient's agitation was interfering with medical treatment. He has MR and no capacity to make medical decision. - Haldol to help with agitations. - Appreciate psychiatry following. Avoid Ativan. Sepsis, resolved. Left lower extremity cellulitis Leukocytosis, resolved. -Source left lower extremity cellulitis. On presentation WBC 26,000, tachycardia 115, lactic acid 3.0. UA suggesting UTI. Urine cultures negative. Chest x-ray showed scattered interstitial nodule in the upper right upper lobe was suggest a new infiltrate versus chronic interstitial lung disease. Chest x-ray 02/02/17 airspace disease w ? \ superimposed PNA. Repeat CXR 02/10/17 no significant change bilateral mild interstitial opacities and small pleural effusions. - Blood Cultures neg and urine cx 01/31/17, NGTD. - Continue to monitor clinically. - WBC 9.3 02/18/17. - Status post 12 days of antibiotics. Resolved. Discontinue vancomycin. Atrial flutter: Heart rate improved on digoxin. Continue diltiazem, metoprolol as per cardiology. Continue anticoagulation as per cardiology. Hyponatremia, improving. Na 141 today. Decrease D5 quarter normal saline at 50ml /hr. Continue to follow. Left eye ecchymosis, improving. DCF is involved. Case management consulted. DVT prophylaxis: Xarelto. Case discussed with RN and Dr. Shen. Discharge Planning Difficult discharge. Psychosis and aggressiveness, occasionally require restraints. Case management continuing to seek placement Problem Qualifiers (1) Sepsis: Qualified Codes: A41.9 - Sepsis, unspecified organism Dimitry Alvarenga Jr. Feb 19, 2017 11:30
[2017-02-19] MEDS: PHENYTOIN SUSP 100 MG/4 ML CUP PO SCH ×2 (12:45→22:01)
--- NOTE | 2017-02-19 14:31 | HHI.PYPN ---
Subjective Remarks Patient is seen today for psychiatric reevaluation, patient is nonresponsive, oppositional, just answer once saying that he is "ok". I seen the patient twice already during this hospitalization and he has exhibited similar presentation. As per nurse in charge, Janett, during the last 24 hours patient has not presented any major episode of agitation or aggressive behavior. Review of Systems Other No somatic complaints Objective Alert: Yes [place]: Person Mood: Oppositional Affect: Other (irritable) Memory Intact: Comment (able to be assessed) Hallucinations: Other (able to be assessed) Delusions: No Delusion Type: Other (able to be assessed) Suicidal: Ideation (able to be assessed) Homicidal: Ideation (able to be assessed) Insight/Judgment Poor Labs Date/Time Source Procedure Growth Status 01/31/17 12:00 Blood Peripheral Aerobic Blood Culture - Final NO GROWTH IN 5 DAYS Complete 01/31/17 12:00 Blood Peripheral Anaerobic Blood Culture - Final NO GROWTH IN 5 DAYS Complete 01/31/17 13:45 Urine Catheterized Urine Urine Culture - Final NO GROWTH IN 48 HOURS. Complete Vitals/IOs Vital Signs Date Time Temp Pulse Resp B/P (MAP) Pulse Ox O2 Delivery O2 Flow Rate FiO2 02/19/17 12:25 97.7 124 20 135/99 (111) 97 02/19/17 08:00 Room Air 02/18/17 20:00 35 Assessment & Plan Problem List: (1) Delirium due to another medical condition ICD Codes: F05 - Delirium due to known physiological condition (2) Adjustment disorder with mixed disturbance of emotions and conduct ICD Codes: F43.25 - Adjustment disorder with mixed disturbance of emotions and conduct Assessment & Plan: Patient presents with severe developmental delay and cognitive disability the process with episodic agitation and behavioral dysregulation. As per nurses patient has been at baseline in the last 24 hours. Depakote level system be subtherapeutic. Will increase Depakote 1000 mg twice a day to help with behavioral dysregulation. Unfortunately, this patient with this level of developmental delay does not benefit of psychiatric admission. Assessment & Plan Estimated LOS: days Justification for Cont. Inpt. Patient does not meet criteria for psychiatric admission at this moment. Adarsh Meeks MD Feb 19, 2017 14:31
[2017-02-19] MEDS: DEXTROSE 5%-NACL 0.225% INJ 1,000 ML IV SCH (16:40)
[2017-02-20] VITALS (7 sets, daily range): BP systolic 116–145; BP diastolic 64–101; PULSE 59–122; RESP 16–20; TEMP 97.3–97.8; O2SAT 96–99
[2017-02-20] MEDS: PHENYTOIN SUSP 100 MG/4 ML CUP PO SCH ×3 (05:46→23:18)
[2017-02-20] MEDS: DILTIAZEM HCL 60 MG TAB PO SCH ×4 (05:46→23:25)
[2017-02-20] MEDS: METOPROLOL TARTRATE 50 MG TAB PO SCH ×4 (05:46→23:25)
[2017-02-20] MEDS: SODIUM CHLORIDE 0.9% FLUSH 10 ML FLUSH IV FLUSH SCH ×2 (09:00→23:19)
[2017-02-20] MEDS: DIVALPROEX SODIUM SPRINKLES 125 MG CAP PO SCH ×2 (10:09→23:18)
[2017-02-20] MEDS: DOCUSATE SODIUM 50 MG/SENNA 8.6 MG TAB PO SCH ×2 (10:10→23:18)
[2017-02-20] MEDS: ESCITALOPRAM OXALATE 20 MG TAB PO SCH (10:10)
[2017-02-20] MEDS: DIGOXIN 0.125 MG TAB PO SCH (10:10)
[2017-02-20] MEDS: RIVAROXABAN 20 MG TAB PO SCH (10:10)
--- NOTE | 2017-02-20 13:39 | HHI.PR ---
Objective Vitals Vital Signs Date Time Temp Pulse Resp B/P (MAP) Pulse Ox O2 Delivery O2 Flow Rate FiO2 02/20/17 12:00 97.7 63 20 138/80 (99) 98 02/20/17 08:00 97.6 122 20 141/84 (103) 97 02/20/17 04:00 Room Air 02/20/17 04:00 97.3 61 16 144/64 (90) 99 02/20/17 00:00 Room Air 02/20/17 00:00 97.5 61 18 131/73 (92) 99 02/19/17 20:00 81 02/19/17 20:00 97.5 74 16 151/65 (93) 100 02/19/17 20:00 96 Room Air 35 02/19/17 16:04 98.3 54 19 124/75 (91) 96 02/19/17 16:00 Room Air I/O 02/19/17 02/19/17 02/19/17 02/20/17 02/20/17 02/20/17 07:00 15:00 23:00 07:00 15:00 23:00 Intake Total 1200 ml 720 ml Output Total 1300 ml Balance 1200 ml -580 ml Intake Oral 1200 ml 720 ml Output Urine Total 1300 ml # Voids 7 3 # Bowel Movements 2 2 3 Result Diagram: 02/17/17 1639 02/17/17 1639 A/P Problem List: (1) Left leg cellulitis ICD Code: L03.116 - Cellulitis of left lower limb Status: Resolved (2) Sepsis ICD Code: A41.9 - Sepsis, unspecified organism Status: Resolved (3) Atrial flutter with rapid ventricular response ICD Code: I48.92 - Unspecified atrial flutter Status: Chronic (4) MR (mental retardation), severe ICD Code: F72 - Severe intellectual disabilities Status: Chronic (5) Behavior disturbance ICD Code: F91.9 - Conduct disorder, unspecified Status: Acute (6) Hyponatremia ICD Code: E87.1 - Hypo-osmolality and hyponatremia Status: Acute Problem Qualifiers (1) Sepsis: Qualified Codes: A41.9 - Sepsis, unspecified organism Cedric Munroe MD Feb 20, 2017 13:39
[2017-02-20] MEDS: DEXTROSE 5%-NACL 0.225% INJ 1,000 ML IV SCH (14:02)
[2017-02-20] MEDS ORDERED: PHEN125S9 PO (14:15)
[2017-02-20] MEDS ORDERED: DIVA125C PO (14:15)
--- NOTE | 2017-02-20 14:16 | HHI.DCPOC ---
Discharge Care Plan Diagnosis: (1) Left leg cellulitis (2) MR (mental retardation), severe (3) Behavior disturbance (4) Hyponatremia (5) Sepsis (6) Atrial flutter with rapid ventricular response (7) Adjustment disorder with mixed disturbance of emotions and conduct (8) UTI (urinary tract infection) Goals to Promote Your Health * To prevent worsening of your condition and complications * To maintain your health at the optimal level Directions to Meet Your Goals Take your medications as prescribed Follow your dietary instruction Follow activity as directed Keep your appointments as scheduled Take your immunizations and boosters as scheduled If your symptoms worsen call your PCP, if no PCP go to Urgent Care Center or Emergency Room Smoking is Dangerous to Your Health. Avoid second hand smoke Call the 24-hour hour crisis hotline for domestic abuse at Cedric Munroe MD Feb 20, 2017 14:16
--- NOTE | 2017-02-20 15:57 | HHI.PR ---
Subjective Remarks Follow up seizure disorder, agitation, psychosis, cellulitis. Patient seen and examined lying in bed comfortably. Patient with cognitive limitations, reportedly responded one-word answers. Not significantly involved in personal care. Pt said "no" when asked about pain, discomfort. Per RN (Shea) patient without behavioral issues overnight. No agitation reported. Mitten restraints continue as pt is reported to "pull at everything" including his condom catheter. Per RN, no acute issues reported overnight or since start of shift. Objective Vitals Vital Signs Date Time Temp Pulse Resp B/P (MAP) Pulse Ox O2 Delivery O2 Flow Rate FiO2 02/20/17 12:00 97.7 63 20 138/80 (99) 98 02/20/17 08:00 97.6 122 20 141/84 (103) 97 02/20/17 04:00 Room Air 02/20/17 04:00 97.3 61 16 144/64 (90) 99 02/20/17 00:00 Room Air 02/20/17 00:00 97.5 61 18 131/73 (92) 99 02/19/17 20:00 81 02/19/17 20:00 97.5 74 16 151/65 (93) 100 02/19/17 20:00 96 Room Air 35 02/19/17 16:04 98.3 54 19 124/75 (91) 96 02/19/17 16:00 Room Air I/O 02/19/17 02/19/17 02/19/17 02/20/17 02/20/17 02/20/17 07:00 15:00 23:00 07:00 15:00 23:00 Intake Total 1200 ml 720 ml 1000 ml Output Total 1300 ml Balance 1200 ml -580 ml 1000 ml Intake Oral 1200 ml 720 ml IV Total 1000 ml Output Urine Total 1300 ml # Voids 7 3 # Bowel Movements 2 2 3 Result Diagram: 02/17/17 1639 02/17/17 1639 Imaging Last Impressions Chest X-Ray 02/10/17 0600 Signed Impressions: Service Date/Time: Friday, February 10, 2017 02:55 - CONCLUSION: No significant change bilateral mild interstitial opacities and small pleural effusions. Carlos Cole MD Lower Extremity Ultrasound 01/31/17 1115 Signed Impressions: Service Date/Time: Thursday, January 31, 2017 11:37 - CONCLUSION: Normal examination. Carlos Turner MD Objective Remarks GENERAL: Patient encountered laying a bed, NAD. SKIN: Warm and dry. HEAD: Normocephalic. EYES: No scleral icterus. No injection or drainage or the right, injection without drainage noted in the left. NECK: Supple, trachea midline. No lymphadenopathy. CARDIOVASCULAR: Irregularly irregular rhythm with regular rate without murmurs, gallops, or rubs. Pt declined assessment of pedal pulses. RESPIRATORY: Breath sounds equal bilaterally. No wheezes rhonchi or crackles. No accessory muscle use. GASTROINTESTINAL: Abdomen soft, non-tender, nondistended. MUSCULOSKELETAL: No cyanosis, or edema. PSYCHIATRIC: Mood and affect bright; insight and judgment could not be ascertained. Patient was pleasant. Medications and IVs Current Medications Medications (Trade) Dose Ordered Sig/Kely Route Start Time Stop Time Status Last Admin (NS Flush) 2 ml UNSCH PRN IV FLUSH 01/31/17 14:15 (NS Flush) 2 ml BID IV FLUSH 01/31/17 21:00 02/19/17 08:01 (Tylenol) 650 mg Q4H PRN PO 01/31/17 14:15 (Zofran Inj) 4 mg Q6H PRN IVP 01/31/17 14:15 (Narcan Inj) 0.4 mg UNSCH PRN IV 01/31/17 14:15 (Inna-Colace) 1 tab BID PO 01/31/17 21:00 02/20/17 10:10 (Milk Of Magnesia Liq) 30 ml Q12H PRN PO 01/31/17 14:15 (Senokot) 17.2 mg Q12H PRN PO 01/31/17 14:15 (Dulcolax Supp) 10 mg DAILY PRN RECTAL 01/31/17 14:15 (Lactulose Liq) 30 ml DAILY PRN PO 01/31/17 14:15 (Lexapro) 20 mg DAILY PO 02/03/17 09:00 02/20/17 10:10 (Xarelto) 20 mg DAILY PO 02/03/17 09:00 02/20/17 10:10 (Haldol Inj) 5 mg Q6H PRN IM 02/05/17 12:00 02/18/17 01:22 (Cardizem) 60 mg Q6HR PO 02/06/17 12:00 02/20/17 13:38 (Lopressor) 50 mg Q6HR PO 02/08/17 18:00 02/20/17 13:38 (Lanoxin) 0.125 mg DAILY PO 02/12/17 09:00 02/20/17 10:10 Dextrose/Sodium Chloride 1,000 ml @ 50 mls/hr Q20H IV 02/15/17 18:00 02/20/17 14:02 (Dilantin Liq) 200 mg Q8HR PO 02/19/17 14:00 02/20/17 13:38 (Depakote Sprinkles) 1,000 mg BID PO 02/19/17 21:00 02/20/17 10:09 Urinary Catheter: Yes (Condom catheter) Assessment to: Continue A/P Problem List: (1) Left leg cellulitis ICD Code: L03.116 - Cellulitis of left lower limb Status: Resolved (2) Sepsis ICD Code: A41.9 - Sepsis, unspecified organism Status: Resolved (3) Atrial flutter with rapid ventricular response ICD Code: I48.92 - Unspecified atrial flutter Status: Chronic (4) MR (mental retardation), severe ICD Code: F72 - Severe intellectual disabilities Status: Chronic (5) Behavior disturbance ICD Code: F91.9 - Conduct disorder, unspecified Status: Acute (6) Hyponatremia ICD Code: E87.1 - Hypo-osmolality and hyponatremia Status: Acute Assessment and Plan 66-year-old male with mental retardation, seizure disorder and bipolar disorder who presented with left lower extremity edema, erythema, warmth. In summary the patient had sepsis secondary to cellulitis. Persistent rapid afib resolved. However he remains agitated. DCF is involved because he was admitted with a black eye. He has MR and placement may be an issue. Seizure disorder: Pt tolerating Dilantin liquid 200 mg PO 3 times a day. Dilantin level to be checked in AM. Depakote level WNL. MR/Agitation: Psychiatry saw pt yesterday, declined to move him to their service. They did increase Depakote to 1000 mg PO twice a day. History of seizure disorder, bipolar disorder, mental retardation, orthostatic hypotension, hypertension, chronic kidney disease, chronic UTIs, history of DVT - Appreciate neurology following. Continue Dilantin and Depakote per neuro recommendations. Phenytoin level 4.8, Valproic acid 24 today. Await neuro recommendations. MR/Agitation: Patient's agitation was interfering with medical treatment. He has MR and no capacity to make medical decision. - Haldol to help with agitations. - Appreciate psychiatry following. Avoid Ativan. Sepsis, resolved. Left lower extremity cellulitis Leukocytosis, resolved. -Source left lower extremity cellulitis. On presentation WBC 26,000, tachycardia 115, lactic acid 3.0. UA suggesting UTI. Urine cultures negative. Chest x-ray showed scattered interstitial nodule in the upper right upper lobe was suggest a new infiltrate versus chronic interstitial lung disease. Chest x-ray 02/02/17 airspace disease w ? \\ superimposed PNA. Repeat CXR 02/10/17 no significant change bilateral mild interstitial opacities and small pleural effusions. - Blood Cultures neg and urine cx 01/31/17, NGTD. - Continue to monitor clinically. - WBC 9.3 02/18/17. - Status post 12 days of antibiotics. Resolved. Discontinue vancomycin. Atrial flutter: Heart rate improved on digoxin. Continue diltiazem, metoprolol as per cardiology. Continue anticoagulation as per cardiology. Hyponatremia, improving. Na 141 today. Decrease D5 quarter normal saline at 50ml /hr. Continue to follow. Left eye ecchymosis, improving. DCF is involved. Case management consulted. DVT prophylaxis: Xarelto. Case discussed with RN and Dr. Shen. Discharge Planning Difficult discharge. Psychosis and aggressiveness, occasionally require restraints. Case management continuing to seek placement Problem Qualifiers (1) Sepsis: Qualified Codes: A41.9 - Sepsis, unspecified organism Dimitry Alvarenga Jr. Feb 20, 2017 15:57
[2017-02-21] VITALS (8 sets, daily range): BP systolic 117–154; BP diastolic 73–95; PULSE 62–127; RESP 16–22; TEMP 97.7–98.3; O2SAT 96–100
[2017-02-21] MEDS: DILTIAZEM HCL 60 MG TAB PO SCH (06:13)
[2017-02-21] MEDS: METOPROLOL TARTRATE 50 MG TAB PO SCH ×3 (06:13→17:51)
[2017-02-21] MEDS: PHENYTOIN SUSP 100 MG/4 ML CUP PO SCH ×3 (06:13→21:07)
[2017-02-21] MEDS: RIVAROXABAN 20 MG TAB PO SCH (08:35)
[2017-02-21] MEDS: DIVALPROEX SODIUM SPRINKLES 125 MG CAP PO SCH (08:35)
[2017-02-21] MEDS: DOCUSATE SODIUM 50 MG/SENNA 8.6 MG TAB PO SCH ×2 (08:35→21:07)
[2017-02-21] MEDS: ESCITALOPRAM OXALATE 20 MG TAB PO SCH (08:35)
[2017-02-21] MEDS: DIGOXIN 0.125 MG TAB PO SCH (08:35)
[2017-02-21] MEDS: SODIUM CHLORIDE 0.9% FLUSH 10 ML FLUSH IV FLUSH SCH ×2 (08:36→21:08)
[2017-02-21] MEDS: DEXTROSE 5%-NACL 0.225% INJ 1,000 ML IV SCH (08:45)
[2017-02-21] MEDS ORDERED: SODIUM CHLORID 0.9% 500 ML INJ 500 ML IV ONE (10:00)
[2017-02-21] MEDS: DILTIAZEM HCL 90 MG TAB PO SCH ×2 (12:45→17:51)
--- NOTE | 2017-02-21 13:58 | EKG ---
Date Performed: 02/21/2017 Time Performed: 09:55:42 PTAGE: 66 years EKG: Atrial flutter with rapid ventricular response with 2:1 A-V block. Left axis deviation Non- specific intraventricular conduction delay Possible septal infarct - age undetermined LVH with second zack repolarization abnormality Lateral ST-T changes are probably due to ventricular hypertrophy Abnor mal ECG PREVIOUS TRACING : 02/02/2017 19.29 Compared to the previous tracing, QRS changes in the limb l brian, possibly due to lead placement DOCTOR: Mao Stewart Interpretating Date/Time 02/21/2017 13:58:05
--- NOTE | 2017-02-21 17:55 | HHI.PR ---
Subjective Remarks Patient is not waking up as per RN awake this am until he got depakote. No reports of diarrhea, fevers, chills heart rate very elevated this am Objective Vitals Vital Signs Date Time Temp Pulse Resp B/P (MAP) Pulse Ox O2 Delivery O2 Flow Rate FiO2 02/21/17 12:00 97.7 127 16 143/95 (111) 99 02/21/17 08:29 121 02/21/17 08:29 Room Air 02/21/17 08:00 97.9 122 18 150/92 (111) 100 02/21/17 05:28 98.3 63 18 117/73 (88) 96 02/20/17 23:47 97.8 92 18 116/73 (87) 97 02/20/17 22:00 97.5 63 18 145/101 (116) 98 02/20/17 20:00 Room Air I/O 02/20/17 02/20/17 02/20/17 02/21/17 02/21/17 02/21/17 07:00 15:00 23:00 07:00 15:00 23:00 Intake Total 720 ml 1000 ml 480 ml 480 ml Output Total 1300 ml 1600 ml Balance -580 ml 1000 ml -1120 ml 480 ml Intake Oral 720 ml 480 ml 480 ml IV Total 1000 ml Output Urine Total 1300 ml 1600 ml # Voids 6 # Bowel Movements 3 1 1 Result Diagram: 02/17/17 1639 02/17/17 1639 Imaging Last Impressions Chest X-Ray 02/10/17 0600 Signed Impressions: Service Date/Time: Friday, February 10, 2017 02:55 - CONCLUSION: No significant change bilateral mild interstitial opacities and small pleural effusions. Carlos Cole MD Lower Extremity Ultrasound 01/31/17 1115 Signed Impressions: Service Date/Time: January 11:37 - CONCLUSION: Normal examination. Carlos Turner MD Objective Remarks GENERAL: Patient encountered laying in bed, nad very lethargic and unable to be fully awaken. SKIN: Warm and dry. HEAD: Normocephalic. EYES: No scleral icterus. No injection or drainage or the right, injection without drainage noted in the left. NECK: Supple, trachea midline. No lymphadenopathy. CARDIOVASCULAR: Irregularly irregular rhythm with regular rate without murmurs, gallops, or rubs. Pt declined assessment of pedal pulses. RESPIRATORY: Breath sounds equal bilaterally. No wheezes rhonchi or crackles. No accessory muscle use. GASTROINTESTINAL: Abdomen soft, non-tender, nondistended. MUSCULOSKELETAL: No cyanosis, or edema. PSYCHIATRIC: unable to asses due to lethargy Medications and IVs Current Medications Medications (Trade) Dose Ordered Sig/Kely Route Start Time Stop Time Status Last Admin (NS Flush) 2 ml UNSCH PRN IV FLUSH 01/31/17 14:15 (NS Flush) 2 ml BID IV FLUSH 01/31/17 21:00 02/21/17 08:36 (Tylenol) 650 mg Q4H PRN PO 01/31/17 14:15 (Zofran Inj) 4 mg Q6H PRN IVP 01/31/17 14:15 (Narcan Inj) 0.4 mg UNSCH PRN IV 01/31/17 14:15 (Inna-Colace) 1 tab BID PO 01/31/17 21:00 02/21/17 08:35 (Milk Of Magnesia Liq) 30 ml Q12H PRN PO 01/31/17 14:15 (Senokot) 17.2 mg Q12H PRN PO 01/31/17 14:15 (Dulcolax Supp) 10 mg DAILY PRN RECTAL 01/31/17 14:15 (Lactulose Liq) 30 ml DAILY PRN PO 01/31/17 14:15 (Lexapro) 20 mg DAILY PO 02/03/17 09:00 02/21/17 08:35 (Xarelto) 20 mg DAILY PO 02/03/17 09:00 02/21/17 08:35 (Haldol Inj) 5 mg Q6H PRN IM 02/05/17 12:00 02/18/17 01:22 (Lopressor) 50 mg Q6HR PO 02/08/17 18:00 02/21/17 12:45 (Lanoxin) 0.125 mg DAILY PO 02/12/17 09:00 02/21/17 08:35 Dextrose/Sodium Chloride 1,000 ml @ 50 mls/hr Q20H IV 02/15/17 18:00 02/21/17 08:45 (Dilantin Liq) 200 mg Q8HR PO 02/19/17 14:00 02/21/17 12:45 (Depakote Sprinkles) 1,000 mg BID PO 02/19/17 21:00 02/21/17 08:35 (Cardizem) 90 mg Q6HR PO 02/21/17 13:00 02/21/17 12:45 (Bactroban Nasal 2% Oint) 1 applic BID EACH NARE 02/21/17 21:00 02/28/17 20:59 A/P Problem List: (1) Left leg cellulitis ICD Code: L03.116 - Cellulitis of left lower limb Status: Resolved (2) Sepsis ICD Code: A41.9 - Sepsis, unspecified organism Status: Resolved (3) Atrial flutter with rapid ventricular response ICD Code: I48.92 - Unspecified atrial flutter Status: Chronic (4) MR (mental retardation), severe ICD Code: F72 - Severe intellectual disabilities Status: Chronic (5) Behavior disturbance ICD Code: F91.9 - Conduct disorder, unspecified Status: Acute (6) Hyponatremia ICD Code: E87.1 - Hypo-osmolality and hyponatremia Status: Acute Assessment and Plan 66-year-old male with mental retardation, seizure disorder and bipolar disorder who presented with left lower extremity edema, erythema, warmth. In summary the patient had sepsis secondary to cellulitis. Persistent rapid afib resolved. However he remains agitated. DCF is involved because he was admitted with a black eye. He has MR and placement may be an issue. Seizure disorder: Pt tolerating Dilantin liquid 200 mg PO 3 times a day. Dilantin level to be checked in AM. Depakote level WNL. - 02/21 depakote dose increased to 1000 mg po twice a day. Agitation -Patient does not meet inpatient criteria as per psychiatry. History of seizure disorder, bipolar disorder, mental retardation, orthostatic hypotension, hypertension, chronic kidney disease, chronic UTIs, history of DVT - Appreciate neurology following. Continue Dilantin and Depakote per neuro recommendations. Phenytoin level 4.8, Valproic acid 24 today. Await neuro recommendations. MR/Agitation: Patient's agitation was interfering with medical treatment. He has MR and no capacity to make medical decision. - Haldol to help with agitations. - Appreciate psychiatry following. Avoid Ativan. Sepsis, resolved. Left lower extremity cellulitis Leukocytosis, resolved. -Source left lower extremity cellulitis. On presentation WBC 26,000, tachycardia 115, lactic acid 3.0. UA suggesting UTI. Urine cultures negative. Chest x-ray showed scattered interstitial nodule in the upper right upper lobe was suggest a new infiltrate versus chronic interstitial lung disease. Chest x-ray 02/02/17 airspace disease w ? \ superimposed PNA. Repeat CXR 02/10/17 no significant change bilateral mild interstitial opacities and small pleural effusions. - Blood Cultures neg and urine cx 01/31/17, NGTD. - Continue to monitor clinically. - WBC 9.3 02/18/17. - Status post 12 days of antibiotics. Resolved. Discontinue vancomycin. Atrial flutter/ A fib with RVR: Heart rate improved on digoxin. Continue diltiazem, metoprolol as per cardiology. Continue anticoagulation as per cardiology. 02/21 Patient with tachycardia this am. EKG ordered and reviewed by me shows atrial flutter with rapid ventricular response with a 2-1 AV block, LVH with secondary repolarization abnormality. A total ST-T changes probably due to ventricular hypertrophy and a nonspecific intraventricular conduction delay with a possible septal infarct of undetermined age. I increased the dose of Cardizem to 90 mg by mouth 4 times a day. Will also order an EEG given h/o seizures. Hyponatremia, improving. Na 141 today. Decrease D5 quarter normal saline at 50ml /hr. Continue to follow. Left eye ecchymosis, improving. DCF is involved. Case management consulted. Encephalopathy: Patient very lethargic today. Most likely toxic encephalopathy after patient's Depakote increased to 1000 mg by mouth twice a day. I will obtain a CT head and hold Depakote for now. Will probably resume at previous dose. Monitor neuro checks. DVT prophylaxis: Xarelto. Discharge Planning Not clear for DC. Dc pending head ct and EEG and clinical improvement of lethargy. Problem Qualifiers (1) Sepsis: Qualified Codes: A41.9 - Sepsis, unspecified organism Cedric Munroe MD Feb 21, 2017 17:55
--- NOTE | 2017-02-21 19:34 | RADRPT ---
EXAM DATE/TIME: 02/21/2017 19:13 [facility] COMPARISON: CT BRAIN W/O CONTRAST, August 27, 2013, 12:54. INDICATIONS : Confusion with altered mental status. RADIATION DOSE: 56.35 CTDIvol (mGy) MEDICAL HISTORY : Deep venous thrombosis. Orthostatic hypotension, PVD, Venous insufficiency, Mental retardation. SURGICAL HISTORY : None. ENCOUNTER: Initial ACUITY: 1 day PAIN SCALE: 3/10 LOCATION: Bilateral cranial TECHNIQUE: Multiple contiguous axial images were obtained of the head. Using automated exposure control and adj ustment of the mA and/or kV according to patient size, radiation dose was kept as low as reasonably a chievable to obtain optimal diagnostic quality images. DICOM format image data is available electro nically for review and comparison. FINDINGS: CEREBRUM: The ventricles are normal for age. No evidence of midline shift, mass lesion, hemorrhage or acute in farction. No extra-axial fluid collections are seen. POSTERIOR FOSSA: The cerebellum and brainstem are intact. Cerebellar atrophy again noted. The 4th ventricle is midlin e. The cerebellopontine angle is unremarkable. EXTRACRANIAL: The visualized portion of the orbits is intact. SKULL: The calvaria is intact. No evidence of skull fracture. CONCLUSION: No acute intracranial abnormality. Chronic cerebellar atrophy again seen. Carlos Cole MD on February 21, 2017 at 19:31 Board Certified Radiologist. This report was verified electronically.
[2017-02-21] MEDS: MUPIROCIN 2% OINT 1 APPLIC/GM SYR EACH NARE SCH (21:07)
--- NOTE | 2017-02-21 21:53 | HHI.PR ---
Subjective Remarks DRAFT pt not seen Objective Vitals Vital Signs Date Time Temp Pulse Resp B/P (MAP) Pulse Ox O2 Delivery O2 Flow Rate FiO2 02/21/17 20:23 98.0 74 22 154/80 (104) 98 02/21/17 16:00 97.8 121 18 146/83 (104) 100 02/21/17 12:00 97.7 127 16 143/95 (111) 99 02/21/17 08:29 121 02/21/17 08:29 Room Air 02/21/17 08:00 97.9 122 18 150/92 (111) 100 02/21/17 05:28 98.3 63 18 117/73 (88) 96 02/20/17 23:47 97.8 92 18 116/73 (87) 97 02/20/17 22:00 97.5 63 18 145/101 (116) 98 I/O 02/20/17 02/20/17 02/20/17 02/21/17 02/21/17 02/21/17 07:00 15:00 23:00 07:00 15:00 23:00 Intake Total 720 ml 1000 ml 480 ml 480 ml 1192 ml Output Total 1300 ml 1600 ml 2200 ml Balance -580 ml 1000 ml -1120 ml 480 ml -1008 ml Intake Oral 720 ml 480 ml 480 ml 600 ml IV Total 1000 ml 592 ml Output Urine Total 1300 ml 1600 ml 2200 ml # Voids 6 # Bowel Movements 3 1 1 1 Result Diagram: 02/17/17 1639 02/17/17 1639 Imaging Last Impressions Head CT 02/21/17 0000 Signed Impressions: Service Date/Time: February 19:13 - CONCLUSION: No acute intracranial abnormality. Chronic cerebellar atrophy again seen. Carlos Cole MD Chest X-Ray 02/10/17 0600 Signed Impressions: Service Date/Time: Friday, February 10, 2017 02:55 - CONCLUSION: No significant change bilateral mild interstitial opacities and small pleural effusions. Carlos Cole MD Lower Extremity Ultrasound 01/31/17 1115 Signed Impressions: Service Date/Time: January 11:37 - CONCLUSION: Normal examination. Carlos Turner MD A/P Problem List: (1) Left leg cellulitis ICD Code: L03.116 - Cellulitis of left lower limb Status: Resolved (2) Sepsis ICD Code: A41.9 - Sepsis, unspecified organism Status: Resolved (3) Atrial flutter with rapid ventricular response ICD Code: I48.92 - Unspecified atrial flutter Status: Chronic (4) MR (mental retardation), severe ICD Code: F72 - Severe intellectual disabilities Status: Chronic (5) Behavior disturbance ICD Code: F91.9 - Conduct disorder, unspecified Status: Acute (6) Hyponatremia ICD Code: E87.1 - Hypo-osmolality and hyponatremia Status: Acute Assessment and Plan 66-year-old male with mental retardation, seizure disorder and bipolar disorder who presented with left lower extremity edema, erythema, warmth. In summary the patient had sepsis secondary to cellulitis. Persistent rapid afib resolved. However he remains agitated. [facility] is involved because he was admitted with a black eye. He has MR and placement may be an issue. Encephalopathy: Patient very lethargic today. Most likely toxic encephalopathy after patient's Depakote increased to 1000 mg by mouth twice a day. I will obtain a CT head and hold Depakote for now. Will probably resume at previous dose. Monitor neuro checks. Seizure disorder: Pt tolerating Dilantin liquid 200 mg PO 3 times a day. Dilantin level to be checked in AM. Depakote level WNL. - 02/21 depakote dose increased to 1000 mg po twice a day. Agitation -Patient does not meet inpatient criteria as per psychiatry. History of seizure disorder, bipolar disorder, mental retardation, orthostatic hypotension, hypertension, chronic kidney disease, chronic UTIs, history of DVT - Appreciate neurology following. Continue Dilantin and Depakote per neuro recommendations. Phenytoin level 4.8, Valproic acid 24 today. Await neuro recommendations. MR/Agitation: Patient's agitation was interfering with medical treatment. He has MR and no capacity to make medical decision. - Haldol to help with agitations. - Appreciate psychiatry following. Avoid Ativan. Sepsis, resolved. Left lower extremity cellulitis Leukocytosis, resolved. -Source left lower extremity cellulitis. On presentation WBC 26,000, tachycardia 115, lactic acid 3.0. UA suggesting UTI. Urine cultures negative. Chest x-ray showed scattered interstitial nodule in the upper right upper lobe was suggest a new infiltrate versus chronic interstitial lung disease. Chest x-ray 02/02/17 airspace disease w ? \ superimposed PNA. Repeat CXR 02/10/17 no significant change bilateral mild interstitial opacities and small pleural effusions. - Blood Cultures neg and urine cx 01/31/17, NGTD. - Continue to monitor clinically. - WBC 9.3 02/18/17. - Status post 12 days of antibiotics. Resolved. Discontinue vancomycin. Atrial flutter/ A fib with RVR: Heart rate improved on digoxin. Continue diltiazem, metoprolol as per cardiology. Continue anticoagulation as per cardiology. 02/21 Patient with tachycardia this am. EKG ordered and reviewed by me shows atrial flutter with rapid ventricular response with a 2-1 AV block, LVH with secondary repolarization abnormality. A total ST-T changes probably due to ventricular hypertrophy and a nonspecific intraventricular conduction delay with a possible septal infarct of undetermined age. I increased the dose of Cardizem to 90 mg by mouth 4 times a day. Will also order an EEG given h/o seizures. Hyponatremia, improving. Na 141 today. Decrease D5 quarter normal saline at 50ml /hr. Continue to follow. Left eye ecchymosis, improving. DCF is involved. Case management consulted. DVT prophylaxis: Xarelto. Problem Qualifiers (1) Sepsis: Qualified Codes: A41.9 - Sepsis, unspecified organism Paul Marquis MD Feb 21, 2017 21:53
[2017-02-21 22:33] LABS: BICARBONATE 26.1 MEQ/L (21.0-32.0); POTASSIUM 4.3 MEQ/L (3.5-5.1)
[2017-02-22] MEDS: METOPROLOL TARTRATE 50 MG TAB PO SCH ×3 (00:37→11:35)
[2017-02-22] MEDS: DILTIAZEM HCL 90 MG TAB PO SCH ×3 (00:37→11:35)
[2017-02-22 03:58] VITALS: BP 143/96; PULSE 79; RESP 16; TEMP 97.5; O2SAT 97
[2017-02-22] MEDS: DEXTROSE 5%-NACL 0.225% INJ 1,000 ML IV SCH (06:06)
[2017-02-22] MEDS: PHENYTOIN SUSP 100 MG/4 ML CUP PO SCH ×2 (06:08→13:46)
[2017-02-22 07:59] LABS: AUTOMATED NEUTROPHIL # 6.8 TH/MM3 (1.8-7.7); BASOPHIL % 0.5 % (0.0-2.0); EOSINOPHIL % 0.5 % (0.0-4.0); HEMATOCRIT 40.2 % (39.0-51.0); HEMO FLAGS DIFF FINAL; LYMPH % 21.6 % (9.0-44.0); LYMPHOCYTE # 2.2 TH/MM3 (1.0-4.8); MEAN CORPUSCULAR HEMOGLOBIN 30.2 PG (27.0-34.0); MEAN CORPUSCULAR HGB CONC 33.2 % (32.0-36.0); MONO % 9.7 % (0.0-8.0); NEUT % 67.7 % (16.0-70.0); PLATELET COUNT 224 TH/MM3 (150-450); RED BLOOD COUNT 4.42 MIL/MM3 (4.50-5.90); RED CELL DISTRIBUTION WIDTH 13.6 % (11.6-17.2)
[2017-02-22 08:00] VITALS: BP 139/66; PULSE 52; RESP 16; TEMP 97.3; O2SAT 100
[2017-02-22 08:19] LABS: ALT (GPT) 29 U/L (12-78); ANION GAP 6 MEQ/L (5-15); AST (GOT) 11 U/L (15-37); BICARBONATE 25.2 MEQ/L (21.0-32.0); BLOOD UREA NITROGEN 19 MG/DL (7-18); CHLORIDE 111 MEQ/L (98-107); GLOMERULAR FILTRATION RATE 70 ML/MIN (>89); MAGNESIUM 2.1 MG/DL (1.5-2.5); POTASSIUM 4.2 MEQ/L (3.5-5.1); SODIUM (NA) 142 MEQ/L (136-145)
[2017-02-22 08:22] LABS: ALKALINE PHOSPHATASE 107 U/L (45-117); TOTAL BILIRUBIN ADULT 0.3 MG/DL (0.2-1.0)
[2017-02-22] MEDS: SODIUM CHLORIDE 0.9% FLUSH 10 ML FLUSH IV FLUSH SCH (09:00)
[2017-02-22] MEDS: ESCITALOPRAM OXALATE 20 MG TAB PO SCH (09:42)
[2017-02-22] MEDS: RIVAROXABAN 20 MG TAB PO SCH (09:42)
[2017-02-22] MEDS: DOCUSATE SODIUM 50 MG/SENNA 8.6 MG TAB PO SCH (09:43)
[2017-02-22] MEDS: DIGOXIN 0.125 MG TAB PO SCH (09:43)
[2017-02-22] MEDS: MUPIROCIN 2% OINT 1 APPLIC/GM SYR EACH NARE SCH (09:43)
[2017-02-22] MEDS: HALOPERIDOL LACTATE 5 MG/ML AMP IM PRN (09:55)
[2017-02-22 11:35] VITALS: PULSE 124
[2017-02-22 12:00] VITALS: BP 134/71; PULSE 63; RESP 16; TEMP 97.4; O2SAT 99
[2017-02-22] MEDS ORDERED: DIVALPROEX SODIUM SPRINKLES 125 MG CAP PO ONE (12:00)
[2017-02-22] MEDS ORDERED: DILT90TA PO (13:00)
[2017-02-22] MEDS ORDERED: DIVA125C PO (13:00)
[2017-02-22] MEDS ORDERED: METO-309 PO (13:00)
[2017-02-22] MEDS ORDERED: DIGO0.12 PO (13:00)
--- NOTE | 2017-02-22 13:07 | HHI.PR ---
Subjective Remarks Follow-up encephalopathy. Improved mental status patient awake but confused which is his baseline. Always asking for water. Patient tachycardic on telemetry does not say he is symptomatic like having palpitations, chest pain and shortness of breath. Discussed with RN Objective Vitals Vital Signs Date Time Temp Pulse Resp B/P (MAP) Pulse Ox O2 Delivery O2 Flow Rate FiO2 02/22/17 11:35 124 02/22/17 09:34 Room Air 02/22/17 08:00 97.3 52 16 139/66 (90) 100 02/22/17 03:58 97.5 79 16 143/96 (112) 97 02/21/17 23:40 98.0 62 16 129/81 (97) 97 02/21/17 20:23 98.0 74 22 154/80 (104) 98 02/21/17 20:00 62 02/21/17 20:00 Room Air 02/21/17 16:00 97.8 121 18 146/83 (104) 100 I/O 02/21/17 02/21/17 02/21/17 02/22/17 02/22/17 02/22/17 07:00 15:00 23:00 07:00 15:00 23:00 Intake Total 480 ml 1192 ml 1052 ml Output Total 2200 ml 1300 ml Balance 480 ml -1008 ml -248 ml Intake Oral 480 ml 600 ml 480 ml IV Total 592 ml 572 ml Output Urine Total 2200 ml 1300 ml # Voids 6 # Bowel Movements 1 1 0 Result Diagram: 02/22/17 0738 02/22/17 0738 Imaging Last Impressions Head CT 02/21/17 0000 Signed Impressions: Service Date/Time: February 19:13 - CONCLUSION: No acute intracranial abnormality. Chronic cerebellar atrophy again seen. Carlos Cole MD Chest X-Ray 02/10/17 0600 Signed Impressions: Service Date/Time: Friday, February 10, 2017 02:55 - CONCLUSION: No significant change bilateral mild interstitial opacities and small pleural effusions. Carlos Cole MD Lower Extremity Ultrasound 01/31/17 1115 Signed Impressions: Service Date/Time: January 11:37 - CONCLUSION: Normal examination. Carlos Turner MD Objective Remarks Well-developed, well-nourished in no distress Pupils equally reactive to light no jaundice Equal in expansion clear to auscultation Tachycardic no murmur Abdomen soft normal active bowel sounds Extremities no edema or cyanosis Awake moving all extremities not following commands Procedures none A/P Problem List: (1) Left leg cellulitis ICD Code: L03.116 - Cellulitis of left lower limb Status: Resolved (2) Sepsis ICD Code: A41.9 - Sepsis, unspecified organism Status: Resolved (3) Atrial flutter with rapid ventricular response ICD Code: I48.92 - Unspecified atrial flutter Status: Chronic (4) MR (mental retardation), severe ICD Code: F72 - Severe intellectual disabilities Status: Chronic (5) Behavior disturbance ICD Code: F91.9 - Conduct disorder, unspecified Status: Acute (6) Hyponatremia ICD Code: E87.1 - Hypo-osmolality and hyponatremia Status: Acute Assessment and Plan 66-year-old male with mental retardation, seizure disorder and bipolar disorder who presented with left lower extremity edema, erythema, warmth. In summary the patient had sepsis secondary to cellulitis. Persistent rapid afib improved. However he remains agitated. [facility] is involved because he was admitted with a black eye. He has MR and placement may be an issue. Encephalopathy: Most likely toxic encephalopathy after patient's Depakote increased to 1000 mg by mouth twice a day. Unremarkable head CT. Refused to cooperate with EEG. I believe he is back at his baseline. Monitor neuro checks. Seizure disorder: Pt tolerating Dilantin liquid 200 mg PO 3 times a day. Restart Depakote decreased dose to 750 mg twice a day and monitor levels Agitation -Patient does not meet inpatient criteria as per psychiatry. History of seizure disorder, bipolar disorder, mental retardation, orthostatic hypotension, hypertension, chronic kidney disease, chronic UTIs, history of DVT - Appreciate neurology following. Continue Dilantin and Depakote per neuro recommendations. MR/Agitation: Patient's agitation was interfering with medical treatment. He has MR and no capacity to make medical decision. - Haldol to help with agitations. - Appreciate psychiatry following. Avoid Ativan. Sepsis, resolved. Left lower extremity cellulitis Leukocytosis, resolved. -Source left lower extremity cellulitis. On presentation WBC 26,000, tachycardia 115, lactic acid 3.0. UA suggesting UTI. Urine cultures negative. Chest x-ray showed scattered interstitial nodule in the upper right upper lobe was suggest a new infiltrate versus chronic interstitial lung disease. Chest x-ray 02/02/17 airspace disease w superimposed PNA. Repeat CXR 02/10/17 no significant change bilateral mild interstitial opacities and small pleural effusions. - Blood Cultures neg and urine cx 01/31/17, NGTD. - Continue to monitor clinically. - WBC 9.3 02/18/17. - Status post 12 days of antibiotics. Resolved. Atrial flutter/ A fib with RVR: Cardizem just increased to 90 mg 4 times a day. Continue digoxin and metoprolol. Monitor on telemetry Hyponatremia, improving. Discontinue NS Left eye ecchymosis, improving. DCF is involved. Case management consulted. DVT prophylaxis: Xarelto. Discharge Planning Possible discharge later today if controlled ventricular response Problem Qualifiers (1) Sepsis: Qualified Codes: A41.9 - Sepsis, unspecified organism Paul Marquis MD Feb 22, 2017 13:07
--- NOTE | 2017-02-22 13:09 | HHI.DS ---
Discharge Summary Admission Date Jan 31, 2017 at 14:13 Discharge Date: Feb 22, 2017 Admitting Diagnosis sepsis, left lower extremity cellulitis (1) Left leg cellulitis ICD Code: L03.116 - Cellulitis of left lower limb Diagnosis: Principal Status: Resolved (2) Sepsis ICD Code: A41.9 - Sepsis, unspecified organism Status: Resolved (3) Atrial flutter with rapid ventricular response ICD Code: I48.92 - Unspecified atrial flutter Diagnosis: Principal Status: Chronic (4) MR (mental retardation), severe ICD Code: F72 - Severe intellectual disabilities Diagnosis: Principal Status: Chronic (5) Behavior disturbance ICD Code: F91.9 - Conduct disorder, unspecified Diagnosis: Principal Status: Acute (6) Hyponatremia ICD Code: E87.1 - Hypo-osmolality and hyponatremia Diagnosis: Principal Status: Acute Procedures none Brief History - From Admission This is a 66-year-old male past medical history of seizure disorder and mental retardation who presented with evaluation for left lower extremity. Due to patient's mental status unable to get a history. Dealt with [facility] and his nurse. Patient was brought in from a custodial secondary to lower extremity edema and erythema. His caregiver stated that this was happening overnight. Patient has a history of speech impairment and suffers from mental retardation. Per patient's nurse patient was agitated and was given Haldol and put in restraints. Patient's nurse also stated that DCF just saw patient due to patient having a black eye. He stated that his caregiver stated that patient sometimes would drop to the ground to get attention and they let him do this which may be the reason why he has a black eye. Unable to do ROS secondary to patient's mental status. CBC/BMP: 02/22/17 0738 02/22/17 0738 Significant Findings Laboratory Tests Test 02/19/17 15:44 02/20/17 15:00 02/21/17 20:53 02/22/17 07:38 Random Glucose 120 MG/DL (74-106) 153 MG/DL (74-106) Chloride Level 112 MEQ/L (98-107) 111 MEQ/L (98-107) Estimat Glomerular Filtration Rate 76 ML/MIN (>89) 70 ML/MIN (>89) Phenytoin (Dilantin) Level 7.4 MCG/ML (10.0-20.0) 7.4 MCG/ML (10.0-20.0) Red Blood Count 4.42 MIL/MM3 (4.50-5.90) Monocytes (%) (Auto) 9.7 % (0.0-8.0) Monocytes # (Auto) 1.0 TH/MM3 (0-0.9) Blood Urea Nitrogen 19 MG/DL (7-18) Albumin 2.5 GM/DL (3.4-5.0) Aspartate Amino Transf (AST/SGOT) 11 U/L (15-37) Valproic Acid (Depakene) Level 32 MCG/ML (50-100) Imaging Last Impressions Head CT 02/21/17 0000 Signed Impressions: Service Date/Time: February 19:13 - CONCLUSION: No acute intracranial abnormality. Chronic cerebellar atrophy again seen. Carlos Cole MD Chest X-Ray 02/10/17 0600 Signed Impressions: Service Date/Time: Friday, February 10, 2017 02:55 - CONCLUSION: No significant change bilateral mild interstitial opacities and small pleural effusions. Carlos Cole MD Lower Extremity Ultrasound 01/31/17 1115 Signed Impressions: Service Date/Time: January 11:37 - CONCLUSION: Normal examination. Carlos Turner MD PE at Discharge Well-developed, well-nourished in no distress Pupils equally reactive to light no jaundice Equal in expansion clear to auscultation Tachycardic no murmur Abdomen soft normal active bowel sounds Extremities no edema or cyanosis Awake moving all extremities not following commands Hospital Course 66-year-old male with mental retardation, seizure disorder and bipolar disorder who presented with left lower extremity edema, erythema, warmth. In summary the patient had sepsis secondary to cellulitis. Persistent rapid afib improved. However he remains agitated. DCF is involved because he was admitted with a black eye. He has MR and placement may be an issue. Encephalopathy: Most likely toxic encephalopathy after patient's Depakote increased to 1000 mg by mouth twice a day. Unremarkable head CT. Refused to cooperate with EEG. I believe he is back at his baseline. Monitor neuro checks. Seizure disorder: Pt tolerating Dilantin liquid 200 mg PO 3 times a day. Restart Depakote decreased dose to 750 mg twice a day and monitor levels Agitation -Patient does not meet inpatient criteria as per psychiatry. History of seizure disorder, bipolar disorder, mental retardation, orthostatic hypotension, hypertension, chronic kidney disease, chronic UTIs, history of DVT - Appreciate neurology following. Continue Dilantin and Depakote per neuro recommendations. MR/Agitation: Patient's agitation was interfering with medical treatment. He has MR and no capacity to make medical decision. - Haldol to help with agitations. - Appreciate psychiatry following. Avoid Ativan. Sepsis, resolved. Left lower extremity cellulitis Leukocytosis, resolved. -Source left lower extremity cellulitis. On presentation WBC 26,000, tachycardia 115, lactic acid 3.0. UA suggesting UTI. Urine cultures negative. Chest x-ray showed scattered interstitial nodule in the upper right upper lobe was suggest a new infiltrate versus chronic interstitial lung disease. Chest x-ray 02/02/17 airspace disease w superimposed PNA. Repeat CXR 02/10/17 no significant change bilateral mild interstitial opacities and small pleural effusions. - Blood Cultures neg and urine cx 01/31/17, NGTD. - Continue to monitor clinically. - WBC 9.3 02/18/17. - Status post 12 days of antibiotics. Resolved. Atrial flutter/ A fib with RVR: Cardizem just increased to 90 mg 4 times a day. Continue digoxin and metoprolol. Monitor on telemetry Hyponatremia, improving. Discontinue NS Left eye ecchymosis, improving. DCF is involved. Case management consulted. History of MRSA colonization DVT prophylaxis: Xarelto. Pt Condition on Discharge: Stable Discharge Disposition: Trnsfr to Other Facility ([facility] [facility]) Discharge Time: > 30 minutes Discharge Instructions DIET: Follow Instructions for: Heart Healthy Diet Activities you can perform: See Additionl Instruction Other Activity Instructions: OOB with assistance Follow up Referrals: PCP Follow-up - 1 Week New Orders: DEPAKENE - 1 Week PHENYTOIN (DILANTIN) - 1 Week New Medications: Digoxin (Digoxin) 0.125 Mg Tab 0.125 MG PO DAILY for Regulate Heart Beat, #30 TAB Diltiazem (Diltiazem) 90 Mg Tab 90 MG PO Q6HR for Regulate Heart Beat, #120 TAB Divalproex Sprinkles (Depakote Sprinkles) 125 mg Cap 750 MG PO BID for Control Seizures, #60 CAP Metoprolol Tartrate (Lopressor) 50 Mg Tab 50 MG PO Q6HR for Regulate Heart Beat, #120 TAB Phenytoin (Phenytoin) 100 Mg/4 Ml Oral.susp 200 MG PO Q8HR for Seizure Control, #93 TAB-CAP Continued Medications: Acetaminophen (Tylenol) 325 Mg Tab 650 MG PO Q6 PRN for PAIN, TAB 2 [id number] Artificial Tears (Tears Naturale) 15 Ml Soln 2 DROP EACH EYE BID PRN for EYE REDNESS, ML Ascorbic Acid (Ascorbic Acid) 500 Mg Tab 500 MG PO DAILY, TAB Calcitriol (Calcitriol) 0.25 Mcg Cap 0.25 MCG PO DAILY, CAP Cholecalciferol (Vitamin D-[address]) 1,000 Unit Tab 1000 UNIT PO DAILY, TAB Escitalopram (Escitalopram) 20 Mg Tab 20 MG PO DAILY, #30 TAB 0 Refills Ferrous Sulfate (Ferrous Sulfate) 325 Mg Tab 325 MG PO BID, TAB Mouthwashes (Antiseptic Mouth Rinse) Original Liq 1 APPLIC PO BID MOISTEN TOOTHETTE SWAB Multiple Vitamins W/ Minerals (Theragran M) 1 Tab Tab 1 TAB PO EVERY OTHER DAY, TAB Psyllium (Metamucil) 0.52 Gm Cap 2 CAP PO MON,TUE,WED,THUR,FRI, 0 Refills Rivaroxaban (Xarelto) 20 Mg Tab 20 MG PO DAILY for Blood Clot Prevention, TAB 0 Refills Discontinued Medications: Baclofen (Lioresal) 10 Mg Tab 10 MG PO BID, TAB Clonazepam (Klonopin) 0.5 Mg Tab 0.5 MG PO BID, TAB Clonazepam (Clonazepam) 1 Mg Tab 1 MG PO BID, #60 TAB 0 Refills Erythromycin (Erythromycin Opht 0.5% Oint) 0.5 % Oint 1 APPLIC EACH EYE HS APPLY 1/4 INCH RIBBON Levetiracetam (Keppra) 750 Mg Tab 750 MG PO BID, TAB Levetiracetam (Levetiracetam) 750 Mg Tab 750 MG PO DAILY for Control Seizures, #60 TAB 0 Refills Phenytoin Extended (Dilantin) 100 Mg Cap 200 MG PO DAILYAC for Control Seizures, #180 CAP 0 Refills Phenytoin Extended (Phenytoin Extended) 200 Mg Cap 200 MG PO TID for Control Seizures, #90 CAP 0 Refills Phenytoin Sodium (Dilantin 100 Mg Kapseals) 100 Mg Caper 100 MG PO TID Potassium Chloride (Klor-Con 10 Meq) 10 Meq Tabcr 10 MEQ PO DAILY Risperidone (Risperdal) 1 Mg Tab 1.5 MG PO BID, TAB 1&1/2 TABS=1.5MG Paul Marquis MD Feb 22, 2017 13:09
[2017-02-22 16:00] VITALS: BP 117/72; PULSE 111; RESP 16; TEMP 97.3; O2SAT 99
[2017-02-22] MEDS ORDERED: DIVALPROEX SODIUM SPRINKLES 125 MG CAP PO SCH (21:00)
== END 2017-02-22 16:11 | DRG 871 ==
LOC: NEPE 10:34 → NEDA 14:13 → N07B 16:46 → HCIS 02-03 15:35 → N04A 02-14 16:00 → N04B 02-15 16:32
PROVIDERS: ADMIT Family Medicine; ATTEND Internal Medicine
PROC: 5A09357 Assistance with Respiratory Ventilation, Less than 24 Consecutive Hours, Continuous Positive Airway Pressure (ICD-10-PCS; principal; 2017-02-05)
DX: A41.9 Sepsis, unspecified organism (principal); J18.9 Pneumonia, unspecified organism; N17.9 Acute kidney failure, unspecified; G92 Toxic encephalopathy; E87.0 Hyperosmolality and hypernatremia; F05 Delirium due to known physiological condition; I48.92 Unspecified atrial flutter; L03.116 Cellulitis of left lower limb; E87.1 Hypo-osmolality and hyponatremia; S05.12XA Contusion of eyeball and orbital tissues, left eye, initial encounter; G40.909 Epilepsy, unspecified, not intractable, without status epilepticus; F43.25 Adjustment disorder with mixed disturbance of emotions and conduct; F31.9 Bipolar disorder, unspecified; F42.9 Obsessive-compulsive disorder, unspecified; F79 Unspecified intellectual disabilities; D72.823 Leukemoid reaction; E87.5 Hyperkalemia; I12.9 Hypertensive chronic kidney disease with stage 1 through stage 4 chronic kidney disease, or unspecified chronic kidney disease; N18.2 Chronic kidney disease, stage 2 (mild); N40.0 Benign prostatic hyperplasia without lower urinary tract symptoms; T42.6X5A Adverse effect of other antiepileptic and sedative-hypnotic drugs, initial encounter; Z86.718 Personal history of other venous thrombosis and embolism; Z87.440 Personal history of urinary (tract) infections; Z86.14 Personal history of Methicillin resistant Staphylococcus aureus infection; Z88.2 Allergy status to sulfonamides; Z88.8 Allergy status to other drugs, medicaments and biological substances
CPT/HCPCS: 70450; 71010; 76937; 80048; 80053; 80069; 80164; 80177; 80185; 80202; 81001; 83605; 83735; 84100; 84443; 85025; 85027; 85610; 85730; 87040; 87086; 87641; 93005; 93971; 94002; 96361; 96365; 96368; 96372; 96375; J1160; J1165; J1630; J2060; J2543; J3370; J7030; J7040; J7050

== ENCOUNTER 2017-03-03 14:46 | Emergency (ER) | payer MEDICARE, OTHER ==
[~2017-03-03] VITALS: Ht 177.8 cm; Wt 80.0 kg
[~2017-03-03 14:46] MED LIST changes: -BACL10TA PO; -CLON.5 PO; +DIGO0.12 PO; +DILT90TA PO; +DIVA125C PO; -ERYT1O EACH EYE; +ESCI20TA PO; -LEVE750T8 PO; +METO-309 PO; -PHEN100 PO; +PHEN125S9 PO; -POTA-243 PO; -RISP1 PO; +XARE20TA PO
[2017-03-03 15:16] VITALS: BP 123/60; PULSE 67; RESP 16; TEMP 98.8; O2SAT 100
--- NOTE | 2017-03-03 15:40 | PD ---
HPI Chief Complaint: Altered Mental Status Time Seen by Provider: 15:37 Travel History International Travel<30 days: No Contact w/Intl Traveler<30days: No History of Present Illness HPI 66-year-old male with PMH of severe MR presents to the ED from his ALS for evaluation of "changes in breathing." The patient is unable to provide any meaningful history. His portable router operator is at bedside who resides history. She states that the nurses were concerned about the patient's breathing. She denies that the patient has been running a fever, coughing, experiencing rhinorrhea or any other cold symptoms. She states that he has largely been behaving his normal self, though requesting to drink water more than usual. PFSH Past Medical History Hx Anticoagulant Therapy: Yes Arthritis: Yes Autoimmune Disease: No Anxiety: Yes Heart Rhythm Problems: Yes (bradycardia) Cancer: No Cardiovascular Problems: Yes (orthostatic hypotension, venous insufficiency, pvd) High Cholesterol: No Chest Pain: No Congestive Heart Failure: No Cerebrovascular Accident: No Diabetes: No Diminished Hearing: No Endocrine: No Genitourinary: Yes (bph) Hypertension: Yes Immune Disorder: No Kidney Stones: No Neurologic: Yes (mentally challenged, tremors) Psychiatric: Yes (bipolar, obsessive-compulsive d/o) Reproductive: No Respiratory: No Migraines: No Renal Failure: Yes Seizures: Yes Thyroid Disease: No Social History Alcohol Use: No Tobacco Use: No Substance Use: No Allergies-Medications (Allergen,Severity, Reaction): Coded Allergies: gabapentin (Verified Allergy, Unknown, 03/03/17) thioridazine (Verified Allergy, Unknown, 03/03/17) sulfamethoxazole (Verified Adverse Reaction, Severe, 03/03/17) trimethoprim (Verified Adverse Reaction, Severe, 03/03/17) Reported Meds & Prescriptions Reported Meds & Active Scripts Active Diltiazem (Diltiazem HCl) 90 Mg Tab 90 Mg PO Q6HR Lopressor (Metoprolol Tartrate) 50 Mg Tab 50 Mg PO Q6HR Digoxin 0.125 Mg Tab 0.125 Mg PO DAILY Phenytoin 100 Mg/4 Ml Oral.susp 200 Mg PO Q8HR Reported Ferrous Sulfate 325 Mg (65 Mg Iron) Tablet 325 Mg PO BIDPC Ascorbic Acid 500 Mg Tab 500 Mg PO DAILY Clonazepam 0.5 Mg Tab 0.5 Mg PO BID Depakote Sprinkles (Divalproex Sodium) 125 mg Cap 750 Mg PO DAILY Multiple Vitamin 1 Tab 1 Tab PO DAILY Xarelto (Rivaroxaban) 20 Mg Tab 20 Mg PO DAILY Escitalopram (Escitalopram Oxalate) 20 Mg Tab 20 Mg PO DAILY Review of Systems Except as stated in HPI: all other systems reviewed are Neg Physical Exam Narrative GENERAL: White male with severe MR. SKIN: Focused skin assessment warm/dry. Well healing wound on the left lower extremity without signs of infection. HEAD: Atraumatic. EYES: No scleral icterus. No injection or drainage. NECK: Supple, trachea midline. No JVD or lymphadenopathy. CARDIOVASCULAR: Regular rate and rhythm without murmurs, gallops, or rubs. RESPIRATORY: Breath sounds clear and equal bilaterally. No accessory muscle use. GASTROINTESTINAL: Abdomen soft, non-tender, nondistended. Active bowel sounds. MUSCULOSKELETAL: No cyanosis, or edema. Contractures of bilateral hands. BACK: Nontender without obvious deformity. No CVA tenderness. Data Data Last Documented VS Vital Signs Date Time Temp Pulse Resp B/P (MAP) Pulse Ox O2 Delivery O2 Flow Rate FiO2 03/03/17 15:16 98.8 67 16 123/60 (81) 100 Orders Orders Complete Blood Count With Diff (03/03/17 15:46) Comprehensive Metabolic Panel (03/03/17 15:46) Chest, Single Ap (03/03/17 15:46) Ecg Monitoring (03/03/17 15:46) Iv Access Insert/Monitor (03/03/17 15:46) Oximetry (03/03/17 15:46) Sodium Chloride 0.9% Flush (Ns Flush) (03/03/17 16:00) Phenytoin (Dilantin) (03/03/17 15:46) Labs Laboratory Tests Test 03/03/17 16:00 03/03/17 16:40 White Blood Count 9.5 TH/MM3 Red Blood Count 3.90 MIL/MM3 Hemoglobin 11.8 GM/DL Hematocrit 35.6 % Mean Corpuscular Volume 91.4 FL Mean Corpuscular Hemoglobin 30.3 PG Mean Corpuscular Hemoglobin Concent 33.2 % Red Cell Distribution Width 14.0 % Platelet Count 169 TH/MM3 Mean Platelet Volume 8.9 FL Neutrophils (%) (Auto) 57.3 % Lymphocytes (%) (Auto) 29.3 % Monocytes (%) (Auto) 10.9 % Eosinophils (%) (Auto) 2.1 % Basophils (%) (Auto) 0.4 % Neutrophils # (Auto) 5.5 TH/MM3 Lymphocytes # (Auto) 2.8 TH/MM3 Monocytes # (Auto) 1.0 TH/MM3 Eosinophils # (Auto) 0.2 TH/MM3 Basophils # (Auto) 0.0 TH/MM3 CBC Comment DIFF FINAL Differential Comment Blood Urea Nitrogen 21 MG/DL Creatinine 1.03 MG/DL Random Glucose 90 MG/DL Total Protein 7.3 GM/DL Albumin 2.5 GM/DL Calcium Level 8.4 MG/DL Alkaline Phosphatase 99 U/L Aspartate Amino Transf (AST/SGOT) 13 U/L Alanine Aminotransferase (ALT/SGPT) 21 U/L Total Bilirubin 0.2 MG/DL Sodium Level 142 MEQ/L Potassium Level 5.2 MEQ/L Chloride Level 107 MEQ/L Carbon Dioxide Level 28.6 MEQ/L Anion Gap 6 MEQ/L Estimat Glomerular Filtration Rate 72 ML/MIN Phenytoin (Dilantin) Level 13.1 MCG/ML MDM Medical Decision Making Medical Screen Exam Complete: Yes Emergency Medical Condition: Yes Differential Diagnosis PNA versus metabolic derangement versus phenytoin overdose versus PE less likely versus other Narrative Course 66-year-old male with PMH of severe MR presents to the ED from his ALS for evaluation of "changes in breathing." The patient is unable to provide any meaningful history. His portable router operator is at bedside who provides history. She states that the nurses were concerned about the patient's breathing. She denies that the patient has been running a fever, coughing, experiencing rhinorrhea or any other cold symptoms. She has not personally noticed any changes in his breathing. She states that he has been behaving normally, though requesting to drink water more than usual. Vitals reviewed. Physical exam reveals a white MR male in no acute distress. He is somewhat resistant to exam. No appreciable M/R/G. Chest CTAB. No tachypnea or accessory muscle use. O2 sats 100% on room air. Abdomen soft and nontender. No lower extremity edema. There is a small, well healing wound on the left lower extremity with no signs of infection. CBC: Mild anemia noted, appears chronic per record review CMP: No concerning abnormalities Phenytoin: 13.1. Per record review the patient is on Xarelto. No difficulties with breathing are noted during the patient's evaluation. I think the patient safe for discharge to his [facility] with follow-up with the primary care provider. Discussed this with Dr. Sheehan who is in agreement. Patient is stable and discharged home. Diagnosis Primary Impression: Encounter for medical screening examination Referrals: Primary Care Physician Additional Instructions: Resume at home medications as previously prescribed. Follow up with the primary care provider. Return to the ED for any urgent or emergent medical condition. Disposition: 01 DISCHARGE HOME Condition: Stable Mariama Gillespie Mar 03, 2017 15:40
[2017-03-03] MEDS ORDERED: SODIUM CHLORIDE 0.9% FLUSH 5 ML FLUSH IV FLUSH PRN (16:00)
[2017-03-03 16:14] LABS: AUTOMATED NEUTROPHIL # 5.5 TH/MM3 (1.8-7.7); BASOPHIL % 0.4 % (0.0-2.0); EOSINOPHIL # 0.2 TH/MM3 (0-0.4); EOSINOPHIL % 2.1 % (0.0-4.0); HEMATOCRIT 35.6 % (39.0-51.0); HEMO FLAGS DIFF FINAL; LYMPH % 29.3 % (9.0-44.0); LYMPHOCYTE # 2.8 TH/MM3 (1.0-4.8); MEAN CELL VOLUME 91.4 FL (80.0-100.0); MEAN CORPUSCULAR HEMOGLOBIN 30.3 PG (27.0-34.0); MEAN CORPUSCULAR HGB CONC 33.2 % (32.0-36.0); MONO % 10.9 % (0.0-8.0); NEUT % 57.3 % (16.0-70.0); PLATELET COUNT 169 TH/MM3 (150-450); WHITE BLOOD COUNT 9.5 TH/MM3 (4.0-11.0)
[2017-03-03] MEDS ORDERED: MULTTAB67 PO (16:15)
[2017-03-03] MEDS ORDERED: DIVA125C PO (16:15)
[2017-03-03] MEDS ORDERED: CLON0.5T PO (16:15)
[2017-03-03] MEDS ORDERED: ASCO500T PO (16:15)
[2017-03-03] MEDS ORDERED: FERR325T8 PO (16:15)
--- NOTE | 2017-03-03 16:27 | RADRPT ---
EXAM DATE/TIME: 03/03/2017 16:01 [facility] COMPARISON: CHEST SINGLE AP, February 10, 2017, 2:55. INDICATIONS : Short of breath. MEDICAL HISTORY : None. SURGICAL HISTORY : None. ENCOUNTER: Initial ACUITY: 1 day PAIN SCORE: 6/10 LOCATION: Bilateral chest FINDINGS: A single view of the chest demonstrates the lungs to be symmetrically aerated without evidence of mas s, infiltrate or effusion. The cardiomediastinal contours are unremarkable. Old left clavicular frac ture ununited. CONCLUSION: Normal examination of the lungs. Old left clavicle fracture Michael Donald MD on March 03, 2017 at 16:25 Board Certified Radiologist. This report was verified electronically.
[2017-03-03 16:30] LABS: ALKALINE PHOSPHATASE 99 U/L (45-117); TOTAL BILIRUBIN ADULT 0.2 MG/DL (0.2-1.0)
[2017-03-03 17:18] LABS: ALT (GPT) 21 U/L (12-78); ANION GAP 6 MEQ/L (5-15); AST (GOT) 13 U/L (15-37); BICARBONATE 28.6 MEQ/L (21.0-32.0); BLOOD UREA NITROGEN 21 MG/DL (7-18); CHLORIDE 107 MEQ/L (98-107); GLOMERULAR FILTRATION RATE 72 ML/MIN (>89); POTASSIUM 5.2 MEQ/L (3.5-5.1); SODIUM (NA) 142 MEQ/L (136-145)
== END 2017-03-03 17:52 | disposition home or self-care (01) ==
LOC: NEPD 14:46
DX: Z03.89 Encounter for observation for other suspected diseases and conditions ruled out (principal)
CPT/HCPCS: 71010; 80053; 80185; 85025; 99284

== ENCOUNTER 2017-04-20 19:09 | Inpatient (IN) | payer MEDICARE, OTHER ==
[~2017-04-20] VITALS: Ht 182.9 cm; Wt 69.6 kg
[~2017-04-20 19:09] MED LIST changes: -ACET325 PO; +ASCO500T PO; -CALC0.25 PO; -CARB0.5D16 EACH EYE; +CLON0.5T PO; -FERR324T4 PO; +FERR325T18 PO; -KONS520C PO; +MULTTAB67 PO; +PHEN100O PO; -PHEN125S9 PO; -SUPETAB30 PO; -VITA500C PO; -VITATAB25 PO; -[UNRECOGNIZED DRUG - CODE] PO
[2017-04-20] MEDS ORDERED: LORazepam 2 MG/ML VIAL ONE (19:21)
[2017-04-20 19:23] VITALS: PULSE 87; RESP 24
[2017-04-20 19:29] VITALS: O2SAT 95
[2017-04-20] MEDS ORDERED: SODIUM CHLORIDE 0.9% FLUSH 5 ML FLUSH IV FLUSH PRN (19:30)
[2017-04-20] MEDS ORDERED: LORazepam 2 MG/ML VIAL IV PUSH ONE ×2 (19:30→22:15)
[2017-04-20] MEDS ORDERED: CALC0.25 PO (19:37)
[2017-04-20] MEDS ORDERED: RISP2TAB2 PO (19:37)
[2017-04-20] MEDS ORDERED: FIBE625T10 PO (19:37)
[2017-04-20] MEDS ORDERED: CHOL10008 PO (19:37)
--- NOTE | 2017-04-20 19:55 | PD ---
HPI Chief Complaint: Fall Time Seen by Provider: 19:23 Travel History International Travel<30 days: No Contact w/Intl Traveler<30days: No Traveled to known affect area: No History of Present Illness HPI 66-year-old male patient with history of mental retardation, irregular heartbeats, DVT, currently on anticoagulation, presents to the ER today brought in by EMS, apparently facility states that he has been more disoriented her last few days, and he tried to get up on his own, apparently fell onto the floor , has abrasions to his right hip area, and they're worried that he may have hit his head although it was not witnessed fall. Patient is nonverbal and not able to give me much further history. His eighth also states that she has noticed some bruising on his right hand. Modifying Factors: None Associated Signs & Symptoms: Fall, altered mental status, right hip bruising, right hand bruising, suspected head injury Risk Factors: On blood thinners PFSH Past Medical History Hx Anticoagulant Therapy: Yes Arthritis: Yes Autoimmune Disease: No Anxiety: Yes Heart Rhythm Problems: Yes (bradycardia) Cancer: No Cardiovascular Problems: Yes (orthostatic hypotension, venous insufficiency, pvd) High Cholesterol: No Chest Pain: No Congestive Heart Failure: No Cerebrovascular Accident: No Diabetes: No Diminished Hearing: No Endocrine: No Genitourinary: Yes (bph) Hypertension: Yes Immune Disorder: No Kidney Stones: No Neurologic: Yes (mentally challenged, tremors) Psychiatric: Yes (bipolar, obsessive-compulsive d/o) Reproductive: No Respiratory: No Migraines: No Renal Failure: Yes Seizures: Yes Thyroid Disease: No ?: Not Social History Alcohol Use: No Tobacco Use: No Substance Use: No Allergies-Medications (Allergen,Severity, Reaction): Coded Allergies: gabapentin (Verified Allergy, Unknown, 03/03/17) thioridazine (Verified Allergy, Unknown, 03/03/17) sulfamethoxazole (Verified Adverse Reaction, Severe, 03/03/17) trimethoprim (Verified Adverse Reaction, Severe, 03/03/17) Reported Meds & Prescriptions Reported Meds & Active Scripts Active Diltiazem (Diltiazem HCl) 90 Mg Tab 90 Mg PO Q6HR Lopressor (Metoprolol Tartrate) 50 Mg Tab 50 Mg PO Q6HR Digoxin 0.125 Mg Tab 0.125 Mg PO DAILY Phenytoin 100 Mg/4 Ml Oral.susp 200 Mg PO Q8HR Reported Calcitriol 0.25 Mcg Cap 0.25 Mcg PO DAILY Fiber (Calcium Polycarbophil) 625 Mg Tab 1,250 Mg PO PRN Vitamin D3 (Cholecalciferol) 1,000 Unit Cap 1,000 Units PO DAILY Risperidone 2 Mg Tab 2 Mg PO HS Ferrous Sulfate 325 Mg (65 Mg Iron) Tablet 325 Mg PO BIDPC Ascorbic Acid 500 Mg Tab 500 Mg PO DAILY Clonazepam 0.5 Mg Tab 0.5 Mg PO BID Depakote Sprinkles (Divalproex Sodium) 125 mg Cap 750 Mg PO DAILY Multiple Vitamin 1 Tab 1 Tab PO DAILY Xarelto (Rivaroxaban) 20 Mg Tab 20 Mg PO DAILY Escitalopram (Escitalopram Oxalate) 20 Mg Tab 20 Mg PO DAILY Review of Systems ROS Limitations: Altered Mental Status Physical Exam Narrative GENERAL: Mentally challenged elderly white male patient currently agitated, in moderate distress. Awake, not oriented. SKIN: Focused skin assessment warm/dry. HEAD: Atraumatic. Normocephalic. EYES: Pupils equal and round. No scleral icterus. No injection or drainage. ENT: No nasal bleeding or discharge. Mucous membranes pink and moist. NECK: Trachea midline. No JVD. CARDIOVASCULAR: Regular rate and rhythm. No murmur appreciated. RESPIRATORY: No accessory muscle use. Clear to auscultation. Breath sounds equal bilaterally. GASTROINTESTINAL: Abdomen soft, non-tender, nondistended. Hepatic and splenic margins not palpable. MUSCULOSKELETAL: No obvious deformities. No clubbing. No cyanosis. No edema. Pelvis: Stable, nontender to palpation. EXTREMITIES: No clubbing, cyanosis, or edema. Moving all 4 extremities, notable for ecchymosis over the right fifth digit area. Neurovascularly intact. NEUROLOGICAL: Awake and alert, agitated. Moving all 4 extremities. Unable to follow directions. Face appears to be symmetrical. PSYCHIATRIC: Agitated mood and affect; insight and judgment poor. Data Data Last Documented VS Vital Signs Date Time Temp Pulse Resp B/P (MAP) Pulse Ox O2 Delivery O2 Flow Rate FiO2 04/20/17 19:29 95 Room Air 04/20/17 19:23 87 24 Orders Orders Lorazepam Inj (Ativan Inj) (04/20/17 19:21) Electrocardiogram (04/20/17 19:23) Complete Blood Count With Diff (04/20/17 19:23) Comprehensive Metabolic Panel (04/20/17:23) Urinalysis - C+S If Indicated (04/20/17 19:23) Ct Brain W/O Iv Contrast(Rout) (04/20/17 19:23) Blood Glucose (04/20/17 19:23) Ecg Monitoring (04/20/17:23) Iv Access Insert/Monitor (04/20/17:23) Oximetry (04/20/17:23) Sodium Chloride 0.9% Flush (Ns Flush) (04/20/17 19:30) Lorazepam Inj (Ativan Inj) (04/20/17 19:30) Valproic Acid (Depakene) (04/20/17 19:23) Pelvis, Ap Only (Routine) (04/20/17:23) Hand, Limited (2vws) (04/20/17 19:50) Lorazepam Inj (Ativan Inj) (04/20/17 22:15) Urine Culture (04/20/17 23:20) Lactic Acid Sepsis Protocol (04/21/17 00:07) Blood Culture (04/21/17 00:07) Piperacil-Tazo 4.5 Gm Premix (Zosyn 4.5 (04/21/17 00:07) Labs Laboratory Tests Test 04/20/17 22:02 04/20/17 23:20 04/21/17 00:35 White Blood Count 11.5 TH/MM3 Red Blood Count 3.63 MIL/MM3 Hemoglobin 11.0 GM/DL Hematocrit 33.5 % Mean Corpuscular Volume 92.3 FL Mean Corpuscular Hemoglobin 30.3 PG Mean Corpuscular Hemoglobin Concent 32.8 % Red Cell Distribution Width 15.9 % Platelet Count 259 TH/MM3 Mean Platelet Volume 7.2 FL Neutrophils (%) (Auto) 66.8 % Lymphocytes (%) (Auto) 20.9 % Monocytes (%) (Auto) 11.3 % Eosinophils (%) (Auto) 0.7 % Basophils (%) (Auto) 0.3 % Neutrophils # (Auto) 7.7 TH/MM3 Lymphocytes # (Auto) 2.4 TH/MM3 Monocytes # (Auto) 1.3 TH/MM3 Eosinophils # (Auto) 0.1 TH/MM3 Basophils # (Auto) 0.0 TH/MM3 CBC Comment DIFF FINAL Differential Comment Blood Urea Nitrogen 15 MG/DL Creatinine 1.18 MG/DL Random Glucose 107 MG/DL Total Protein 7.7 GM/DL Albumin 2.5 GM/DL Calcium Level 8.0 MG/DL Alkaline Phosphatase 99 U/L Aspartate Amino Transf (AST/SGOT) 27 U/L Alanine Aminotransferase (ALT/SGPT) 21 U/L Total Bilirubin 0.3 MG/DL Sodium Level 136 MEQ/L Potassium Level 3.9 MEQ/L Chloride Level 102 MEQ/L Carbon Dioxide Level 25.6 MEQ/L Anion Gap 8 MEQ/L Estimat Glomerular Filtration Rate 62 ML/MIN Valproic Acid (Depakene) Level 55 MCG/ML Urine Color YELLOW Urine Turbidity CLEAR Urine pH 7.0 Urine Specific [place] 1.007 Urine Protein TRACE mg/dL Urine Glucose (UA) NEG mg/dL Urine Ketones NEG mg/dL Urine Occult Blood TRACE Urine Nitrite NEG Urine Bilirubin NEG Urine Urobilinogen LESS THAN 2.0 MG/DL Urine Leukocyte Esterase MOD Urine RBC 0-3 /hpf Urine WBC 9-14 /hpf Urine WBC Clumps OCC Urine Squamous Epithelial Cells 0-5 /hpf Urine Bacteria FEW /hpf Microscopic Urinalysis Comment CATH-CULTURE IND Lactic Acid Level 1.7 mmol/L MDM Medical Decision Making Medical Screen Exam Complete: Yes Emergency Medical Condition: Yes Medical Record Reviewed: Yes Interpretation(s) EKG shows what appears to be a ventricular rate of 66 bpm, with LVH. Laboratory Tests Test 04/20/17 22:02 04/20/17 23:20 White Blood Count 11.5 TH/MM3 (4.0-11.0) Red Blood Count 3.63 MIL/MM3 (4.50-5.90) Hemoglobin 11.0 GM/DL (13.0-17.0) Hematocrit 33.5 % (39.0-51.0) Monocytes (%) (Auto) 11.3 % (0.0-8.0) Monocytes # (Auto) 1.3 TH/MM3 (0-0.9) Random Glucose 107 MG/DL (74-106) Albumin 2.5 GM/DL (3.4-5.0) Calcium Level 8.0 MG/DL (8.5-10.1) Estimat Glomerular Filtration Rate 62 ML/MIN (>89) Urine Occult Blood TRACE (NEG) Urine Leukocyte Esterase MOD (NEG) Urine WBC 9-14 /hpf (0-5) Urine WBC Clumps OCC (NONE) Urine Bacteria FEW /hpf (NONE) Last 24 hours Impressions Hand X-Ray 04/20/17 1950 Signed Impressions: Service Date/Time: Thursday, April 20, 2017 19:54 - CONCLUSION: Flexion contractures of the fingers. No fracture or acute appearing malalignment demonstrated. Carlos Cole MD Pelvis X-Ray 04/20/171922 Signed Impressions: Service Date/Time: Thursday, April 20, 2017 19:53 - CONCLUSION: Intact pelvis. Carlos Cole MD Head CT 04/20/171922 Signed Impressions: Service Date/Time: Thursday, April 20, 2017 22:22 - CONCLUSION: New but nonacute subdural hematoma/cystic hygroma with 5 mm of leftward midline shift. Carlos Cole MD Differential Diagnosis ICH versus metabolic issues versus sepsis versus dehydration versus acute fractures Narrative Course X-rays did not show any signs of acute fractures. CAT scan of the brain did show a nonacute subdural hematoma with some shift. It was noted that this was not acute. Lab work shows that he has significant UTI. IV antibiotics were initiated in the ER after cultures were drawn. Plan to admit for further treatment of UTI and altered mental status for further follow-up of ICH. Patient was seen in the ER by Dr. Gordon of neurosurgery who does not feel that there is need for immediate surgical treatment. He states that the patient can be medically admitted. Case was then discussed with Dr. Palacio for admission, intensive care unit due to ICH even though it is not acute. Aggregate critical care time was 20 minutes. Time to perform other separately billable procedures was not included in the critical care time. My time did not include minutes spent treating any other patients simultaneously or on activities that did not directly contribute to the patient's treatment. The services I provided to this patient were to treat and/or prevent clinically significant deterioration that could result in: Worsening intracranial bleed, altered mental status, shift, herniation, I provided critical care services requiring my management, as noted below: Chart data review, documentation time, medication orders and management, vital sign assessments/reviewing monitor data, ordering and reviewing lab tests, ordering and interpreting/reviewing x-rays and diagnostic studies, care of the patient and discussion of the patient with the admitting physicians. Diagnosis Primary Impression: Subdural hematoma, chronic Additional Impressions: UTI (urinary tract infection) Altered mental status Admitting Information Admitting Physician Requests: Admit Obed Hensley MD Apr 20, 2017 19:55
--- NOTE | 2017-04-20 20:50 | RADRPT ---
EXAM DATE/TIME: 04/20/2017 19:53 [facility] COMPARISON: No previous studies available for comparison. INDICATIONS : Post fall. MEDICAL HISTORY : Deep venous thrombosis. Orthostatic hypotension, PVD, Venous SURGICAL HISTORY : None. ENCOUNTER: Initial ACUITY: 1 day PAIN SCORE: Non-responsive. LOCATION: Pelvis. FINDINGS: A single frontal view of the pelvis demonstrates no evidence of fracture. The bony pelvic ring is in tact. Bony mineralization is normal. The soft tissues are intact. CONCLUSION: Intact pelvis. Carlos Cole MD on April 20, 2017 at 20:48 Board Certified Radiologist. This report was verified electronically.
--- NOTE | 2017-04-20 20:51 | RADRPT ---
EXAM DATE/TIME: 04/20/2017 19:54 [facility] COMPARISON: No previous studies available for comparison. INDICATIONS : Right hand pain. MEDICAL HISTORY : Deep venous thrombosis. Orthostatic hypotension, PVD, Venous SURGICAL HISTORY : None. ENCOUNTER: Initial ACUITY: 1 day PAIN SCORE: Non-responsive. LOCATION: Right hand. FINDINGS: Apparent flexion contractures of the fingers and, to a lesser degree, the thumb. The study is limited . I don't see a fracture or subluxation. Radiographic appearance of the soft tissues within normal li mits. CONCLUSION: Flexion contractures of the fingers. No fracture or acute appearing malalignment demonstrated. Carlos Cole MD on April 20, 2017 at 20:49 Board Certified Radiologist. This report was verified electronically.
[2017-04-20 22:42] LABS: AUTOMATED NEUTROPHIL # 7.7 TH/MM3 (1.8-7.7); BASOPHIL % 0.3 % (0.0-2.0); EOSINOPHIL # 0.1 TH/MM3 (0-0.4); EOSINOPHIL % 0.7 % (0.0-4.0); HEMATOCRIT 33.5 % (39.0-51.0); HEMO FLAGS DIFF FINAL; LYMPH % 20.9 % (9.0-44.0); LYMPHOCYTE # 2.4 TH/MM3 (1.0-4.8); MEAN CELL VOLUME 92.3 FL (80.0-100.0); MEAN CORPUSCULAR HEMOGLOBIN 30.3 PG (27.0-34.0); MEAN CORPUSCULAR HGB CONC 32.8 % (32.0-36.0); MONO % 11.3 % (0.0-8.0); NEUT % 66.8 % (16.0-70.0); PLATELET COUNT 259 TH/MM3 (150-450); RED BLOOD COUNT 3.63 MIL/MM3 (4.50-5.90); RED CELL DISTRIBUTION WIDTH 15.9 % (11.6-17.2); WHITE BLOOD COUNT 11.5 TH/MM3 (4.0-11.0)
[2017-04-20 22:44] LABS: ALT (GPT) 21 U/L (12-78); ANION GAP 8 MEQ/L (5-15); AST (GOT) 27 U/L (15-37); BICARBONATE 25.6 MEQ/L (21.0-32.0); BLOOD UREA NITROGEN 15 MG/DL (7-18); CHLORIDE 102 MEQ/L (98-107); GLOMERULAR FILTRATION RATE 62 ML/MIN (>89); POTASSIUM 3.9 MEQ/L (3.5-5.1); SODIUM (NA) 136 MEQ/L (136-145)
[2017-04-20 22:45] LABS: ALKALINE PHOSPHATASE 99 U/L (45-117); TOTAL BILIRUBIN ADULT 0.3 MG/DL (0.2-1.0)
--- NOTE | 2017-04-20 22:46 | RADRPT ---
EXAM DATE/TIME: 04/20/2017 22:22 [facility] COMPARISON: CT BRAIN W/O CONTRAST, February 21, 2017, 19:13. INDICATIONS : Altered mental status; patient acting differently per care facility. RADIATION DOSE: 52.13 CTDIvol (mGy) MEDICAL HISTORY : Non-responsive. SURGICAL HISTORY : Non-responsive. ENCOUNTER: Initial ACUITY: 1 day PAIN SCALE: Non-responsive LOCATION: cranial TECHNIQUE: Multiple contiguous axial images were obtained of the head. Using automated exposure control and adj ustment of the mA and/or kV according to patient size, radiation dose was kept as low as reasonably a chievable to obtain optimal diagnostic quality images. DICOM format image data is available electro nically for review and comparison. FINDINGS: Right subdural cystic hygroma has developed, measuring 12 mm in maximal thickness. There is associate d 5 mm of leftward midline shift. No high attenuation fluid or other evidence of acute bleed. There i s no mass lesion or evidence of an acute ischemic event. Marked cerebellar atrophy again noted. CONCLUSION: New but nonacute subdural hematoma/cystic hygroma with 5 mm of leftward midline shift. Carlos Cole MD on April 20, 2017 at 22:42 Board Certified Radiologist. This report was verified electronically.
[2017-04-20 23:00] VITALS: BP 114/69; PULSE 74; RESP 14; O2SAT 99
[2017-04-20 23:49] LABS: BLOOD, URINE TRACE (NEG); GLUCOSE,URINE NEG (NEG); KETONE, URINE NEG (NEG); NITRITE,URINE NEG (NEG); URINE COLOR YELLOW (YELLW/STRAW)
[2017-04-21] VITALS (11 sets, daily range): BP systolic 108–169; BP diastolic 64–88; PULSE 59–81; RESP 13–27; TEMP 97.5–98; O2SAT 95–100
[2017-04-21 00:06] LABS: BACTERIA, URINE FEW /hpf; RBC, URINE 0-3 /hpf (0-3); SQUAMOUS EPITHELIAL CELL URINE 0-5 /hpf (0-5)
[2017-04-21 00:07] LABS: COMMENT (UR) CATH-CULTURE IND; CULTURE IF INDICATED CATH CULTURE IND
[2017-04-21] MEDS ORDERED: PIPERACIL-TAZO 4.5 GM PREMIX 100 ML IV STA (00:07)
--- NOTE | 2017-04-21 05:33 | HHI.HP ---
HPI Service Critical Care Medicine Primary Care Physician Unknown Admission Diagnosis Diagnosis: (1) Altered mental status Diagnosis: Principal (2) Subdural hematoma, chronic Diagnosis: Principal Chief Complaint: More disoriented than normal according to aids. Travel History International Travel<30 Days: No Contact w/Intl Traveler <30 Da: No Traveled to Known Affected Are: No History of Present Illness 66 y/o man in assisted facility fell and received some minor bruising to his side. Aid thought he was more confused and disoriented than normal, so brought to ED. CT Head reveals right subdural hygroma / chronic subdural bleed. Review of Systems Constitutional: DENIES: Diaphoretic episodes, Fatigue, Fever, Weight gain, Weight loss, Chills, Dizziness, Change in appetite, Night Sweats Endocrine: DENIES: Heat/cold intolerance, Polydipsia, Polyuria, Polyphagia Eyes: DENIES: Blurred vision, Diplopia, Eye inflammation, Eye pain, Vision loss , Photosensitivity, Double Vision Ears, nose, mouth, throat: DENIES: Tinnitus, Hearing loss, Vertigo, Nasal discharge, Oral lesions, Throat pain, Hoarseness, Ear Pain, Running Nose, Epistaxis, Sinus Pain, Toothache, Odynophagia Respiratory: DENIES: Apneas, Cough, Snoring, Wheezing, Hemoptysis, Sputum production, Shortness of breath Musculoskeletal: DENIES: Joint pain, Muscle aches, Stiffness, Joint Swelling, Back pain, Neck pain Integumentary: DENIES: Abnormal pigmentation, Nail changes, Pruritus, Rash Immunologic/allergic: DENIES: Eczema, Urticaria Psychiatric: DENIES: Anxiety, Confusion, Mood changes, Depression, Hallucinations, Agitation, Suicidal Ideation, Homicidal Ideation, Delusions ROS Poor historian due to mental retardation. Past Family Social History Allergies: Coded Allergies: gabapentin (Verified Allergy, Unknown, 03/03/17) thioridazine (Verified Allergy, Unknown, 03/03/17) sulfamethoxazole (Verified Adverse Reaction, Severe, 03/03/17) trimethoprim (Verified Adverse Reaction, Severe, 03/03/17) Past Medical History Past Medical History Hx Anticoagulant Therapy: Yes Arthritis: Yes Autoimmune Disease: No Anxiety: Yes Heart Rhythm Problems: Yes (bradycardia) Cancer: No Cardiovascular Problems: Yes (orthostatic hypotension, venous insufficiency, pvd) High Cholesterol: No Chest Pain: No Congestive Heart Failure: No Cerebrovascular Accident: No Diabetes: No Diminished Hearing: No Endocrine: No Genitourinary: Yes (bph) Hypertension: Yes Immune Disorder: No Kidney Stones: No Neurologic: Yes (mentally challenged, tremors) Psychiatric: Yes (bipolar, obsessive-compulsive d/o) Reproductive: No Respiratory: No Migraines: No Renal Failure: Yes Seizures: Yes Thyroid Disease: No ?: Not Social History Alcohol Use: No Tobacco Use: No Substance Use: No Allergies-Medications Allergies-Medications (Allergen,Severity, Reaction): Coded Allergies: gabapentin (Verified Allergy, Unknown, 03/03/17) thioridazine (Verified Allergy, Unknown, 03/03/17) sulfamethoxazole (Verified Adverse Reaction, Severe, 03/03/17) trimethoprim (Verified Adverse Reaction, Severe, 03/03/17) Reported Meds & Prescriptions Reported Meds & Active Scripts Active Diltiazem (Diltiazem HCl) 90 Mg Tab 90 Mg PO Q6HR Lopressor (Metoprolol Tartrate) 50 Mg Tab 50 Mg PO Q6HR Digoxin 0.125 Mg Tab 0.125 Mg PO DAILY Phenytoin 100 Mg/4 Ml Oral.susp 200 Mg PO Q8HR Reported Calcitriol 0.25 Mcg Cap 0.25 Mcg PO DAILY Fiber (Calcium Polycarbophil) 625 Mg Tab 1,250 Mg PO PRN Vitamin D3 (Cholecalciferol) 1,000 Unit Cap 1,000 Units PO DAILY Risperidone 2 Mg Tab 2 Mg PO HS Ferrous Sulfate 325 Mg (65 Mg Iron) Tablet 325 Mg PO BIDPC Ascorbic Acid 500 Mg Tab 500 Mg PO DAILY Clonazepam 0.5 Mg Tab 0.5 Mg PO BID Depakote Sprinkles (Divalproex Sodium) 125 mg Cap 750 Mg PO DAILY Multiple Vitamin 1 Tab 1 Tab PO DAILY Xarelto (Rivaroxaban) 20 Mg Tab 20 Mg PO DAILY Escitalopram (Escitalopram Oxalate) 20 Mg Tab 20 Mg PO DAILY Physical Exam Vital Signs Vital Signs Date Time Temp Pulse Resp B/P (MAP) Pulse Ox O2 Delivery O2 Flow Rate FiO2 04/20/17 19:29 95 Room Air 04/20/17 19:23 87 24 Physical Exam GENERAL: Confused. HEAD: Atraumatic. Normocephalic. EYES: Pupils equal and round. No conjunctival icterus. No injection or drainage. ENT: No nasal bleeding or discharge. Mucous membranes pink and moist. NECK: Trachea midline. Airway widely patent. CARDIOVASCULAR: Irreg Irreg. No JVD. No murmur appreciated. RESPIRATORY: No accessory muscle use. Clear to auscultation. Breath sounds equal bilaterally. No adventitious sounds. GASTROINTESTINAL: Abdomen soft, non-tender, nondistended. No guarding. MUSCULOSKELETAL: No obvious deformities. No clubbing. No cyanosis. No edema. Well perfused. EXTREMITIES: No clubbing, cyanosis, or edema. Moving all 4 extremities, notable for ecchymosis over the right fifth digit area. NEUROLOGICAL: Alert, agitated. Moving all 4 extremities. Unable to follow directions. Tracks with eyes. Laboratory Laboratory Tests Test 04/20/17 22:02 04/20/17 23:20 04/21/17 00:35 White Blood Count 11.5 Red Blood Count 3.63 Hemoglobin 11.0 Hematocrit 33.5 Mean Corpuscular Volume 92.3 Mean Corpuscular Hemoglobin 30.3 Mean Corpuscular Hemoglobin Concent 32.8 Red Cell Distribution Width 15.9 Platelet Count 259 Mean Platelet Volume 7.2 Neutrophils (%) (Auto) 66.8 Lymphocytes (%) (Auto) 20.9 Monocytes (%) (Auto) 11.3 Eosinophils (%) (Auto) 0.7 Basophils (%) (Auto) 0.3 Neutrophils # (Auto) 7.7 Lymphocytes # (Auto) 2.4 Monocytes # (Auto) 1.3 Eosinophils # (Auto) 0.1 Basophils # (Auto) 0.0 CBC Comment DIFF FINAL Differential Comment Blood Urea Nitrogen 15 Creatinine 1.18 Random Glucose 107 Total Protein 7.7 Albumin 2.5 Calcium Level 8.0 Alkaline Phosphatase 99 Aspartate Amino Transf (AST/SGOT) 27 Alanine Aminotransferase (ALT/SGPT) 21 Total Bilirubin 0.3 Sodium Level 136 Potassium Level 3.9 Chloride Level 102 Carbon Dioxide Level 25.6 Anion Gap 8 Estimat Glomerular Filtration Rate 62 Valproic Acid (Depakene) Level 55 Urine Color YELLOW Urine Turbidity CLEAR Urine pH 7.0 Urine Specific [place] 1.007 Urine Protein TRACE Urine Glucose (UA) NEG Urine Ketones NEG Urine Occult Blood TRACE Urine Nitrite NEG Urine Bilirubin NEG Urine Urobilinogen LESS THAN 2.0 Urine Leukocyte Esterase MOD Urine RBC 0-3 Urine WBC 9-14 Urine WBC Clumps OCC Urine Squamous Epithelial Cells 0-5 Urine Bacteria FEW Microscopic Urinalysis Comment CATH-CULTURE IND Lactic Acid Level 1.7 Date/Time Source Procedure Growth Status 04/21/17 00:35 Blood Peripheral Aerobic Blood Culture Pending Received 04/21/17 00:35 Blood Peripheral Anaerobic Blood Culture Pending Received 04/20/17 23:20 Urine Catheterized Urine Urine Culture Pending Received Result Diagram: 04/20/17220104/20/172201 Caprini VTE Risk Assessment Caprini VTE Risk Assessment: No/Low Risk (score <= 1) Caprini Risk Assessment Model Point Value = 1 Point Value = 2 Point Value = 3 Point Value = 5 Age 41-60 Minor surgery BMI > 25 kg/m2 Swollen legs Varicose veins or History of unexplained or recurrent spontaneous Oral contraceptives or hormone replacement Sepsis (< 1 month) Serious lung disease, including pneumonia (< 1 month) Abnormal pulmonary function Acute myocardial infarction Congestive heart failure (< 1 month) History of inflammatory bowel disease Medical patient at bed rest Age 61-74 Arthroscopic surgery Major open surgery (> 45 min) Laparoscopic surgery (> 45 min) Malignancy Confined to bed (> 72 hours) Immobilizing plaster cast Central venous access Age >= 75 History of VTE Family history of VTE Factor V Leiden Prothrombin [id number] Lupus anticoagulant Anticardiolipin antibodies Elevated serum homocysteine Heparin-induced thrombocytopenia Other congenital or acquired thrombophilia Stroke (< 1 month) Elective arthroplasty Hip, pelvis, or leg fracture Acute spinal cord injury (< 1 month) Prophylaxis Regimen Total Risk Factor Score Risk Level Prophylaxis Regimen 0-1 Low Early ambulation 2 Moderate Order ONE of the following: *Sequential Compression Device (SCD) *Heparin 5000 units SQ BID 3-4 Higher Order ONE of the following medications: *Heparin 5000 units SQ TID *Enoxaparin/Lovenox 40 mg SQ daily (WT < 150 kg, CrCl > 30 mL/min) *Enoxaparin/Lovenox 30 mg SQ daily (WT < 150 kg, CrCl > 10-29 mL/min) *Enoxaparin/Lovenox 30 mg SQ BID (WT < 150 kg, CrCl > 30 mL/min) AND/OR *Sequential Compression Device (SCD) 5 or more Highest Order ONE of the following medications: *Heparin 5000 units SQ TID (Preferred with Epidurals) *Enoxaparin/Lovenox 40 mg SQ daily (WT < 150 kg, CrCl > 30 mL/min) *Enoxaparin/Lovenox 30 mg SQ daily (WT < 150 kg, CrCl > 10-29 mL/min) *Enoxaparin/Lovenox 30 mg SQ BID (WT < 150 kg, CrCl > 30 mL/min) AND *Sequential Compression Device (SCD) Assessment and Plan Assessment and Plan Assessment: 1. Confusion, worse than normal. 2. 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 3. Right subdural hygroma, chronic hemorrhage. 4. UTI. Plan: 1. Admit to unit for neuro checks. 2. Swallow evaluation. 3. Diet when cooperative. 4. Up with assistance. 5. Pepcid. 6. No chemical DVT px. 7. Neurosurgical evaluation done, will follow. 8. Antibiotics for UTI. 9. Hold anyicoagulation. Overall impression: Patient is on eliquis for paroxysmal SVT. He has a right subdural hygroma which may be related to his deteriorating mental status. His baseline is mental retardation and hard to enterer against his present state. Neurosurgery is following. Bashir Hayward MD Apr 21, 2017 05:33
[2017-04-21] MEDS ORDERED: MISCELLANEOUS NURSING INFORMATION XX SCH (05:45)
[2017-04-21] MEDS ORDERED: BISACODYL 10 MG SUPP RECTAL PRN (05:45)
[2017-04-21] MEDS ORDERED: LACTULOSE SYRUP 20 GM/30 ML CUP PO PRN (05:45)
[2017-04-21] MEDS ORDERED: ONDANSETRON HCL 4 MG/2 ML VIAL IV PUSH PRN (05:45)
[2017-04-21] MEDS ORDERED: SODIUM CHLORIDE 0.9% FLUSH 10 ML FLUSH IV FLUSH PRN (05:45)
[2017-04-21] MEDS ORDERED: SENNOSIDES 8.6 MG TAB PO PRN (05:45)
[2017-04-21] MEDS ORDERED: ACETAMINOPHEN 325 MG TAB PO PRN (05:45)
[2017-04-21] MEDS ORDERED: MAGNESIUM HYDROXIDE SUSP 30 ML CUP PO PRN (05:45)
[2017-04-21] MEDS ORDERED: CHLORHEXIDINE GLUCONATE 2 % 1 PACK (2 CLOTHS) TOP PRN (05:45)
[2017-04-21] MEDS ORDERED: RESP: ALBUTEROL 2.5 MG/IPRATROPIUM 0.5 MG NEB (PRN) INH (05:45)
[2017-04-21] MEDS ORDERED: METOPROLOL TARTRATE 50 MG TAB PO SCH (06:00)
[2017-04-21] MEDS ORDERED: DILTIAZEM HCL 90 MG TAB PO SCH (06:00)
[2017-04-21] MEDS ORDERED: cefTRIAXone INJ 1,000 MG in SODIUM CHLORIDE 0.9% INJ 100 ML IV SCH (06:00)
[2017-04-21] MEDS ORDERED: PHENYTOIN SUSP 100 MG/4 ML CUP PO SCH (06:00)
[2017-04-21] MEDS: SODIUM CHLOR 0.9% 1000 ML INJ 1,000 ML IV SCH ×2 (07:05→20:01)
[2017-04-21] MEDS: LORazepam 2 MG/ML VIAL IV PUSH PRN ×5 (07:05→23:58)
[2017-04-21] MEDS ORDERED: DIVALPROEX SODIUM SPRINKLES 125 MG CAP PO SCH (09:00)
[2017-04-21] MEDS: DILTIAZEM HCL 90 MG TAB PO SCH ×3 (09:00→21:00)
[2017-04-21] MEDS: METOPROLOL TARTRATE 50 MG TAB PO SCH ×3 (09:00→20:01)
[2017-04-21] MEDS: DIGOXIN 0.125 MG TAB PO SCH (09:00)
[2017-04-21] MEDS: cefTRIAXone INJ 1,000 MG in SODIUM CHLORIDE 0.9% INJ 100 ML IV SCH (09:50)
[2017-04-21] MEDS: ESCITALOPRAM OXALATE 20 MG TAB PO SCH (10:50)
[2017-04-21] MEDS: FAMOTIDINE 20 MG TAB PO SCH ×2 (10:50→20:01)
[2017-04-21] MEDS: DOCUSATE SODIUM 50 MG/SENNA 8.6 MG TAB PO SCH ×2 (10:50→20:01)
[2017-04-21] MEDS: PHENYTOIN SUSP 100 MG/4 ML CUP PO SCH ×3 (10:50→23:59)
[2017-04-21] MEDS: CALCITRIOL 0.25 MCG CAP PO SCH (10:50)
[2017-04-21] MEDS: FERROUS SULFATE 325 MG (65 MG ELEMENTAL IRON) TAB PO SCH ×2 (10:50→17:51)
[2017-04-21] MEDS: clonazePAM 0.5 MG TAB PO SCH ×2 (10:50→20:01)
[2017-04-21] MEDS: SODIUM CHLORIDE 0.9% FLUSH 10 ML FLUSH IV FLUSH SCH ×2 (10:51→20:01)
--- NOTE | 2017-04-21 10:58 | RADRPT ---
EXAM DATE/TIME: 04/21/2017 10:21 [facility] COMPARISON: No previous studies available for comparison. INDICATIONS : Dobhoff placement. MEDICAL HISTORY : None. SURGICAL HISTORY : None. ENCOUNTER: Initial ACUITY: 3 days PAIN SCORE: Non-responsive. LOCATION: Abdomen FINDINGS: Mildly and diffusely distended small and large bowel noted. No personal gastric distention. A Dobbhoff feeding tube is present with tip in the upper stomach, just below the GE junction. CONCLUSION: Suspected ileus. Dobbhoff feeding tube tip is in the upper stomach. Carlos Cole MD on April 21, 2017 at 10:55 Board Certified Radiologist. This report was verified electronically.
--- NOTE | 2017-04-21 12:06 | EKG ---
Date Performed: 04/20/2017 Time Performed: 20:06:35 PTAGE: 66 years EKG: Normal Sinus rhythm with short IN interval MARKED LEFT AXIS DEVIATION INTRAVENTRICULAR CONDUCTION DELAY LEFT VENTRICULAR HYPERTROPHY AND ST-T CHANGE ABNORMAL ECG PREVIOUS TRACING : 02/21/2017 09.55 Compared to prior study, the rate has slowed. Nonspecific T -wave changes in the lateral leads are now present. DOCTOR: Cesario Frey Interpretating Date/Time 04/21/2017 12:04:58
[2017-04-21] MEDS: HALOPERIDOL LACTATE 5 MG/ML AMP IV PRN ×3 (12:46→23:58)
[2017-04-21] MEDS ORDERED: ZIPRASIDONE MESYLATE 20 MG VIAL IM ONE (13:15)
[2017-04-21] MEDS: VALPROIC ACID SYRUP 250 MG/5 ML UDC PO SCH ×2 (13:15→20:01)
--- NOTE | 2017-04-21 13:55 | PD.CONS ---
History of Present Illness Service Neurosurgery Consult Requested By Intensivists-Dr. Self Reason for Consult Subdural hematoma Primary Care Physician Unknown Diagnoses: History of Present Illness The patient is a 66-year-old male with a history of mental retardation who has chronically resided in a local facility. Discussion with his caregivers indicates that he usually is able to ambulate independently, converses a little but is always with minimal overall mental functions. He is able to eat on his own. They noticed that over the past few days, he has become mostly nonverbal, increased agitation, not walking well, and not eating. No fevers or sweats noted. The patient is generally not able to communicate his symptoms or healthcare needs. Review of Systems ROS Limitations: Altered Mental Status (patient has significant mental retardation, recently nonverbal.) Past Family Social History Allergies: Coded Allergies: gabapentin (Verified Allergy, Unknown, 03/03/17) thioridazine (Verified Allergy, Unknown, 03/03/17) sulfamethoxazole (Verified Adverse Reaction, Severe, 03/03/17) trimethoprim (Verified Adverse Reaction, Severe, 03/03/17) Past Medical History Mental retardation. Possible bipolar/obsessive-compulsive disorder History of cardiac arrhythmia-possible atrial fibrillation according to his caregiver Seizure disorder Hypertension Past Surgical History No major surgeries reported Reported Medications Reported Meds & Active Scripts Active Diltiazem (Diltiazem HCl) 90 Mg Tab 90 Mg PO Q6HR Lopressor (Metoprolol Tartrate) 50 Mg Tab 50 Mg PO Q6HR Digoxin 0.125 Mg Tab 0.125 Mg PO DAILY Phenytoin 100 Mg/4 Ml Oral.susp 200 Mg PO Q8HR Reported Calcitriol 0.25 Mcg Cap 0.25 Mcg PO DAILY Fiber (Calcium Polycarbophil) 625 Mg Tab 1,250 Mg PO PRN Vitamin D3 (Cholecalciferol) 1,000 Unit Cap 1,000 Units PO DAILY Risperidone 2 Mg Tab 2 Mg PO HS Ferrous Sulfate 325 Mg (65 Mg Iron) Tablet 325 Mg PO BIDPC Ascorbic Acid 500 Mg Tab 500 Mg PO DAILY Clonazepam 0.5 Mg Tab 0.5 Mg PO BID Depakote Sprinkles (Divalproex Sodium) 125 mg Cap 750 Mg PO DAILY Multiple Vitamin 1 Tab 1 Tab PO DAILY Xarelto (Rivaroxaban) 20 Mg Tab 20 Mg PO DAILY Escitalopram (Escitalopram Oxalate) 20 Mg Tab 20 Mg PO DAILY Family History Unknown per caregiver Social History Resides at a local facility. No history of alcohol cigarette use Physical Exam Vital Signs Vital Signs Date Time Temp Pulse Resp B/P (MAP) Pulse Ox O2 Delivery O2 Flow Rate FiO2 04/21/17 12:00 97.5 69 19 169/80 (109) 100 04/21/17 12:00 70 04/21/17 10:00 67 04/21/17 08:00 59 04/21/17 08:00 97.5 62 18 156/75 (102) 100 04/21/17 06:30 04/21/17 05:51 21 04/21/17 05:00 63 17 111/64 (80) 97 Room Air 04/21/17 03:00 65 13 108/71 (83) 97 Room Air 04/21/17 01:00 79 19 118/65 (82) 98 Room Air 04/20/17 23:00 74 14 114/69 (84) 99 Room Air 04/20/17 19:29 95 Room Air 04/20/17 19:23 87 24 Physical Exam GENERAL: Somewhat thin patient, exhibits mild to moderate agitation during the exam. SKIN: No rashes, ecchymoses or lesions. Cool and dry. HEAD: Atraumatic. Normocephalic. No temporal or scalp tenderness. EYES: Mild corneal opacity. ENT: Difficult to accurately examine the oropharynx to do patient uncooperative NECK: Trachea midline. No JVD or lymphadenopathy. Supple, no obvious tenderness , no meningeal signs. CARDIOVASCULAR: Regular rate and rhythm without murmurs, gallops, or rubs. RESPIRATORY: Clear to auscultation. Breath sounds equal bilaterally. No wheezes , rales, or rhonchi. GASTROINTESTINAL: Abdomen soft, non-tender, nondistended. No hepato-splenomegaly , or palpable masses. No guarding. MUSCULOSKELETAL: Extremities without clubbing, cyanosis, or edema. No joint tenderness, effusion, or edema noted. Dorsalis pedis 2+ bilateral NEUROLOGICAL: He is awake, occasional eye opening. It is questionable whether he has intact vision. He does not focus her follow wall with his eyes. Pupils are small, nonreactive. He is nonverbal. Does not follow any commands. No response to questions. Moves all extremities with good strength spontaneous. He has only occasional purposeful movements. He is in restraints. Moderate agitation. Eva's response absent bilateral No ankle clonus Plantar responses are neutral Plan motor and cerebellar testing cannot be performed due to altered mental status Cranial nerves cannot be adequately assessed due to altered mental status. Laboratory Laboratory Tests Test 04/20/17 22:02 04/20/17 23:20 04/21/17 00:35 04/21/17 07:20 White Blood Count 11.5 Red Blood Count 3.63 Hemoglobin 11.0 Hematocrit 33.5 Mean Corpuscular Volume 92.3 Mean Corpuscular Hemoglobin 30.3 Mean Corpuscular Hemoglobin Concent 32.8 Red Cell Distribution Width 15.9 Platelet Count 259 Mean Platelet Volume 7.2 Neutrophils (%) (Auto) 66.8 Lymphocytes (%) (Auto) 20.9 Monocytes (%) (Auto) 11.3 Eosinophils (%) (Auto) 0.7 Basophils (%) (Auto) 0.3 Neutrophils # (Auto) 7.7 Lymphocytes # (Auto) 2.4 Monocytes # (Auto) 1.3 Eosinophils # (Auto) 0.1 Basophils # (Auto) 0.0 CBC Comment DIFF FINAL Differential Comment Blood Urea Nitrogen 15 Creatinine 1.18 Random Glucose 107 Total Protein 7.7 Albumin 2.5 Calcium Level 8.0 Alkaline Phosphatase 99 Aspartate Amino Transf (AST/SGOT) 27 Alanine Aminotransferase (ALT/SGPT) 21 Total Bilirubin 0.3 Sodium Level 136 Potassium Level 3.9 Chloride Level 102 Carbon Dioxide Level 25.6 Anion Gap 8 Estimat Glomerular Filtration Rate 62 Valproic Acid (Depakene) Level 55 Urine Color YELLOW Urine Turbidity CLEAR Urine pH 7.0 Urine Specific [place] 1.007 Urine Protein TRACE Urine Glucose (UA) NEG Urine Ketones NEG Urine Occult Blood TRACE Urine Nitrite NEG Urine Bilirubin NEG Urine Urobilinogen LESS THAN 2.0 Urine Leukocyte Esterase MOD Urine RBC 0-3 Urine WBC 9-14 Urine WBC Clumps OCC Urine Squamous Epithelial Cells 0-5 Urine Bacteria FEW Microscopic Urinalysis Comment CATH-CULTURE IND Lactic Acid Level 1.7 Nasal Screen MRSA (PCR) MRSA DETECTED Date/Time Source Procedure Growth Status 04/21/17 00:35 Blood Peripheral Aerobic Blood Culture Pending Received 04/21/17 00:35 Blood Peripheral Anaerobic Blood Culture Pending Received 04/20/17 23:20 Urine Catheterized Urine Urine Culture Pending Received Result Diagram: 04/20/17220104/20/172201 Imaging 04/20/17 CT scan head images reviewed by the undersigned. The study reveals approximately 12 mm low attenuation fluid collection at the right primarily frontoparietal region with approximate 5 mm [id number] midline shift. No evidence of intracranial hemorrhage significant edema, hydrocephalus. No pneumocephalus. No skull fracture noted. The right subdural fluid collection is a new finding since a previous CT scan of 02/21/17 Abdomen X-Ray 04/21/17 0000 Signed Impressions: Service Date/Time: Friday, April 21, 2017 10:21 - CONCLUSION: Suspected ileus. Dobbhoff feeding tube tip is in the upper stomach. Carlos Cole MD Hand X-Ray 04/20/17 1950 Signed Impressions: Service Date/Time: Thursday, April 20, 2017 19:54 - CONCLUSION: Flexion contractures of the fingers. No fracture or acute appearing malalignment demonstrated. Carlos Cole MD Pelvis X-Ray 04/20/171922 Signed Impressions: Service Date/Time: Thursday, April 20, 2017 19:53 - CONCLUSION: Intact pelvis. Carlos Cole MD Head CT 04/20/171922 Signed Impressions: Service Date/Time: Thursday, April 20, 2017 22:22 - CONCLUSION: New but nonacute subdural hematoma/cystic hygroma with 5 mm of leftward midline shift. Carlos Cole MD Assessment and Plan Assessment and Plan Impression: 1. Moderate size right subdural hygroma versus chronic hematoma. Finding not present on prior CT scan of 02/21/2017. This appears symptomatic, with changes in the patient's mental functions, speech, ambulation, ADL over the past week. Recommendations: Findings were discussed with the patient's healthcare surrogate over the telephone. She states that she has noted a significant change in his mental functions over the past few days. Options of observation versus surgical intervention been discussed. Due to the size of the fluid collection and the patient's change in mental status, it is felt that it would be most prudent to proceed with surgical intervention. The procedure of right bur hole for evacuation of subdural fluid collection has been discussed. The risk of brain damage and bleeding with potential need for further surgery has been discussed. I have answered all of her questions. She appears to understand all the above and agrees to proceed with surgery. She gives telephone consent which is witnessed. Martha has been held. Art Martinez MD Apr 21, 2017 13:55
[2017-04-21] MEDS: risperiDONE 1 MG TAB PO SCH (20:09)
[2017-04-22] VITALS (12 sets, daily range): BP systolic 114–174; BP diastolic 65–82; PULSE 56–84; RESP 14–30; TEMP 97.5–98.7; O2SAT 96–100
[2017-04-22] MEDS: METOPROLOL TARTRATE 50 MG TAB PO SCH ×4 (02:24→21:16)
[2017-04-22] MEDS: DILTIAZEM HCL 90 MG TAB PO SCH ×4 (03:00→21:16)
[2017-04-22] MEDS: CHLORHEXIDINE GLUCONATE 2 % 1 PACK (2 CLOTHS) TOP SCH (03:41)
[2017-04-22] MEDS: VALPROIC ACID SYRUP 250 MG/5 ML UDC PO SCH ×3 (03:41→22:32)
[2017-04-22] MEDS: LORazepam 2 MG/ML VIAL IV PUSH PRN ×3 (03:52→17:09)
[2017-04-22] MEDS: HALOPERIDOL LACTATE 5 MG/ML AMP IV PRN ×2 (04:41→16:40)
[2017-04-22 05:27] LABS: AUTOMATED NEUTROPHIL # 6.6 TH/MM3 (1.8-7.7); BASOPHIL % 0.2 % (0.0-2.0); EOSINOPHIL % 0.5 % (0.0-4.0); HEMATOCRIT 34.7 % (39.0-51.0); HEMO FLAGS DIFF FINAL; LYMPHOCYTE # 1.4 TH/MM3 (1.0-4.8); MEAN CELL VOLUME 92.5 FL (80.0-100.0); MEAN CORPUSCULAR HEMOGLOBIN 31.5 PG (27.0-34.0); MONO % 12.5 % (0.0-8.0); NEUT % 71.8 % (16.0-70.0); PLATELET COUNT 253 TH/MM3 (150-450); RED BLOOD COUNT 3.75 MIL/MM3 (4.50-5.90); RED CELL DISTRIBUTION WIDTH 16.1 % (11.6-17.2); WHITE BLOOD COUNT 9.3 TH/MM3 (4.0-11.0)
[2017-04-22 06:02] LABS: BICARBONATE 22.8 MEQ/L (21.0-32.0); MAGNESIUM 2.1 MG/DL (1.5-2.5); POTASSIUM 3.9 MEQ/L (3.5-5.1)
[2017-04-22] MEDS: SODIUM CHLOR 0.9% 1000 ML INJ 1,000 ML IV SCH ×2 (08:24→22:57)
[2017-04-22] MEDS: DOCUSATE SODIUM 50 MG/SENNA 8.6 MG TAB PO SCH ×2 (08:28→21:00)
[2017-04-22] MEDS: CALCITRIOL 0.25 MCG CAP PO SCH (08:28)
[2017-04-22] MEDS: DIGOXIN 0.125 MG TAB PO SCH (08:28)
[2017-04-22] MEDS: cefTRIAXone INJ 1,000 MG in SODIUM CHLORIDE 0.9% INJ 100 ML IV SCH (08:28)
[2017-04-22] MEDS: ESCITALOPRAM OXALATE 20 MG TAB PO SCH (08:29)
[2017-04-22] MEDS: FERROUS SULFATE 325 MG (65 MG ELEMENTAL IRON) TAB PO SCH (08:29)
[2017-04-22] MEDS: FAMOTIDINE 20 MG TAB PO SCH ×2 (08:29→21:17)
[2017-04-22] MEDS: clonazePAM 0.5 MG TAB PO SCH ×2 (08:29→21:16)
[2017-04-22] MEDS: SODIUM CHLORIDE 0.9% FLUSH 10 ML FLUSH IV FLUSH SCH ×2 (08:30→21:37)
[2017-04-22] MEDS: PHENYTOIN SUSP 100 MG/4 ML CUP PO SCH ×2 (09:00→17:00)
--- NOTE | 2017-04-22 10:26 | HHI.CCPN ---
Subjective Remarks/Hospital Course Hospital Course: 66 y/o man in assisted facility fell and received some minor bruising to his side. Aid thought he was more confused and disoriented than normal, so brought to ED. CT Head reveals right subdural hygroma / chronic subdural bleed. Subjective: 04/22: agitation persists. responded well to geodon IM yesterday. plan to go to OR for felicia hole. Objective Vital Signs Date Time Temp Pulse Resp B/P (MAP) Pulse Ox O2 Delivery O2 Flow Rate FiO2 04/22/17 08:45 100 21 04/22/17 06:00 57 04/22/17 04:00 97.5 28 145/75 (98) 04/21/17 19:00 Room Air Intake and Output 04/22/17 04/22/17 04/23/17 08:00 16:00 00:00 Output Total 1650 ml Balance -1650 ml Result Diagram: 04/22/17 0456 04/22/17 0456 Objective Remarks GENERAL: Confused. HEAD: Atraumatic. Normocephalic. EYES: Pupils equal and round. No conjunctival icterus. No injection or drainage. ENT: No nasal bleeding or discharge. Mucous membranes pink and moist. NECK: Trachea midline. Airway widely patent. CARDIOVASCULAR: Irreg Irreg. No JVD. No murmur appreciated. RESPIRATORY: No accessory muscle use. on room air. GASTROINTESTINAL: Abdomen soft, non-tender, nondistended. No guarding. MUSCULOSKELETAL: No obvious deformities. No clubbing. No cyanosis. No edema. Well perfused. EXTREMITIES: No clubbing, cyanosis, or edema. Moving all 4 extremities, notable for ecchymosis over the right fifth digit area. NEUROLOGICAL: Alert, agitated. Moving all 4 extremities. Unable to follow directions. Tracks with eyes. A/P Assessment and Plan Assessment: 1. Agitated Delirium 2. 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 3. Right subdural hygroma, chronic hemorrhage. 4. UTI. Plan: 1. continue in ICU for neuro checks 2. passed bedside swallow eval yesterday, but not more confused. will order official speech/swallow eval to follow. 3. NPO for possible operative intervention 4. Geodon IM prn with Ativan iv prn for agitation, for patient safety. 5. pepcid 6. hold pharmacologic dvt prophylaxis. 7. SCDs 8. nsgy following along. 9. continue Rocephin for UTI. f/u cultures. 10. hold home anticoagulation 11. continue home meds. Overall impression: Patient is on eliquis for paroxysmal SVT. He has a right subdural hygroma which may be related to his deteriorating mental status. 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 Neurosurgery is following. plan for operative intervention. will work towards controlling agitation in the interim. Quoc Bernardo MD Apr 22, 2017 10:26
--- NOTE | 2017-04-22 11:12 | HHI.NSPN ---
(Avtar Chatterjee) History Chief Complaint: Unable to obtain due to patient's mental condition. (Avtar Chatterjee) Interval History 04/21: The patient is a 66-year-old male with a history of mental retardation who has chronically resided in a local facility. Discussion with his caregivers indicates that he usually is able to ambulate independently, converses a little but is always with minimal overall mental functions. He is able to eat on his own. They noticed that over the past few days, he has become mostly nonverbal, increased agitation, not walking well, and not eating. No fevers or sweats noted. The patient is generally not able to communicate his symptoms or healthcare needs. 04/22: The patient prior to being examined was seen in the room moving all extremities, crying out and attempting to get out of bed. When seen later he was asleep but did open his eyes to voice. He then started moving all extremities and attempting to sit up. He is in soft wrist restraints. (Avtar Chatterjee) System Review Comments Unable to obtain due to patient's mental condition. (Avtar Chatterjee) Exam Results 04/20/17 04/20/17 04/21/17 04/21/17 04/22/17 04/22/17 06:00 18:00 06:00 18:00 06:00 18:00 Intake Total 715 ml 285 ml Output Total 2600 ml 1650 ml Balance -1885 ml -1365 ml Intake IV Total 715 ml 285 ml Output Urine Total 2600 ml 1650 ml Gastric Drainage Total 0 ml # Bowel Movements 0 0 Vital Signs Date Time Temp Pulse Resp B/P (MAP) Pulse Ox O2 Delivery O2 Flow Rate FiO2 04/22/17 08:45 100 21 04/22/17 06:00 57 04/22/17 04:00 56 04/22/17 04:00 97.5 56 28 145/75 (98) 100 04/22/17 02:00 66 04/22/17 00:00 70 04/22/17 00:00 97.8 70 30 152/70 (97) 96 04/21/17 22:00 59 04/21/17 21:12 95 04/21/17 20:00 97.9 76 27 160/88 (112) 96 04/21/17 20:00 76 04/21/17 19:00 96 Room Air 04/21/17 16:00 98.0 81 20 156/82 (106) 100 04/21/17 16:00 81 04/21/17 15:20 100 21 04/21/17 13:00 100 Room Air 04/21/17 12:00 97.5 69 19 169/80 (109) 100 04/21/17 12:00 70 04/21/17 10:00 67 04/21/17 08:00 59 04/21/17 08:00 97.5 62 18 156/75 (102) 100 04/21/17 06:30 04/21/17 05:51 21 04/21/17 05:00 63 17 111/64 (80) 97 Room Air 04/21/17 03:00 65 13 108/71 (83) 97 Room Air 04/21/17 01:00 79 19 118/65 (82) 98 Room Air 04/20/17 23:00 74 14 114/69 (84) 99 Room Air 04/20/17 19:29 95 Room Air 04/20/17 19:23 87 24 (Avtar Chatterjee) Physical Examination GENERAL: Patient is asleep but awakens to voice, agitated and attempts to sit up and get out of bed. HEENT: Normocephalic, atraumatic. Pupils essentially pinpoint and nonreactive. Mild corneal opacity. MUSCULOSKELETAL: B[place], no evident deformity or clubbing. NEUROLOGICAL: Asleep but awakens to voice. Previously seen this morning awake, agitated and moving all extremities spontaneously. GCS 11 (E4 V2 M5). Cries out occasionally but no verbalisation. Does not follow any commands. Moves all extremities spontaneously, motor strength appears strong. (Avtar Chatterjee) Lab, Micro, Other Results Recent Impressions Abdomen X-Ray 04/21/17 0000 Signed Impressions: Service Date/Time: Friday, April 21, 2017 10:21 - CONCLUSION: Suspected ileus. Dobbhoff feeding tube tip is in the upper stomach. Carlos Cole MD Hand X-Ray 04/20/17 1950 Signed Impressions: Service Date/Time: Thursday, April 20, 2017 19:54 - CONCLUSION: Flexion contractures of the fingers. No fracture or acute appearing malalignment demonstrated. Carlos Cole MD Pelvis X-Ray 04/20/171922 Signed Impressions: Service Date/Time: Thursday, April 20, 2017 19:53 - CONCLUSION: Intact pelvis. Carlos Cole MD Head CT 04/20/171922 Signed Impressions: Service Date/Time: Thursday, April 20, 2017 22:22 - CONCLUSION: New but nonacute subdural hematoma/cystic hygroma with 5 mm of leftward midline shift. Carlos Cole MD Laboratory Tests Test 04/20/17 22:02 04/20/17 23:20 04/21/17 00:35 04/21/17 07:20 White Blood Count 11.5 TH/MM3 Red Blood Count 3.63 MIL/MM3 Hemoglobin 11.0 GM/DL Hematocrit 33.5 % Mean Corpuscular Volume 92.3 FL Mean Corpuscular Hemoglobin 30.3 PG Mean Corpuscular Hemoglobin Concent 32.8 % Red Cell Distribution Width 15.9 % Platelet Count 259 TH/MM3 Mean Platelet Volume 7.2 FL Neutrophils (%) (Auto) 66.8 % Lymphocytes (%) (Auto) 20.9 % Monocytes (%) (Auto) 11.3 % Eosinophils (%) (Auto) 0.7 % Basophils (%) (Auto) 0.3 % Neutrophils # (Auto) 7.7 TH/MM3 Lymphocytes # (Auto) 2.4 TH/MM3 Monocytes # (Auto) 1.3 TH/MM3 Eosinophils # (Auto) 0.1 TH/MM3 Basophils # (Auto) 0.0 TH/MM3 CBC Comment DIFF FINAL Differential Comment Blood Urea Nitrogen 15 MG/DL Creatinine 1.18 MG/DL Random Glucose 107 MG/DL Total Protein 7.7 GM/DL Albumin 2.5 GM/DL Calcium Level 8.0 MG/DL Alkaline Phosphatase 99 U/L Aspartate Amino Transf (AST/SGOT) 27 U/L Alanine Aminotransferase (ALT/SGPT) 21 U/L Total Bilirubin 0.3 MG/DL Sodium Level 136 MEQ/L Potassium Level 3.9 MEQ/L Chloride Level 102 MEQ/L Carbon Dioxide Level 25.6 MEQ/L Anion Gap 8 MEQ/L Estimat Glomerular Filtration Rate 62 ML/MIN Valproic Acid (Depakene) Level 55 MCG/ML Urine Color YELLOW Urine Turbidity CLEAR Urine pH 7.0 Urine Specific [place] 1.007 Urine Protein TRACE mg/dL Urine Glucose (UA) NEG mg/dL Urine Ketones NEG mg/dL Urine Occult Blood TRACE Urine Nitrite NEG Urine Bilirubin NEG Urine Urobilinogen LESS THAN 2.0 MG/DL Urine Leukocyte Esterase MOD Urine RBC 0-3 /hpf Urine WBC 9-14 /hpf Urine WBC Clumps OCC Urine Squamous Epithelial Cells 0-5 /hpf Urine Bacteria FEW /hpf Microscopic Urinalysis Comment CATH-CULTURE IND Lactic Acid Level 1.7 mmol/L Nasal Screen MRSA (PCR) MRSA DETECTED Test 04/22/17 04:56 White Blood Count 9.3 TH/MM3 Red Blood Count 3.75 MIL/MM3 Hemoglobin 11.8 GM/DL Hematocrit 34.7 % Mean Corpuscular Volume 92.5 FL Mean Corpuscular Hemoglobin 31.5 PG Mean Corpuscular Hemoglobin Concent 34.0 % Red Cell Distribution Width 16.1 % Platelet Count 253 TH/MM3 Mean Platelet Volume 6.8 FL Neutrophils (%) (Auto) 71.8 % Lymphocytes (%) (Auto) 15.0 % Monocytes (%) (Auto) 12.5 % Eosinophils (%) (Auto) 0.5 % Basophils (%) (Auto) 0.2 % Neutrophils # (Auto) 6.6 TH/MM3 Lymphocytes # (Auto) 1.4 TH/MM3 Monocytes # (Auto) 1.2 TH/MM3 Eosinophils # (Auto) 0.0 TH/MM3 Basophils # (Auto) 0.0 TH/MM3 CBC Comment DIFF FINAL Differential Comment Blood Urea Nitrogen 11 MG/DL Creatinine 0.87 MG/DL Random Glucose 126 MG/DL Calcium Level 8.1 MG/DL Phosphorus Level 3.6 MG/DL Magnesium Level 2.1 MG/DL Sodium Level 146 MEQ/L Potassium Level 3.9 MEQ/L Chloride Level 113 MEQ/L Carbon Dioxide Level 22.8 MEQ/L Anion Gap 10 MEQ/L Estimat Glomerular Filtration Rate 88 ML/MIN Phenytoin (Dilantin) Level 26.4 MCG/ML (Avtar Chatterjee) Medical Decision Making Impression and Plan Impression: 1. Moderate size right subdural hygroma versus chronic hematoma. Finding not present on prior CT scan of 02/21/2017. This appears symptomatic, with changes in the patient's mental functions, speech, ambulation, ADL over the past week. Patient w/o change in neurological status. Plan: Primary management per Iron Piler/Hospitalist. Frequent neuro checks. Stat CT brain for any worsening neuro status. Plan for felicia hole for evacuation of the subdural fluid collection. Hold Xarelto. Mechanical DVT prophylaxis. (Avtar Chatterjee) Attending Statement The exam, history, and the medical decision-making described in the above note were completed with the assistance of the mid-level provider. I reviewed and agree with the findings presented. I attest that I had a [id number] encounter with the patient on the same day, and personally performed and documented my assessment and findings in the medical record. The patient's findings were previously discussed with the power of patent prosecution attorney. Patient remains agitated, not following commands. Apparently with diminished neurologic function compared to his usual baseline. Plan bur hole for evacuation of subdural hematoma or hygroma on 04/22/2017. Anticoagulation held (Art Martinez MD) Avtar Chatterjee Apr 22, 2017 11:12 Art Martinez MD Apr 22, 2017 20:35
[2017-04-22] MEDS ORDERED: LIDOCAINE HCL 1% PF 5 ML SYRINGE OTHER ONE (12:00)
[2017-04-22] MEDS ORDERED: ROCURONIUM INJ 50 MG/5 ML SYRINGE IV PUSH ONE (12:00)
[2017-04-22] MEDS ORDERED: PHENYLEPH/NS 1000 MCG/10 ML SYR IV ONE (12:00)
[2017-04-22] MEDS ORDERED: MIDAZOLAM HCL 2 MG/2 ML VIAL IV ONE (12:00)
[2017-04-22] MEDS ORDERED: ePHEDrine/NS 25 MG/5 ML SYR IV ONE (12:00)
[2017-04-22] MEDS ORDERED: VECURONIUM BROMIDE 20 MG VIAL IV ONE (12:00)
[2017-04-22] MEDS ORDERED: PROPOFOL 200 MG/20 ML AMP IV ONE (12:00)
[2017-04-22] MEDS ORDERED: THROMBIN (TOPICAL) 5,000 UNIT VIAL ONE (14:56)
[2017-04-22] MEDS ORDERED: LIDOCAINE 1%/EPINEPHrine 1:100,000 SOLN 50 ML VIAL ONE (14:57)
[2017-04-22] MEDS ORDERED: GENTAMICIN SULFATE 80 MG/2 ML VIAL ONE (14:57)
[2017-04-22] MEDS ORDERED: GELFOAM SIZE 100 ONE (14:57)
[2017-04-22] MEDS ORDERED: ceFAZolin INJ 1,000 MG VIAL IV ONE (19:21)
[2017-04-22] MEDS ORDERED: PROPOFOL 500 MG/50 ML INJ 50 ML ONE (20:10)
--- NOTE | 2017-04-22 20:39 | PD.OP ---
Operative Report Date of Surgery: Apr 22, 2017 Preoperative Diagnosis: (1) Subdural hematoma, chronic Right hemisphere subdural hematoma versus hygroma Postoperative Diagnosis: (1) Subdural hygroma Right hemisphere subdural hygroma Procedure: Right parietal bur hole for evacuation of right hemisphere subdural hygroma Anesthesia: Gen. Surgeon: Art Martinez Immunochemist(s): None Operation and Findings: Findings: Relatively large right hemisphere subdural hygroma. Fluid clear and colorless. Procedure in detail: The patient was brought into the operating room and general endotracheal anesthesia introduced without difficulty. The patient was placed in supine position on the 3080 table with the head and neck in neutral position on the horseshoe headrest. All extremities were appropriately padded. The head was shaved with clippers and sterilely prepped and draped. Appropriate timeout procedure was performed with all personnel present and in agreement. 1% Xylocaine with epinephrine was used for local infiltration over the incision site which was made near the convexity at the posterior right parietal region and carried sharply down to the cranium. The self-retaining retractor was placed. The control panel operator crude unit was used to place a single bur hole and the dura was incised in a cruciate fashion and the edges coagulated with the bipolar forceps. No significant underlying subdural membrane was encountered. A significant amount of clear colorless subdural hygroma fluid was evacuated from the subdural space with gentle suction and irrigation until clear. The 10 Greek fluted drain was left in place in the subdural space and guided into place with the [place] 4 dissector. The drain was brought out through an incision in the right frontal region and secured to the skin with nylon suture and attached to sterile suction. The incision was closed with 2-0 Vicryl for the galea and mariah for the scalp closure A dressing of sterile [place] was placed. The patient was taken to recovery room in stable condition All counts were correct at the end of the case Estimated blood loss was less than 5 cc. No specimen was sent to pathology Art Martinez MD Apr 22, 2017 20:39
[2017-04-22] MEDS: risperiDONE 1 MG TAB PO SCH (21:16)
[2017-04-22 22:14] LABS: AUTOMATED NEUTROPHIL # 6.3 TH/MM3 (1.8-7.7); BASOPHIL % 0.4 % (0.0-2.0); EOSINOPHIL # 0.1 TH/MM3 (0-0.4); EOSINOPHIL % 0.8 % (0.0-4.0); HEMO FLAGS DIFF FINAL; LYMPH % 16.6 % (9.0-44.0); LYMPHOCYTE # 1.5 TH/MM3 (1.0-4.8); MEAN CORPUSCULAR HEMOGLOBIN 30.9 PG (27.0-34.0); MEAN CORPUSCULAR HGB CONC 33.2 % (32.0-36.0); MONO % 14.6 % (0.0-8.0); NEUT % 67.6 % (16.0-70.0); PLATELET COUNT 250 TH/MM3 (150-450); RED BLOOD COUNT 3.33 MIL/MM3 (4.50-5.90); RED CELL DISTRIBUTION WIDTH 16.1 % (11.6-17.2); WHITE BLOOD COUNT 9.3 TH/MM3 (4.0-11.0)
--- NOTE | 2017-04-22 22:24 | RADRPT ---
EXAM DATE/TIME: 04/22/2017 21:44 [facility] COMPARISON: CHEST SINGLE AP, March 03, 2017, 16:01. INDICATIONS : Respiratory failure. MEDICAL HISTORY : Renal disease, end stage. Hypertension. Arthritis. Vision impaired. SURGICAL HISTORY : None. ENCOUNTER: Subsequent ACUITY: 3 days PAIN SCORE: Non-responsive. LOCATION: Bilateral chest FINDINGS: ET tube tip 3.3 cm above the sarah. Dobbhoff catheter metallic tip projects within the stomach. Th e lungs are symmetrically aerated. There is some mild linear areas of infiltrate in the left lower l kwabena with mild air bronchogram formation. The right lung is clear. The heart is normal size. CONCLUSION: 1. Patchy area of partially consolidative infiltrate left lower lung. 2. Dobbhoff catheter tip projects in the stomach. Alfa Mariscal MD on April 22, 2017 at 22:21 Board Certified Radiologist. This report was verified electronically.
[2017-04-22] MEDS: fentaNYL DRIP 250 ML IV PRN (22:33)
[2017-04-22] MEDS: hydrALAZINE HCL 20 MG/ML VIAL IV PUSH PRN (22:56)
[2017-04-23] VITALS (18 sets, daily range): BP systolic 98–136; BP diastolic 53–70; PULSE 48–84; RESP 14–20; TEMP 97.4–98.5; O2SAT 95–100
[2017-04-23] MEDS: PHENYTOIN SUSP 100 MG/4 ML CUP PO SCH ×4 (00:21→23:56)
[2017-04-23] MEDS: PROPOFOL 1000 MG/100 ML IV PRN ×3 (00:23→23:56)
[2017-04-23 01:21] LABS: BLOOD GAS BASE EXCESS -3.5 mmol/L (-2-2); BLOOD GAS CARBOXYHEMOGLOBIN 0.8 % (0-4); BLOOD GAS HCO3 21 mmol/L (22-26); BLOOD GAS O2 HGB SATURATION 97 % (90-100); BLOOD GAS OXYGEN CONTENT 15.7 Vol % (12.0-20.0); BLOOD GAS PCO2 39 mmHg (38-42); BLOOD GAS PO2 170 mmHg (61-120); BLOOD GAS TOTAL HGB 11.2 G/DL (12.0-16.0); CRITICAL VALUE NO; OXYGEN DEVICE VENTILATOR; TEMP CORR TO 98.6
[2017-04-23 01:22] LABS: DRAW SITE ALINE; FIO2 40 %; STAT YES; ULNAR PULSE PRESENT; VENT SETTINGS PRVC14/550/1.0/+5
[2017-04-23] MEDS: METOPROLOL TARTRATE 50 MG TAB PO SCH ×4 (02:37→20:18)
[2017-04-23] MEDS: DILTIAZEM HCL 90 MG TAB PO SCH ×4 (02:37→21:00)
[2017-04-23] MEDS: CHLORHEXIDINE GLUCONATE 2 % 1 PACK (2 CLOTHS) TOP SCH (03:05)
[2017-04-23] MEDS: VALPROIC ACID SYRUP 250 MG/5 ML UDC PO SCH ×3 (04:03→20:17)
--- NOTE | 2017-04-23 04:32 | RADRPT ---
EXAM DATE/TIME: 04/23/2017 04:18 [place] COMPARISON: CT BRAIN W/O CONTRAST, April 20, 2017, 22:22. INDICATIONS : Post-op, drain placement. RADIATION DOSE: 31.99 CTDIvol (mGy) MEDICAL HISTORY : Hypertension. Deep venous thrombosis. SURGICAL HISTORY : None. ENCOUNTER: Subsequent ACUITY: 2 days PAIN SCALE: Non-responsive LOCATION: cranial TECHNIQUE: Multiple contiguous axial images were obtained of the head. Using automated exposure control and adj ustment of the mA and/or kV according to patient size, radiation dose was kept as low as reasonably a chievable to obtain optimal diagnostic quality images. DICOM format image data is available electro nically for review and comparison. FINDINGS: Interim right subdural drain placement. There is a combination of subacute blood, air and a tiny acut e blood component in the right subdural space. The air component measures up to 23 mm in maximal thic kness and with associated mass effect on the right frontal lobe. 9 mm thick subdural hematoma has developed on the left which has some acute blood products withi n it. There is acute subdural blood adjacent to the posterior falx and layering on the tentorium. The re is also small amount of acute subdural blood in the left side of the posterior fossa. The left sub dural causes some mass effect mostly on the left parietal lobe. There is approximately 10 mm of leftward midline shift at the level of the frontal lobes. This i s increased considerably in the interim. CONCLUSION: 1. Interim right subdural drain placement. Combination of air and blood in the right subdural space i s large and causing 10 mm of leftward frontal lobe midline shift. 2. A 9 mm thick cerebral convexity subdural hematoma has developed on the left with some mild mass ef fect mostly in the parietal lobe. 3. Small amount of acute subdural blood in the posterior fossa. Also small acute blood layering on th e tentorium and adjacent to the posterior falx. Carlos Cole MD on April 23, 2017 at 4:25 Board Certified Radiologist. This report was verified electronically.
[2017-04-23 05:58] LABS: HEMATOCRIT 32.2 % (39.0-51.0); MEAN CORPUSCULAR HEMOGLOBIN 31.1 PG (27.0-34.0); MEAN CORPUSCULAR HGB CONC 33.5 % (32.0-36.0); PLATELET COUNT 249 TH/MM3 (150-450); RED BLOOD COUNT 3.46 MIL/MM3 (4.50-5.90); RED CELL DISTRIBUTION WIDTH 16.5 % (11.6-17.2); REVIEW FLAG FINAL; WHITE BLOOD COUNT 9.8 TH/MM3 (4.0-11.0)
[2017-04-23 06:24] LABS: POTASSIUM 3.9 MEQ/L (3.5-5.1)
[2017-04-23] MEDS: CHLORHEXIDINE 0.12% (ORAL KIT) 15 ML CUP MT SCH ×2 (08:00→20:20)
[2017-04-23] MEDS: SODIUM CHLORIDE 0.9% FLUSH 10 ML FLUSH IV FLUSH SCH ×2 (09:00→20:18)
[2017-04-23] MEDS: FERROUS SULFATE 325 MG (65 MG ELEMENTAL IRON) TAB PO SCH ×2 (09:00→17:31)
--- NOTE | 2017-04-23 09:18 | HHI.NSPN ---
(Avtar Chatterjee) History Chief Complaint: Unable to obtain due to patient's mental condition. (Avtar Chatterjee) Interval History 04/21: The patient is a 66-year-old male with a history of mental retardation who has chronically resided in a local facility. Discussion with his caregivers indicates that he usually is able to ambulate independently, converses a little but is always with minimal overall mental functions. He is able to eat on his own. They noticed that over the past few days, he has become mostly nonverbal, increased agitation, not walking well, and not eating. No fevers or sweats noted. The patient is generally not able to communicate his symptoms or healthcare needs. 04/22: The patient prior to being examined was seen in the room moving all extremities, crying out and attempting to get out of bed. When seen later he was asleep but did open his eyes to voice. He then started moving all extremities and attempting to sit up. He is in soft wrist restraints. 04/23: The patient is obtunded this morning when seen with Dr Martinez. He did not respond to voice but to noxious stimulation. He went to the operating room yesterday for a felicia evacuation of a subdural hygroma and returned to [facility] post- operatively. He remains intubated and mechanically ventilated. He is on a propofol drip for sedation and a fentanyl drip for pain control. He did have a repeat CT brain this morning. (Avtar Chatterjee) System Review Comments Unable to obtain due to patient's mental condition. (Avtar Chatterjee) Exam Results 04/21/17 04/21/17 04/22/17 04/22/17 04/23/17 04/23/17 06:00 18:00 06:00 18:00 06:00 18:00 Intake Total 715 ml 285 ml 650 ml Output Total 2600 ml 1650 ml 1200 ml 1215 ml Balance -1885 ml -1365 ml -1200 ml -565 ml Intake IV Total 715 ml 285 ml Other 650 ml Output Urine Total 2600 ml 1650 ml 1200 ml 850 ml Gastric Drainage Total 0 ml Drainage Total 360 ml Estimated Blood Loss 5 ml # Bowel Movements 0 0 0 0 Vital Signs Date Time Temp Pulse Resp B/P (MAP) Pulse Ox O2 Delivery O2 Flow Rate FiO2 04/23/17 07:51 100 30 04/23/17 04:30 99 100 04/23/17 04:15 100 100 04/23/17 04:00 30 04/23/17 04:00 97.9 84 14 104/59 (74) 100 134/69 (90) 04/23/17 03:27 100 30 04/23/17 00:02 97.5 80 14 98/53 (68) 100 120/59 (79) 04/23/17 00:02 40 04/22/17 23:37 100 40 04/22/17 22:00 Mechanical Ventilator 50 04/22/17 20:40 100 50 04/22/17 20:40 98.6 68 14 174/82 (112) 100 04/22/17 18:00 98.2 57 22 137/63 (87) 95 04/22/17 16:00 84 04/22/17 16:00 98.7 84 20 114/65 (81) 96 04/22/17 14:00 68 04/22/17 12:00 66 04/22/17 12:00 98.4 68 20 150/71 (97) 99 04/22/17 10:00 68 04/22/17 08:45 100 21 04/22/17 08:00 98.3 69 18 165/81 (109) 96 04/22/17 08:00 69 04/22/17 07:00 96 Room Air 04/22/17 06:00 57 04/22/17 04:00 56 04/22/17 04:00 97.5 56 28 145/75 (98) 100 04/22/17 02:00 66 04/22/17 00:00 70 04/22/17 00:00 97.8 70 30 152/70 (97) 96 04/21/17 22:00 59 04/21/17 21:12 95 04/21/17 20:00 97.9 76 27 160/88 (112) 96 04/21/17 20:00 76 04/21/17 19:00 96 Room Air 04/21/17 16:00 98.0 81 20 156/82 (106) 100 04/21/17 16:00 81 04/21/17 15:20 100 21 04/21/17 13:00 100 Room Air 04/21/17 12:00 97.5 69 19 169/80 (109) 100 04/21/17 12:00 70 04/21/17 10:00 67 04/21/17 08:00 59 04/21/17 08:00 97.5 62 18 156/75 (102) 100 04/21/17 06:30 04/21/17 05:51 21 04/21/17 05:00 63 17 111/64 (80) 97 Room Air 04/21/17 03:00 65 13 108/71 (83) 97 Room Air 04/21/17 01:00 79 19 118/65 (82) 98 Room Air 04/20/17 23:00 74 14 114/69 (84) 99 Room Air 04/20/17 19:29 95 Room Air 04/20/17 19:23 87 24 (Avtar Chatterjee) Physical Examination GENERAL: Patient is obtunded and is on propofol at 20 mcg/kg/min for sedation. He is also on fentanyl 100 mcg/hr for pain control. He is not in any apparent distress. SKIN: Right-sided felicia hole incision & ALESSANDRO drain insertion site w/intact dressing , slight shadowing on dressing, no erythema or streaking noted. HEENT: Normocephalic. Right-sided felicia hole incision & ALESSANDRO drain insertion site w /intact dressing, ALESSANDRO drain to bulb suction w/serosanguinous drainage. Pupils essentially pinpoint and nonreactive. Mild corneal opacity. Orally intubated. Right nare feeding tube in place. MUSCULOSKELETAL: BARRERA to varying degrees with stimulation, no evident deformity or clubbing. NEUROLOGICAL: Obtunded but on propofol, GCS 6T (E1 V1T M4). Nonverbal, orally intubated. Does not follow any commands. Facial grimacing and moves extremities to varying degrees to local noxious stimulation but not central. (Avtar Chatterjee) Lab, Micro, Other Results This practitioner independently reviewed the CT brain completed this morning and compared it with the CT brain of . The CT today demonstrates post- operative changes with a large right-sided pneumocephalus as well as blood resulting in a [id number] shift and interim development of a left-sided and posterior fossa subdural haematomas. Recent Impressions Head CT 04/23/17 0600 Signed Impressions: Service Date/Time: Sunday, April 23, 2017 04:18 - CONCLUSION: 1. Interim right subdural drain placement. Combination of air and blood in the right subdural space is large and causing 10 mm of leftward frontal lobe midline shift. 2. A 9 mm thick cerebral convexity subdural hematoma has developed on the left with some mild mass effect mostly in the parietal lobe. 3. Small amount of acute subdural blood in the posterior fossa. Also small acute blood layering on the tentorium and adjacent to the posterior falx. Carlos Cole MD Chest X-Ray 04/22/17 0000 Signed Impressions: Service Date/Time: Saturday, April 22, 2017 21:44 - CONCLUSION: 1. Patchy area of partially consolidative infiltrate left lower lung. 2. Dobbhoff catheter tip projects in the stomach. Alfa Mariscal MD Abdomen X-Ray 04/21/17 0000 Signed Impressions: Service Date/Time: Friday, April 21, 2017 10:21 - CONCLUSION: Suspected ileus. Dobbhoff feeding tube tip is in the upper stomach. Carlos Cole MD Hand X-Ray 04/20/17 1950 Signed Impressions: Service Date/Time: Thursday, April 20, 2017 19:54 - CONCLUSION: Flexion contractures of the fingers. No fracture or acute appearing malalignment demonstrated. Carlos Cole MD Pelvis X-Ray 04/20/171922 Signed Impressions: Service Date/Time: Thursday, April 20, 2017 19:53 - CONCLUSION: Intact pelvis. Carlos Cole MD Head CT 04/20/171922 Signed Impressions: Service Date/Time: Thursday, April 20, 2017 22:22 - CONCLUSION: New but nonacute subdural hematoma/cystic hygroma with 5 mm of leftward midline shift. Carlos Cole MD Laboratory Tests Test 04/20/17 22:02 04/20/17 23:20 04/21/17 00:35 04/21/17 07:20 White Blood Count 11.5 TH/MM3 Red Blood Count 3.63 MIL/MM3 Hemoglobin 11.0 GM/DL Hematocrit 33.5 % Mean Corpuscular Volume 92.3 FL Mean Corpuscular Hemoglobin 30.3 PG Mean Corpuscular Hemoglobin Concent 32.8 % Red Cell Distribution Width 15.9 % Platelet Count 259 TH/MM3 Mean Platelet Volume 7.2 FL Neutrophils (%) (Auto) 66.8 % Lymphocytes (%) (Auto) 20.9 % Monocytes (%) (Auto) 11.3 % Eosinophils (%) (Auto) 0.7 % Basophils (%) (Auto) 0.3 % Neutrophils # (Auto) 7.7 TH/MM3 Lymphocytes # (Auto) 2.4 TH/MM3 Monocytes # (Auto) 1.3 TH/MM3 Eosinophils # (Auto) 0.1 TH/MM3 Basophils # (Auto) 0.0 TH/MM3 CBC Comment DIFF FINAL Differential Comment Blood Urea Nitrogen 15 MG/DL Creatinine 1.18 MG/DL Random Glucose 107 MG/DL Total Protein 7.7 GM/DL Albumin 2.5 GM/DL Calcium Level 8.0 MG/DL Alkaline Phosphatase 99 U/L Aspartate Amino Transf (AST/SGOT) 27 U/L Alanine Aminotransferase (ALT/SGPT) 21 U/L Total Bilirubin 0.3 MG/DL Sodium Level 136 MEQ/L Potassium Level 3.9 MEQ/L Chloride Level 102 MEQ/L Carbon Dioxide Level 25.6 MEQ/L Anion Gap 8 MEQ/L Estimat Glomerular Filtration Rate 62 ML/MIN Valproic Acid (Depakene) Level 55 MCG/ML Urine Color YELLOW Urine Turbidity CLEAR Urine pH 7.0 Urine Specific Zamora 1.007 Urine Protein TRACE mg/dL Urine Glucose (UA) NEG mg/dL Urine Ketones NEG mg/dL Urine Occult Blood TRACE Urine Nitrite NEG Urine Bilirubin NEG Urine Urobilinogen LESS THAN 2.0 MG/DL Urine Leukocyte Esterase MOD Urine RBC 0-3 /hpf Urine WBC 9-14 /hpf Urine WBC Clumps OCC Urine Squamous Epithelial Cells 0-5 /hpf Urine Bacteria FEW /hpf Microscopic Urinalysis Comment CATH-CULTURE IND Lactic Acid Level 1.7 mmol/L Nasal Screen MRSA (PCR) MRSA DETECTED Test 04/22/17 04:56 04/22/17 20:50 04/22/17 21:51 04/23/17 01:15 White Blood Count 9.3 TH/MM3 9.3 TH/MM3 Red Blood Count 3.75 MIL/MM3 3.33 MIL/MM3 Hemoglobin 11.8 GM/DL 10.3 GM/DL Hematocrit 34.7 % 31.0 % Mean Corpuscular Volume 92.5 FL 93.0 FL Mean Corpuscular Hemoglobin 31.5 PG 30.9 PG Mean Corpuscular Hemoglobin Concent 34.0 % 33.2 % Red Cell Distribution Width 16.1 % 16.1 % Platelet Count 253 TH/MM3 250 TH/MM3 Mean Platelet Volume 6.8 FL 6.7 FL Neutrophils (%) (Auto) 71.8 % 67.6 % Lymphocytes (%) (Auto) 15.0 % 16.6 % Monocytes (%) (Auto) 12.5 % 14.6 % Eosinophils (%) (Auto) 0.5 % 0.8 % Basophils (%) (Auto) 0.2 % 0.4 % Neutrophils # (Auto) 6.6 TH/MM3 6.3 TH/MM3 Lymphocytes # (Auto) 1.4 TH/MM3 1.5 TH/MM3 Monocytes # (Auto) 1.2 TH/MM3 1.3 TH/MM3 Eosinophils # (Auto) 0.0 TH/MM3 0.1 TH/MM3 Basophils # (Auto) 0.0 TH/MM3 0.0 TH/MM3 CBC Comment DIFF FINAL DIFF FINAL Differential Comment Blood Urea Nitrogen 11 MG/DL Creatinine 0.87 MG/DL Random Glucose 126 MG/DL Calcium Level 8.1 MG/DL Phosphorus Level 3.6 MG/DL Magnesium Level 2.1 MG/DL Sodium Level 146 MEQ/L Potassium Level 3.9 MEQ/L Chloride Level 113 MEQ/L Carbon Dioxide Level 22.8 MEQ/L Anion Gap 10 MEQ/L Estimat Glomerular Filtration Rate 88 ML/MIN Phenytoin (Dilantin) Level 26.4 MCG/ML Troponin I 0.03 NG/ML Blood Gas Puncture Site PERCY Blood Gas Patient Temperature 98.6 Blood Gas HCO3 21 mmol/L Blood Gas Base Excess -3.5 mmol/L Blood Gas Oxygen Saturation 97 % Arterial Blood pH 7.35 Arterial Blood Partial Pressure CO2 39 mmHg Arterial Blood Partial Pressure O2 170 mmHg Arterial Blood Oxygen Content 15.7 Vol % Arterial Blood Carboxyhemoglobin 0.8 % Arterial Blood Methemoglobin 1.0 % Blood Gas Hemoglobin 11.2 G/DL Oxygen Delivery Device VENTILATOR Blood Gas Ventilator Setting PRVC14/550/1.0/+5 Blood Gas Inspired Oxygen 40 % Test 04/23/17 03:00 04/23/17 05:45 04/23/17 08:00 Troponin I 0.05 NG/ML White Blood Count 9.8 TH/MM3 Red Blood Count 3.46 MIL/MM3 Hemoglobin 10.8 GM/DL Hematocrit 32.2 % Mean Corpuscular Volume 93.0 FL Mean Corpuscular Hemoglobin 31.1 PG Mean Corpuscular Hemoglobin Concent 33.5 % Red Cell Distribution Width 16.5 % Platelet Count 249 TH/MM3 Mean Platelet Volume 6.7 FL Blood Urea Nitrogen 13 MG/DL Creatinine 0.76 MG/DL Random Glucose 116 MG/DL Calcium Level 8.2 MG/DL Sodium Level 149 MEQ/L Potassium Level 3.9 MEQ/L Chloride Level 117 MEQ/L Carbon Dioxide Level 22.0 MEQ/L Anion Gap 10 MEQ/L Estimat Glomerular Filtration Rate 103 ML/MIN Phenytoin (Dilantin) Level 19.6 MCG/ML (Avtar Chatterjee) Medical Decision Making Impression and Plan Impression: 1. Moderate size right subdural hygroma versus chronic hematoma. Finding not present on prior CT scan of 02/21/2017. This appears symptomatic, with changes in the patient's mental functions, speech, ambulation, ADL over the past week. Patient obtunded but sedated with propofol, facial grimace and movement w/ noxious stimulation. . CT brain this morning demonstrates post-operative changes with a large right- sided pneumocephalus as well as blood resulting in a [id number] shift and interim development of a left-sided and posterior fossa subdural haematomas. Reviewed labs for this morning. Sodium level acceptable. Haemoglobin essentially stable. POD #1 () s/p: Right parietal bur hole for evacuation of right hemisphere subdural hygroma Postoperative Diagnosis: (1) Subdural hygroma Right hemisphere subdural hygroma Plan: Primary management per Supervisor [employer]works [employer]/Hospitalist. Frequent neuro checks. Stat CT brain for any worsening neuro status. Monitor ALESSANDRO drain output. Patient on left side with right side 90 degrees to bed to allow pneumocephalus to drain. Hold Xarelto. Mechanical DVT prophylaxis. (Avtar Chatterjee) Attending Statement The exam, history, and the medical decision-making described in the above note were completed with the assistance of the mid-level provider. I reviewed and agree with the findings presented. I attest that I had a [id number] encounter with the patient on the same day, and personally performed and documented my assessment and findings in the medical record. Patient remains agitated, moving all extremities. CT scan head today reveals anticipated right hemisphere pneumocephalus. Small left acute subdural hematoma. Persistent right to left midline shift. Discussed with newspaper press operator apprentice. We will continue subdural drain and attempt to improve the pneumocephalus with postural changes. Continue intensive surgical care observation and neurologic checks. (Art Martinez MD) Avtar ChatterjeeP Apr 23, 2017 09:18 Art Martinez MD Apr 23, 2017 22:44
[2017-04-23] MEDS: cefTRIAXone INJ 1,000 MG in SODIUM CHLORIDE 0.9% INJ 100 ML IV SCH (10:05)
[2017-04-23] MEDS: FAMOTIDINE 20 MG TAB PO SCH ×2 (10:06→20:17)
[2017-04-23] MEDS: clonazePAM 0.5 MG TAB PO SCH ×2 (10:06→20:18)
[2017-04-23] MEDS: CALCITRIOL 0.25 MCG CAP PO SCH (10:06)
[2017-04-23] MEDS: ESCITALOPRAM OXALATE 20 MG TAB PO SCH (10:06)
[2017-04-23] MEDS: DOCUSATE SODIUM 50 MG/SENNA 8.6 MG TAB PO SCH ×2 (10:06→20:18)
[2017-04-23] MEDS: DIGOXIN 0.125 MG TAB PO SCH (10:06)
[2017-04-23] MEDS: SODIUM CHLOR 0.9% 1000 ML INJ 1,000 ML IV SCH ×2 (11:04→23:57)
[2017-04-23] MEDS: LORazepam 2 MG/ML VIAL IV PUSH PRN (13:00)
[2017-04-23] MEDS: ZIPRASIDONE MESYLATE 20 MG VIAL IM PRN (13:00)
[2017-04-23] MEDS: HALOPERIDOL LACTATE 5 MG/ML AMP IV PRN (13:00)
--- NOTE | 2017-04-23 19:11 | EKG ---
Date Performed: 04/22/2017 Time Performed: 21:05:48 PTAGE: 66 years EKG: Sinus bradycardia with PVC(s). Left axis deviation IV conduction defect Cannot rule out sep dre infarct - age undetermined Left ventricular hypertrophy Inferior/lateral ST-T changes may be due to hypertrophy and/or ischemia Since previous tracing, no significant change noted Abnormal ECG PREVIOUS TRACING : 04/20/2017 20.06 DOCTOR: Azael Newman Interpretating Date/Time 04/23/2017 19:09:39
[2017-04-23] MEDS: risperiDONE 1 MG TAB PO SCH (20:17)
--- NOTE | 2017-04-23 21:08 | HHI.CCPN ---
Subjective Remarks/Hospital Course Hospital Course: 66 y/o man in assisted facility fell and received some minor bruising to his side. Aid thought he was more confused and disoriented than normal, so brought to ED. CT Head reveals right subdural hygroma / chronic subdural bleed. Subjective: 04/22: agitation persists. responded well to geodon IM yesterday. plan to go to OR for felicia hole. 04/23: taken for felicia hole yesterday. remains intubated post-op. post-op scan with significant pneumocephalus and new left SDH. non-op per Dr. Martinez. baseline mental status will make it significantly difficult to assess current neuro exam and appropriateness of extubation. Objective Vital Signs Date Time Temp Pulse Resp B/P (MAP) Pulse Ox O2 Delivery O2 Flow Rate FiO2 04/23/17 18:00 60 04/23/17 16:00 30 04/23/17 16:00 97.4 14 70 100 136/59 (84) 04/23/17 07:00 Mechanical Ventilator Intake and Output 04/23/17 04/23/17 04/24/17 08:00 16:00 00:00 Intake Total 200 ml 1352 ml Output Total 1010 ml 960 ml Balance -1010 ml 200 ml 392 ml Result Diagram: 04/23/17 0545 04/23/17 0545 Other Results Microbiology Date/Time Source Procedure Growth Status 04/20/17 23:20 Urine Catheterized Urine Urine Culture - Final Proteus Mirabilis Complete Laboratory Tests Test 04/23/17 01:15 Blood Gas Puncture Site PERCY Blood Gas Patient Temperature 98.6 Blood Gas HCO3 21 mmol/L (22-26) Blood Gas Base Excess -3.5 mmol/L (-2-2) Blood Gas Oxygen Saturation 97 % (90-100) Arterial Blood pH 7.35 (7.380-7.420) Arterial Blood Partial Pressure CO2 39 mmHg (38-42) Arterial Blood Partial Pressure O2 170 mmHg (61-120) Arterial Blood Oxygen Content 15.7 Vol % (12.0-20.0) Arterial Blood Carboxyhemoglobin 0.8 % (0-4) Arterial Blood Methemoglobin 1.0 % (0-2) Blood Gas Hemoglobin 11.2 G/DL (12.0-16.0) Oxygen Delivery Device VENTILATOR Blood Gas Ventilator Setting PRVC14/550/1.0/+5 Blood Gas Inspired Oxygen 40 % Objective Remarks GENERAL: Confused. HEAD: ALESSANDRO drain exits right skull. EYES: Pupils equal and round. No conjunctival icterus. No injection or drainage. ENT: No nasal bleeding or discharge. Mucous membranes pink and moist. NECK: Trachea midline. Airway widely patent. CARDIOVASCULAR: Irreg Irreg. No JVD. RESPIRATORY: intubated, sedated, full support. equal chest rise. GASTROINTESTINAL: Abdomen soft, non-tender, nondistended. No guarding. MUSCULOSKELETAL: No obvious deformities. No clubbing. No cyanosis. No edema. Well perfused. EXTREMITIES: No clubbing, cyanosis, or edema. Moving all 4 extremities, notable for ecchymosis over the right fifth digit area. NEUROLOGICAL: RASS -4. ?w/d to pain. at times agitated. moves all extremities. A/P Assessment and Plan Assessment: 1. Agitated Delirium 2. 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 3. Right subdural hygroma, chronic hemorrhage. 4. UTI. 5. new left SDH 6. pneumocephalus 7. acute respiratory failure 8. acute encephalopathy Plan: - frequent neuro checks - SDH management per Dr. Martinez - no extubation or SBT until neuro exam improves. - daily dilantin levels - decrease dilantin to 100mg TID - continue Geodon IM prn with Ativan iv prn for agitation, for patient safety. - pepcid - hold pharmacologic dvt prophylaxis. - SCDs - continue Rocephin for UTI. growing proteus. - hold home anticoagulation - continue home meds. Overall impression: worsening mental status, now on vent. new bleed in head. will be very difficult to assess mental status or even extubate given baseline mental status which is poor. supportive care. Critically ill with worse encephalopathy, resp failure, new bleed. Critical care time: 30 minutes, exclusive of separately billable procedures. Quoc Bernardo MD Apr 23, 2017 21:08
[2017-04-24] VITALS (18 sets, daily range): BP systolic 95–143; BP diastolic 46–75; PULSE 45–66; RESP 14; TEMP 97.6–98.4; O2SAT 100
[2017-04-24] MEDS: DILTIAZEM HCL 90 MG TAB PO SCH ×4 (03:00→19:52)
[2017-04-24] MEDS: METOPROLOL TARTRATE 50 MG TAB PO SCH ×4 (03:00→20:29)
[2017-04-24] MEDS: CHLORHEXIDINE GLUCONATE 2 % 1 PACK (2 CLOTHS) TOP SCH (03:11)
[2017-04-24] MEDS: fentaNYL DRIP 250 ML IV PRN (03:11)
[2017-04-24] MEDS: VALPROIC ACID SYRUP 250 MG/5 ML UDC PO SCH ×3 (03:58→19:49)
[2017-04-24 06:48] LABS: BICARBONATE 22.8 MEQ/L (21.0-32.0)
[2017-04-24 07:04] LABS: HEMATOCRIT 30.9 % (39.0-51.0); MEAN CELL VOLUME 97.7 FL (80.0-100.0); MEAN CORPUSCULAR HEMOGLOBIN 31.4 PG (27.0-34.0); MEAN CORPUSCULAR HGB CONC 32.2 % (32.0-36.0); PLATELET COUNT 208 TH/MM3 (150-450); RED BLOOD COUNT 3.16 MIL/MM3 (4.50-5.90); RED CELL DISTRIBUTION WIDTH 16.8 % (11.6-17.2); REVIEW FLAG FINAL; WHITE BLOOD COUNT 8.9 TH/MM3 (4.0-11.0)
[2017-04-24] MEDS: cefTRIAXone INJ 1,000 MG in SODIUM CHLORIDE 0.9% INJ 100 ML IV SCH (08:33)
[2017-04-24] MEDS: clonazePAM 0.5 MG TAB PO SCH ×2 (08:34→19:50)
[2017-04-24] MEDS: FAMOTIDINE 20 MG TAB PO SCH ×2 (08:34→19:50)
[2017-04-24] MEDS: ESCITALOPRAM OXALATE 20 MG TAB PO SCH (08:34)
[2017-04-24] MEDS: DOCUSATE SODIUM 50 MG/SENNA 8.6 MG TAB PO SCH ×2 (08:34→19:50)
[2017-04-24] MEDS: PHENYTOIN SUSP 100 MG/4 ML CUP PO SCH ×2 (08:34→16:22)
[2017-04-24] MEDS: FERROUS SULFATE 325 MG (65 MG ELEMENTAL IRON) TAB PO SCH ×2 (08:34→18:16)
[2017-04-24] MEDS: DIGOXIN 0.125 MG TAB PO SCH (08:35)
[2017-04-24] MEDS: CHLORHEXIDINE 0.12% (ORAL KIT) 15 ML CUP MT SCH ×2 (08:46→20:28)
[2017-04-24] MEDS: CALCITRIOL 0.25 MCG CAP PO SCH (09:00)
[2017-04-24] MEDS: SODIUM CHLORIDE 0.9% FLUSH 10 ML FLUSH IV FLUSH SCH ×2 (09:00→20:28)
--- NOTE | 2017-04-24 09:02 | HHI.NSPN ---
(Avtar Chatterjee) History Chief Complaint: Unable to obtain due to patient's mental condition. (Avtar Chatterjee) Interval History 04/21: The patient is a 66-year-old male with a history of mental retardation who has chronically resided in a local facility. Discussion with his caregivers indicates that he usually is able to ambulate independently, converses a little but is always with minimal overall mental functions. He is able to eat on his own. They noticed that over the past few days, he has become mostly nonverbal, increased agitation, not walking well, and not eating. No fevers or sweats noted. The patient is generally not able to communicate his symptoms or healthcare needs. 04/22: The patient prior to being examined was seen in the room moving all extremities, crying out and attempting to get out of bed. When seen later he was asleep but did open his eyes to voice. He then started moving all extremities and attempting to sit up. He is in soft wrist restraints. 04/23: The patient is obtunded this morning when seen with Dr Martinez. He did not respond to voice but to noxious stimulation. He went to the operating room yesterday for a felicia evacuation of a subdural hygroma and returned to [facility] post- operatively. He remains intubated and mechanically ventilated. He is on a propofol drip for sedation and a fentanyl drip for pain control. He did have a repeat CT brain this morning. 04/24: This morning the patient remains obtunded but is on propofol for sedation. He continues to be intubated and mechanically ventilated. Nursing reports that he did have a cough reflex for her but no other response and that the ALESSANDRO drain put out 190 mL of serous fluid in the past 24 hours. (Avtar Chatterjee) System Review Comments Unable to obtain due to patient's mental condition. (Avtar Chatterjee) Exam Results 04/22/17 04/22/17 04/23/17 04/23/17 04/24/17 04/24/17 06:00 18:00 06:00 18:00 06:00 18:00 Intake Total 285 ml 650 ml 1552 ml 410 ml Output Total 1650 ml 1200 ml 1215 ml 960 ml 690 ml Balance -1365 ml -1200 ml -565 ml 592 ml -280 ml Intake IV Total 285 ml 1352 ml 350 ml Other 650 ml 200 ml 60 ml Output Urine Total 1650 ml 1200 ml 850 ml 700 ml 500 ml Drainage Total 360 ml 260 ml 190 ml Estimated Blood Loss 5 ml # Bowel Movements 0 0 0 0 0 Vital Signs Date Time Temp Pulse Resp B/P (MAP) Pulse Ox O2 Delivery O2 Flow Rate FiO2 04/24/17 08:15 100 30 04/24/17 06:00 66 04/24/17 04:00 30 04/24/17 04:00 97.6 64 14 135/75 (95) 100 04/24/17 04:00 64 04/24/17 03:40 100 30 04/24/17 02:00 55 04/24/17 00:00 98.4 58 14 143/63 (89) 100 125/63 (83) 04/24/17 00:00 30 04/24/17 00:00 59 04/23/17 23:57 100 30 04/23/17 22:07 95 30 04/23/17 22:00 61 04/23/17 20:00 30 04/23/17 20:00 54 04/23/17 20:00 98.5 54 14 130/61 (84) 100 117/57 (77) 04/23/17 19:00 Mechanical Ventilator 30 04/23/17 18:00 60 04/23/17 16:00 30 04/23/17 16:00 97.4 53 14 /70 100 136/59 (84) 04/23/17 16:00 53 04/23/17 15:11 100 30 04/23/17 14:00 56 04/23/17 12:00 30 04/23/17 12:00 48 04/23/17 12:00 97.8 48 20 /70 100 134/60 (84) 04/23/17 11:22 100 30 04/23/17 10:00 74 04/23/17 08:00 30 04/23/17 08:00 72 04/23/17 08:00 97.6 72 14 /70 100 124/70 (88) 04/23/17 07:51 100 30 04/23/17 07:00 Mechanical Ventilator 50 04/23/17 04:30 99 100 04/23/17 04:15 100 100 04/23/17 04:00 30 04/23/17 04:00 97.9 84 14 104/59 (74) 100 134/69 (90) 04/23/17 03:27 100 30 04/23/17 00:02 97.5 80 14 98/53 (68) 100 120/59 (79) 04/23/17 00:02 40 04/22/17 23:37 100 40 04/22/17 22:00 Mechanical Ventilator 50 04/22/17 20:40 100 50 04/22/17 20:40 98.6 68 14 174/82 (112) 100 04/22/17 18:00 98.2 57 22 137/63 (87) 95 04/22/17 16:00 84 04/22/17 16:00 98.7 84 20 114/65 (81) 96 04/22/17 14:00 68 04/22/17 12:00 66 04/22/17 12:00 98.4 68 20 150/71 (97) 99 04/22/17 10:00 68 04/22/17 08:45 100 21 04/22/17 08:00 98.3 69 18 165/81 (109) 96 04/22/17 08:00 69 04/22/17 07:00 96 Room Air 04/22/17 06:00 57 04/22/17 04:00 56 04/22/17 04:00 97.5 56 28 145/75 (98) 100 04/22/17 02:00 66 04/22/17 00:00 70 04/22/17 00:00 97.8 70 30 152/70 (97) 96 04/21/17 22:00 59 04/21/17 21:12 95 04/21/17 20:00 97.9 76 27 160/88 (112) 96 04/21/17 20:00 76 04/21/17 19:00 96 Room Air 04/21/17 16:00 98.0 81 20 156/82 (106) 100 04/21/17 16:00 81 04/21/17 15:20 100 21 04/21/17 13:00 100 Room Air 04/21/17 12:00 97.5 69 19 169/80 (109) 100 04/21/17 12:00 70 04/21/17 10:00 67 (Avtar Chatterjee) Physical Examination GENERAL: Patient remains obtunded and is on propofol at 30 mcg/kg/min for sedation. He is also on fentanyl 60 mcg/hr for pain control. He is not in any apparent distress. SKIN: Right-sided felicia hole incision & ALESSANDRO drain insertion site w/intact dressing , slight shadowing on dressing w/o change from yesterday, no erythema or streaking noted. HEENT: Normocephalic. Right-sided felicia hole incision & ALESSANDRO drain insertion site w /intact dressing, ALESSANDRO drain to bulb suction w/serous drainage. Pupils essentially pinpoint and nonreactive. Mild corneal opacity. Orally intubated. Right nare feeding tube in place. MUSCULOSKELETAL: No movement of extremities with stimulation, no evident deformity or clubbing. NEUROLOGICAL: Obtunded but on propofol, GCS 3T (E1 V1T M1). Nonverbal, orally intubated. Does not follow any commands. No response to local or central noxious stimulation. Positive cough reflex. (Avtar Chatterjee) Lab, Micro, Other Results Recent Impressions Head CT 04/23/17 0600 Signed Impressions: Service Date/Time: Sunday, April 23, 2017 04:18 - CONCLUSION: 1. Interim right subdural drain placement. Combination of air and blood in the right subdural space is large and causing 10 mm of leftward frontal lobe midline shift. 2. A 9 mm thick cerebral convexity subdural hematoma has developed on the left with some mild mass effect mostly in the parietal lobe. 3. Small amount of acute subdural blood in the posterior fossa. Also small acute blood layering on the tentorium and adjacent to the posterior falx. Carlos Cole MD Chest X-Ray 04/22/17 0000 Signed Impressions: Service Date/Time: Saturday, April 22, 2017 21:44 - CONCLUSION: 1. Patchy area of partially consolidative infiltrate left lower lung. 2. Dobbhoff catheter tip projects in the stomach. Alfa Mariscal MD Laboratory Tests Test 04/22/17 04:56 04/22/17 20:50 04/22/17 21:51 04/23/17 01:15 White Blood Count 9.3 TH/MM3 9.3 TH/MM3 Red Blood Count 3.75 MIL/MM3 3.33 MIL/MM3 Hemoglobin 11.8 GM/DL 10.3 GM/DL Hematocrit 34.7 % 31.0 % Mean Corpuscular Volume 92.5 FL 93.0 FL Mean Corpuscular Hemoglobin 31.5 PG 30.9 PG Mean Corpuscular Hemoglobin Concent 34.0 % 33.2 % Red Cell Distribution Width 16.1 % 16.1 % Platelet Count 253 TH/MM3 250 TH/MM3 Mean Platelet Volume 6.8 FL 6.7 FL Neutrophils (%) (Auto) 71.8 % 67.6 % Lymphocytes (%) (Auto) 15.0 % 16.6 % Monocytes (%) (Auto) 12.5 % 14.6 % Eosinophils (%) (Auto) 0.5 % 0.8 % Basophils (%) (Auto) 0.2 % 0.4 % Neutrophils # (Auto) 6.6 TH/MM3 6.3 TH/MM3 Lymphocytes # (Auto) 1.4 TH/MM3 1.5 TH/MM3 Monocytes # (Auto) 1.2 TH/MM3 1.3 TH/MM3 Eosinophils # (Auto) 0.0 TH/MM3 0.1 TH/MM3 Basophils # (Auto) 0.0 TH/MM3 0.0 TH/MM3 CBC Comment DIFF FINAL DIFF FINAL Differential Comment Blood Urea Nitrogen 11 MG/DL Creatinine 0.87 MG/DL Random Glucose 126 MG/DL Calcium Level 8.1 MG/DL Phosphorus Level 3.6 MG/DL Magnesium Level 2.1 MG/DL Sodium Level 146 MEQ/L Potassium Level 3.9 MEQ/L Chloride Level 113 MEQ/L Carbon Dioxide Level 22.8 MEQ/L Anion Gap 10 MEQ/L Estimat Glomerular Filtration Rate 88 ML/MIN Phenytoin (Dilantin) Level 26.4 MCG/ML Troponin I 0.03 NG/ML Blood Gas Puncture Site PERCY Blood Gas Patient Temperature 98.6 Blood Gas HCO3 21 mmol/L Blood Gas Base Excess -3.5 mmol/L Blood Gas Oxygen Saturation 97 % Arterial Blood pH 7.35 Arterial Blood Partial Pressure CO2 39 mmHg Arterial Blood Partial Pressure O2 170 mmHg Arterial Blood Oxygen Content 15.7 Vol % Arterial Blood Carboxyhemoglobin 0.8 % Arterial Blood Methemoglobin 1.0 % Blood Gas Hemoglobin 11.2 G/DL Oxygen Delivery Device VENTILATOR Blood Gas Ventilator Setting PRVC14/550/1.0/+5 Blood Gas Inspired Oxygen 40 % Test 04/23/17 03:00 04/23/17 05:45 04/23/17 08:00 04/24/17 06:05 Troponin I 0.05 NG/ML 0.06 NG/ML White Blood Count 9.8 TH/MM3 8.9 TH/MM3 Red Blood Count 3.46 MIL/MM3 3.16 MIL/MM3 Hemoglobin 10.8 GM/DL 9.9 GM/DL Hematocrit 32.2 % 30.9 % Mean Corpuscular Volume 93.0 FL 97.7 FL Mean Corpuscular Hemoglobin 31.1 PG 31.4 PG Mean Corpuscular Hemoglobin Concent 33.5 % 32.2 % Red Cell Distribution Width 16.5 % 16.8 % Platelet Count 249 TH/MM3 208 TH/MM3 Mean Platelet Volume 6.7 FL 6.8 FL Blood Urea Nitrogen 13 MG/DL 14 MG/DL Creatinine 0.76 MG/DL 0.90 MG/DL Random Glucose 116 MG/DL 117 MG/DL Calcium Level 8.2 MG/DL 8.2 MG/DL Sodium Level 149 MEQ/L 152 MEQ/L Potassium Level 3.9 MEQ/L 4.0 MEQ/L Chloride Level 117 MEQ/L 120 MEQ/L Carbon Dioxide Level 22.0 MEQ/L 22.8 MEQ/L Anion Gap 10 MEQ/L 9 MEQ/L Estimat Glomerular Filtration Rate 103 ML/MIN 85 ML/MIN Phenytoin (Dilantin) Level 19.6 MCG/ML 19.6 MCG/ML (Avtar Chatterjee) Medical Decision Making Impression and Plan Impression: 1. Moderate size right subdural hygroma versus chronic hematoma. Finding not present on prior CT scan of 02/21/2017. This appears symptomatic, with changes in the patient's mental functions, speech, ambulation, ADL over the past week. Patient remains obtunded but sedated with propofol, no response to noxious stimulation. . CT brain demonstrates post-operative changes with a large right- sided pneumocephalus as well as blood resulting in a [id number] shift and interim development of a left-sided and posterior fossa subdural haematomas. Reviewed labs for this morning. Sodium level acceptable. Haemoglobin slight decrease. POD #2 () s/p: Right parietal bur hole for evacuation of right hemisphere subdural hygroma Postoperative Diagnosis: (1) Subdural hygroma Right hemisphere subdural hygroma Plan: Primary management per Newspaper Peddler/Hospitalist. Frequent neuro checks. Stat CT brain for any worsening neuro status. Monitor ALESSANDRO drain output. Stop ALESSANDRO bulb suction for now. Patient on left side with right side 90 degrees to bed to allow pneumocephalus to drain. Hold Xarelto. Mechanical DVT prophylaxis. CT brain this AM. Okay for sedation vacation. (Avtar Chatterjee) Attending Statement The exam, history, and the medical decision-making described in the above note were completed with the assistance of the mid-level provider. I reviewed and agree with the findings presented. I attest that I had a [id number] encounter with the patient on the same day, and personally performed and documented my assessment and findings in the medical record. Patient remains relatively unresponsive. Continuing sedation CT scan today reveals significant improvement in right frontal pneumocephalus. Persistent bilateral subdural fluid collections with focal left posterior parietal subdural hematoma without significant mass effect. Continue to hold anticoagulation. We will leave drain in place and presents, monitor neurologic function Sedation vacation Ventilator wean as tolerated (Art Martinez MD) Avtar Chatterjee Apr 24, 2017 09:02 Art Martinez MD Apr 24, 2017 22:56
[2017-04-24] MEDS: PROPOFOL 1000 MG/100 ML IV PRN ×2 (12:54→19:52)
[2017-04-24] MEDS: SODIUM CHLOR 0.9% 1000 ML INJ 1,000 ML IV SCH (13:50)
--- NOTE | 2017-04-24 15:49 | RADRPT ---
EXAM DATE/TIME: 04/24/2017 15:25 [facility] COMPARISON: CT BRAIN W/O CONTRAST, April 23, 2017, 4:18. INDICATIONS : F/U subdural hematoma. RADIATION DOSE: 41.52 CTDIvol (mGy) MEDICAL HISTORY : Seizures. Cardiovascular disease Hypertension.renal disease SURGICAL HISTORY : Lanse hole sx. ENCOUNTER: Subsequent ACUITY: 4 - 6 days PAIN SCALE: Non-responsive LOCATION: cranial TECHNIQUE: Multiple contiguous axial images were obtained of the head. Using automated exposure control and adjustment of the mA and/or kV according to patient size, radiation dose was kept as low as reasonably achievable to obtain optimal diagnostic quality images. DICOM format image data is av ailable electronically for review and comparison. FINDINGS: There is a stable right subdural drain in place. Significantly improved pneumocephalus with stable sm all focus of subdural right-sided subdural blood products. The pneumocephalus component measures appr oximately 9 mm in comparison to 23 mm on prior exam. There is significantly improved mass effect on t he right frontal lobe with interval resolution of subfalcine herniation. There is a stable 9 mm acute on chronic left subdural hematoma with acute blood products again noted extending along the posterio r Adams and layering on the tentorium. There is minimal associated mass effect. The ventricles are stab le in size with reduced mass effect on the frontal horn of the right lateral ventricle. No intraventr icular blood products. No intercurrent hemorrhage. Remainder of exam is unchanged. CONCLUSION: 1. Stable right subdural drain in place with significantly improved right-sided pneumocephalus and im proved mass effect with near resolution of subfalcine herniation. The pneumocephalus component now me asures 9 mm in comparison to 23 mm on prior exam. 2. Remainder of the exam is unchanged with stable bilateral subdural hemorrhage and stable small amou nt of acute subdural posterior fossa hemorrhage, as above. Deon Zabala MD on April 24, 2017 at 15:38 Board Certified Radiologist. This report was verified electronically.
--- NOTE | 2017-04-24 16:24 | HHI.CCPN ---
Subjective Remarks/Hospital Course Hospital Course: 66 y/o man in assisted facility fell and received some minor bruising to his side. Aid thought he was more confused and disoriented than normal, so brought to ED. CT Head reveals right subdural hygroma / chronic subdural bleed. Subjective: 04/22: agitation persists. responded well to geodon IM yesterday. plan to go to OR for felicia hole. 04/23: taken for felicia hole yesterday. remains intubated post-op. post-op scan with significant pneumocephalus and new left SDH. non-op per Dr. Martinez. baseline mental status will make it significantly difficult to assess current neuro exam and appropriateness of extubation. 04/24: Remains intubated sedated. CT head today improved pneumocephalus and improved subfalcine herniation. Difficult to assess for vent wean due to developmental delay Objective Vital Signs Date Time Temp Pulse Resp B/P (MAP) Pulse Ox O2 Delivery O2 Flow Rate FiO2 04/24/17 16:00 49 04/24/17 16:00 40 04/24/17 15:15 100 04/24/17 12:00 97.7 14 127/59 (81) 04/24/17 07:00 Mechanical Ventilator Intake and Output 04/24/17 04/24/17 04/25/17 08:00 16:00 00:00 Intake Total 410 ml 1100 ml Output Total 690 ml Balance -280 ml 1100 ml Result Diagram: 04/24/1760404/24/17604 Objective Remarks GENERAL: Intubated sedated HEAD: ALESSANDRO drain right skull. EYES: Pupils equal and round. No conjunctival icterus. No injection or drainage. ENT: No nasal bleeding or discharge. Mucous membranes pink and moist. NECK: Trachea midline. orotracheally intubated CARDIOVASCULAR: Irreg Irreg. No JVD. RESPIRATORY: intubated, sedated, full support. equal chest rise. GASTROINTESTINAL: Abdomen soft, non-tender, nondistended. No guarding. MUSCULOSKELETAL: No obvious deformities. No clubbing. No cyanosis. No edema. Well perfused. EXTREMITIES: No clubbing, cyanosis, or edema. Moving all 4 extremities, notable for ecchymosis over the right fifth digit area. NEUROLOGICAL: RASS -4. withdraws to pain (R UE some what contracted with limited mobility). at times agitated. moves all extremities. A/P Assessment and Plan Assessment: 1. Agitated Delirium 2. 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 3. Right subdural hygroma, chronic hemorrhage. 4. UTI. 5. new left SDH 6. pneumocephalus 7. acute respiratory failure 8. acute encephalopathy Plan: - frequent neuro checks - SDH management per Dr. Martinez - no extubation or SBT until neuro exam improves. (At baseline follows commands , able to say few words per RN) - daily dilantin levels 19.6 today - decreased dilantin to 100mg TID 04/23, decrease to 100 BID - continue Geodon IM prn with Ativan iv prn for agitation, for patient safety. - pepcid - hold pharmacologic dvt prophylaxis. - SCDs - continue Rocephin for UTI. growing proteus. - hold home anticoagulation - continue home meds. - CT head 04/24 improving pneumocephalus and subfalcine herniation Overall impression: worsening mental status, now on vent. Very difficult to assess mental status or even extubate given baseline mental status which is poor. supportive care. Critically ill with worse encephalopathy, resp failure, new bleed. Critical care time: 30 minutes, exclusive of separately billable procedures. Lucille Gonzalez MD Apr 24, 2017 16:24
[2017-04-24] MEDS: risperiDONE 1 MG TAB PO SCH (19:50)
[2017-04-25] VITALS (19 sets, daily range): BP systolic 112–144; BP diastolic 60–80; PULSE 42–70; RESP 10–24; TEMP 97.7–98.8; O2SAT 97–100
[2017-04-25] MEDS: HALOPERIDOL LACTATE 5 MG/ML AMP IV PRN (00:03)
[2017-04-25] MEDS: ZIPRASIDONE MESYLATE 20 MG VIAL IM PRN (00:05)
[2017-04-25] MEDS: VALPROIC ACID SYRUP 250 MG/5 ML UDC PO SCH ×3 (03:14→19:42)
[2017-04-25] MEDS: PHENYTOIN SUSP 100 MG/4 ML CUP PO SCH ×2 (03:14→15:39)
[2017-04-25] MEDS: DILTIAZEM HCL 90 MG TAB PO SCH ×4 (03:14→19:42)
[2017-04-25] MEDS: METOPROLOL TARTRATE 50 MG TAB PO SCH ×4 (03:41→19:42)
[2017-04-25] MEDS: CHLORHEXIDINE GLUCONATE 2 % 1 PACK (2 CLOTHS) TOP SCH (03:41)
[2017-04-25] MEDS: SODIUM CHLOR 0.9% 1000 ML INJ 1,000 ML IV SCH (03:41)
[2017-04-25 05:38] LABS: AUTOMATED NEUTROPHIL # 6.7 TH/MM3 (1.8-7.7); BASOPHIL % 0.4 % (0.0-2.0); EOSINOPHIL # 0.1 TH/MM3 (0-0.4); EOSINOPHIL % 1.2 % (0.0-4.0); HEMATOCRIT 29.6 % (39.0-51.0); HEMO FLAGS DIFF FINAL; LYMPH % 16.4 % (9.0-44.0); LYMPHOCYTE # 1.6 TH/MM3 (1.0-4.8); MEAN CELL VOLUME 93.1 FL (80.0-100.0); MEAN CORPUSCULAR HEMOGLOBIN 30.6 PG (27.0-34.0); MEAN CORPUSCULAR HGB CONC 32.9 % (32.0-36.0); MONO % 12.5 % (0.0-8.0); NEUT % 69.5 % (16.0-70.0); PLATELET COUNT 217 TH/MM3 (150-450); RED BLOOD COUNT 3.18 MIL/MM3 (4.50-5.90); RED CELL DISTRIBUTION WIDTH 16.4 % (11.6-17.2); WHITE BLOOD COUNT 9.6 TH/MM3 (4.0-11.0)
[2017-04-25 06:08] LABS: ANION GAP 8 MEQ/L (5-15); AST (GOT) 46 U/L (15-37); BICARBONATE 21.6 MEQ/L (21.0-32.0); BLOOD UREA NITROGEN 9 MG/DL (7-18); CHLORIDE 125 MEQ/L (98-107); GLOMERULAR FILTRATION RATE 108 ML/MIN (>89); MAGNESIUM 1.7 MG/DL (1.5-2.5); POTASSIUM 3.7 MEQ/L (3.5-5.1); SODIUM (NA) 155 MEQ/L (136-145)
[2017-04-25 06:12] LABS: ALKALINE PHOSPHATASE 82 U/L (45-117); ALT (GPT) 26 U/L (12-78); TOTAL BILIRUBIN ADULT 0.4 MG/DL (0.2-1.0)
--- NOTE | 2017-04-25 06:28 | RADRPT ---
EXAM DATE/TIME: 04/25/2017 03:18 [facility] COMPARISON: CHEST SINGLE AP, April 22, 2017, 21:44. INDICATIONS : Difficulty breathing. MEDICAL HISTORY : Renal disease, end stage. Hypertension. Arthritis. Vision impaired. SURGICAL HISTORY : None. ENCOUNTER: Subsequent ACUITY: 4 - 6 days PAIN SCORE: Non-responsive. LOCATION: Bilateral chest FINDINGS: Mild left base consolidation slightly worse. Very small left pleural effusion suspected as well. Righ t lung remains reasonably clear. No pneumothorax seen. Heart size stable, within normal limits. There is a Dobbhoff feeding tube with tip in the gastric fundus just below the GE junction. CONCLUSION: Left base consolidation slightly worse. Carlos Cole MD on April 25, 2017 at 6:26 Board Certified Radiologist. This report was verified electronically.
[2017-04-25] MEDS: CHLORHEXIDINE 0.12% (ORAL KIT) 15 ML CUP MT SCH ×2 (08:16→19:43)
[2017-04-25] MEDS: cefTRIAXone INJ 1,000 MG in SODIUM CHLORIDE 0.9% INJ 100 ML IV SCH (08:17)
[2017-04-25] MEDS: MUPIROCIN 2% OINT 1 APPLIC/GM SYR NASAL SCH ×2 (08:18→19:41)
[2017-04-25] MEDS: DIGOXIN 0.125 MG TAB PO SCH (08:18)
[2017-04-25] MEDS: FAMOTIDINE 20 MG TAB PO SCH ×2 (08:18→19:42)
[2017-04-25] MEDS: SODIUM CHLORIDE 0.9% FLUSH 10 ML FLUSH IV FLUSH SCH ×2 (08:18→19:43)
[2017-04-25] MEDS: FERROUS SULFATE 325 MG (65 MG ELEMENTAL IRON) TAB PO SCH ×2 (08:19→17:00)
[2017-04-25] MEDS: ESCITALOPRAM OXALATE 20 MG TAB PO SCH (08:19)
[2017-04-25] MEDS: clonazePAM 0.5 MG TAB PO SCH (08:19)
[2017-04-25] MEDS: DOCUSATE SODIUM 50 MG/SENNA 8.6 MG TAB PO SCH ×2 (08:19→19:42)
[2017-04-25] MEDS: CALCITRIOL 0.25 MCG CAP PO SCH (08:20)
[2017-04-25] MEDS: fentaNYL DRIP 250 ML IV PRN (08:59)
[2017-04-25] MEDS: PROPOFOL 1000 MG/100 ML IV PRN (08:59)
--- NOTE | 2017-04-25 11:33 | HHI.NSPN ---
(Kacey Ryder) Note Status Status: Progress Note (Kacey Ryder) Interval History Interval History 04/21: The patient is a 66-year-old male with a history of mental retardation who has chronically resided in a local facility. Discussion with his caregivers indicates that he usually is able to ambulate independently, converses a little but is always with minimal overall mental functions. He is able to eat on his own. They noticed that over the past few days, he has become mostly nonverbal, increased agitation, not walking well, and not eating. No fevers or sweats noted. The patient is generally not able to communicate his symptoms or healthcare needs. 04/22: The patient prior to being examined was seen in the room moving all extremities, crying out and attempting to get out of bed. When seen later he was asleep but did open his eyes to voice. He then started moving all extremities and attempting to sit up. He is in soft wrist restraints. 04/23: The patient is obtunded this morning when seen with Dr Martinez. He did not respond to voice but to noxious stimulation. He went to the operating room yesterday for a felicia evacuation of a subdural hygroma and returned to [facility] post- operatively. He remains intubated and mechanically ventilated. He is on a propofol drip for sedation and a fentanyl drip for pain control. He did have a repeat CT brain this morning. 04/24: This morning the patient remains obtunded but is on propofol for sedation. He continues to be intubated and mechanically ventilated. Nursing reports that he did have a cough reflex for her but no other response and that the ALESSANDRO drain put out 190 mL of serous fluid in the past 24 hours. 04/25: no changes to neuro check, moving ext spontaneously but not following commands. (Kacey Ryder) Labs, Micro, & Vital Signs Results Date Time Temp Pulse Resp B/P (MAP) Pulse Ox O2 Delivery O2 Flow Rate FiO2 04/25/17 10:00 42 04/25/17 08:20 98 30 04/25/17 08:00 30 04/25/17 08:00 60 04/25/17 06:00 51 04/25/17 04:13 99 30 04/25/17 04:00 98.6 49 14 118/66 (83) 100 04/25/17 04:00 30 04/25/17 04:00 49 04/25/17 02:00 58 04/25/17 00:53 97 30 04/25/17 00:00 70 04/25/17 00:00 97.7 70 24 144/70 (94) 100 04/25/17 00:00 30 04/24/17 22:00 57 04/24/17 20:58 100 30 04/24/17 20:00 58 04/24/17 20:00 98.4 58 14 100/58 (72) 100 04/24/17 20:00 30 04/24/17 18:00 53 04/24/17 16:24 100 30 04/24/17 16:00 49 04/24/17 16:00 97.6 50 14 95/46 (62) 100 Arterial Line 04/24/17 16:00 40 04/24/17 15:15 100 100 04/24/17 14:00 47 04/24/17 12:00 97.7 48 14 127/59 (81) 100 04/24/17 12:00 45 04/24/17 12:00 40 04/24/17 11:49 100 30 04/26/17 07:00 Intake Total 379 ml Balance 379 ml Constitutional Vital Signs Date Time Temp Pulse Resp B/P (MAP) Pulse Ox O2 Delivery O2 Flow Rate FiO2 04/25/17 10:00 42 04/25/17 08:20 98 30 04/25/17 08:00 30 04/25/17 08:00 60 04/25/17 06:00 51 04/25/17 04:13 99 30 04/25/17 04:00 98.6 49 14 118/66 (83) 100 04/25/17 04:00 30 04/25/17 04:00 49 04/25/17 02:00 58 04/25/17 00:53 97 30 04/25/17 00:00 70 04/25/17 00:00 97.7 70 24 144/70 (94) 100 04/25/17 00:00 30 04/24/17 22:00 57 04/24/17 20:58 100 30 04/24/17 20:00 58 04/24/17 20:00 98.4 58 14 100/58 (72) 100 04/24/17 20:00 30 04/24/17 18:00 53 04/24/17 16:24 100 30 04/24/17 16:00 49 04/24/17 16:00 97.6 50 14 95/46 (62) 100 Arterial Line 04/24/17 16:00 40 04/24/17 15:15 100 100 04/24/17 14:00 47 04/24/17 12:00 97.7 48 14 127/59 (81) 100 04/24/17 12:00 45 04/24/17 12:00 40 04/24/17 11:49 100 30 04/26/17 07:00 Intake Total 379 ml Balance 379 ml (Kacey Ryedr) Physical Exam patient obtunded and sedated, intubated. does not open eyes, does not follow commands CN: pupils grossly 2-3 mm. upward gaze. cloudy corneas Motor: withdraws x 4 extremities to pain ALESSANDRO drain in place (Kacey Ryder) Mr Weldon is alert, awake and oriented to time, place and person. Speech is fluent. Cranial nerve examination: pupils to be equal, round and reactive to light. Extra-ocular movements are intact. Facial motor and sensory function are normal and symmetrical. Gross hearing appears intact. Sternocleidomastoid and trapezius muscles are symmetrical. Other cranial nerves are intact. Neck is soft and supple with a good range of motion without pain. Muscle strength is normal in all muscle groups of both upper and lower extremities. Sensory examination is intact to light touch and pin prick in both the upper and lower extremities. Deep tendon reflexes are symmetrical in both upper and lower extremities. There is a bilateral plantar flexion response. Cerebellar examination is unremarkable, without deficits. (Neto Herr MD) Medications Current Medications Current Medications Medications (Trade) Dose Ordered Sig/Kely Route PRN Reason Start Time Stop Time Status Last Admin Dose Admin Sodium Chloride 1,000 ml @ 75 mls/hr [id number] IV 04/21/17 05:44 04/25/17 03:41 Sodium Chloride (NS Flush) 2 ml UNSCH PRN IV FLUSH FLUSH AFTER USING IV ACCESS 04/21/17 05:45 Sodium Chloride (NS Flush) 2 ml BID IV FLUSH 04/21/17 09:00 04/25/17 08:18 Acetaminophen (Tylenol) 650 mg Q6H PRN PO FEVER >101F 04/21/17 05:45 Famotidine (Pepcid) 20 mg Q12HR PO 04/21/17 09:00 04/25/17 08:18 Ondansetron HCl (Zofran Inj) 4 mg Q6H PRN IV PUSH NAUSEA OR VOMITING 04/21/17 05:45 Albuterol/ Ipratropium (Duoneb Neb) 1 ampule Q4HR NEB PRN INH WHEEZING 04/21/17 05:45 Miscellaneous Information 1 Q361D XX 04/21/17 05:45 04/21/17 07:05 Chlorhexidine Gluconate (Chlorhexidine 2% Cloth) 3 pack Taper DAILY@04 TOP 04/22/17 04:00 04/18/18 03:59 04/25/17 03:41 Chlorhexidine Gluconate (Chlorhexidine 2% Cloth) 3 pack UNSCH PRN TOP HYGIENIC CARE 04/21/17 05:45 Senna/Docusate Sodium (Inna-Colace) 1 tab BID PO 04/21/17 09:00 04/25/17 08:19 Magnesium Hydroxide (Milk Of Magnesia Liq) 30 ml Q12H PRN PO Mild constipation 04/21/17 05:45 Sennosides (Senokot) 17.2 mg Q12H PRN PO Moderate constipation 04/21/17 05:45 Bisacodyl (Dulcolax Supp) 10 mg DAILY PRN RECTAL SEVERE CONSITIPATION 04/21/17 05:45 Lactulose (Lactulose Liq) 30 ml DAILY PRN PO SEVERE CONSITIPATION 04/21/17 05:45 Calcitriol (Rocaltrol) 0.25 mcg DAILY PO 04/21/17 09:00 04/23/17 10:06 Clonazepam (KlonoPIN) 0.5 mg BID PO 04/21/17 09:00 04/25/17 08:19 Digoxin (Lanoxin) 0.125 mg DAILY PO 04/21/17 09:00 04/25/17 08:18 Escitalopram Oxalate (Lexapro) 20 mg DAILY PO 04/21/17 09:00 04/25/17 08:19 Ferrous Sulfate (Ferrous Sulfate) 325 mg BIDPC PO 04/21/17 09:00 04/25/17 08:19 Risperidone (risperDAL) 2 mg HS PO 04/21/17 21:00 04/24/17 19:50 Lorazepam (Ativan Inj) 1 mg Q15M PRN IV PUSH agitation 04/21/17 07:00 04/23/17 13:00 Ceftriaxone Sodium 1000 mg/ Sodium Chloride 100 ml @ 200 mls/hr Q24H IV 04/21/17 09:00 04/25/17 08:17 Diltiazem HCl (Cardizem) 90 mg Q6H PO 04/21/17 09:00 04/25/17 08:19 Metoprolol Tartrate (Lopressor) 50 mg Q6H PO 04/21/17 09:00 04/25/17 08:19 Haloperidol Lactate (Haldol Inj) 5 mg Q4H PRN IV agitation 04/21/17 12:15 04/25/17 00:03 Valproic Acid (Depakene Liq) 250 mg Q8H PO 04/21/17 12:00 04/25/17 03:14 Ziprasidone (Geodon Inj) 10 mg Q12H PRN IM AGITATION 04/21/17 16:45 04/25/17 00:05 Propofol 100 ml @ 20.67 mls/ hr TITRATE PRN IV SEDATION 04/22/17 21:30 04/25/17 08:59 Fentanyl Citrate 250 ml @ 2.5 mls/hr TITRATE PRN IV SEDATION 04/22/17 21:45 04/25/17 08:59 Hydralazine HCl (Apresoline Inj) 10 mg Q6H PRN IV PUSH SBP >160 04/22/17 21:45 04/22/17 22:56 Fentanyl Citrate (fentaNYL INJ) 50 mcg Q1H PRN IV PUSH breakthough PAIN 6-10 04/22/17 21:45 Fentanyl Citrate (fentaNYL INJ) 25 mcg Q1H PRN IV PUSH breakthrough PAIN 1-5 04/22/17 21:45 Acetaminophen/ Hydrocodone Bitart (Calvert 5-325 Mg) 1 tab Q6H PRN PO PAIN 1-5 04/22/17 21:45 Acetaminophen/ Hydrocodone Bitart (Calvert 5-325 Mg) 2 tab Q6H PRN PO PAIN 6-10 04/22/17 21:45 Chlorhexidine Gluconate (Peridex 0.12% Liq) 15 ml BID@08,20 MT 04/23/17 08:00 04/25/17 08:16 Phenytoin (Dilantin Liq) 100 mg Q12H PO 04/25/17 04:00 04/25/17 03:14 Mupirocin (Bactroban Nasal 2% Oint) 1 applic BID NASAL 04/25/17 09:00 04/25/17 08:18 (Kacey Ryder) Current Medications Current Medications Lorazepam (Ativan Inj) 2 mg STK-MED ONCE .ROUTE ; Start 04/20/17 at 19:21; Stop 04/20/17 at 19:22; Status DC IV Flush (NS Flush) 2 ml UNSCH PRN IV FLUSH FLUSH AFTER USING IV ACCESS; Start 04/20/17 at 19:30; Stop 04/21/17 at 06:06; Status DC Lorazepam (Ativan Inj) 2 mg ONCE ONCE IV PUSH Last administered on 04/20/17 19:38; Start 04/20/17 at 19:30; Stop 04/20/17 at 19:31; Status DC Lorazepam (Ativan Inj) 2 mg ONCE ONCE IV PUSH Last administered on 04/20/17 22:37; Start 04/20/17 at 22:15; Stop 04/20/17 at 22:16; Status DC Piperacillin Sod/ Tazobactam Sod 100 ml @ 200 mls/hr ONCE STAT IV Last administered on 04/21/17 00:44; Start 04/21/17 at 00:07; Stop 04/21/17 at 00 :36; Status DC Ceftriaxone Sodium 1000 mg/ Sodium Chloride 100 ml @ 200 mls/hr Q24H IV ; Start 04/21/17 at 06:00; Status Cancel Sodium Chloride 1,000 ml @ 75 mls/hr [id number] IV Last administered on 03:41; Start 04/21/17 at 05:44; Stop 04/25/17 at 15:41; Status DC Sodium Chloride (NS Flush) 2 ml UNSCH PRN IV FLUSH FLUSH AFTER USING IV ACCESS ; Start 04/21/17 at 05:45 Sodium Chloride (NS Flush) 2 ml BID IV FLUSH Last administered on 04/30/17 08 :43; Start 04/21/17 at 09:00 Acetaminophen (Tylenol) 650 mg Q6H PRN PO FEVER >101F; Start 04/21/17 at 05:45 Famotidine (Pepcid) 20 mg Q12HR PO Last administered on 04/30/17 08:43; Start 04/21/17 at 09:00 Ondansetron HCl (Zofran Inj) 4 mg Q6H PRN IV PUSH NAUSEA OR VOMITING; Start at 05:45 Albuterol/ Ipratropium (Duoneb Neb) 1 ampule Q4HR NEB PRN INH WHEEZING; Start 04/21/17 at 05:45 Miscellaneous Information 1 Q361D XX Last administered on 04/21/17 07:05; Start 04/21/17 at 05:45 Chlorhexidine Gluconate (Chlorhexidine 2% Cloth) Taper DAILY@04 TOP Last administered on 04/25/17 03:41; Start 04/22/17 at 04:00; Stop 04/18/18 at 03 :59 Chlorhexidine Gluconate (Chlorhexidine 2% Cloth) 3 pack UNSCH PRN TOP HYGIENIC CARE; Start 04/21/17 at 05:45 Senna/Docusate Sodium (Inna-Colace) 1 tab BID PO Last administered on 08:43; Start 04/21/17 at 09:00 Magnesium Hydroxide (Milk Of Magnesia Liq) 30 ml Q12H PRN PO Mild constipation Last administered on 04/26/17 10:21; Start 04/21/17 at 05:45 Sennosides (Senokot) 17.2 mg Q12H PRN PO Moderate constipation; Start at 05:45 Bisacodyl (Dulcolax Supp) 10 mg DAILY PRN RECTAL SEVERE CONSITIPATION; Start 04/21/17 at 05:45 Lactulose (Lactulose Liq) 30 ml DAILY PRN PO SEVERE CONSITIPATION; Start 04/21 at 05:45 Calcitriol (Rocaltrol) 0.25 mcg DAILY PO Last administered on 04/30/17 08:43 ; Start 04/21/17 at 09:00 Clonazepam (KlonoPIN) 0.5 mg BID PO Last administered on 04/25/17 08:19; Start 04/21/17 at 09:00; Stop 04/25/17 at 15:41; Status DC Digoxin (Lanoxin) 0.125 mg DAILY PO Last administered on 04/30/17 08:43; Start 04/21/17 at 09:00 Diltiazem HCl (Cardizem) 90 mg Q6HR PO ; Start 04/21/17 at 06:00; Status Cancel Divalproex Sodium (Depakote Sprinkles) 750 mg DAILY PO ; Start 04/21/17 at 09: 00; Status Cancel Escitalopram Oxalate (Lexapro) 20 mg DAILY PO Last administered on 04/30/17 08:43; Start 04/21/17 at 09:00 Ferrous Sulfate (Ferrous Sulfate) 325 mg BIDPC PO Last administered on 08:43; Start 04/21/17 at 09:00 Metoprolol Tartrate (Lopressor) 50 mg Q6HR PO ; Start 04/21/17 at 06:00; Status Cancel Phenytoin (Dilantin Liq) 200 mg Q8HR PO ; Start 04/21/17 at 06:00; Status Cancel Risperidone (risperDAL) 2 mg HS PO Last administered on 04/29/17 20:27; Start 04/21/17 at 21:00 Lorazepam (Ativan Inj) 1 mg Q15M PRN IV PUSH agitation Last administered on 21:15; Start 04/21/17 at 07:00 Ceftriaxone Sodium 1000 mg/ Sodium Chloride 100 ml @ 200 mls/hr Q24H IV Last administered on 04/28/17 08:48; Start 04/21/17 at 09:00; Stop 04/28/17 at 14 :43; Status DC Diltiazem HCl (Cardizem) 90 mg Q6H PO Last administered on 04/30/17 08:43; Start 04/21/17 at 09:00 Metoprolol Tartrate (Lopressor) 50 mg Q6H PO Last administered on 04/28/17 08 :48; Start 04/21/17 at 09:00; Stop 04/28/17 at 14:44; Status DC Phenytoin (Dilantin Liq) 200 mg Q8H PO Last administered on 04/23/17 00:21; Start 04/21/17 at 09:00; Stop 04/23/17 at 15:58; Status DC Haloperidol Lactate (Haldol Inj) 5 mg Q4H PRN IV agitation Last administered on 04/29/17 01:38; Start 04/21/17 at 12:15 Valproic Acid (Depakene Liq) 250 mg Q8H PO Last administered on 04/30/17 03: 40; Start 04/21/17 at 12:00 Ziprasidone (Geodon Inj) 10 mg ONCE ONCE IM Last administered on 04/21/17 13 :15; Start 04/21/17 at 13:15; Stop 04/21/17 at 13:16; Status DC Ziprasidone (Geodon Inj) 10 mg Q12H PRN IM AGITATION Last administered on 04/28 15:21; Start 04/21/17 at 16:45 Thrombin (Thrombin Top Soln) 10,000 units STK-MED ONCE .ROUTE Last administered on 04/22/17 19:45; Start 04/22/17 at 14:56; Stop 04/22/17 at 14 :57; Status DC Gelatin (Gelfoam 100 Top) 1 foam STK-MED ONCE .ROUTE Last administered on 04/22 19:45; Start 04/22/17 at 14:57; Stop 04/22/17 at 14:58; Status DC Lidocaine/ Epinephrine (Xylocaine-Epi 1%-1:100,000 Inj) 50 ml STK-MED ONCE .ROUTE Last administered on 04/22/17 19:45; Start 04/22/17 at 14:57; Stop 04/22/17 at 14:58; Status DC Gentamicin Sulfate (Gentamicin Inj) 240 mg STK-MED ONCE .ROUTE ; Start at 14:57; Stop 04/22/17 at 14:58; Status DC Propofol 50 ml @ As Directed STK-MED ONCE .ROUTE ; Start 04/22/17 at 20:10; Stop 04/22/17 at 20:11; Status DC Cefazolin Sodium (Ancef Inj) 1,000 mg ONCE ONCE IV Last administered on 19:21; Start 04/22/17 at 19:21; Stop 04/22/17 at 20:12; Status DC Propofol 100 ml @ 20.67 mls/ hr TITRATE PRN IV SEDATION Last administered on 04/25/17 08:59; Start 04/22/17 at 21:30; Stop 04/25/17 at 15:41; Status DC Fentanyl Citrate 250 ml @ 2.5 mls/hr TITRATE PRN IV SEDATION Last administered on 04/25/17 08:59; Start 04/22/17 at 21:45; Stop 04/25/17 at 15 :41; Status DC Hydralazine HCl (Apresoline Inj) 10 mg Q6H PRN IV PUSH SBP >160 Last administered on 04/29/17 20:36; Start 04/22/17 at 21:45 Fentanyl Citrate (fentaNYL INJ) 50 mcg Q1H PRN IV PUSH breakthough PAIN 6-10; Start 04/22/17 at 21:45 Fentanyl Citrate (fentaNYL INJ) 25 mcg Q1H PRN IV PUSH breakthrough PAIN 1-5 Last administered on 04/29/17 02:28; Start 04/22/17 at 21:45 Acetaminophen/ Hydrocodone Bitart (Calvert 5-325 Mg) 1 tab Q6H PRN PO PAIN 1-5 Last administered on 04/30/17 08:43; Start 04/22/17 at 21:45 Acetaminophen/ Hydrocodone Bitart (Calvert 5-325 Mg) 2 tab Q6H PRN PO PAIN 6-10 Last administered on 04/28/17 21:57; Start 04/22/17 at 21:45 Chlorhexidine Gluconate (Peridex 0.12% Liq) 15 ml BID@08,20 MT Last administered on 04/30/17 08:00; Start 04/23/17 at 08:00 Phenytoin (Dilantin Liq) 100 mg Q8H PO Last administered on 04/24/17 16:22; Start 04/23/17 at 16:00; Stop 04/24/17 at 16:25; Status DC Lidocaine HCl (Xylocaine-Mpf 1% Inj) 5 ml STK-MED ONCE OTHER ; Start 04/22/17 at 12:00; Stop 04/24/17 at 15:17; Status DC Rocuronium [place] (Zemuron Inj) 50 mg STK-MED ONCE IV PUSH ; Start 04/22/17 at 12:00; Stop 04/24/17 at 15:17; Status DC Phenylephrine HCl (Neosynephrine/ NS 1000 Mcg/10ml Syr) 2,000 mcg STK-MED ONCE IV ; Start 04/22/17 at 12:00; Stop 04/24/17 at 15:17; Status DC Ephedrine Sulfate (ePHEDrine/NS 25 MG/5 ML SYR) 25 mg STK-MED ONCE IV ; Start 04/22/17 at 12:00; Stop 04/24/17 at 15:17; Status DC Vecuronium [place] (Norcuron 20 Mg Inj) 20 mg STK-MED ONCE IV ; Start 04/22/17 at 12:00; Stop 04/24/17 at 15:17; Status DC Midazolam HCl (Versed Inj) 2 mg STK-MED ONCE IV ; Start 04/22/17 at 12:00; Stop 04/24/17 at 15:17; Status DC Fentanyl Citrate (fentaNYL INJ) 100 mcg STK-MED ONCE IV ; Start 04/22/17 at 12: 00; Stop 04/24/17 at 15:17; Status DC Propofol (Diprivan 200 Mg/20 ml Inj) 200 mg STK-MED ONCE IV ; Start 04/22/17 at 12:00; Stop 04/24/17 at 15:17; Status DC Phenytoin (Dilantin Liq) 100 mg Q12H PO Last administered on 04/30/17 03:40 ; Start 04/25/17 at 04:00 Mupirocin (Bactroban Nasal 2% Oint) 1 applic BID NASAL Last administered on 08:43; Start 04/25/17 at 09:00 Sodium Chloride 1,000 ml @ 84 mls/hr [id number] IV Last administered on 14:59; Start 04/25/17 at 15:45; Stop 04/26/17 at 23:32; Status DC Dexmedetomidine HCl 200 mcg/ Sodium Chloride 52 ml @ 3.66 mls/hr TITRATE PRN IV SEDATION Last administered on 04/26/17 04:08; Start 04/25/17 at 16:00; Stop 04/26/17 at 22:28; Status DC Water (Free Water) 300 ml Q8H .XX ; Start 04/26/17 at 12:00; Stop 04/26/17 at 12:00; Status DC Water (Free Water) 300 ml Q8H NG ; Start 04/26/17 at 12:00; Stop 04/26/17 at 12:00; Status DC Water (Free Water) 300 ml Q4H NG Last administered on 04/29/17 14:34; Start 04/26/17 at 12:00 Dexmedetomidine HCl 1000 mcg/ Sodium Chloride 250 ml @ 3.52 mls/hr TITRATE PRN IV SEDATION Last administered on 04/28/17 00:05; Start 04/26/17 at 22:30 ; Stop 04/28/17 at 14:43; Status DC Potassium Chloride 20 meq/ Sodium Chloride 38.5 meq/Sterile Water 1,019.625 ml @ 150 mls/hr Q6H48M IV Last administered on 04/30/17 03:40; Start 04/26/17 at 23:30 Metoprolol Tartrate (Lopressor) 50 mg Q12H PO Last administered on 04/30/17 08:43; Start 04/28/17 at 21:00 Clonidine (Catapres) 0.1 mg Q6H PO Last administered on 04/30/17 05:58; Start 04/28/17 at 17:00 (Neto Herr MD) Medical Decision Making MDM Remarks 66 y/o male s/p right parietal bur hole for evacuation of right hemisphere subdural hygroma on 04/22/17 postoperative large pneumocephalus, improving (Kacey Ryder) Plan Plan Remarks cont critical care mgt serial neuro checks. cont ALESSANDRO draining Patient on left side with right side 90 degrees to bed to allow pneumocephalus to drain. noncehmical DVT prophylaxis. (Kacey Ryder) Attending Statement As above Continue neuro checks. Nonoperative management Pulmonary. Continue aggressive pulmonary toilette, nasotracheal suction, and breathing treatments with nebulizers. Renal. monitor closely urine output, BUN and creatinine Endocrine. Monitor serial Acu checks and SSI as needed in detail ID monitor for signs of infection Protonix for stress ulcer prophylaxis Ramiro hose and SCD's for DVT prophylaxis. The exam, history, and the medical decision-making described in the above note were completed with the assistance of the mid-level provider. I reviewed and agree with the findings presented. I attest that I had a [id number] encounter with the patient on the same day, and personally performed and documented my assessment and findings in the medical record. (Neto Herr MD) Kacey Ryder Apr 25, 2017 11:33 Neto Herr MD Apr 30, 2017 09:49
--- NOTE | 2017-04-25 15:53 | HHI.CCPN ---
Subjective Remarks/Hospital Course Hospital Course: 66 y/o man in assisted facility fell and received some minor bruising to his side. Aid thought he was more confused and disoriented than normal, so brought to ED. CT Head reveals right subdural hygroma / chronic subdural bleed. Subjective: 04/22: agitation persists. responded well to geodon IM yesterday. plan to go to OR for felicia hole. 04/23: taken for felicia hole yesterday. remains intubated post-op. post-op scan with significant pneumocephalus and new left SDH. non-op per Dr. Martinez. baseline mental status will make it significantly difficult to assess current neuro exam and appropriateness of extubation. 04/24: Remains intubated sedated. CT head today improved pneumocephalus and improved subfalcine herniation. Difficult to assess for vent wean due to developmental delay 04/25: On sedation vacation patient remained apneic on attempted CPAP. Placed back on forced vent support. We'll discontinue continuous sedation. CT from yesterday shows improvement Objective Vital Signs Date Time Temp Pulse Resp B/P (MAP) Pulse Ox O2 Delivery O2 Flow Rate FiO2 04/25/17 13:50 99 30 04/25/17 12:00 50 04/25/17 12:00 98.5 14 112/60 (77) 04/24/17 07:00 Mechanical Ventilator Intake and Output 04/25/17 04/25/17 04/26/17 08:00 16:00 00:00 Intake Total 1293 ml 379 ml Output Total 1170 ml Balance 123 ml 379 ml Result Diagram: 04/25/17 0508 04/25/17 0508 Objective Remarks GENERAL: Intubated sedated HEAD: ALESSANDRO drain right skull. EYES: Pupils equal and round. No conjunctival icterus. No injection or drainage. ENT: No nasal bleeding or discharge. Mucous membranes pink and moist. NECK: Trachea midline. orotracheally intubated CARDIOVASCULAR: Irreg Irreg. No JVD. RESPIRATORY: intubated, sedated, full support. equal chest rise. GASTROINTESTINAL: Abdomen soft, non-tender, nondistended. No guarding. MUSCULOSKELETAL: No obvious deformities. No clubbing. No cyanosis. No edema. Well perfused. EXTREMITIES: No clubbing, cyanosis, or edema. Moving all 4 extremities, notable for ecchymosis over the right fifth digit area. NEUROLOGICAL: RASS -4. withdraws to pain (R UE some what contracted with limited mobility). at times agitated. moves all extremities. A/P Assessment and Plan Assessment: 1. Agitated Delirium 2. 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 3. Right subdural hygroma, chronic hemorrhage. 4. UTI. 5. new left SDH 6. pneumocephalus 7. acute respiratory failure 8. acute encephalopathy Plan: - frequent neuro checks - SDH management per Dr. Martinez - no extubation or SBT until neuro exam improves. (At baseline follows commands , able to say few words per RN) - daily Dilantin levels 19.6 04/24 - decreased dilantin to 100mg TID 04/23, decreased to 100 BID 04/24 - Discontinue propofol and fentanyl. Start Precedex to facilitate ventilator weaning - continue Geodon IM prn with Ativan iv prn for agitation, for patient safety. - pepcid - hold pharmacologic dvt prophylaxis. - SCDs - continue Rocephin for UTI. growing proteus. Check repeat sputum culture - hold home anticoagulation - continue home meds. - CT head 04/24 improving pneumocephalus and subfalcine herniation Overall impression: Very difficult to assess mental status or even extubate given baseline mental status which is poor. supportive care. Critically ill with worse encephalopathy, resp failure, new bleed. Level 3 Lucille Gonzalez MD Apr 25, 2017 15:53
[2017-04-25] MEDS: SODIUM CHLOR 0.45% 1000 ML INJ 1,000 ML IV SCH (16:18)
[2017-04-25] MEDS: DEXMEDETOMIDINE INJ 200 MCG in SODIUM CHLORIDE 0.9% INJ 50 ML IV PRN (17:01)
[2017-04-25] MEDS: risperiDONE 1 MG TAB PO SCH (19:41)
[2017-04-26] VITALS (19 sets, daily range): BP systolic 82–164; BP diastolic 47–76; PULSE 42–60; RESP 11–30; TEMP 98.2–98.9; O2SAT 94–100
[2017-04-26] MEDS: LORazepam 2 MG/ML VIAL IV PUSH PRN ×4 (02:52→21:55)
[2017-04-26] MEDS: METOPROLOL TARTRATE 50 MG TAB PO SCH ×4 (03:15→21:00)
[2017-04-26] MEDS: PHENYTOIN SUSP 100 MG/4 ML CUP PO SCH ×2 (03:15→14:59)
[2017-04-26] MEDS: VALPROIC ACID SYRUP 250 MG/5 ML UDC PO SCH ×3 (03:15→21:52)
[2017-04-26] MEDS: DILTIAZEM HCL 90 MG TAB PO SCH ×4 (03:15→21:00)
[2017-04-26] MEDS: CHLORHEXIDINE GLUCONATE 2 % 1 PACK (2 CLOTHS) TOP SCH (03:16)
[2017-04-26] MEDS: SODIUM CHLOR 0.45% 1000 ML INJ 1,000 ML IV SCH ×2 (03:16→14:59)
[2017-04-26] MEDS: DEXMEDETOMIDINE INJ 200 MCG in SODIUM CHLORIDE 0.9% INJ 50 ML IV PRN (04:08)
[2017-04-26 04:54] LABS: MEAN CELL VOLUME 94.1 FL (80.0-100.0); MEAN CORPUSCULAR HGB CONC 32.9 % (32.0-36.0); PLATELET COUNT 195 TH/MM3 (150-450); RED BLOOD COUNT 2.97 MIL/MM3 (4.50-5.90); RED CELL DISTRIBUTION WIDTH 16.7 % (11.6-17.2); REVIEW FLAG FINAL
[2017-04-26 05:23] LABS: ALKALINE PHOSPHATASE 85 U/L (45-117); ALT (GPT) 29 U/L (12-78); ANION GAP 7 MEQ/L (5-15); AST (GOT) 38 U/L (15-37); BICARBONATE 22.6 MEQ/L (21.0-32.0); BLOOD UREA NITROGEN 11 MG/DL (7-18); CHLORIDE 127 MEQ/L (98-107); GLOMERULAR FILTRATION RATE 111 ML/MIN (>89); POTASSIUM 3.6 MEQ/L (3.5-5.1); TOTAL BILIRUBIN ADULT 0.4 MG/DL (0.2-1.0)
[2017-04-26 05:28] LABS: SODIUM (NA) 157 MEQ/L (136-145)
--- NOTE | 2017-04-26 05:47 | RADRPT ---
EXAM DATE/TIME: 04/26/2017 02:45 [facility] COMPARISON: CHEST SINGLE AP, April 25, 2017, 3:18. INDICATIONS : Respiratory failure and left lung infiltrate.. MEDICAL HISTORY : Renal disease, end stage. Hypertension. Arthritis. Vision impaired. SURGICAL HISTORY : None. ENCOUNTER: Subsequent ACUITY: 4 - 6 days PAIN SCORE: Non-responsive. LOCATION: Bilateral chest FINDINGS: A single AP semierect view of the chest was obtained and again demonstrates an endotracheal tube in p lace with the tip at the level the sarah. A Dobbhoff type feeding tube is again noted with the tip i n the proximal stomach. No confluent infiltrate or effusion is now identified. The heart size remains at the upper limits of normal. The patient is mildly rotated to the left. There is no perihilar nirav a. The bony thorax remains intact. CONCLUSION: 1. No confluent infiltrate now identified. 2. The endotracheal tube remains in place with the tip at the level of the sarah. 3. The patient is mildly rotated. Esvin Raaz MD on April 26, 2017 at 5:44 Board Certified Radiologist. This report was verified electronically.
[2017-04-26] MEDS: CHLORHEXIDINE 0.12% (ORAL KIT) 15 ML CUP MT SCH ×2 (08:06→21:53)
[2017-04-26] MEDS: CALCITRIOL 0.25 MCG CAP PO SCH (08:07)
[2017-04-26] MEDS: DOCUSATE SODIUM 50 MG/SENNA 8.6 MG TAB PO SCH ×2 (08:07→21:00)
[2017-04-26] MEDS: FAMOTIDINE 20 MG TAB PO SCH ×2 (08:07→21:52)
[2017-04-26] MEDS: DIGOXIN 0.125 MG TAB PO SCH (08:07)
[2017-04-26] MEDS: ESCITALOPRAM OXALATE 20 MG TAB PO SCH (08:08)
[2017-04-26] MEDS: FERROUS SULFATE 325 MG (65 MG ELEMENTAL IRON) TAB PO SCH ×2 (08:08→16:55)
[2017-04-26] MEDS: MUPIROCIN 2% OINT 1 APPLIC/GM SYR NASAL SCH ×2 (08:08→21:52)
[2017-04-26] MEDS: SODIUM CHLORIDE 0.9% FLUSH 10 ML FLUSH IV FLUSH SCH ×2 (08:08→21:53)
[2017-04-26] MEDS: cefTRIAXone INJ 1,000 MG in SODIUM CHLORIDE 0.9% INJ 100 ML IV SCH (08:09)
[2017-04-26] MEDS: FREE WATER NG SCH ×4 (11:58→23:32)
[2017-04-26] MEDS ORDERED: FREE WATER SCH (12:00)
[2017-04-26] MEDS ORDERED: FREE WATER NG SCH (12:00)
--- NOTE | 2017-04-26 13:44 | HHI.CCPN ---
Subjective Remarks/Hospital Course Hospital Course: 66 y/o man in assisted facility fell and received some minor bruising to his side. Aid thought he was more confused and disoriented than normal, so brought to ED. CT Head reveals right subdural hygroma / chronic subdural bleed. Subjective: 04/22: agitation persists. responded well to geodon IM yesterday. plan to go to OR for felicia hole. 04/23: taken for felicia hole yesterday. remains intubated post-op. post-op scan with significant pneumocephalus and new left SDH. non-op per Dr. Martinez. baseline mental status will make it significantly difficult to assess current neuro exam and appropriateness of extubation. 04/24: Remains intubated sedated. CT head today improved pneumocephalus and improved subfalcine herniation. Difficult to assess for vent wean due to developmental delay 04/25: On sedation vacation patient remained apneic on attempted CPAP. Placed back on forced vent support. We'll discontinue continuous sedation. CT from yesterday shows improvement 04/26: Tolerating CPAP today. Moving all extremities. Maintaining good oxygen saturation. We will attempt trial extubation (Unable to assess neuro improvement) Objective Vital Signs Date Time Temp Pulse Resp B/P (MAP) Pulse Ox O2 Delivery O2 Flow Rate FiO2 04/26/17 13:15 97 Nasal Cannula 3 04/26/17 12:17 30 04/26/17 12:00 51 04/26/17 12:00 98.7 14 164/76 (105) Intake and Output 04/26/17 04/26/17 04/27/17 08:00 16:00 00:00 Intake Total 300 ml Output Total 1245 ml Balance -945 ml Result Diagram: 04/26/17 04304/26/17 043 Objective Remarks GENERAL: Sedated with low dose Precedex HEAD: ALESSANDRO drain right skull. EYES: Pupils equal and round. No conjunctival icterus. No injection or drainage. ENT: No nasal bleeding or discharge. Mucous membranes pink and moist. NECK: Trachea midline. orotracheally intubated CARDIOVASCULAR: Irreg Irreg. No JVD. RESPIRATORY: On CPAP, full support. equal chest rise. GASTROINTESTINAL: Abdomen soft, non-tender, nondistended. No guarding. MUSCULOSKELETAL: No obvious deformities. No clubbing. No cyanosis. No edema. Well perfused. EXTREMITIES: No clubbing, cyanosis, or edema. Moving all 4 extremities, notable for ecchymosis over the right fifth digit area. NEUROLOGICAL: RASS -0. Eyes are open moves all extremities spontaneously. A/P Assessment and Plan Assessment: 1. Agitated Delirium 2. 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 3. Right subdural hygroma, chronic hemorrhage. 4. UTI. 5. new left SDH 6. pneumocephalus 7. acute respiratory failure 8. acute encephalopathy 9. Hypernatremia Plan: - frequent neuro checks - SDH management per Dr. Martinez - SBT is tolerated, extubate to NC - daily Dilantin levels 19.6 04/24, 15.5 today - decreased dilantin to 100mg TID 04/23, decreased to 100 BID 04/24 - Precedex to facilitate ventilator weaning - continue Geodon IM prn with Ativan iv prn for agitation, for patient safety. - pepcid - hold pharmacologic dvt prophylaxis. - SCDs - continue Rocephin for UTI. growing proteus. - hold home anticoagulation - continue home meds. - CT head 04/24 improving pneumocephalus and subfalcine herniation - 1/2 NS and free water flushes for hypernatremia Overall impression: Very difficult to assess mental status. Trial extubation today Level 2 Lucille Gonzalez MD Apr 26, 2017 13:44
[2017-04-26] MEDS: HALOPERIDOL LACTATE 5 MG/ML AMP IV PRN (16:40)
[2017-04-26] MEDS: risperiDONE 1 MG TAB PO SCH (21:52)
[2017-04-26] MEDS: hydrALAZINE HCL 20 MG/ML VIAL IV PUSH PRN (21:54)
--- NOTE | 2017-04-26 23:24 | HHI.NSPN ---
History Chief Complaint: Unable to obtain due to patient's mental condition. Interval History No new problems reported per nursing staff. Has done relatively well with CPAP trials on 04/26/17 Exam Results Vital Signs Date Time Temp Pulse Resp B/P (MAP) Pulse Ox O2 Delivery O2 Flow Rate FiO2 04/26/17 19:58 100 Nasal Cannula 3.00 04/26/17 18:00 54 04/26/17 16:00 98.9 20 145/65 (91) 04/26/17 12:17 30 Intake and Output 04/26/17 04/26/17 04/27/17 08:00 16:00 00:00 Intake Total 300 ml 900 ml Output Total 1245 ml 1750 ml Balance -945 ml -850 ml Physical Examination Intubated Respirations clear, nonlabored Heart rate regular Abdomen soft Awake-mild to moderate lethargy Nonverbal Does not follow commands Does not track or focus with his eyes Intermittent nonpurposeful movements of all extremities Lab, Micro, Other Results Laboratory Tests Test 04/26/17 04:32 White Blood Count 10.0 TH/MM3 Red Blood Count 2.97 MIL/MM3 Hemoglobin 9.2 GM/DL Hematocrit 28.0 % Mean Corpuscular Volume 94.1 FL Mean Corpuscular Hemoglobin 31.0 PG Mean Corpuscular Hemoglobin Concent 32.9 % Red Cell Distribution Width 16.7 % Platelet Count 195 TH/MM3 Mean Platelet Volume 6.7 FL Blood Urea Nitrogen 11 MG/DL Creatinine 0.71 MG/DL Random Glucose 113 MG/DL Total Protein 6.3 GM/DL Albumin 1.7 GM/DL Calcium Level 7.8 MG/DL Alkaline Phosphatase 85 U/L Aspartate Amino Transf (AST/SGOT) 38 U/L Alanine Aminotransferase (ALT/SGPT) 29 U/L Total Bilirubin 0.4 MG/DL Sodium Level 157 MEQ/L Potassium Level 3.6 MEQ/L Chloride Level 127 MEQ/L Carbon Dioxide Level 22.6 MEQ/L Anion Gap 7 MEQ/L Estimat Glomerular Filtration Rate 111 ML/MIN Phenytoin (Dilantin) Level 15.5 MCG/ML Medical Decision Making Impression and Plan Impression: 1. Sterile neurologic exam over the past couple days, status post bur hole for evacuation of right hemisphere subdural hygroma. 2. Development of small focal left parieto-occipital subdural hematoma. Plan: Continue ventilatory support. CPAP trials and wean to extubate per chairman president and chief executive officer. Continue drain without suction. Plan follow-up CT scan head 04/29/17 Hypernatremia-Adjust fluids and monitor sodium Art Martinez MD Apr 26, 2017 23:24
[2017-04-26] MEDS: DEXMEDETOMIDINE INJ 1,000 MCG in SODIUM CHLOR 0.9% 250 ML INJ 240 ML IV PRN (23:32)
[2017-04-27] VITALS (14 sets, daily range): BP systolic 109–167; BP diastolic 61–92; PULSE 44–86; RESP 20–30; TEMP 97.8–98.6; O2SAT 96–100
[2017-04-27] MEDS: POTASSIUM CHLORIDE INJ 20 MEQ, SODIUM CHLORIDE 23.4% INJ 38.5 MEQ in WATER STERILE FOR ... IV SCH ×2 (01:13→12:33)
[2017-04-27] MEDS: DILTIAZEM HCL 90 MG TAB PO SCH ×4 (02:46→21:00)
[2017-04-27] MEDS: CHLORHEXIDINE GLUCONATE 2 % 1 PACK (2 CLOTHS) TOP SCH (02:46)
[2017-04-27] MEDS: METOPROLOL TARTRATE 50 MG TAB PO SCH ×4 (02:46→20:47)
[2017-04-27] MEDS: PHENYTOIN SUSP 100 MG/4 ML CUP PO SCH ×2 (03:44→17:01)
[2017-04-27] MEDS: FREE WATER NG SCH ×5 (03:44→20:46)
[2017-04-27] MEDS: VALPROIC ACID SYRUP 250 MG/5 ML UDC PO SCH ×3 (03:44→20:47)
[2017-04-27 05:29] LABS: HEMATOCRIT 29.6 % (39.0-51.0); MEAN CELL VOLUME 94.3 FL (80.0-100.0); MEAN CORPUSCULAR HEMOGLOBIN 31.4 PG (27.0-34.0); MEAN CORPUSCULAR HGB CONC 33.3 % (32.0-36.0); PLATELET COUNT 193 TH/MM3 (150-450); RED BLOOD COUNT 3.14 MIL/MM3 (4.50-5.90); RED CELL DISTRIBUTION WIDTH 16.5 % (11.6-17.2); REVIEW FLAG FINAL
[2017-04-27 05:47] LABS: BICARBONATE 23.4 MEQ/L (21.0-32.0); POTASSIUM 3.6 MEQ/L (3.5-5.1)
[2017-04-27] MEDS: CHLORHEXIDINE 0.12% (ORAL KIT) 15 ML CUP MT SCH ×2 (08:00→20:46)
[2017-04-27] MEDS: FERROUS SULFATE 325 MG (65 MG ELEMENTAL IRON) TAB PO SCH ×2 (09:00→17:01)
[2017-04-27] MEDS: cefTRIAXone INJ 1,000 MG in SODIUM CHLORIDE 0.9% INJ 100 ML IV SCH (09:36)
[2017-04-27] MEDS: MUPIROCIN 2% OINT 1 APPLIC/GM SYR NASAL SCH ×2 (09:37→20:47)
[2017-04-27] MEDS: SODIUM CHLORIDE 0.9% FLUSH 10 ML FLUSH IV FLUSH SCH ×2 (09:37→20:47)
[2017-04-27] MEDS: FAMOTIDINE 20 MG TAB PO SCH ×2 (09:38→20:47)
[2017-04-27] MEDS: DOCUSATE SODIUM 50 MG/SENNA 8.6 MG TAB PO SCH ×2 (09:38→20:48)
[2017-04-27] MEDS: CALCITRIOL 0.25 MCG CAP PO SCH (09:38)
[2017-04-27] MEDS: ESCITALOPRAM OXALATE 20 MG TAB PO SCH (09:39)
[2017-04-27] MEDS: DIGOXIN 0.125 MG TAB PO SCH (09:39)
--- NOTE | 2017-04-27 10:14 | HHI.NSPN ---
(Carmelo Muñoz) History Chief Complaint: Unable to obtain due to patient's mental condition. (Carmelo Muñoz) Interval History 04/21: The patient is a 66-year-old male with a history of mental retardation who has chronically resided in a local facility. Discussion with his caregivers indicates that he usually is able to ambulate independently, converses a little but is always with minimal overall mental functions. He is able to eat on his own. They noticed that over the past few days, he has become mostly nonverbal, increased agitation, not walking well, and not eating. No fevers or sweats noted. The patient is generally not able to communicate his symptoms or healthcare needs. 04/22: The patient prior to being examined was seen in the room moving all extremities, crying out and attempting to get out of bed. When seen later he was asleep but did open his eyes to voice. He then started moving all extremities and attempting to sit up. He is in soft wrist restraints. 04/23: The patient is obtunded this morning when seen with Dr Martinez. He did not respond to voice but to noxious stimulation. He went to the operating room yesterday for a felicia evacuation of a subdural hygroma and returned to [facility] post- operatively. He remains intubated and mechanically ventilated. He is on a propofol drip for sedation and a fentanyl drip for pain control. He did have a repeat CT brain this morning. 04/24: This morning the patient remains obtunded but is on propofol for sedation. He continues to be intubated and mechanically ventilated. Nursing reports that he did have a cough reflex for her but no other response and that the ALESSANDRO drain put out 190 mL of serous fluid in the past 24 hours. 04/25: no changes to neuro check, moving ext spontaneously but not following commands. 04/26: No new problems reported per nursing staff. Has done relatively well with CPAP trials on 04/26/1704/27: Pt with stable neuro exam. He follows simple commands-tries to stick out tongue and close eyes to command. 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 Not verbalizing. (Carmelo Muñoz) System Review Comments Not able to obtain given clinical condition. (Carmelo Muñoz) Exam Results Vital Signs Date Time Temp Pulse Resp B/P (MAP) Pulse Ox O2 Delivery O2 Flow Rate FiO2 04/27/17 06:00 64 04/27/17 04:00 98.6 30 116/61 (79) 98 04/26/17 19:58 Nasal Cannula 3.00 04/26/17 12:17 30 Intake and Output 04/27/17 04/27/17 04/28/17 08:00 16:00 00:00 Intake Total 2145 ml Output Total 760 ml Balance 1385 ml (Carmelo Muñoz) Physical Examination General: Pt resting comfortably in bed in NAD. Resp: CTA bilaterally. Extubated. Heart: NSR no murmurs Abd: Soft positive bs Skin: Incisions clean and dry. ALESSANDRO drain in place. Muscle: Pt with chronic flexion contractures in hands. Not following commands in LEs. Neuro: Pt is lethargic but appears to be trying to follow some simple commands. Not following commands in extremities. Not verbalizing which is his baseline. Pupils 2mm bilaterally with cloudy corneas. (Carmelo Muñoz) Lab, Micro, Other Results Last Impressions Chest X-Ray 04/26/17 0600 Signed Impressions: Service Date/Time: Wednesday, April 26, 2017 02:45 - CONCLUSION: 1. No confluent infiltrate now identified. 2. The endotracheal tube remains in place with the tip at the level of the sarah. 3. The patient is mildly rotated. Esvin Raza MD Head CT 04/24/17 0842 Signed Impressions: Service Date/Time: Monday, April 24, 2017 15:25 - CONCLUSION: 1. Stable right subdural drain in place with significantly improved right-sided pneumocephalus and improved mass effect with near resolution of subfalcine herniation. The pneumocephalus component now measures 9 mm in comparison to 23 mm on prior exam. 2. Remainder of the exam is unchanged with stable bilateral subdural hemorrhage and stable small amount of acute subdural posterior fossa hemorrhage, as above. Deon Zabala MD Abdomen X-Ray 04/21/17 0000 Signed Impressions: Service Date/Time: Friday, April 21, 2017 10:21 - CONCLUSION: Suspected ileus. Dobbhoff feeding tube tip is in the upper stomach. Carlos Cole MD Hand X-Ray 04/20/17 1950 Signed Impressions: Service Date/Time: Thursday, April 20, 2017 19:54 - CONCLUSION: Flexion contractures of the fingers. No fracture or acute appearing malalignment demonstrated. Carlos Cole MD Pelvis X-Ray 04/20/17 1923 Signed Impressions: Service Date/Time: Thursday, April 20, 2017 19:53 - CONCLUSION: Intact pelvis. Carlos Cole MD Laboratory Tests Test 04/27/17 05:12 White Blood Count 12.0 TH/MM3 Red Blood Count 3.14 MIL/MM3 Hemoglobin 9.9 GM/DL Hematocrit 29.6 % Mean Corpuscular Volume 94.3 FL Mean Corpuscular Hemoglobin 31.4 PG Mean Corpuscular Hemoglobin Concent 33.3 % Red Cell Distribution Width 16.5 % Platelet Count 193 TH/MM3 Mean Platelet Volume 7.0 FL Blood Urea Nitrogen 12 MG/DL Creatinine 0.75 MG/DL Random Glucose 195 MG/DL Calcium Level 8.2 MG/DL Sodium Level 153 MEQ/L Potassium Level 3.6 MEQ/L Chloride Level 123 MEQ/L Carbon Dioxide Level 23.4 MEQ/L Anion Gap 7 MEQ/L Estimat Glomerular Filtration Rate 105 ML/MIN Phenytoin (Dilantin) Level 16.9 MCG/ML (Carmelo Muñoz) Medical Decision Making Impression and Plan Impression: 1. Sterile neurologic exam over the past couple days, status post bur hole for evacuation of right hemisphere subdural hygroma. 2. Development of small focal left parieto-occipital subdural hematoma. 3. Hypernatremia-Adjust fluids and monitor sodium Plan: Continue drain without suction. Plan follow-up CT scan head 04/29/17 Continue with neuro checks (Carmelo Muñoz) Attending Statement The exam, history, and the medical decision-making described in the above note were completed with the assistance of the mid-level provider. I reviewed and agree with the findings presented. I attest that I had a [id number] encounter with the patient on the same day, and personally performed and documented my assessment and findings in the medical record. (Dipak Mathew MD) Carmelo Muñoz Apr 27, 2017 10:14 Dipak Mathew MD Apr 27, 2017 12:36
[2017-04-27] MEDS: HALOPERIDOL LACTATE 5 MG/ML AMP IV PRN (12:33)
[2017-04-27] MEDS: ACETAMINOPHEN/HYDROcodone 325 MG/5 MG TAB PO PRN ×2 (12:34→20:49)
--- NOTE | 2017-04-27 14:20 | HHI.CCPN ---
Subjective Remarks/Hospital Course Hospital Course: 66 y/o man in assisted facility fell and received some minor bruising to his side. Aid thought he was more confused and disoriented than normal, so brought to ED. CT Head reveals right subdural hygroma / chronic subdural bleed. Subjective: 04/22: agitation persists. responded well to geodon IM yesterday. plan to go to OR for felicia hole. 04/23: taken for felicia hole yesterday. remains intubated post-op. post-op scan with significant pneumocephalus and new left SDH. non-op per Dr. Martinez. baseline mental status will make it significantly difficult to assess current neuro exam and appropriateness of extubation. 04/24: Remains intubated sedated. CT head today improved pneumocephalus and improved subfalcine herniation. Difficult to assess for vent wean due to developmental delay 04/25: On sedation vacation patient remained apneic on attempted CPAP. Placed back on forced vent support. We'll discontinue continuous sedation. CT from yesterday shows improvement 04/26: Tolerating CPAP today. Moving all extremities. Maintaining good oxygen saturation. We will attempt trial extubation (Unable to assess neuro improvement) 04/27: Extubated 04/26. Tolerating well. Moving all extremities. Mumbling speech. Drain in place Objective Vital Signs Date Time Temp Pulse Resp B/P (MAP) Pulse Ox O2 Delivery O2 Flow Rate FiO2 04/27/17 09:13 100 Nasal Cannula 1.50 04/27/17 06:00 64 04/27/17 04:00 98.6 30 116/61 (79) 04/26/17 12:17 30 Intake and Output 04/27/17 04/27/17 04/28/17 08:00 16:00 00:00 Intake Total 2145 ml 1100 ml Output Total 760 ml Balance 1385 ml 1100 ml Result Diagram: 04/27/17 0512 04/27/17 0512 Other Results Microbiology Date/Time Source Procedure Growth Status 04/25/17 18:30 Sputum Endotracheal Gram Stain - Final Complete 04/25/17 18:30 Sputum Endotracheal Sputum Culture - Final NO GROWTH IN 48 HOURS. Complete Objective Remarks GENERAL: Off all continuos sedation HEAD: ALESSANDRO drain right skull. EYES: Pupils equal and round. No conjunctival icterus. No injection or drainage. ENT: No nasal bleeding or discharge. Mucous membranes pink and moist. NECK: Trachea midline. CARDIOVASCULAR: Irreg Irreg. No JVD. RESPIRATORY: On nasal cannula and entry equal GASTROINTESTINAL: Abdomen soft, non-tender, nondistended. No guarding. MUSCULOSKELETAL: No obvious deformities. No clubbing. No cyanosis. No edema. Well perfused. EXTREMITIES: No clubbing, cyanosis, or edema. Moving all 4 extremities, notable for ecchymosis over the right fifth digit area. NEUROLOGICAL: Eyes are spontaneously open moves all extremities. Mumbling incomprehensible words A/P Assessment and Plan Assessment: 1. Agitated Delirium 2. 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 3. Right subdural hygroma, chronic hemorrhage. 4. UTI. 5. new left SDH 6. pneumocephalus 7. acute respiratory failure-resolved 8. acute encephalopathy 9. Hypernatremia Plan: - frequent neuro checks - SDH management per Dr. Martinez, repeat CT head ? Saturday - Extubated 04/26 - daily Dilantin levels 19.6 04/24, 16.9 04/27 - decreased dilantin to 100mg TID 04/23, decreased to 100 BID 04/24 - continue Geodon IM prn with Ativan iv prn for agitation, for patient safety. - pepcid - hold pharmacologic dvt prophylaxis. SCDs - continue Rocephin for UTI. growing proteus. - hold home anticoagulation - continue home meds. - CT head 04/24 improving pneumocephalus and subfalcine herniation - 1/2 NS and free water flushes for hypernatremia, Na improved to 153 Overall impression: Very difficult to assess mental status. Probably at base line now Level 2 Lucille Gonzalez MD Apr 27, 2017 14:20
[2017-04-27] MEDS: risperiDONE 1 MG TAB PO SCH (20:48)
[2017-04-28] VITALS (15 sets, daily range): BP systolic 137–181; BP diastolic 65–79; PULSE 50–102; RESP 17–30; TEMP 98.3–99.1; O2SAT 97–100
[2017-04-28] MEDS: DEXMEDETOMIDINE INJ 1,000 MCG in SODIUM CHLOR 0.9% 250 ML INJ 240 ML IV PRN (00:05)
[2017-04-28] MEDS: POTASSIUM CHLORIDE INJ 20 MEQ, SODIUM CHLORIDE 23.4% INJ 38.5 MEQ in WATER STERILE FOR ... IV SCH ×3 (02:02→19:54)
[2017-04-28] MEDS: FREE WATER NG SCH ×7 (02:02→23:27)
[2017-04-28] MEDS: hydrALAZINE HCL 20 MG/ML VIAL IV PUSH PRN ×2 (02:14→15:51)
[2017-04-28] MEDS: DILTIAZEM HCL 90 MG TAB PO SCH ×4 (03:00→21:57)
[2017-04-28] MEDS: METOPROLOL TARTRATE 50 MG TAB PO SCH ×3 (03:15→21:58)
[2017-04-28] MEDS: PHENYTOIN SUSP 100 MG/4 ML CUP PO SCH ×2 (03:15→15:21)
[2017-04-28] MEDS: VALPROIC ACID SYRUP 250 MG/5 ML UDC PO SCH ×3 (03:16→21:56)
[2017-04-28] MEDS: ZIPRASIDONE MESYLATE 20 MG VIAL IM PRN ×2 (03:16→15:21)
[2017-04-28 06:19] LABS: HEMATOCRIT 32.7 % (39.0-51.0); MEAN CELL VOLUME 93.6 FL (80.0-100.0); MEAN CORPUSCULAR HEMOGLOBIN 30.3 PG (27.0-34.0); MEAN CORPUSCULAR HGB CONC 32.4 % (32.0-36.0); PLATELET COUNT 204 TH/MM3 (150-450); RED BLOOD COUNT 3.49 MIL/MM3 (4.50-5.90); RED CELL DISTRIBUTION WIDTH 16.8 % (11.6-17.2); REVIEW FLAG FINAL; WHITE BLOOD COUNT 13.8 TH/MM3 (4.0-11.0)
[2017-04-28 06:54] LABS: BICARBONATE 24.6 MEQ/L (21.0-32.0)
[2017-04-28] MEDS: CHLORHEXIDINE 0.12% (ORAL KIT) 15 ML CUP MT SCH ×2 (08:22→20:00)
[2017-04-28] MEDS: MUPIROCIN 2% OINT 1 APPLIC/GM SYR NASAL SCH ×2 (08:47→21:56)
[2017-04-28] MEDS: ESCITALOPRAM OXALATE 20 MG TAB PO SCH (08:48)
[2017-04-28] MEDS: CALCITRIOL 0.25 MCG CAP PO SCH (08:48)
[2017-04-28] MEDS: FERROUS SULFATE 325 MG (65 MG ELEMENTAL IRON) TAB PO SCH ×2 (08:48→17:06)
[2017-04-28] MEDS: DOCUSATE SODIUM 50 MG/SENNA 8.6 MG TAB PO SCH ×2 (08:48→21:58)
[2017-04-28] MEDS: cefTRIAXone INJ 1,000 MG in SODIUM CHLORIDE 0.9% INJ 100 ML IV SCH (08:48)
[2017-04-28] MEDS: DIGOXIN 0.125 MG TAB PO SCH (08:48)
[2017-04-28] MEDS: FAMOTIDINE 20 MG TAB PO SCH ×2 (08:48→21:56)
[2017-04-28] MEDS: SODIUM CHLORIDE 0.9% FLUSH 10 ML FLUSH IV FLUSH SCH ×2 (08:49→21:56)
--- NOTE | 2017-04-28 10:01 | HHI.NSPN ---
(Carmelo Muñoz) History Chief Complaint: Unable to obtain due to patient's mental condition. (Carmelo Muñoz) Interval History 04/21: The patient is a 66-year-old male with a history of mental retardation who has chronically resided in a local facility. Discussion with his caregivers indicates that he usually is able to ambulate independently, converses a little but is always with minimal overall mental functions. He is able to eat on his own. They noticed that over the past few days, he has become mostly nonverbal, increased agitation, not walking well, and not eating. No fevers or sweats noted. The patient is generally not able to communicate his symptoms or healthcare needs. 04/22: The patient prior to being examined was seen in the room moving all extremities, crying out and attempting to get out of bed. When seen later he was asleep but did open his eyes to voice. He then started moving all extremities and attempting to sit up. He is in soft wrist restraints. 04/23: The patient is obtunded this morning when seen with Dr Martinez. He did not respond to voice but to noxious stimulation. He went to the operating room yesterday for a felicia evacuation of a subdural hygroma and returned to [facility] post- operatively. He remains intubated and mechanically ventilated. He is on a propofol drip for sedation and a fentanyl drip for pain control. He did have a repeat CT brain this morning. 04/24: This morning the patient remains obtunded but is on propofol for sedation. He continues to be intubated and mechanically ventilated. Nursing reports that he did have a cough reflex for her but no other response and that the ALESSANDRO drain put out 190 mL of serous fluid in the past 24 hours. 04/25: no changes to neuro check, moving ext spontaneously but not following commands. 04/26: No new problems reported per nursing staff. Has done relatively well with CPAP trials on 04/26/1704/27: Pt with stable neuro exam. He follows simple commands-tries to stick out tongue and close eyes to command. 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 Not verbalizing. 04/28: Pt not following commands. Chronic contractures in his hands. Not verbalizing. Stable neuro exam. (Carmelo Muñoz) System Review Comments Not able to obtain given clinical condition. (Carmleo Muñoz) Exam Results Vital Signs Date Time Temp Pulse Resp B/P (MAP) Pulse Ox O2 Delivery O2 Flow Rate FiO2 04/28/17 09:30 98 Nasal Cannula 2.00 04/28/17 08:00 98.3 76 30 168/79 (108) 04/26/17 12:17 30 Intake and Output 04/28/17 04/28/17 04/29/17 08:00 16:00 00:00 Intake Total 2755 ml Output Total 2820 ml Balance -65 ml (Carmelo Muñoz) Physical Examination General: Pt resting comfortably in bed in NAD. Resp: CTA bilaterally. Extubated. Heart: NSR no murmurs Abd: Soft positive bs Skin: Incisions clean and dry. ALESSANDRO drain in place. Muscle: Pt with chronic flexion contractures in hands. Not following commands in LEs. Neuro: Pt is lethargic. Not following commands in extremities. Not verbalizing which is his baseline. Pupils 2mm bilaterally with cloudy corneas. (Carmelo Muñoz) Lab, Micro, Other Results Last Impressions Chest X-Ray 04/26/17 0600 Signed Impressions: Service Date/Time: Wednesday, April 26, 2017 02:45 - CONCLUSION: 1. No confluent infiltrate now identified. 2. The endotracheal tube remains in place with the tip at the level of the sarah. 3. The patient is mildly rotated. Esvin Raza MD Head CT 04/24/17 0842 Signed Impressions: Service Date/Time: Monday, April 24, 2017 15:25 - CONCLUSION: 1. Stable right subdural drain in place with significantly improved right-sided pneumocephalus and improved mass effect with near resolution of subfalcine herniation. The pneumocephalus component now measures 9 mm in comparison to 23 mm on prior exam. 2. Remainder of the exam is unchanged with stable bilateral subdural hemorrhage and stable small amount of acute subdural posterior fossa hemorrhage, as above. Deon Zabala MD Abdomen X-Ray 04/21/17 0000 Signed Impressions: Service Date/Time: Friday, April 21, 2017 10:21 - CONCLUSION: Suspected ileus. Dobbhoff feeding tube tip is in the upper stomach. Carlos Cole MD Hand X-Ray 04/20/17 1950 Signed Impressions: Service Date/Time: Thursday, April 20, 2017 19:54 - CONCLUSION: Flexion contractures of the fingers. No fracture or acute appearing malalignment demonstrated. Carlos Cole MD Pelvis X-Ray 04/20/17 1923 Signed Impressions: Service Date/Time: Thursday, April 20, 2017 19:53 - CONCLUSION: Intact pelvis. Carlos Cole MD Laboratory Tests Test 04/28/17 05:39 White Blood Count 13.8 TH/MM3 Red Blood Count 3.49 MIL/MM3 Hemoglobin 10.6 GM/DL Hematocrit 32.7 % Mean Corpuscular Volume 93.6 FL Mean Corpuscular Hemoglobin 30.3 PG Mean Corpuscular Hemoglobin Concent 32.4 % Red Cell Distribution Width 16.8 % Platelet Count 204 TH/MM3 Mean Platelet Volume 7.2 FL Blood Urea Nitrogen 13 MG/DL Creatinine 0.61 MG/DL Random Glucose 145 MG/DL Calcium Level 8.3 MG/DL Sodium Level 155 MEQ/L Potassium Level 4.0 MEQ/L Chloride Level 120 MEQ/L Carbon Dioxide Level 24.6 MEQ/L Anion Gap 10 MEQ/L Estimat Glomerular Filtration Rate 133 ML/MIN Phenytoin (Dilantin) Level 17.4 MCG/ML (Carmelo Muñoz) Medical Decision Making Impression and Plan Impression: 1. Sterile neurologic exam over the past couple days, status post bur hole for evacuation of right hemisphere subdural hygroma. 2. Development of small focal left parieto-occipital subdural hematoma. 3. Hypernatremia-Adjust fluids and monitor sodium Plan: Continue drain without suction. Plan follow-up CT scan head 04/29/17 Continue with neuro checks (Carmelo Muñoz) Attending Statement The exam, history, and the medical decision-making described in the above note were completed with the assistance of the mid-level provider. I reviewed and agree with the findings presented. I attest that I had a [id number] encounter with the patient on the same day, and personally performed and documented my assessment and findings in the medical record. (Dipak Mathew MD) Carmelo Muñoz Apr 28, 2017 10:01 Dipak Mathew MD Apr 28, 2017 11:33
[2017-04-28] MEDS: ACETAMINOPHEN/HYDROcodone 325 MG/5 MG TAB PO PRN ×2 (12:13→21:57)
--- NOTE | 2017-04-28 14:45 | HHI.CCPN ---
Subjective Remarks/Hospital Course Hospital Course: 66 y/o man in assisted facility fell and received some minor bruising to his side. Aid thought he was more confused and disoriented than normal, so brought to ED. CT Head reveals right subdural hygroma / chronic subdural bleed. Subjective: 04/22: agitation persists. responded well to geodon IM yesterday. plan to go to OR for felicia hole. 04/23: taken for felicia hole yesterday. remains intubated post-op. post-op scan with significant pneumocephalus and new left SDH. non-op per Dr. Martinez. baseline mental status will make it significantly difficult to assess current neuro exam and appropriateness of extubation. 04/24: Remains intubated sedated. CT head today improved pneumocephalus and improved subfalcine herniation. Difficult to assess for vent wean due to developmental delay 04/25: On sedation vacation patient remained apneic on attempted CPAP. Placed back on forced vent support. We'll discontinue continuous sedation. CT from yesterday shows improvement 04/26: Tolerating CPAP today. Moving all extremities. Maintaining good oxygen saturation. We will attempt trial extubation (Unable to assess neuro improvement) 04/27: Extubated 04/26. Tolerating well. Moving all extremities. Mumbling speech. Drain in place 04/28: Breathing comfortably moving all extremities. Sodium 155, 1/4 normal saline increase to 150 mL per hour. Follow-up CT of the head tomorrow a.m. Objective Vital Signs Date Time Temp Pulse Resp B/P (MAP) Pulse Ox O2 Delivery O2 Flow Rate FiO2 04/28/17 12:00 65 04/28/17 12:00 98.5 27 181/76 (111) 100 04/28/17 09:30 Nasal Cannula 2.00 04/26/17 12:17 30 Intake and Output 04/28/17 04/28/17 04/29/17 08:00 16:00 00:00 Intake Total 2755 ml 1119.625 ml Output Total 2820 ml Balance -65 ml 1119.625 ml Result Diagram: 04/28/17 0539 04/28/17 0539 Other Results Microbiology Date/Time Source Procedure Growth Status 04/25/17 18:30 Sputum Endotracheal Gram Stain - Final Complete 04/25/17 18:30 Sputum Endotracheal Sputum Culture - Final NO GROWTH IN 48 HOURS. Complete Objective Remarks GENERAL: Off all continuos sedation HEAD: ALESSANDRO drain right skull. EYES: No conjunctival icterus. No injection or drainage. +corneal opacities, responds to threat ENT: No nasal bleeding or discharge. Mucous membranes pink and moist. NECK: Trachea midline. CARDIOVASCULAR: Irreg Irreg. No JVD. RESPIRATORY: On nasal cannula and entry equal GASTROINTESTINAL: Abdomen soft, non-tender, nondistended. No guarding. MUSCULOSKELETAL: No obvious deformities. No clubbing. No cyanosis. No edema. Well perfused. EXTREMITIES: No clubbing, cyanosis, or edema. Moving all 4 extremities, notable for ecchymosis over the right fifth digit area. NEUROLOGICAL: Eyes are spontaneously open moves all extremities. Mumbling incomprehensible words. Pupils 2mm bilaterally +corneal opacities, responds to threat Urinary Catheter: Yes Assessment to: Continue A/P Assessment and Plan Assessment: Agitated Delirium New left SDH Right subdural hygroma, chronic hemorrhage. Pneumocephalus UTI Acute respiratory failure-resolved Acute encephalopathy Hypernatremia Chronic behavioral problems due to mental retardation. Plan: - frequent neuro checks - SDH management per Dr. Martinez, repeat CT head follow up 04/28/17 - Extubated 04/26 - daily Dilantin levels 04/28 -17.4 - Dilantin to 100mg BID - continue Geodon IM prn with Ativan iv prn for agitation, for patient safety. - pepcid - hold pharmacologic dvt prophylaxis. SCDs-will start Lovenox if CT head stable - On Rocephin for UTI. proteus. DC today completed 8 days. Repeat urine cx - hold home anticoagulation - continue home meds. - CT head 04/24 improving pneumocephalus and subfalcine herniation - 1/4 NS and free water flushes for hypernatremia, Na 155 Overall impression: Very difficult to assess mental status. Probably at base line now Level 2 Lucille Gonzalez MD Apr 28, 2017 14:45
[2017-04-28 16:32] LABS: BLOOD, URINE NEG (NEG); GLUCOSE,URINE NEG (NEG); KETONE, URINE NEG (NEG); MUCUS URINE FEW /lpf (OCC); NITRITE,URINE NEG (NEG); PH, URINE 7.5 (5.0-8.5); URINE COLOR LIGHT-YELLOW (YELLW/STRAW)
[2017-04-28 16:33] LABS: COMMENT (UR) CATH-CULT NOT IND; CULTURE IF INDICATED CATH CULTURE NOT IND
[2017-04-28] MEDS: cloNIDine HCL 0.1 MG TAB PO SCH ×2 (17:06→21:57)
[2017-04-28] MEDS: risperiDONE 1 MG TAB PO SCH (21:58)
[2017-04-29] VITALS (12 sets, daily range): BP systolic 105–166; BP diastolic 56–75; PULSE 65–97; RESP 20–24; TEMP 98.2–99.6; O2SAT 96–100
[2017-04-29] MEDS: HALOPERIDOL LACTATE 5 MG/ML AMP IV PRN (01:38)
[2017-04-29] MEDS: FREE WATER NG SCH ×6 (03:43→23:46)
[2017-04-29] MEDS: VALPROIC ACID SYRUP 250 MG/5 ML UDC PO SCH ×3 (03:50→20:27)
[2017-04-29] MEDS: cloNIDine HCL 0.1 MG TAB PO SCH ×4 (03:50→23:46)
[2017-04-29] MEDS: PHENYTOIN SUSP 100 MG/4 ML CUP PO SCH ×2 (03:50→14:35)
[2017-04-29] MEDS: DILTIAZEM HCL 90 MG TAB PO SCH ×4 (03:51→20:35)
[2017-04-29] MEDS: POTASSIUM CHLORIDE INJ 20 MEQ, SODIUM CHLORIDE 23.4% INJ 38.5 MEQ in WATER STERILE FOR ... IV SCH ×4 (03:53→21:06)
--- NOTE | 2017-04-29 05:44 | RADRPT ---
EXAM DATE/TIME: 04/29/2017 05:02 [facility] COMPARISON: CT BRAIN W/O CONTRAST, April 24, 2017, 15:25. INDICATIONS : Follow up hemorrhage. RADIATION DOSE: 56.35 CTDIvol (mGy) MEDICAL HISTORY : Hypertension. Deep venous thrombosis. SURGICAL HISTORY : Craniotomy. ENCOUNTER: Subsequent ACUITY: 4 - 6 days PAIN SCALE: Non-responsive LOCATION: cranial TECHNIQUE: Multiple contiguous axial images were obtained of the head. Using automated exposure control and adj ustment of the mA and/or kV according to patient size, radiation dose was kept as low as reasonably a chievable to obtain optimal diagnostic quality images. DICOM format image data is available electro nically for review and comparison. FINDINGS: CEREBRUM: The bilateral subdural collections measuring up to 1.3 cm on the right and 0.6 cm on the left. There is a right subdural drain in place. There is some air within the anterior right subdural region. Ther e is 6 mm of gyjnq-bu-jqzp midline shift. The ventricles are mildly dilated. There is intraventricula r hemorrhage seen dependently in the posterior aspect of the lateral ventricles bilaterally. There is a persistent 1 cm focal area of parenchymal hemorrhage in the left occipital lobe. There is persiste nt tentorial subdural hemorrhage. The basal cisterns are mildly compressed but still open. POSTERIOR FOSSA: There is prominent expansion of the extra-axial spaces. There appears to be atrophy of the cerebellum . EXTRACRANIAL: The visualized portion of the orbits is intact. SKULL: The calvaria is intact. No evidence of skull fracture. CONCLUSION: 1. Persistent bilateral subdural collections being larger on the right. There is a right subdural olaf in in place. There is 6 mm of qzngq-lj-vcvr midline shift. 2. Persistent small parenchymal hemorrhage in the left occipital lobe. 3. Suspected cerebellar atrophy with expansion of the extra axial spaces in the posterior fossa. Carlos Eubanks MD on April 29, 2017 at 5:35 Board Certified Radiologist. This report was verified electronically.
[2017-04-29] MEDS: CHLORHEXIDINE 0.12% (ORAL KIT) 15 ML CUP MT SCH ×2 (08:00→20:00)
[2017-04-29] MEDS: SODIUM CHLORIDE 0.9% FLUSH 10 ML FLUSH IV FLUSH SCH ×2 (08:12→20:28)
[2017-04-29] MEDS: FERROUS SULFATE 325 MG (65 MG ELEMENTAL IRON) TAB PO SCH ×2 (08:12→16:51)
[2017-04-29] MEDS: MUPIROCIN 2% OINT 1 APPLIC/GM SYR NASAL SCH ×2 (08:12→20:28)
[2017-04-29] MEDS: DIGOXIN 0.125 MG TAB PO SCH (08:13)
[2017-04-29] MEDS: CALCITRIOL 0.25 MCG CAP PO SCH (08:14)
[2017-04-29] MEDS: ESCITALOPRAM OXALATE 20 MG TAB PO SCH (08:14)
[2017-04-29] MEDS: METOPROLOL TARTRATE 50 MG TAB PO SCH ×2 (08:14→20:35)
[2017-04-29] MEDS: ACETAMINOPHEN/HYDROcodone 325 MG/5 MG TAB PO PRN ×2 (08:14→14:35)
[2017-04-29] MEDS: FAMOTIDINE 20 MG TAB PO SCH ×2 (08:14→20:27)
[2017-04-29] MEDS: DOCUSATE SODIUM 50 MG/SENNA 8.6 MG TAB PO SCH ×2 (08:15→20:27)
[2017-04-29 08:31] LABS: HEMATOCRIT 30.4 % (39.0-51.0); MEAN CELL VOLUME 94.1 FL (80.0-100.0); MEAN CORPUSCULAR HEMOGLOBIN 31.9 PG (27.0-34.0); MEAN CORPUSCULAR HGB CONC 33.9 % (32.0-36.0); PLATELET COUNT 201 TH/MM3 (150-450); RED BLOOD COUNT 3.23 MIL/MM3 (4.50-5.90); RED CELL DISTRIBUTION WIDTH 16.7 % (11.6-17.2); REVIEW FLAG FINAL
[2017-04-29 08:49] LABS: BICARBONATE 28.4 MEQ/L (21.0-32.0); POTASSIUM 4.4 MEQ/L (3.5-5.1)
--- NOTE | 2017-04-29 15:02 | HHI.CCPN ---
Subjective Remarks/Hospital Course Hospital Course: 66 y/o man in assisted facility fell and received some minor bruising to his side. Aid thought he was more confused and disoriented than normal, so brought to ED. CT Head reveals right subdural hygroma / chronic subdural bleed. Subjective: 04/22: agitation persists. responded well to geodon IM yesterday. plan to go to OR for felicia hole. 04/23: taken for felicia hole yesterday. remains intubated post-op. post-op scan with significant pneumocephalus and new left SDH. non-op per Dr. Martinez. baseline mental status will make it significantly difficult to assess current neuro exam and appropriateness of extubation. 04/24: Remains intubated sedated. CT head today improved pneumocephalus and improved subfalcine herniation. Difficult to assess for vent wean due to developmental delay 04/25: On sedation vacation patient remained apneic on attempted CPAP. Placed back on forced vent support. We'll discontinue continuous sedation. CT from yesterday shows improvement 04/26: Tolerating CPAP today. Moving all extremities. Maintaining good oxygen saturation. We will attempt trial extubation (Unable to assess neuro improvement) 04/27: Extubated 04/26. Tolerating well. Moving all extremities. Mumbling speech. Drain in place 04/28: Breathing comfortably moving all extremities. Sodium 155, 1/4 normal saline increase to 150 mL per hour. Follow-up CT of the head tomorrow a.m. 04/29: Remains stable clinically. Ct head today shows persistent bilateral subdural collections being larger on the right despite a right subdural drain in place, 6 mm of hhbik-fu-wpiz midline shift. Persistent small parenchymal hemorrhage left occipital lobe. Objective Vital Signs Date Time Temp Pulse Resp B/P (MAP) Pulse Ox O2 Delivery O2 Flow Rate FiO2 04/29/17 12:00 74 04/29/17 12:00 99.6 24 133/57 (82) 98 04/28/17 20:22 Nasal Cannula 1.50 04/26/17 12:17 30 Intake and Output 04/29/17 04/29/17 04/30/17 08:00 16:00 00:00 Intake Total 1757 ml Output Total 2350 ml Balance -593 ml Result Diagram: 04/29/17 0753 04/29/17 0753 Objective Remarks GENERAL: Awake alert, mental status probable at base line HEAD: ALESSANDRO drain right skull. EYES: No conjunctival icterus. No injection or drainage. +corneal opacities, responds to threat ENT: No nasal bleeding or discharge. NECK: Trachea midline. CARDIOVASCULAR: Irreg Irreg. No JVD. RESPIRATORY: On nasal cannula and entry equal GASTROINTESTINAL: Abdomen soft, non-tender, nondistended. No guarding. MUSCULOSKELETAL: No obvious deformities. No clubbing. No cyanosis. No edema. Well perfused. EXTREMITIES: No clubbing, cyanosis, or edema. Moving all 4 extremities, ecchymosis over the right fifth digit area. NEUROLOGICAL: Eyes are spontaneously open moves all extremities. Mumbling incomprehensible words. Pupils 2mm bilaterally +corneal opacities, responds to threat A/P Assessment and Plan Assessment: Agitated Delirium New left SDH Right subdural hygroma, chronic hemorrhage. Pneumocephalus UTI Acute respiratory failure-resolved Acute encephalopathy Hypernatremia Chronic behavioral problems due to mental retardation. Plan: - frequent neuro checks - SDH management per Dr. Martinez, repeat CT head follow up 04/28/17- Persistent bilateral subdural collections being larger on the right. 6 mm of nwujd-yq-yyjf midline shift. - Extubated 04/26, protecting airway - daily Dilantin levels 04/29 - - Dilantin to 100mg BID - continue Geodon IM prn with Ativan iv prn for agitation, for patient safety. - pepcid - hold pharmacologic dvt prophylaxis. SCDs-will start Lovenox if cleared by Dr. Martinez - On Rocephin for UTI. proteus. DCd 04/28 completed 8 days. Repeat urine cx - hold home anticoagulation - continue home meds. - CT head 04/24 improving pneumocephalus and subfalcine herniation - 1/4 NS and free water flushes for hypernatremia, Na 154. Target Na > 150 due subdural fluid collection with midline shift Overall impression: Very difficult to assess mental status. Probably at base line now. SD hygroma management per Dr. Gomez Level 2 Lucille Gonzalez MD Apr 29, 2017 15:02
[2017-04-29] MEDS: risperiDONE 1 MG TAB PO SCH (20:27)
[2017-04-29] MEDS: hydrALAZINE HCL 20 MG/ML VIAL IV PUSH PRN (20:36)
--- NOTE | 2017-04-29 21:58 | HHI.NSPN ---
History Chief Complaint: Unable to obtain due to patient's mental condition. Interval History No new problems reported per nursing staff. Has done relatively well with CPAP trials on 04/26/17 Exam Results Vital Signs Date Time Temp Pulse Resp B/P (MAP) Pulse Ox O2 Delivery O2 Flow Rate FiO2 04/29/17 18:00 68 04/29/17 16:00 99.4 22 105/56 (72) 96 04/28/17 20:22 Nasal Cannula 1.50 04/26/17 12:17 30 Intake and Output 04/29/17 04/29/17 04/30/17 08:00 16:00 00:00 Intake Total 1757 ml 2668 ml Output Total 2350 ml 2365 ml Balance -593 ml 303 ml Physical Examination General: Pt resting comfortably in bed in NAD. Resp: CTA bilaterally. Extubated. Heart: NSR no murmurs Abd: Soft positive bs Skin: Incisions clean and dry. ALESSANDRO drain in place. Muscle: Pt with chronic flexion contractures in hands. Not following commands in LEs. Neuro: A little more responsive today. Some spontaneous eye opening. Uncertain whether he has any vision. Not following commands in extremities. Not verbalizing which is his baseline. Pupils 2mm bilaterally with cloudy corneas. Lab, Micro, Other Results 04/29/2017 CT scan head images reviewed by the undersigned. Agree with findings as noted below: Head CT 04/29/17 0000 Signed Impressions: Service Date/Time: Saturday, April 29, 2017 05:02 - CONCLUSION: 1. Persistent bilateral subdural collections being larger on the right. There is a right subdural drain in place. There is 6 mm of uybkl-qr-mjsr midline shift. 2. Persistent small parenchymal hemorrhage in the left occipital lobe. 3. Suspected cerebellar atrophy with expansion of the extra axial spaces in the posterior fossa. Carlos Eubanks MD Laboratory Tests Test 04/29/17 07:53 White Blood Count 14.0 TH/MM3 Red Blood Count 3.23 MIL/MM3 Hemoglobin 10.3 GM/DL Hematocrit 30.4 % Mean Corpuscular Volume 94.1 FL Mean Corpuscular Hemoglobin 31.9 PG Mean Corpuscular Hemoglobin Concent 33.9 % Red Cell Distribution Width 16.7 % Platelet Count 201 TH/MM3 Mean Platelet Volume 7.8 FL Blood Urea Nitrogen 15 MG/DL Creatinine 0.78 MG/DL Random Glucose 109 MG/DL Calcium Level 8.4 MG/DL Sodium Level 154 MEQ/L Potassium Level 4.4 MEQ/L Chloride Level 120 MEQ/L Carbon Dioxide Level 28.4 MEQ/L Anion Gap 6 MEQ/L Estimat Glomerular Filtration Rate 100 ML/MIN Phenytoin (Dilantin) Level 14.0 MCG/ML Medical Decision Making Impression and Plan Impression: 1. Sterile neurologic exam over the past couple days, status post bur hole for evacuation of right hemisphere subdural hygroma. 2. Development of small focal left parieto-occipital subdural hematoma. Plan: Allow serum sodium to normalize. Continue ventilatory support. CPAP trials and wean to extubate per inward toll operator. Continue tube feedings per PEG Plan to discontinue subdural drain 04/30/17. Prognosis guarded. He will likely have a persistent subdural hygroma with some mass effect. Art Martinez MD Apr 29, 2017 21:58
[2017-04-30] VITALS (13 sets, daily range): BP systolic 97–141; BP diastolic 56–73; PULSE 75–128; RESP 25–28; TEMP 98–99.6; O2SAT 97–100
[2017-04-30] MEDS: FREE WATER NG SCH ×6 (01:44→21:07)
[2017-04-30] MEDS: PHENYTOIN SUSP 100 MG/4 ML CUP PO SCH ×2 (03:40→16:13)
[2017-04-30] MEDS: POTASSIUM CHLORIDE INJ 20 MEQ, SODIUM CHLORIDE 23.4% INJ 38.5 MEQ in WATER STERILE FOR ... IV SCH ×3 (03:40→19:30)
[2017-04-30] MEDS: DILTIAZEM HCL 90 MG TAB PO SCH ×4 (03:40→21:05)
[2017-04-30] MEDS: VALPROIC ACID SYRUP 250 MG/5 ML UDC PO SCH ×3 (03:40→21:06)
[2017-04-30] MEDS: cloNIDine HCL 0.1 MG TAB PO SCH ×4 (05:58→23:00)
[2017-04-30] MEDS: CHLORHEXIDINE 0.12% (ORAL KIT) 15 ML CUP MT SCH ×2 (08:00→20:00)
[2017-04-30] MEDS: FAMOTIDINE 20 MG TAB PO SCH ×2 (08:43→21:06)
[2017-04-30] MEDS: FERROUS SULFATE 325 MG (65 MG ELEMENTAL IRON) TAB PO SCH ×2 (08:43→18:00)
[2017-04-30] MEDS: METOPROLOL TARTRATE 50 MG TAB PO SCH ×2 (08:43→21:06)
[2017-04-30] MEDS: DOCUSATE SODIUM 50 MG/SENNA 8.6 MG TAB PO SCH ×2 (08:43→21:05)
[2017-04-30] MEDS: SODIUM CHLORIDE 0.9% FLUSH 10 ML FLUSH IV FLUSH SCH ×2 (08:43→21:00)
[2017-04-30] MEDS: ACETAMINOPHEN/HYDROcodone 325 MG/5 MG TAB PO PRN (08:43)
[2017-04-30] MEDS: DIGOXIN 0.125 MG TAB PO SCH (08:43)
[2017-04-30] MEDS: MUPIROCIN 2% OINT 1 APPLIC/GM SYR NASAL SCH ×2 (08:43→21:06)
[2017-04-30] MEDS: CALCITRIOL 0.25 MCG CAP PO SCH (08:43)
[2017-04-30] MEDS: ESCITALOPRAM OXALATE 20 MG TAB PO SCH (08:43)
--- NOTE | 2017-04-30 09:54 | HHI.NSPN ---
(SenAvtar) History Chief Complaint: Unable to obtain due to patient's mental condition. (Sen[facility]tar TRINH) Interval History 04/21: The patient is a 66-year-old male with a history of mental retardation who has chronically resided in a local facility. Discussion with his caregivers indicates that he usually is able to ambulate independently, converses a little but is always with minimal overall mental functions. He is able to eat on his own. They noticed that over the past few days, he has become mostly nonverbal, increased agitation, not walking well, and not eating. No fevers or sweats noted. The patient is generally not able to communicate his symptoms or healthcare needs. 04/22: The patient prior to being examined was seen in the room moving all extremities, crying out and attempting to get out of bed. When seen later he was asleep but did open his eyes to voice. He then started moving all extremities and attempting to sit up. He is in soft wrist restraints. 04/23: The patient is obtunded this morning when seen with Dr Maritnez. He did not respond to voice but to noxious stimulation. He went to the operating room yesterday for a felicia evacuation of a subdural hygroma and returned to [facility] post- operatively. He remains intubated and mechanically ventilated. He is on a propofol drip for sedation and a fentanyl drip for pain control. He did have a repeat CT brain this morning. 04/24: This morning the patient remains obtunded but is on propofol for sedation. He continues to be intubated and mechanically ventilated. Nursing reports that he did have a cough reflex for her but no other response and that the ALESSANDRO drain put out 190 mL of serous fluid in the past 24 hours. 04/25: no changes to neuro check, moving ext spontaneously but not following commands. 04/26: No new problems reported per nursing staff. Has done relatively well with CPAP trials on 04/26/1704/27: Pt with stable neuro exam. He follows simple commands-tries to stick out tongue and close eyes to command. 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 Not verbalizing. 04/28: Pt not following commands. Chronic contractures in his hands. Not verbalizing. Stable neuro exam. 04/30: The patient is awake this morning. He does spontaneously move all extremities to a degree. His only verbalisation is "No" when asked to squeeze this practitioner's hand. He becomes mildly agitated and attempts to sit up and get out of bed. (Avtar Chatterjee) System Review Comments Unable to obtain due to patient's mental condition. (Avtar Chatterjee) Exam Results 04/28/17 04/28/17 04/29/17 04/29/17 04/30/17 04/30/17 06:00 18:00 06:00 18:00 06:00 18:00 Intake Total 2755 ml 3736.625 ml 480 ml 1637 ml 2790 ml Output Total 2820 ml 3955 ml 2350 ml 2365 ml 3365 ml Balance -65 ml -218.375 ml -1870 ml -728 ml -575 ml Intake Oral 480 ml 480 ml 360 ml 200 ml IV Total 1200 ml 1738.625 ml 1277 ml 2590 ml Tube Feeding 655 ml 618 ml Other 900 ml 900 ml Output Urine Total 2800 ml 3925 ml 2350 ml 2350 ml 3275 ml Drainage Total 20 ml 30 ml 15 ml 90 ml # Bowel Movements 0 0 0 0 Vital Signs Date Time Temp Pulse Resp B/P (MAP) Pulse Ox O2 Delivery O2 Flow Rate FiO2 04/30/17 06:00 75 04/30/17 04:00 99.4 108 28 137/73 (94) 97 04/30/17 04:00 108 04/30/17 02:00 108 04/30/17 00:00 99.6 82 26 141/56 (84) 98 04/30/17 00:00 82 04/29/17 22:02 96 Nasal Cannula 2.00 04/29/17 22:00 86 04/29/17 20:00 68 04/29/17 20:00 99.1 68 22 166/75 (105) 98 04/29/17 18:00 68 04/29/17 16:00 66 04/29/17 16:00 99.4 66 22 105/56 (72) 96 04/29/17 14:00 74 04/29/17 12:00 74 04/29/17 12:00 99.6 74 24 133/57 (82) 98 04/29/17 10:00 87 04/29/17 09:14 24 04/29/17 08:00 74 04/29/17 08:00 98.3 76 22 159/75 (103) 98 04/29/17 06:00 94 04/29/17 04:00 98.5 97 23 139/68 (91) 98 04/29/17 04:00 94 04/29/17 00:00 98.2 65 20 112/58 (76) 100 04/29/17 00:00 65 04/28/17 22:00 102 04/28/17 20:22 100 Nasal Cannula 1.50 04/28/17 20:00 99.1 88 25 153/79 (103) 100 04/28/17 20:00 86 04/28/17 18:00 86 04/28/17 16:00 87 04/28/17 16:00 98.3 92 24 137/65 (89) 99 04/28/17 14:00 55 04/28/17 12:00 65 04/28/17 12:00 98.5 62 27 181/76 (111) 100 04/28/17 10:00 58 04/28/17 09:30 98 Nasal Cannula 2.00 04/28/17 08:00 98.3 76 30 168/79 (108) 99 04/28/17 08:00 70 04/28/17 06:00 64 04/28/17 04:00 54 04/28/17 04:00 98.7 56 25 137/65 (89) 97 04/28/17 02:00 80 04/28/17 01:00 98.6 50 17 154/72 (99) 100 04/28/17 00:00 50 04/27/17 22:00 48 04/27/17 20:56 96 Nasal Cannula 1.50 04/27/17 20:00 98.6 58 23 167/77 (107) 100 04/27/17 20:00 62 04/27/17 18:00 71 04/27/17 16:00 60 04/27/17 16:00 97.8 56 20 133/62 (85) 100 04/27/17 14:00 44 04/27/17 12:00 59 04/27/17 12:00 98.2 59 23 123/92 (102) 97 04/27/17 10:00 81 (Avtar Chatterjee) Physical Examination GENERAL: Awake & alert, no apparent distress. Does become mildly agitated and attempts to sit up and get out of bed when seen. HEENT: Right craniotomy incision well approximated w/mariah, ALESSANDRO drain insertion site w/yellow drainage, no drainage, erythema or streaking from either. Pupils 2mm bilaterally w/cloudy corneas. MUSCULOSKELETAL: BARRERA spontaneously, contractures to both hands. NEUROLOGICAL: Awake & alert, becomes agitated. Eyes open spontaneously. Only verbalisation is "No" when asked to squeeze practitioner's hand. Does not follow any commands. Moves all extremities spontaneously. (Avtar Chatterjee) Lab, Micro, Other Results Recent Impressions Head CT 04/29/17 0000 Signed Impressions: Service Date/Time: Saturday, April 29, 2017 05:02 - CONCLUSION: 1. Persistent bilateral subdural collections being larger on the right. There is a right subdural drain in place. There is 6 mm of myniw-vn-pdpe midline shift. 2. Persistent small parenchymal hemorrhage in the left occipital lobe. 3. Suspected cerebellar atrophy with expansion of the extra axial spaces in the posterior fossa. Carlos Eubanks MD Laboratory Tests Test 04/28/17 05:39 04/28/17 15:30 04/29/17 07:53 White Blood Count 13.8 TH/MM3 14.0 TH/MM3 Red Blood Count 3.49 MIL/MM3 3.23 MIL/MM3 Hemoglobin 10.6 GM/DL 10.3 GM/DL Hematocrit 32.7 % 30.4 % Mean Corpuscular Volume 93.6 FL 94.1 FL Mean Corpuscular Hemoglobin 30.3 PG 31.9 PG Mean Corpuscular Hemoglobin Concent 32.4 % 33.9 % Red Cell Distribution Width 16.8 % 16.7 % Platelet Count 204 TH/MM3 201 TH/MM3 Mean Platelet Volume 7.2 FL 7.8 FL Blood Urea Nitrogen 13 MG/DL 15 MG/DL Creatinine 0.61 MG/DL 0.78 MG/DL Random Glucose 145 MG/DL 109 MG/DL Calcium Level 8.3 MG/DL 8.4 MG/DL Sodium Level 155 MEQ/L 154 MEQ/L Potassium Level 4.0 MEQ/L 4.4 MEQ/L Chloride Level 120 MEQ/L 120 MEQ/L Carbon Dioxide Level 24.6 MEQ/L 28.4 MEQ/L Anion Gap 10 MEQ/L 6 MEQ/L Estimat Glomerular Filtration Rate 133 ML/MIN 100 ML/MIN Phenytoin (Dilantin) Level 17.4 MCG/ML 14.0 MCG/ML Urine Color LIGHT-YELLOW Urine Turbidity CLEAR Urine pH 7.5 Urine Specific [place] 1.005 Urine Protein NEG mg/dL Urine Glucose (UA) NEG mg/dL Urine Ketones NEG mg/dL Urine Occult Blood NEG Urine Nitrite NEG Urine Bilirubin NEG Urine Urobilinogen LESS THAN 2.0 MG/DL Urine Leukocyte Esterase NEG Urine RBC 1 /hpf Urine WBC 1 /hpf Urine Mucus FEW /lpf Microscopic Urinalysis Comment CATH-CULT NOT IND (Avtar Chatterjee) Medical Decision Making Impression and Plan Impression: 1. Moderate size right subdural hygroma versus chronic hematoma. Finding not present on prior CT scan of 02/21/2017. This appears symptomatic, with changes in the patient's mental functions, speech, ambulation, ADL over the past week. Patient awake, moves extremities spontaneously but not following commands. Does become mildly agitated when seen. Most likely will have a persistent subdural hygroma with some mass effect. POD #8 () s/p: Right parietal bur hole for evacuation of right hemisphere subdural hygroma Postoperative Diagnosis: (1) Subdural hygroma Right hemisphere subdural hygroma Plan: Primary management per Asset Protection Greeter/Hospitalist. Frequent neuro checks. Stat CT brain for any worsening neuro status. Normalise sodium. Will d/c ALESSANDRO drain. (Avtar Chatterjee) Attending Statement The exam, history, and the medical decision-making described in the above note were completed with the assistance of the mid-level provider. I reviewed and agree with the findings presented. I attest that I had a [id number] encounter with the patient on the same day, and personally performed and documented my assessment and findings in the medical record. The patient's neurologic status remains stable. The drain has been discontinued. Incisions are dry and intact. No further surgical intervention planned at this point. Stable for transfer to floor (Art Martinez MD) Avtar Chatterjee Apr 30, 2017 09:54 Art Martinez MD May 02, 2017 11:48
[2017-04-30] MEDS ORDERED: LIDOCAINE HCL 1% 50 ML VIAL ONE (10:04)
--- NOTE | 2017-04-30 15:24 | HHI.CCPN ---
Subjective Remarks/Hospital Course Hospital Course: 66 y/o man in assisted facility fell and received some minor bruising to his side. Aid thought he was more confused and disoriented than normal, so brought to ED. CT Head reveals right subdural hygroma / chronic subdural bleed. Subjective: 04/22: agitation persists. responded well to geodon IM yesterday. plan to go to OR for felicia hole. 04/23: taken for felicia hole yesterday. remains intubated post-op. post-op scan with significant pneumocephalus and new left SDH. non-op per Dr. Martinez. baseline mental status will make it significantly difficult to assess current neuro exam and appropriateness of extubation. 04/24: Remains intubated sedated. CT head today improved pneumocephalus and improved subfalcine herniation. Difficult to assess for vent wean due to developmental delay 04/25: On sedation vacation patient remained apneic on attempted CPAP. Placed back on forced vent support. We'll discontinue continuous sedation. CT from yesterday shows improvement 04/26: Tolerating CPAP today. Moving all extremities. Maintaining good oxygen saturation. We will attempt trial extubation (Unable to assess neuro improvement) 04/27: Extubated 04/26. Tolerating well. Moving all extremities. Mumbling speech. Drain in place 04/28: Breathing comfortably moving all extremities. Sodium 155, 1/4 normal saline increase to 150 mL per hour. Follow-up CT of the head tomorrow a.m. 04/29: Remains stable clinically. Ct head today shows persistent bilateral subdural collections being larger on the right despite a right subdural drain in place, 6 mm of [id number] midline shift. Persistent small parenchymal hemorrhage left occipital lobe. 04/30: No acute events overnight. Patient is awake, not following commands. Tracks. Subdural drain removed today by neurosurgery Objective Vital Signs Date Time Temp Pulse Resp B/P (MAP) Pulse Ox O2 Delivery O2 Flow Rate FiO2 04/30/17 14:00 118 04/30/17 12:00 98.0 26 97/69 (78) 100 04/29/17 22:02 Nasal Cannula 2.00 04/26/17 12:17 30 Intake and Output 04/30/17 04/30/17 05/01/17 08:00 16:00 00:00 Intake Total 482 ml Output Total 3365 ml Balance -2883 ml Result Diagram: 04/29/17 0753 04/29/17 0753 Objective Remarks GENERAL: Awake alert, mental status probably at base line HEAD: ALESSANDRO drain right skull. EYES: No conjunctival icterus. No injection or drainage. +corneal opacities, responds to threat ENT: No nasal bleeding or discharge. NECK: Trachea midline. CARDIOVASCULAR: Sinus tachycardia. No JVD. No murmurs RESPIRATORY: On nasal cannula and entry equal GASTROINTESTINAL: Abdomen soft, non-tender, nondistended. No guarding. MUSCULOSKELETAL: No edema. Well perfused. NEUROLOGICAL: Eyes are spontaneously open, tracking moves all extremities. Mumbling incomprehensible words. Pupils 2mm bilaterally +corneal opacities, responds to threat A/P Assessment and Plan Assessment: Agitated Delirium -improved New left SDH Right subdural hygroma, chronic hemorrhage. Pneumocephalus UTI Acute respiratory failure-resolved Encephalopathy Hypernatremia Chronic behavioral problems due to mental retardation. Plan: - frequent neuro checks - SDH management per Dr. Martinez, repeat CT head follow up 04/28/17- Persistent bilateral subdural collections being larger on the right. 6 mm of [id number] midline shift. - Subdural drain removed by neurosurgery. No surgical intervention planned at this time - Extubated 04/26, protecting airway - daily Dilantin levels 04/29 - - Dilantin to 100mg BID - continue Geodon IM prn with Ativan iv prn for agitation, for patient safety. - pepcid - hold pharmacologic dvt prophylaxis. SCDs-will start Lovenox today if cleared by Dr. Martinez - On Rocephin for UTI. proteus. DCd 04/28 completed 8 days. - hold home anticoagulation - continue home meds - CT head 04/24 improving pneumocephalus and subfalcine herniation - 1/4 NS and free water flushes for hypernatremia, Na 154. Target Na > 150 due subdural fluid collection with midline shift Overall impression: Very difficult to assess mental status. Probably at base line now. SD hygroma management per Dr. Martinez Level 2 Lucille Gonzalez MD Apr 30, 2017 15:24
[2017-04-30] MEDS: LORazepam 2 MG/ML VIAL IV PUSH PRN ×2 (15:39→22:52)
[2017-04-30] MEDS: risperiDONE 1 MG TAB PO SCH (21:05)
[2017-05-01] VITALS (13 sets, daily range): BP systolic 79–172; BP diastolic 54–96; PULSE 60–108; RESP 20–39; TEMP 97.9–99.9; O2SAT 96–100
[2017-05-01] MEDS: POTASSIUM CHLORIDE INJ 20 MEQ, SODIUM CHLORIDE 23.4% INJ 38.5 MEQ in WATER STERILE FOR ... IV SCH ×4 (01:18→20:17)
[2017-05-01] MEDS: FREE WATER NG SCH ×6 (04:00→23:13)
[2017-05-01] MEDS: VALPROIC ACID SYRUP 250 MG/5 ML UDC PO SCH ×3 (04:47→20:17)
[2017-05-01] MEDS: DILTIAZEM HCL 90 MG TAB PO SCH ×4 (04:48→20:17)
[2017-05-01] MEDS: PHENYTOIN SUSP 100 MG/4 ML CUP PO SCH ×2 (04:48→16:09)
[2017-05-01] MEDS: cloNIDine HCL 0.1 MG TAB PO SCH ×4 (05:00→23:13)
[2017-05-01 05:58] LABS: AUTOMATED NEUTROPHIL # 10.3 TH/MM3 (1.8-7.7); BASOPHIL # 0.1 TH/MM3 (0-0.2); BASOPHIL % 0.6 % (0.0-2.0); EOSINOPHIL # 0.3 TH/MM3 (0-0.4); HEMATOCRIT 32.9 % (39.0-51.0); HEMO FLAGS DIFF FINAL; LYMPH % 12.5 % (9.0-44.0); LYMPHOCYTE # 1.7 TH/MM3 (1.0-4.8); MEAN CELL VOLUME 95.4 FL (80.0-100.0); MEAN CORPUSCULAR HEMOGLOBIN 30.7 PG (27.0-34.0); MEAN CORPUSCULAR HGB CONC 32.2 % (32.0-36.0); MONO % 10.1 % (0.0-8.0); NEUT % 74.8 % (16.0-70.0); PLATELET COUNT 221 TH/MM3 (150-450); RED BLOOD COUNT 3.45 MIL/MM3 (4.50-5.90); RED CELL DISTRIBUTION WIDTH 16.5 % (11.6-17.2); WHITE BLOOD COUNT 13.7 TH/MM3 (4.0-11.0)
[2017-05-01 06:36] LABS: ALKALINE PHOSPHATASE 80 U/L (45-117); ALT (GPT) 24 U/L (12-78); ANION GAP 6 MEQ/L (5-15); AST (GOT) 39 U/L (15-37); BICARBONATE 24.4 MEQ/L (21.0-32.0); BLOOD UREA NITROGEN 28 MG/DL (7-18); CHLORIDE 115 MEQ/L (98-107); GLOMERULAR FILTRATION RATE 64 ML/MIN (>89); MAGNESIUM 2.2 MG/DL (1.5-2.5); POTASSIUM 4.8 MEQ/L (3.5-5.1); SODIUM (NA) 145 MEQ/L (136-145); TOTAL BILIRUBIN ADULT 0.8 MG/DL (0.2-1.0)
[2017-05-01] MEDS: CHLORHEXIDINE 0.12% (ORAL KIT) 15 ML CUP MT SCH ×2 (08:00→20:00)
[2017-05-01] MEDS: SODIUM CHLORIDE 0.9% FLUSH 10 ML FLUSH IV FLUSH SCH ×2 (09:00→20:18)
[2017-05-01] MEDS: FERROUS SULFATE 325 MG (65 MG ELEMENTAL IRON) TAB PO SCH ×2 (09:00→19:02)
[2017-05-01] MEDS: MUPIROCIN 2% OINT 1 APPLIC/GM SYR NASAL SCH ×2 (09:56→20:17)
[2017-05-01] MEDS: CALCITRIOL 0.25 MCG CAP PO SCH (09:57)
[2017-05-01] MEDS: DIGOXIN 0.125 MG TAB PO SCH (09:57)
[2017-05-01] MEDS: DOCUSATE SODIUM 50 MG/SENNA 8.6 MG TAB PO SCH ×2 (09:58→20:17)
[2017-05-01] MEDS: METOPROLOL TARTRATE 50 MG TAB PO SCH ×2 (09:58→20:17)
[2017-05-01] MEDS: HALOPERIDOL LACTATE 5 MG/ML AMP IV PRN (09:58)
[2017-05-01] MEDS: FAMOTIDINE 20 MG TAB PO SCH ×2 (09:58→20:17)
[2017-05-01] MEDS: ESCITALOPRAM OXALATE 20 MG TAB PO SCH (09:58)
[2017-05-01] MEDS: ACETAMINOPHEN/HYDROcodone 325 MG/5 MG TAB PO PRN ×2 (09:58→16:28)
[2017-05-01] MEDS: LORazepam 2 MG/ML VIAL IV PUSH PRN (09:59)
--- NOTE | 2017-05-01 15:06 | HHI.CCPN ---
Subjective Remarks/Hospital Course Hospital Course: 66 y/o man in assisted facility fell and received some minor bruising to his side. Aid thought he was more confused and disoriented than normal, so brought to ED. CT Head reveals right subdural hygroma / chronic subdural bleed. Subjective: 04/22: agitation persists. responded well to geodon IM yesterday. plan to go to OR for felicia hole. 04/23: taken for felicia hole yesterday. remains intubated post-op. post-op scan with significant pneumocephalus and new left SDH. non-op per Dr. Martinez. baseline mental status will make it significantly difficult to assess current neuro exam and appropriateness of extubation. 04/24: Remains intubated sedated. CT head today improved pneumocephalus and improved subfalcine herniation. Difficult to assess for vent wean due to developmental delay 04/25: On sedation vacation patient remained apneic on attempted CPAP. Placed back on forced vent support. We'll discontinue continuous sedation. CT from yesterday shows improvement 04/26: Tolerating CPAP today. Moving all extremities. Maintaining good oxygen saturation. We will attempt trial extubation (Unable to assess neuro improvement) 04/27: Extubated 04/26. Tolerating well. Moving all extremities. Mumbling speech. Drain in place 04/28: Breathing comfortably moving all extremities. Sodium 155, 1/4 normal saline increase to 150 mL per hour. Follow-up CT of the head tomorrow a.m. 04/29: Remains stable clinically. Ct head today shows persistent bilateral subdural collections being larger on the right despite a right subdural drain in place, 6 mm of [id number] midline shift. Persistent small parenchymal hemorrhage left occipital lobe. 04/30: No acute events overnight. Patient is awake, not following commands. Tracks. Subdural drain removed today by neurosurgery. 05/01: No change. Has developed large edema rigfht arm and lessor amount left - will check US. Objective Vital Signs Date Time Temp Pulse Resp B/P (MAP) Pulse Ox O2 Delivery O2 Flow Rate FiO2 05/01/17 14:00 67 05/01/17 11:49 27 05/01/17 08:35 96 Nasal Cannula 2.00 05/01/17 08:00 99.9 136/73 (94) Intake and Output 05/01/17 05/01/17 05/02/17 08:00 16:00 00:00 Intake Total 307 ml Balance 307 ml Result Diagram: 05/01/17 0434 05/01/17433 Objective Remarks GENERAL: Awake alert, mental status probably at base line HEAD: ALESSANDRO drain right skull. EYES: No conjunctival icterus. No injection or drainage. +corneal opacities, responds to threat ENT: No nasal bleeding or discharge. NECK: Trachea midline. CARDIOVASCULAR: Sinus tachycardia. No JVD. No murmurs RESPIRATORY: On nasal cannula and entry equal GASTROINTESTINAL: Abdomen soft, non-tender, nondistended. No guarding. MUSCULOSKELETAL: No edema. Well perfused. Right arm diffuse generalized edema. NEUROLOGICAL: Eyes are spontaneously open, tracking moves all extremities. Mumbling incomprehensible words. Pupils 2mm bilaterally +corneal opacities, responds to threat A/P Assessment and Plan Assessment: Agitated Delirium -improved New left SDH Right subdural hygroma, chronic hemorrhage. Pneumocephalus UTI Acute respiratory failure-resolved Encephalopathy Hypernatremia Chronic behavioral problems due to mental retardation. Plan: - frequent neuro checks - SDH management per Dr. Martinez, repeat CT head follow up 04/28/17- Persistent bilateral subdural collections being larger on the right. 6 mm of [id number] midline shift. - Subdural drain removed by neurosurgery. No surgical intervention planned at this time - Extubated 04/26, protecting airway - daily Dilantin levels 04/29 - - Dilantin to 100mg BID - continue Geodon IM prn with Ativan iv prn for agitation, for patient safety. - pepcid - hold pharmacologic dvt prophylaxis. SCDs-will start Lovenox today if cleared by Dr. Martinez - On Rocephin for UTI. proteus. DCd 04/28 completed 8 days. - hold home anticoagulation - continue home meds - CT head 04/24 improving pneumocephalus and subfalcine herniation - 1/4 NS and free water flushes for hypernatremia, Na 154. Target Na > 150 due subdural fluid collection with midline shift Overall impression: Very difficult to assess mental status. Probably at base- line now. SD hygroma management per Dr. Martinez. Bashir Hayward MD May 01, 2017 15:06
--- NOTE | 2017-05-01 20:03 | RADRPT ---
EXAM DATE/TIME: 05/01/2017 18:44 [facility] COMPARISON: No previous studies available for comparison. INDICATIONS : Bilateral arm swelling. MEDICAL HISTORY : Hypertension. Benign prostatic hyperplasia, (BPH) Arthritis. Tremors. Seizures. Orthostatic hypotensi on. Bradycardia. Venous insufficiency. Chronic kidney disease. Renal failure. UTI. Chronic cellulitis . DVT. MRSA. Anticoagulant therapy. SURGICAL HISTORY : None. ENCOUNTER: Initial ACUITY: 2 day PAIN SCORE: 4/10 LOCATION: Bilateral arm. FINDINGS: Please note, this is a limited study due to the patient's current contracted condition and unwil lingness to participate with the procedure. RIGHT UPPER EXTREMITY: There is spontaneous flow documented in the brachial, basilic, cephalic, and axillary veins. Cannot d efinitively identify the subclavian do the vessel depth. The vessels are compressible and augmentati on response is documented. No filling defects are seen. The flow is phasic with respiration. Direc tion of flow in the jugular vein is caudal. LEFT UPPER EXTREMITY: No detectable venous flow in the left basilic vein throughout. The vein also appears to be noncompres sible concerning for occlusive thrombus. Ulnar tributary is patent. Patient would not tolerate attemp guillermina visualization of the radial. Could not definitively identify the subclavian do to the vessel dept h. CONCLUSION: 1. Limited exam due to patient's contracted condition and unwillingness to participate with the proce dure. 2. There does appear to be occlusive thrombus throughout the left basilic vein, however. 3. Could not definitively identify the subclavian veins due to the depth of the vessels. Terrell Tobias MD on May 01, 2017 at 19:56 Board Certified Radiologist. This report was verified electronically.
[2017-05-01] MEDS: risperiDONE 1 MG TAB PO SCH (20:17)
[2017-05-01] MEDS: hydrALAZINE HCL 20 MG/ML VIAL IV PUSH PRN (23:39)
--- NOTE | 2017-05-01 23:51 | HHI.NSPN ---
History Chief Complaint: Unable to obtain due to patient's mental condition. Interval History No new problems reported per nursing staff. Agitated Exam Results Vital Signs Date Time Temp Pulse Resp B/P (MAP) Pulse Ox O2 Delivery O2 Flow Rate FiO2 05/01/17 18:00 71 05/01/17 17:28 18 05/01/17 16:00 98.1 172/78 (109) 97 05/01/17 08:35 Nasal Cannula 2.00 Intake and Output 05/01/17 05/01/17 05/02/17 08:00 16:00 00:00 Intake Total 307 ml 1019.625 ml 292 ml Output Total 1000 ml Balance 307 ml 1019.625 ml -708 ml Physical Examination GENERAL: Awake & alert, no apparent distress. Does become mildly agitated and attempts to sit up and get out of bed when seen. HEENT: Right craniotomy incision well approximated w/mariah, ALESSANDRO drain insertion site w/yellow drainage, no drainage, erythema or streaking from either. Pupils 2mm bilaterally w/cloudy corneas. MUSCULOSKELETAL: BARRERA spontaneously, contractures to both hands. NEUROLOGICAL: Awake & alert, becomes agitated. Eyes open spontaneously. Only verbalisation is "No" when asked to squeeze practitioner's hand. Does not follow any commands. Moves all extremities spontaneously. Lab, Micro, Other Results Laboratory Tests Test 05/01/17 04:34 White Blood Count 13.7 TH/MM3 Red Blood Count 3.45 MIL/MM3 Hemoglobin 10.6 GM/DL Hematocrit 32.9 % Mean Corpuscular Volume 95.4 FL Mean Corpuscular Hemoglobin 30.7 PG Mean Corpuscular Hemoglobin Concent 32.2 % Red Cell Distribution Width 16.5 % Platelet Count 221 TH/MM3 Mean Platelet Volume 8.4 FL Neutrophils (%) (Auto) 74.8 % Lymphocytes (%) (Auto) 12.5 % Monocytes (%) (Auto) 10.1 % Eosinophils (%) (Auto) 2.0 % Basophils (%) (Auto) 0.6 % Neutrophils # (Auto) 10.3 TH/MM3 Lymphocytes # (Auto) 1.7 TH/MM3 Monocytes # (Auto) 1.4 TH/MM3 Eosinophils # (Auto) 0.3 TH/MM3 Basophils # (Auto) 0.1 TH/MM3 CBC Comment DIFF FINAL Differential Comment Blood Urea Nitrogen 28 MG/DL Creatinine 1.15 MG/DL Random Glucose 143 MG/DL Total Protein 8.3 GM/DL Albumin 2.1 GM/DL Calcium Level 8.5 MG/DL Magnesium Level 2.2 MG/DL Alkaline Phosphatase 80 U/L Aspartate Amino Transf (AST/SGOT) 39 U/L Alanine Aminotransferase (ALT/SGPT) 24 U/L Total Bilirubin 0.8 MG/DL Sodium Level 145 MEQ/L Potassium Level 4.8 MEQ/L Chloride Level 115 MEQ/L Carbon Dioxide Level 24.4 MEQ/L Anion Gap 6 MEQ/L Estimat Glomerular Filtration Rate 64 ML/MIN Medical Decision Making Impression and Plan Impression: 1. Stable neurologic exam over the past couple days, status post bur hole for evacuation of right hemisphere subdural hygroma. 2. Development of small focal left parieto-occipital subdural hematoma. Plan: Allow serum sodium to normalize. extubated Continue tube feedings per PEG. Prognosis guarded. He will likely have a persistent subdural hygroma with some mass effect. Stable for discharge with outpatient F/U CT Head Art Martinez MD May 01, 2017 23:51
[2017-05-02] VITALS (10 sets, daily range): BP systolic 158–187; BP diastolic 68–82; PULSE 59–96; RESP 18–32; TEMP 97.9–99.1; O2SAT 94–100
[2017-05-02] MEDS: LORazepam 2 MG/ML VIAL IV PUSH PRN ×2 (02:24→14:06)
[2017-05-02] MEDS: FREE WATER NG SCH ×5 (02:24→20:00)
[2017-05-02] MEDS: DILTIAZEM HCL 90 MG TAB PO SCH ×4 (04:16→21:05)
[2017-05-02] MEDS: cloNIDine HCL 0.1 MG TAB PO SCH ×4 (04:16→23:00)
[2017-05-02] MEDS: VALPROIC ACID SYRUP 250 MG/5 ML UDC PO SCH ×3 (04:17→21:05)
[2017-05-02] MEDS: PHENYTOIN SUSP 100 MG/4 ML CUP PO SCH ×2 (04:17→15:09)
[2017-05-02 05:41] LABS: BICARBONATE 21.7 MEQ/L (21.0-32.0); POTASSIUM 4.5 MEQ/L (3.5-5.1)
[2017-05-02] MEDS: POTASSIUM CHLORIDE INJ 20 MEQ, SODIUM CHLORIDE 23.4% INJ 38.5 MEQ in WATER STERILE FOR ... IV SCH ×2 (07:45→15:49)
[2017-05-02] MEDS: CALCITRIOL 0.25 MCG CAP PO SCH (08:01)
[2017-05-02] MEDS: MUPIROCIN 2% OINT 1 APPLIC/GM SYR NASAL SCH ×2 (08:01→21:00)
[2017-05-02] MEDS: ESCITALOPRAM OXALATE 20 MG TAB PO SCH (08:01)
[2017-05-02] MEDS: DIGOXIN 0.125 MG TAB PO SCH (08:02)
[2017-05-02] MEDS: METOPROLOL TARTRATE 50 MG TAB PO SCH ×2 (08:02→21:05)
[2017-05-02] MEDS: FERROUS SULFATE 325 MG (65 MG ELEMENTAL IRON) TAB PO SCH ×2 (08:02→17:39)
[2017-05-02] MEDS: DOCUSATE SODIUM 50 MG/SENNA 8.6 MG TAB PO SCH ×2 (08:02→21:00)
[2017-05-02] MEDS: FAMOTIDINE 20 MG TAB PO SCH ×2 (08:02→21:05)
[2017-05-02] MEDS: CHLORHEXIDINE 0.12% (ORAL KIT) 15 ML CUP MT SCH ×2 (08:03→20:00)
[2017-05-02] MEDS: SODIUM CHLORIDE 0.9% FLUSH 10 ML FLUSH IV FLUSH SCH ×2 (08:03→21:00)
[2017-05-02] MEDS: HALOPERIDOL LACTATE 5 MG/ML AMP IV PRN (09:33)
--- NOTE | 2017-05-02 10:43 | HHI.CCPN ---
Subjective Remarks/Hospital Course Hospital Course: 66 y/o man in assisted facility fell and received some minor bruising to his side. Aid thought he was more confused and disoriented than normal, so brought to ED. CT Head reveals right subdural hygroma / chronic subdural bleed. Subjective: 04/22: agitation persists. responded well to geodon IM yesterday. plan to go to OR for felicia hole. 04/23: taken for felicia hole yesterday. remains intubated post-op. post-op scan with significant pneumocephalus and new left SDH. non-op per Dr. Martinez. baseline mental status will make it significantly difficult to assess current neuro exam and appropriateness of extubation. 04/24: Remains intubated sedated. CT head today improved pneumocephalus and improved subfalcine herniation. Difficult to assess for vent wean due to developmental delay 04/25: On sedation vacation patient remained apneic on attempted CPAP. Placed back on forced vent support. We'll discontinue continuous sedation. CT from yesterday shows improvement 04/26: Tolerating CPAP today. Moving all extremities. Maintaining good oxygen saturation. We will attempt trial extubation (Unable to assess neuro improvement) 04/27: Extubated 04/26. Tolerating well. Moving all extremities. Mumbling speech. Drain in place 04/28: Breathing comfortably moving all extremities. Sodium 155, 1/4 normal saline increase to 150 mL per hour. Follow-up CT of the head tomorrow a.m. 04/29: Remains stable clinically. Ct head today shows persistent bilateral subdural collections being larger on the right despite a right subdural drain in place, 6 mm of [id number] midline shift. Persistent small parenchymal hemorrhage left occipital lobe. 04/30: No acute events overnight. Patient is awake, not following commands. Tracks. Subdural drain removed today by neurosurgery. 05/01: No change. Has developed large edema right arm and lessor amount left - will check US. 05/02: Occlusive thrombus left arm. Can't anticoagulate due to recent head bleed. Objective Vital Signs Date Time Temp Pulse Resp B/P (MAP) Pulse Ox O2 Delivery O2 Flow Rate FiO2 05/02/17 10:00 83 05/02/17 08:38 97 21 05/02/17 08:00 98.9 32 178/76 (110) 05/01/17 08:35 Nasal Cannula 2.00 Intake and Output 05/02/17 05/02/17 05/03/17 08:00 16:00 00:00 Intake Total 1269.625 ml Output Total 1500 ml Balance -230.375 ml Result Diagram: 05/01/17 0434 05/02/17 0501 Objective Remarks GENERAL: Awake alert, mental status probably at base-line HEAD: Incision clean, dry. EYES: No conjunctival icterus. No injection or drainage. +corneal opacities. ENT: No nasal bleeding or discharge. NECK: Trachea midline. Airway widely patent. CARDIOVASCULAR: Sinus tachycardia. No JVD. No murmurs. NL S1S2. RESPIRATORY: Clear, no adventitious sounds. GASTROINTESTINAL: Abdomen soft, non-tender, nondistended. No guarding. MUSCULOSKELETAL: No edema. Well perfused. Right arm diffuse generalized edema. NEUROLOGICAL: Eyes are spontaneously open, tracking, moves all extremities. Mumbling incomprehensible words. Pupils 2mm bilaterally +corneal opacities, responds to threat A/P Assessment and Plan Assessment: Agitated Delirium -improved New left SDH Right subdural hygroma, chronic hemorrhage. Pneumocephalus UTI Acute respiratory failure-resolved Encephalopathy Hypernatremia Chronic behavioral problems due to mental retardation. Plan: - frequent neuro checks - SDH management per Dr. Martinez, repeat CT head follow up 04/28/17- Persistent bilateral subdural collections being larger on the right. 6 mm of [id number] midline shift. - Subdural drain removed by neurosurgery. No surgical intervention planned at this time - Extubated 04/26, protecting airway - daily Dilantin levels 04/29 - - Dilantin to 100mg BID - continue Geodon IM prn with Ativan iv prn for agitation, for patient safety. - pepcid - hold pharmacologic dvt prophylaxis. SCDs-will start Lovenox today if cleared by Dr. Martinez - On Rocephin for UTI. proteus. DCd 04/28 completed 8 days. - hold home anticoagulation - continue home meds - CT head 04/24 improving pneumocephalus and subfalcine herniation - Free water flushes for hypernatremia, Na 154. Target Na 144 - 150 due subdural fluid collection with midline shift Overall impression: Very difficult to assess mental status. Probably at base- line now. SD hygroma management per Dr. Martinez. Transfer to floor. Bashir Hayward MD May 02, 2017 10:43
[2017-05-02] MEDS: ACETAMINOPHEN/HYDROcodone 325 MG/5 MG TAB PO PRN (16:39)
--- NOTE | 2017-05-02 17:51 | HHI.NSPN ---
History Chief Complaint: Unable to obtain due to patient's mental condition. Interval History Remains in the intensive surgical care postoperative. Continued agitation. Requiring restraints. Exam Results Vital Signs Date Time Temp Pulse Resp B/P (MAP) Pulse Ox O2 Delivery O2 Flow Rate FiO2 05/02/17 16:00 98.7 84 27 158/70 (99) 99 05/02/17 08:38 21 05/01/17 08:35 Nasal Cannula 2.00 Intake and Output 05/02/17 05/02/17 05/03/17 08:00 16:00 00:00 Intake Total 1269.625 ml 787.625 ml Output Total 1500 ml Balance -230.375 ml 787.625 ml Physical Examination GENERAL: Awake & alert, no apparent distress. Does become mildly agitated and attempts to sit up and get out of bed when seen. HEENT: Right craniotomy incision well approximated w/mariah, ALESSANDRO drain insertion site w/yellow drainage, no drainage, erythema or streaking from either. Pupils 2mm bilaterally w/cloudy corneas. MUSCULOSKELETAL: BARRERA spontaneously, contractures to both hands. NEUROLOGICAL: Awake & alert, becomes agitated with any stimulation. Eyes open spontaneously. He shakes his head and says "no" with any stimulation. Does not follow any commands. Moves all extremities spontaneously. Lab, Micro, Other Results Laboratory Tests Test 05/02/17 05:01 Blood Urea Nitrogen 23 MG/DL Creatinine 0.90 MG/DL Random Glucose 133 MG/DL Calcium Level 8.5 MG/DL Sodium Level 144 MEQ/L Potassium Level 4.5 MEQ/L Chloride Level 112 MEQ/L Carbon Dioxide Level 21.7 MEQ/L Anion Gap 10 MEQ/L Estimat Glomerular Filtration Rate 85 ML/MIN Medical Decision Making Impression and Plan Impression: 1. Stable neurologic exam status post bur hole for evacuation of right hemisphere subdural hygroma. 2. Development of small focal left parieto-occipital subdural hematoma. 3. Upper extremity DVT Plan: Patient is at increased risk for development of progressive subdural hematoma with anticoagulation. Would prefer to hold anticoagulation at this point unless otherwise dictated by the severity and risk of the upper extremity thrombosis Allow serum sodium to normalize. Continuing extremity restraints as needed due to agitation Continue tube feedings per PEG. Prognosis guarded. He will likely have a persistent subdural hygroma with some mass effect. Stable for discharge with outpatient F/U CT Head Art Martinez MD May 02, 2017 17:51
[2017-05-02] MEDS: risperiDONE 1 MG TAB PO SCH (21:05)
[2017-05-03] VITALS (7 sets, daily range): BP systolic 127–167; BP diastolic 60–95; PULSE 68–95; RESP 16–20; TEMP 98–99.3; O2SAT 96–100
[2017-05-03] MEDS: HALOPERIDOL LACTATE 5 MG/ML AMP IV PRN ×2 (02:59→08:20)
[2017-05-03] MEDS: DILTIAZEM HCL 90 MG TAB PO SCH ×4 (02:59→21:54)
[2017-05-03] MEDS: FREE WATER NG SCH ×7 (04:00→23:13)
[2017-05-03] MEDS: PHENYTOIN SUSP 100 MG/4 ML CUP PO SCH ×2 (04:00→16:46)
[2017-05-03] MEDS: VALPROIC ACID SYRUP 250 MG/5 ML UDC PO SCH ×3 (04:00→21:51)
[2017-05-03] MEDS: cloNIDine HCL 0.1 MG TAB PO SCH ×4 (04:11→23:03)
[2017-05-03] MEDS: LORazepam 2 MG/ML VIAL IV PUSH PRN (04:11)
[2017-05-03] MEDS: CHLORHEXIDINE 0.12% (ORAL KIT) 15 ML CUP MT SCH ×2 (08:00→20:00)
[2017-05-03] MEDS: ESCITALOPRAM OXALATE 20 MG TAB PO SCH (08:20)
[2017-05-03] MEDS: CALCITRIOL 0.25 MCG CAP PO SCH (08:20)
[2017-05-03] MEDS: FAMOTIDINE 20 MG TAB PO SCH ×2 (08:21→21:54)
[2017-05-03] MEDS: DIGOXIN 0.125 MG TAB PO SCH (08:21)
[2017-05-03] MEDS: METOPROLOL TARTRATE 50 MG TAB PO SCH ×2 (08:21→21:54)
[2017-05-03] MEDS: DOCUSATE SODIUM 50 MG/SENNA 8.6 MG TAB PO SCH ×2 (08:24→21:54)
[2017-05-03] MEDS: SODIUM CHLORIDE 0.9% FLUSH 10 ML FLUSH IV FLUSH SCH ×2 (08:27→21:00)
[2017-05-03] MEDS: FERROUS SULFATE 325 MG (65 MG ELEMENTAL IRON) TAB PO SCH ×2 (09:00→16:46)
[2017-05-03] MEDS: MUPIROCIN 2% OINT 1 APPLIC/GM SYR NASAL SCH ×2 (09:00→21:52)
--- NOTE | 2017-05-03 11:04 | HHI.NSPN ---
History Chief Complaint: Unable to obtain due to patient's mental condition. Interval History 04/21: The patient is a 66-year-old male with a history of mental retardation who has chronically resided in a local facility. Discussion with his caregivers indicates that he usually is able to ambulate independently, converses a little but is always with minimal overall mental functions. He is able to eat on his own. They noticed that over the past few days, he has become mostly nonverbal, increased agitation, not walking well, and not eating. No fevers or sweats noted. The patient is generally not able to communicate his symptoms or healthcare needs. 04/22: The patient prior to being examined was seen in the room moving all extremities, crying out and attempting to get out of bed. When seen later he was asleep but did open his eyes to voice. He then started moving all extremities and attempting to sit up. He is in soft wrist restraints. 04/23: The patient is obtunded this morning when seen with Dr Martinez. He did not respond to voice but to noxious stimulation. He went to the operating room yesterday for a felicia evacuation of a subdural hygroma and returned to [facility] post- operatively. He remains intubated and mechanically ventilated. He is on a propofol drip for sedation and a fentanyl drip for pain control. He did have a repeat CT brain this morning. 04/24: This morning the patient remains obtunded but is on propofol for sedation. He continues to be intubated and mechanically ventilated. Nursing reports that he did have a cough reflex for her but no other response and that the ALESSANDRO drain put out 190 mL of serous fluid in the past 24 hours. 04/25: no changes to neuro check, moving ext spontaneously but not following commands. 04/26: No new problems reported per nursing staff. Has done relatively well with CPAP trials on 04/26/1704/27: Pt with stable neuro exam. He follows simple commands-tries to stick out tongue and close eyes to command. 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 Not verbalizing. 04/28: Pt not following commands. Chronic contractures in his hands. Not verbalizing. Stable neuro exam. 04/30: The patient is awake this morning. He does spontaneously move all extremities to a degree. His only verbalisation is "No" when asked to squeeze this practitioner's hand. He becomes mildly agitated and attempts to sit up and get out of bed. 05/01: No new problems reported per nursing staff. Agitated 05/02: Remains in the intensive surgical care postoperative. Continued agitation. Requiring restraints. 05/03: The patient is awake and laying in bed with his legs dangling over the edge. He is calm when seen. He does intermittently move the extremities spontaneously and turn his head. System Review Comments Unable to obtain due to patient's mental condition. Exam Results 05/01/17 05/01/17 05/02/17 05/02/17 05/03/17 05/03/17 06:00 18:00 06:00 18:00 06:00 18:00 Intake Total 1309 ml 1259.625 ml 302 ml 1807.250 ml 648 ml Output Total 1000 ml 1500 ml 800 ml 850 ml Balance 1309 ml 259.625 ml -1198 ml 1007.250 ml -202 ml Intake Oral 200 ml 240 ml 250 ml 120 ml IV Total 1109 ml 1019.625 ml 52 ml 1807.250 ml 528 ml Output Urine Total 1000 ml 1500 ml 800 ml 850 ml # Voids 2 2 3 # Bowel Movements 1 2 1 7 1 Vital Signs Date Time Temp Pulse Resp B/P (MAP) Pulse Ox O2 Delivery O2 Flow Rate FiO2 05/03/17 09:46 98 21 05/03/17 08:00 98.4 95 16 131/65 (87) 96 05/03/17 08:00 91 05/03/17 04:00 98.0 86 20 134/95 (108) 100 05/03/17 04:00 86 05/03/17 00:00 98.0 68 20 167/91 (116) 100 05/03/17 00:00 76 05/02/17 20:00 98.1 76 22 182/82 (115) 100 05/02/17 20:00 76 05/02/17 16:00 98.7 84 27 158/70 (99) 99 05/02/17 16:00 87 05/02/17 12:00 98.9 62 28 158/68 (98) 98 05/02/17 12:00 59 05/02/17 10:00 83 05/02/17 08:38 97 21 05/02/17 08:00 77 05/02/17 08:00 98.9 94 32 178/76 (110) 98 05/02/17 06:00 84 05/02/17 04:00 99.1 96 18 166/75 (105) 96 05/02/17 04:00 96 05/02/17 02:00 88 05/02/17 00:00 80 05/02/17 00:00 97.9 80 28 187/74 (111) 94 05/01/17 22:00 60 05/01/17 20:00 74 05/01/17 20:00 98.0 74 20 171/96 (121) 100 05/01/17 18:00 71 05/01/17 17:28 18 05/01/17 16:00 102 05/01/17 16:00 98.1 97 39 172/78 (109) 97 05/01/17 14:00 67 05/01/17 12:00 60 05/01/17 12:00 98.1 96 22 90/54 (66) 99 05/01/17 11:49 27 05/01/17 10:00 108 05/01/17 08:35 96 Nasal Cannula 2.00 05/01/17 08:00 99.9 104 28 136/73 (94) 100 05/01/17 08:00 104 05/01/17 06:00 80 05/01/17 04:00 98 05/01/17 04:00 97.9 98 34 117/70 (86) 100 05/01/17 02:00 92 05/01/17 00:00 98.5 25 79/54 (62) 99 04/30/17 22:00 76 04/30/17 20:00 80 04/30/17 20:00 99.3 80 25 121/69 (86) 100 04/30/17 18:00 128 04/30/17 16:51 98 04/30/17 16:00 98.9 122 25 103/73 (83) 99 04/30/17 16:00 122 04/30/17 14:00 118 04/30/17 12:00 118 04/30/17 12:00 98.0 118 26 97/69 (78 100 Physical Examination GENERAL: Awake & alert, laying calmly in bed with his legs dangling over the edge, no apparent distress. HEENT: Right craniotomy incision well approximated w/mariah, ALESSANDRO drain insertion site well approximated w/sutures, no drainage, erythema or streaking from either. Pupils 2mm bilaterally w/cloudy corneas. RESPIRATORY: CTAB w/o W/R/R, equal excursion, nonlaboured, on RA. CARDIOVASCULAR: S1S2 w/RRR w/o M/G/R, radial & pedal pulses 2+ bilaterally, cap refill < 2 sec, no dependent edema, vascular skin changes to right lower leg & foot. Monitor is sinus rhythm w/o any ectopy noted. GASTROINTESTINAL: Abdomen soft, nontender, positive bowel sounds. MUSCULOSKELETAL: BARRERA spontaneously, contractures to both hands. NEUROLOGICAL: Awake & alert, calm. He does appear to turn his head toward this practitioner's voice but there is no evident tracking with the eyes. Eyes open spontaneously. Only verbalisation is a groan once. Does not follow any commands. Moves all extremities spontaneously. Lab, Micro, Other Results Recent Impressions Upper Extremity Ultrasound 05/01/17 0000 Signed Impressions: Service Date/Time: Monday, May 01, 2017 18:44 - CONCLUSION: 1. Limited exam due to patient's contracted condition and unwillingness to participate with the procedure. 2. There does appear to be occlusive thrombus throughout the left basilic vein, however. 3. Could not definitively identify the subclavian veins due to the depth of the vessels. Terrell Tobias MD Laboratory Tests Test 04/30/17 17:09 05/01/17 04:34 05/02/17 05:01 Sodium Level 148 MEQ/L 145 MEQ/L 144 MEQ/L White Blood Count 13.7 TH/MM3 Red Blood Count 3.45 MIL/MM3 Hemoglobin 10.6 GM/DL Hematocrit 32.9 % Mean Corpuscular Volume 95.4 FL Mean Corpuscular Hemoglobin 30.7 PG Mean Corpuscular Hemoglobin Concent 32.2 % Red Cell Distribution Width 16.5 % Platelet Count 221 TH/MM3 Mean Platelet Volume 8.4 FL Neutrophils (%) (Auto) 74.8 % Lymphocytes (%) (Auto) 12.5 % Monocytes (%) (Auto) 10.1 % Eosinophils (%) (Auto) 2.0 % Basophils (%) (Auto) 0.6 % Neutrophils # (Auto) 10.3 TH/MM3 Lymphocytes # (Auto) 1.7 TH/MM3 Monocytes # (Auto) 1.4 TH/MM3 Eosinophils # (Auto) 0.3 TH/MM3 Basophils # (Auto) 0.1 TH/MM3 CBC Comment DIFF FINAL Differential Comment Blood Urea Nitrogen 28 MG/DL 23 MG/DL Creatinine 1.15 MG/DL 0.90 MG/DL Random Glucose 143 MG/DL 133 MG/DL Total Protein 8.3 GM/DL Albumin 2.1 GM/DL Calcium Level 8.5 MG/DL 8.5 MG/DL Magnesium Level 2.2 MG/DL Alkaline Phosphatase 80 U/L Aspartate Amino Transf (AST/SGOT) 39 U/L Alanine Aminotransferase (ALT/SGPT) 24 U/L Total Bilirubin 0.8 MG/DL Potassium Level 4.8 MEQ/L 4.5 MEQ/L Chloride Level 115 MEQ/L 112 MEQ/L Carbon Dioxide Level 24.4 MEQ/L 21.7 MEQ/L Anion Gap 6 MEQ/L 10 MEQ/L Estimat Glomerular Filtration Rate 64 ML/MIN 85 ML/MIN Medical Decision Making Impression and Plan Impression: 1. Moderate size right subdural hygroma versus chronic hematoma. Finding not present on prior CT scan of 02/21/2017. This appears symptomatic, with changes in the patient's mental functions, speech, ambulation, ADL over the past week. Patient awake, moves extremities spontaneously but not following commands. Most likely will have a persistent subdural hygroma with some mass effect. POD #11 () s/p: Right parietal bur hole for evacuation of right hemisphere subdural hygroma Postoperative Diagnosis: (1) Subdural hygroma Right hemisphere subdural hygroma Plan: Primary management per Animal Breeder/Hospitalist. Neuro checks. Stat CT brain for any worsening neuro status. Will d/c every other staple and if surgical incision remains approximated will remove the remaining mariah. Will d/c the sutures to the drain insertion site. From NSGY's perspective the patient may be discharged back to his residential facility. Plan for repeat CT brain on if still in hospital. If discharged patient will need to have a repeat CT next week which the facility may call the office and arrange. The patient at this time will not need to follow up in the office after discharge. Avtar Chatterjee May 03, 2017 11:04
[2017-05-03] MEDS: ACETAMINOPHEN/HYDROcodone 325 MG/5 MG TAB PO PRN ×2 (13:06→23:03)
--- NOTE | 2017-05-03 14:35 | HHI.PR ---
Subjective Remarks Grades 9 12 Tutor Notes: 66 y/o man in assisted facility fell and received some minor bruising to his side. Aid thought he was more confused and disoriented than normal, so brought to ED. CT Head reveals right subdural hygroma / chronic subdural bleed. 04/22: agitation persists. responded well to geodon IM yesterday. plan to go to OR for felicia hole. 04/23: taken for felicia hole yesterday. remains intubated post-op. post-op scan with significant pneumocephalus and new left SDH. non-op per Dr. Martinez. baseline mental status will make it significantly difficult to assess current neuro exam and appropriateness of extubation. 04/24: Remains intubated sedated. CT head today improved pneumocephalus and improved subfalcine herniation. Difficult to assess for vent wean due to developmental delay 04/25: On sedation vacation patient remained apneic on attempted CPAP. Placed back on forced vent support. We'll discontinue continuous sedation. CT from yesterday shows improvement 04/26: Tolerating CPAP today. Moving all extremities. Maintaining good oxygen saturation. We will attempt trial extubation (Unable to assess neuro improvement) 04/27: Extubated 04/26. Tolerating well. Moving all extremities. Mumbling speech. Drain in place 04/28: Breathing comfortably moving all extremities. Sodium 155, 1/4 normal saline increase to 150 mL per hour. Follow-up CT of the head tomorrow a.m. 04/29: Remains stable clinically. Ct head today shows persistent bilateral subdural collections being larger on the right despite a right subdural drain in place, 6 mm of [id number] midline shift. Persistent small parenchymal hemorrhage left occipital lobe. 04/30: No acute events overnight. Patient is awake, not following commands. Tracks. Subdural drain removed today by neurosurgery. 05/01: No change. Has developed large edema right arm and lessor amount left - will check US. 05/02: Occlusive thrombus left arm. Can't anticoagulate due to recent head bleed. Hospitalist Notes: 05/03: Seen in Intensive Care Unit, he is been transferred to hospitalist team, he had Moderate size right subdural hygroma versus chronic hematoma, findings present on CT scan 02/21/17, asymptomatic as per Neurosurgery, the patient is not following commands, most likely will have persistent subdural hygroma with some mass effect Status post Right parietal bur hole for evacuation of right hemisphere subdural hygroma, 04/22/17, asked for Stat CT brain due to worsening neuro status, removed surgical wound mariha, removed drain insertion site. recommended to discharge to his residential facility, plan is for new CT brain on 05/06/17 if patient still in house. he was seen in his bedroom in the presence of nurse Miss Kaylin st. Objective Vital Signs Date Time Temp Pulse Resp B/P (MAP) Pulse Ox O2 Delivery O2 Flow Rate FiO2 05/03/17 12:11 16 05/03/17 12:00 84 05/03/17 12:00 98.0 84 16 135/60 (85) 98 05/03/17 09:46 98 21 05/03/17 08:00 98.4 95 16 131/65 (87) 96 05/03/17 08:00 91 05/03/17 04:00 98.0 86 20 134/95 (108) 100 05/03/17 04:00 86 05/03/17 00:00 98.0 68 20 167/91 (116) 100 05/03/17 00:00 76 05/02/17 20:00 98.1 76 22 182/82 (115) 100 05/02/17 20:00 76 05/02/17 16:00 98.7 84 27 158/70 (99) 99 05/02/17 16:00 87 I/O 05/02/17 05/02/17 05/02/17 05/03/17 05/03/17 05/03/17 07:00 15:00 23:00 07:00 15:00 23:00 Intake Total 250 ml 1019.625 ml 787.625 ml 648 ml Output Total 1500 ml 800 ml 850 ml Balance -1250 ml 1019.625 ml -12.375 ml -202 ml Intake Oral 250 ml 120 ml IV Total 1019.625 ml 787.625 ml 528 ml Output Urine Total 1500 ml 800 ml 850 ml # Voids 3 # Bowel Movements 1 7 1 Result Diagram: 05/01/17 0434 05/02/17 0501 Imaging Last Impressions Upper Extremity Ultrasound 05/01/17 0000 Signed Impressions: Service Date/Time: Monday, May 01, 2017 18:44 - CONCLUSION: 1. Limited exam due to patient's contracted condition and unwillingness to participate with the procedure. 2. There does appear to be occlusive thrombus throughout the left basilic vein, however. 3. Could not definitively identify the subclavian veins due to the depth of the vessels. Terrell Tobias MD Head CT 04/29/17 0000 Signed Impressions: Service Date/Time: Saturday, April 29, 2017 05:02 - CONCLUSION: 1. Persistent bilateral subdural collections being larger on the right. There is a right subdural drain in place. There is 6 mm of [id number] midline shift. 2. Persistent small parenchymal hemorrhage in the left occipital lobe. 3. Suspected cerebellar atrophy with expansion of the extra axial spaces in the posterior fossa. Carlos Eubanks MD Chest X-Ray 04/26/17 0600 Signed Impressions: Service Date/Time: Wednesday, April 26, 2017 02:45 - CONCLUSION: 1. No confluent infiltrate now identified. 2. The endotracheal tube remains in place with the tip at the level of the sarah. 3. The patient is mildly rotated. Esvin Raza MD Abdomen X-Ray 04/21/17 0000 Signed Impressions: Service Date/Time: Friday, April 21, 2017 10:21 - CONCLUSION: Suspected ileus. Dobbhoff feeding tube tip is in the upper stomach. Carlos Cole MD Hand X-Ray 04/20/17 1950 Signed Impressions: Service Date/Time: Thursday, April 20, 2017 19:54 - CONCLUSION: Flexion contractures of the fingers. No fracture or acute appearing malalignment demonstrated. Carlos Cole MD Pelvis X-Ray 04/20/17 192 Signed Impressions: Service Date/Time: Thursday, April 20, 2017 19:53 - CONCLUSION: Intact pelvis. Carlos Cole MD Procedures With Diagnosis of Right Hemisphere Subdural Hygroma, 04/22/17 status post Right parietal bur hole for evacuation of right hemisphere subdural hygroma by Doctor Art Martinez Other Results Laboratory Tests Test 04/20/17 22:02 04/20/17 23:20 04/21/17 00:35 04/21/17 07:20 Valproic Acid (Depakene) Level 55 MCG/ML Urine WBC Clumps OCC Urine Squamous Epithelial Cells 0-5 /hpf Urine Bacteria FEW /hpf Lactic Acid Level 1.7 mmol/L Nasal Screen MRSA (PCR) MRSA DETECTED Test 04/22/17 04:56 04/23/17 01:15 04/23/17 08:00 04/28/17 15:30 Blood Urea Nitrogen 11 MG/DL Creatinine 0.87 MG/DL Random Glucose 126 MG/DL Calcium Level 8.1 MG/DL Phosphorus Level 3.6 MG/DL Magnesium Level 2.1 MG/DL Sodium Level 146 MEQ/L Potassium Level 3.9 MEQ/L Chloride Level 113 MEQ/L Carbon Dioxide Level 22.8 MEQ/L Blood Gas Puncture Site EPRCY Blood Gas Patient Temperature 98.6 Blood Gas HCO3 21 mmol/L Blood Gas Base Excess -3.5 mmol/L Blood Gas Oxygen Saturation 97 % Arterial Blood pH 7.35 Arterial Blood Partial Pressure CO2 39 mmHg Arterial Blood Partial Pressure O2 170 mmHg Arterial Blood Oxygen Content 15.7 Vol % Arterial Blood Carboxyhemoglobin 0.8 % Arterial Blood Methemoglobin 1.0 % Blood Gas Hemoglobin 11.2 G/DL Oxygen Delivery Device VENTILATOR Blood Gas Ventilator Setting PRVC14/550/1.0/+5 Blood Gas Inspired Oxygen 40 % Troponin I 0.06 NG/ML Urine Color LIGHT-YELLOW Urine Turbidity CLEAR Urine pH 7.5 Urine Specific Amory 1.005 Urine Protein NEG mg/dL Urine Glucose (UA) NEG mg/dL Urine Ketones NEG mg/dL Urine Occult Blood NEG Urine Nitrite NEG Urine Bilirubin NEG Urine Urobilinogen LESS THAN 2.0 MG/DL Urine Leukocyte Esterase NEG Urine RBC 1 /hpf Urine WBC 1 /hpf Urine Mucus FEW /lpf Microscopic Urinalysis Comment CATH-CULT NOT IND Test 04/29/17 07:53 05/01/17 04:34 05/02/17 05:01 Phenytoin (Dilantin) Level 14.0 MCG/ML White Blood Count 13.7 TH/MM3 Red Blood Count 3.45 MIL/MM3 Hemoglobin 10.6 GM/DL Hematocrit 32.9 % Mean Corpuscular Volume 95.4 FL Mean Corpuscular Hemoglobin 30.7 PG Mean Corpuscular Hemoglobin Concent 32.2 % Red Cell Distribution Width 16.5 % Platelet Count 221 TH/MM3 Mean Platelet Volume 8.4 FL Neutrophils (%) (Auto) 74.8 % Lymphocytes (%) (Auto) 12.5 % Monocytes (%) (Auto) 10.1 % Eosinophils (%) (Auto) 2.0 % Basophils (%) (Auto) 0.6 % Neutrophils # (Auto) 10.3 TH/MM3 Lymphocytes # (Auto) 1.7 TH/MM3 Monocytes # (Auto) 1.4 TH/MM3 Eosinophils # (Auto) 0.3 TH/MM3 Basophils # (Auto) 0.1 TH/MM3 CBC Comment DIFF FINAL Differential Comment Blood Urea Nitrogen 28 MG/DL 23 MG/DL Creatinine 1.15 MG/DL 0.90 MG/DL Random Glucose 143 MG/DL 133 MG/DL Total Protein 8.3 GM/DL Albumin 2.1 GM/DL Calcium Level 8.5 MG/DL 8.5 MG/DL Magnesium Level 2.2 MG/DL Alkaline Phosphatase 80 U/L Aspartate Amino Transf (AST/SGOT) 39 U/L Alanine Aminotransferase (ALT/SGPT) 24 U/L Total Bilirubin 0.8 MG/DL Sodium Level 145 MEQ/L 144 MEQ/L Potassium Level 4.8 MEQ/L 4.5 MEQ/L Chloride Level 115 MEQ/L 112 MEQ/L Carbon Dioxide Level 24.4 MEQ/L 21.7 MEQ/L Anion Gap 10 MEQ/L Estimat Glomerular Filtration Rate 85 ML/MIN Objective Remarks GENERAL: Awake alert, mental status probably at base-line HEAD: Incision clean, dry. EYES: No conjunctival icterus. No injection or drainage. +corneal opacities. ENT: No nasal bleeding or discharge. NECK: Trachea midline. Airway widely patent. CARDIOVASCULAR: Sinus tachycardia. No JVD. No murmurs. NL S1S2. RESPIRATORY: Clear, no adventitious sounds. GASTROINTESTINAL: Abdomen soft, non-tender, nondistended. No guarding. MUSCULOSKELETAL: No edema. Well perfused. Right arm diffuse generalized edema. NEUROLOGICAL: Eyes are spontaneously open, tracking, moves all extremities. Mumbling incomprehensible words. Pupils 2mm bilaterally +corneal opacities, responds to threat Medications and IVs Current Medications Medications (Trade) Dose Ordered Sig/Kely Route Start Time Stop Time Status Last Admin (NS Flush) 2 ml UNSCH PRN IV FLUSH 04/21/17 05:45 (NS Flush) 2 ml BID IV FLUSH 04/21/17 09:00 05/02/17 08:03 (Tylenol) 650 mg Q6H PRN PO 04/21/17 05:45 (Pepcid) 20 mg Q12HR PO 04/21/17 09:00 05/03/17 08:21 (Zofran Inj) 4 mg Q6H PRN IV PUSH 04/21/17 05:45 (Duoneb Neb) 1 ampule Q4HR NEB PRN INH 04/21/17 05:45 Miscellaneous Information 1 Q361D XX 04/21/17 05:45 04/21/17 07:05 (Chlorhexidine 2% Cloth) Taper DAILY@04 TOP 04/22/17 04:00 04/18/18 03:59 04/25/17 03:41 (Chlorhexidine 2% Cloth) 3 pack UNSCH PRN TOP 04/21/17 05:45 (Inna-Colace) 1 tab BID PO 04/21/17 09:00 05/02/17 08:02 (Milk Of Magnesia Liq) 30 ml Q12H PRN PO 04/21/17 05:45 04/26/17 10:21 (Senokot) 17.2 mg Q12H PRN PO 04/21/17 05:45 (Dulcolax Supp) 10 mg DAILY PRN RECTAL 04/21/17 05:45 (Lactulose Liq) 30 ml DAILY PRN PO 04/21/17 05:45 (Rocaltrol) 0.25 mcg DAILY PO 04/21/17 09:00 05/03/17 08:20 (Lanoxin) 0.125 mg DAILY PO 04/21/17 09:00 05/03/17 08:21 (Lexapro) 20 mg DAILY PO 04/21/17 09:00 05/03/17 08:20 (Ferrous Sulfate) 325 mg BIDPC PO 04/21/17 09:00 05/03/17 09:00 (risperDAL) 2 mg HS PO 04/21/17 21:00 05/02/17 21:05 (Ativan Inj) 1 mg Q15M PRN IV PUSH 04/21/17 07:00 05/03/17 04:11 (Cardizem) 90 mg Q6H PO 04/21/17 09:00 05/03/17 08:21 (Haldol Inj) 5 mg Q4H PRN IV 04/21/17 12:15 05/03/17 08:20 (Depakene Liq) 250 mg Q8H PO 04/21/17 12:00 05/03/17 11:10 (Geodon Inj) 10 mg Q12H PRN IM 04/21/17 16:45 04/28/17 15:21 (Apresoline Inj) 10 mg Q6H PRN IV PUSH 04/22/17 21:45 05/01/17 23:39 (fentaNYL INJ) 50 mcg Q1H PRN IV PUSH 04/22/17 21:45 05/03/17 11:11 (fentaNYL INJ) 25 mcg Q1H PRN IV PUSH 04/22/17 21:45 04/29/17 02:28 (Minerva 5-325 Mg) 1 tab Q6H PRN PO 04/22/17 21:45 05/01/17 16:28 (Minerva 5-325 Mg) 2 tab Q6H PRN PO 04/22/17 21:45 05/03/17 13:06 (Peridex 0.12% Liq) 15 ml BID@08,20 MT 04/23/17 08:00 05/02/17 20:00 (Dilantin Liq) 100 mg Q12H PO 04/25/17 04:00 05/03/17 04:00 (Bactroban Nasal 2% Oint) 1 applic BID NASAL 04/25/17 09:00 05/03/17 09:00 (Free Water) 300 ml Q4H NG 04/26/17 12:00 05/03/17 08:00 Potassium Chloride 20 meq/ Sodium Chloride 38.5 meq/Sterile Water 1,019.625 ml @ 50 mls/hr [id number] IV 04/26/17 23:30 05/02/17 15:49 (Lopressor) 50 mg Q12H PO 04/28/17 21:00 05/03/17 08:21 (Catapres) 0.1 mg Q6H PO 04/28/17 17:00 05/03/17 11:00 A/P Assessment and Plan 1. Moderate size right subdural hygroma versus chronic hematoma, findings present on CT scan 02/21/17, asymptomatic as per Neurosurgery, the patient is not following commands, most likely will have persistent subdural hygroma with some mass effect Status post Right parietal bur hole for evacuation of right hemisphere subdural hygroma, 04/22/17, asked for Stat CT brain due to worsening neuro status, removed surgical wound mariah, removed drain insertion site. recommended to discharge to his residential facility, plan is for new CT brain on 05/06/17 if patient still in house. -repeat CT head follow up 04/28/17- Persistent bilateral subdural collections being larger on the right. 6 mm of [id number] midline shift. continue Dilantin 100 mg BID. 2. Agitated Delirium Improved 3. UTI treated. 4. Acute respiratory failure resolved Extubated 04/26/17 5. Hypernatremia on free water flushes for Hypernatremia, Target 144 - 150 6. chronic behavioral problems due to mental retardation Gastric protection with Famotidine on hold pharmacologic DVT prophylaxis SCDs to start Lovenox if clear by Doctor Martinez Discharge Planning Discharge planning to SNF started. Kenn Reynoso MD May 03, 2017 14:35
--- NOTE | 2017-05-03 14:51 | HHI.CCPN ---
Subjective Remarks/Hospital Course Hospital Course: 66 y/o man in assisted facility fell and received some minor bruising to his side. Aid thought he was more confused and disoriented than normal, so brought to ED. CT Head reveals right subdural hygroma / chronic subdural bleed. Subjective: 04/22: agitation persists. responded well to geodon IM yesterday. plan to go to OR for felicia hole. 04/23: taken for felicia hole yesterday. remains intubated post-op. post-op scan with significant pneumocephalus and new left SDH. non-op per Dr. Martinez. baseline mental status will make it significantly difficult to assess current neuro exam and appropriateness of extubation. 04/24: Remains intubated sedated. CT head today improved pneumocephalus and improved subfalcine herniation. Difficult to assess for vent wean due to developmental delay 04/25: On sedation vacation patient remained apneic on attempted CPAP. Placed back on forced vent support. We'll discontinue continuous sedation. CT from yesterday shows improvement 04/26: Tolerating CPAP today. Moving all extremities. Maintaining good oxygen saturation. We will attempt trial extubation (Unable to assess neuro improvement) 04/27: Extubated 04/26. Tolerating well. Moving all extremities. Mumbling speech. Drain in place 04/28: Breathing comfortably moving all extremities. Sodium 155, 1/4 normal saline increase to 150 mL per hour. Follow-up CT of the head tomorrow a.m. 04/29: Remains stable clinically. Ct head today shows persistent bilateral subdural collections being larger on the right despite a right subdural drain in place, 6 mm of [id number] midline shift. Persistent small parenchymal hemorrhage left occipital lobe. 04/30: No acute events overnight. Patient is awake, not following commands. Tracks. Subdural drain removed today by neurosurgery. 05/01: No change. Has developed large edema right arm and lessor amount left - will check US. 05/02: Occlusive thrombus left arm. Can't anticoagulate due to recent head bleed. 05/03: No change in neuro status. Objective Vital Signs Date Time Temp Pulse Resp B/P (MAP) Pulse Ox O2 Delivery O2 Flow Rate FiO2 05/03/17 12:11 16 05/03/17 12:00 84 05/03/17 12:00 98.0 135/60 (85) 98 05/03/17 09:46 21 05/01/17 08:35 Nasal Cannula 2.00 Intake and Output 05/03/17 05/03/17 05/04/17 08:00 16:00 00:00 Intake Total 648 ml Output Total 850 ml Balance -202 ml Result Diagram: 05/01/17 0434 05/02/17 0501 Objective Remarks GENERAL: Awake alert, mental status probably at base-line HEAD: Incision clean, dry. EYES: No conjunctival icterus. No injection or drainage. +corneal opacities. ENT: No nasal bleeding or discharge. NECK: Trachea midline. Airway widely patent. CARDIOVASCULAR: Sinus tachycardia. No JVD. No murmurs. NL S1S2. RESPIRATORY: Clear, no adventitious sounds. GASTROINTESTINAL: Abdomen soft, non-tender, nondistended. No guarding. MUSCULOSKELETAL: No edema. Well perfused. Right arm diffuse generalized edema. NEUROLOGICAL: Eyes are spontaneously open, tracking, moves all extremities. Mumbling incomprehensible words. Pupils 2mm bilaterally +corneal opacities, responds to threat. Moves sideway in bed. A/P Assessment and Plan Assessment: Agitated Delirium -improved New left SDH Right subdural hygroma, chronic hemorrhage. Pneumocephalus UTI Acute respiratory failure-resolved Encephalopathy Hypernatremia Chronic behavioral problems due to mental retardation. Plan: - frequent neuro checks - SDH management per Dr. Martinez, repeat CT head follow up 04/28/17- Persistent bilateral subdural collections being larger on the right. 6 mm of [id number] midline shift. - Subdural drain removed by neurosurgery. No surgical intervention planned at this time - Extubated 04/26, protecting airway - daily Dilantin levels 04/29 - - Dilantin to 100mg BID - continue Geodon IM prn with Ativan iv prn for agitation, for patient safety. - pepcid - hold pharmacologic dvt prophylaxis. SCDs-will start Lovenox today if cleared by Dr. Martinez - On Rocephin for UTI. proteus. DCd 04/28 completed 8 days. - hold home anticoagulation - continue home meds - CT head 04/24 improving pneumocephalus and subfalcine herniation - Free water flushes for hypernatremia, Na 154. Target Na 144 - 150 due subdural fluid collection with midline shift Overall impression: Very difficult to assess mental status. Probably at base- line now. SD hygroma management per Dr. Martinez. Transfer to floor. He comes from an LONG TERM - will probably need brief stay in nursing facility initially. Bashir Hayward MD May 03, 2017 14:51
[2017-05-03] MEDS: risperiDONE 1 MG TAB PO SCH (22:05)
[2017-05-04] MEDS: FREE WATER NG SCH ×2 (00:40→08:00)
[2017-05-04] MEDS: DILTIAZEM HCL 90 MG TAB PO SCH ×2 (00:40→09:09)
[2017-05-04 01:36] VITALS: BP 122/56; PULSE 55; RESP 18; TEMP 97.5; O2SAT 100
[2017-05-04] MEDS: cloNIDine HCL 0.1 MG TAB PO SCH (05:00)
[2017-05-04 05:05] VITALS: BP 124/61; PULSE 61; RESP 18; TEMP 97.7; O2SAT 100
[2017-05-04] MEDS: PHENYTOIN SUSP 100 MG/4 ML CUP PO SCH (05:33)
[2017-05-04] MEDS: VALPROIC ACID SYRUP 250 MG/5 ML UDC PO SCH (05:33)
[2017-05-04] MEDS: CHLORHEXIDINE 0.12% (ORAL KIT) 15 ML CUP MT SCH (08:00)
[2017-05-04 09:06] VITALS: BP 191/79; PULSE 79; RESP 20; TEMP 98.7; O2SAT 100
[2017-05-04] MEDS: SODIUM CHLORIDE 0.9% FLUSH 10 ML FLUSH IV FLUSH SCH (09:07)
[2017-05-04] MEDS: MUPIROCIN 2% OINT 1 APPLIC/GM SYR NASAL SCH (09:08)
[2017-05-04] MEDS: FERROUS SULFATE 325 MG (65 MG ELEMENTAL IRON) TAB PO SCH (09:08)
[2017-05-04] MEDS: DIGOXIN 0.125 MG TAB PO SCH (09:08)
[2017-05-04] MEDS: CALCITRIOL 0.25 MCG CAP PO SCH (09:08)
[2017-05-04] MEDS: DOCUSATE SODIUM 50 MG/SENNA 8.6 MG TAB PO SCH (09:08)
[2017-05-04] MEDS: ACETAMINOPHEN/HYDROcodone 325 MG/5 MG TAB PO PRN (09:09)
[2017-05-04] MEDS: METOPROLOL TARTRATE 50 MG TAB PO SCH (09:09)
[2017-05-04] MEDS: ESCITALOPRAM OXALATE 20 MG TAB PO SCH (09:09)
[2017-05-04] MEDS: FAMOTIDINE 20 MG TAB PO SCH (09:09)
--- NOTE | 2017-05-04 10:35 | HHI.PR ---
Subjective Remarks Ground Crew Chief Notes: 66 y/o man in assisted facility fell and received some minor bruising to his side. Aid thought he was more confused and disoriented than normal, so brought to ED. CT Head reveals right subdural hygroma / chronic subdural bleed. 04/22: agitation persists. responded well to geodon IM yesterday. plan to go to OR for felicia hole. 04/23: taken for felicia hole yesterday. remains intubated post-op. post-op scan with significant pneumocephalus and new left SDH. non-op per Dr. Martinez. baseline mental status will make it significantly difficult to assess current neuro exam and appropriateness of extubation. 04/24: Remains intubated sedated. CT head today improved pneumocephalus and improved subfalcine herniation. Difficult to assess for vent wean due to developmental delay 04/25: On sedation vacation patient remained apneic on attempted CPAP. Placed back on forced vent support. We'll discontinue continuous sedation. CT from yesterday shows improvement 04/26: Tolerating CPAP today. Moving all extremities. Maintaining good oxygen saturation. We will attempt trial extubation (Unable to assess neuro improvement) 04/27: Extubated 04/26. Tolerating well. Moving all extremities. Mumbling speech. Drain in place 04/28: Breathing comfortably moving all extremities. Sodium 155, 1/4 normal saline increase to 150 mL per hour. Follow-up CT of the head tomorrow a.m. 04/29: Remains stable clinically. Ct head today shows persistent bilateral subdural collections being larger on the right despite a right subdural drain in place, 6 mm of [id number] midline shift. Persistent small parenchymal hemorrhage left occipital lobe. 04/30: No acute events overnight. Patient is awake, not following commands. Tracks. Subdural drain removed today by neurosurgery. 05/01: No change. Has developed large edema right arm and lessor amount left - will check US. 05/02: Occlusive thrombus left arm. Can't anticoagulate due to recent head bleed. Hospitalist Notes: 05/03: Seen in Intensive Care Unit, he is been transferred to hospitalist team, he had Moderate size right subdural hygroma versus chronic hematoma, findings present on CT scan 02/21/17, asymptomatic as per Neurosurgery, the patient is not following commands, most likely will have persistent subdural hygroma with some mass effect Status post Right parietal bur hole for evacuation of right hemisphere subdural hygroma, 04/22/17, asked for Stat CT brain due to worsening neuro status, removed surgical wound mariah, removed drain insertion site. recommended to discharge to his residential facility, plan is for new CT brain on 05/06/17 if patient still in house. he was seen in his bedroom in the presence of nurse Miss Kaylin st. 05/04: Stable in his bedroom, okay to Discharge to SNF as per Neurosurgery, his Hyponatremia improved, he was cleared to go yesterday by Neurosurgery, discussed with nurse Miss Quijano and with piano case maker will place an order for discharge to SNF once bed available. No nausea, vomit or diarrhea Objective Vital Signs Date Time Temp Pulse Resp B/P (MAP) Pulse Ox O2 Delivery O2 Flow Rate FiO2 05/04/17 09:06 98.7 79 20 191/79 (116) 100 05/04/17 05:05 97.7 61 18 124/61 (82) 100 05/04/17 01:36 97.5 55 18 122/56 (78) 100 05/03/17 21:06 99.3 77 20 127/60 (82) 99 05/03/17 16:00 98.0 88 16 136/69 (91) 96 05/03/17 16:00 74 05/03/17 16:00 74 05/03/17 12:11 16 05/03/17 12:00 84 05/03/17 12:00 98.0 84 16 135/60 (85) 98 I/O 05/03/17 05/03/17 05/03/17 05/04/17 05/04/17 05/04/17 07:00 15:00 23:00 07:00 15:00 23:00 Intake Total 648 ml 800 ml Output Total 850 ml Balance -202 ml 800 ml Intake Oral 120 ml IV Total 528 ml 800 ml Output Urine Total 850 ml # Voids 6 # Bowel Movements 1 4 Result Diagram: 05/01/17 0434 05/02/17 0501 Imaging Last Impressions Upper Extremity Ultrasound 05/01/17 0000 Signed Impressions: Service Date/Time: Monday, May 01, 2017 18:44 - CONCLUSION: 1. Limited exam due to patient's contracted condition and unwillingness to participate with the procedure. 2. There does appear to be occlusive thrombus throughout the left basilic vein, however. 3. Could not definitively identify the subclavian veins due to the depth of the vessels. Terrell Tobias MD Head CT 04/29/17 0000 Signed Impressions: Service Date/Time: Saturday, April 29, 2017 05:02 - CONCLUSION: 1. Persistent bilateral subdural collections being larger on the right. There is a right subdural drain in place. There is 6 mm of [id number] midline shift. 2. Persistent small parenchymal hemorrhage in the left occipital lobe. 3. Suspected cerebellar atrophy with expansion of the extra axial spaces in the posterior fossa. Carlos Eubanks MD Chest X-Ray 04/26/17 0600 Signed Impressions: Service Date/Time: Wednesday, April 26, 2017 02:45 - CONCLUSION: 1. No confluent infiltrate now identified. 2. The endotracheal tube remains in place with the tip at the level of the sarah. 3. The patient is mildly rotated. Esvin Raza MD Abdomen X-Ray 04/21/17 0000 Signed Impressions: Service Date/Time: Friday, April 21, 2017 10:21 - CONCLUSION: Suspected ileus. Dobbhoff feeding tube tip is in the upper stomach. Carlos Cole MD Hand X-Ray 04/20/17 1950 Signed Impressions: Service Date/Time: Thursday, April 20, 2017 19:54 - CONCLUSION: Flexion contractures of the fingers. No fracture or acute appearing malalignment demonstrated. Carlos Cole MD Pelvis X-Ray 04/20/17 192 Signed Impressions: Service Date/Time: Thursday, April 20, 2017 19:53 - CONCLUSION: Intact pelvis. Carlos Cole MD Procedures With Diagnosis of Right Hemisphere Subdural Hygroma, 04/22/17 status post Right parietal bur hole for evacuation of right hemisphere subdural hygroma by Doctor Art Martinez Other Results Laboratory Tests Test 04/20/17 22:02 04/20/17 23:20 04/21/17 00:35 04/21/17 07:20 Valproic Acid (Depakene) Level 55 MCG/ML Urine WBC Clumps OCC Urine Squamous Epithelial Cells 0-5 /hpf Urine Bacteria FEW /hpf Lactic Acid Level 1.7 mmol/L Nasal Screen MRSA (PCR) MRSA DETECTED Test 04/22/17 04:56 04/23/17 01:15 04/23/17 08:00 04/28/17 15:30 Blood Urea Nitrogen 11 MG/DL Creatinine 0.87 MG/DL Random Glucose 126 MG/DL Calcium Level 8.1 MG/DL Phosphorus Level 3.6 MG/DL Magnesium Level 2.1 MG/DL Sodium Level 146 MEQ/L Potassium Level 3.9 MEQ/L Chloride Level 113 MEQ/L Carbon Dioxide Level 22.8 MEQ/L Blood Gas Puncture Site PERCY Blood Gas Patient Temperature 98.6 Blood Gas HCO3 21 mmol/L Blood Gas Base Excess -3.5 mmol/L Blood Gas Oxygen Saturation 97 % Arterial Blood pH 7.35 Arterial Blood Partial Pressure CO2 39 mmHg Arterial Blood Partial Pressure O2 170 mmHg Arterial Blood Oxygen Content 15.7 Vol % Arterial Blood Carboxyhemoglobin 0.8 % Arterial Blood Methemoglobin 1.0 % Blood Gas Hemoglobin 11.2 G/DL Oxygen Delivery Device VENTILATOR Blood Gas Ventilator Setting PRVC14/550/1.0/+5 Blood Gas Inspired Oxygen 40 % Troponin I 0.06 NG/ML Urine Color LIGHT-YELLOW Urine Turbidity CLEAR Urine pH 7.5 Urine Specific [place] 1.005 Urine Protein NEG mg/dL Urine Glucose (UA) NEG mg/dL Urine Ketones NEG mg/dL Urine Occult Blood NEG Urine Nitrite NEG Urine Bilirubin NEG Urine Urobilinogen LESS THAN 2.0 MG/DL Urine Leukocyte Esterase NEG Urine RBC 1 /hpf Urine WBC 1 /hpf Urine Mucus FEW /lpf Microscopic Urinalysis Comment CATH-CULT NOT IND Test 04/29/17 07:53 05/01/17 04:34 05/02/17 05:01 Phenytoin (Dilantin) Level 14.0 MCG/ML White Blood Count 13.7 TH/MM3 Red Blood Count 3.45 MIL/MM3 Hemoglobin 10.6 GM/DL Hematocrit 32.9 % Mean Corpuscular Volume 95.4 FL Mean Corpuscular Hemoglobin 30.7 PG Mean Corpuscular Hemoglobin Concent 32.2 % Red Cell Distribution Width 16.5 % Platelet Count 221 TH/MM3 Mean Platelet Volume 8.4 FL Neutrophils (%) (Auto) 74.8 % Lymphocytes (%) (Auto) 12.5 % Monocytes (%) (Auto) 10.1 % Eosinophils (%) (Auto) 2.0 % Basophils (%) (Auto) 0.6 % Neutrophils # (Auto) 10.3 TH/MM3 Lymphocytes # (Auto) 1.7 TH/MM3 Monocytes # (Auto) 1.4 TH/MM3 Eosinophils # (Auto) 0.3 TH/MM3 Basophils # (Auto) 0.1 TH/MM3 CBC Comment DIFF FINAL Differential Comment Blood Urea Nitrogen 28 MG/DL 23 MG/DL Creatinine 1.15 MG/DL 0.90 MG/DL Random Glucose 143 MG/DL 133 MG/DL Total Protein 8.3 GM/DL Albumin 2.1 GM/DL Calcium Level 8.5 MG/DL 8.5 MG/DL Magnesium Level 2.2 MG/DL Alkaline Phosphatase 80 U/L Aspartate Amino Transf (AST/SGOT) 39 U/L Alanine Aminotransferase (ALT/SGPT) 24 U/L Total Bilirubin 0.8 MG/DL Sodium Level 145 MEQ/L 144 MEQ/L Potassium Level 4.8 MEQ/L 4.5 MEQ/L Chloride Level 115 MEQ/L 112 MEQ/L Carbon Dioxide Level 24.4 MEQ/L 21.7 MEQ/L Anion Gap 10 MEQ/L Estimat Glomerular Filtration Rate 85 ML/MIN Objective Remarks GENERAL: Awake alert, mental status probably at base-line HEAD: Incision clean, dry. EYES: No conjunctival icterus. No injection or drainage. +corneal opacities. ENT: No nasal bleeding or discharge. NECK: Trachea midline. Airway widely patent. CARDIOVASCULAR: Sinus tachycardia. No JVD. No murmurs. NL S1S2. RESPIRATORY: Clear, no adventitious sounds. GASTROINTESTINAL: Abdomen soft, non-tender, nondistended. No guarding. MUSCULOSKELETAL: No edema. Well perfused. Right arm diffuse generalized edema. NEUROLOGICAL: Eyes are spontaneously open, tracking, moves all extremities. Mumbling incomprehensible words. Pupils 2mm bilaterally +corneal opacities, responds to threat Medications and IVs Current Medications Medications (Trade) Dose Ordered Sig/Kely Route Start Time Stop Time Status Last Admin (NS Flush) 2 ml UNSCH PRN IV FLUSH 04/21/17 05:45 (NS Flush) 2 ml BID IV FLUSH 04/21/17 09:00 05/04/17 09:07 (Tylenol) 650 mg Q6H PRN PO 04/21/17 05:45 (Pepcid) 20 mg Q12HR PO 04/21/17 09:00 05/04/17 09:09 (Zofran Inj) 4 mg Q6H PRN IV PUSH 04/21/17 05:45 (Duoneb Neb) 1 ampule Q4HR NEB PRN INH 04/21/17 05:45 Miscellaneous Information 1 Q361D XX 04/21/17 05:45 04/21/17 07:05 (Chlorhexidine 2% Cloth) Taper DAILY@04 TOP 04/22/17 04:00 04/18/18 03:59 04/25/17 03:41 (Chlorhexidine 2% Cloth) 3 pack UNSCH PRN TOP 04/21/17 05:45 (Inna-Colace) 1 tab BID PO 04/21/17 09:00 05/04/17 09:08 (Milk Of Magnesia Liq) 30 ml Q12H PRN PO 04/21/17 05:45 04/26/17 10:21 (Senokot) 17.2 mg Q12H PRN PO 04/21/17 05:45 (Dulcolax Supp) 10 mg DAILY PRN RECTAL 04/21/17 05:45 (Lactulose Liq) 30 ml DAILY PRN PO 04/21/17 05:45 (Rocaltrol) 0.25 mcg DAILY PO 04/21/17 09:00 05/04/17 09:08 (Lanoxin) 0.125 mg DAILY PO 04/21/17 09:00 05/04/17 09:08 (Lexapro) 20 mg DAILY PO 04/21/17 09:00 05/04/17 09:09 (Ferrous Sulfate) 325 mg BIDPC PO 04/21/17 09:00 05/04/17 09:08 (risperDAL) 2 mg HS PO 04/21/17 21:00 05/03/17 22:05 (Ativan Inj) 1 mg Q15M PRN IV PUSH 04/21/17 07:00 05/03/17 04:11 (Cardizem) 90 mg Q6H PO 04/21/17 09:00 05/04/17 09:09 (Haldol Inj) 5 mg Q4H PRN IV 04/21/17 12:15 05/03/17 08:20 (Depakene Liq) 250 mg Q8H PO 04/21/17 12:00 05/04/17 05:33 (Geodon Inj) 10 mg Q12H PRN IM 04/21/17 16:45 04/28/17 15:21 (Apresoline Inj) 10 mg Q6H PRN IV PUSH 04/22/17 21:45 05/01/17 23:39 (fentaNYL INJ) 50 mcg Q1H PRN IV PUSH 04/22/17 21:45 05/03/17 11:11 (fentaNYL INJ) 25 mcg Q1H PRN IV PUSH 04/22/17 21:45 04/29/17 02:28 ([place] 5-325 Mg) 1 tab Q6H PRN PO 04/22/17 21:45 05/04/17 09:09 ([place] 5-325 Mg) 2 tab Q6H PRN PO 04/22/17 21:45 05/03/17 23:03 (Peridex 0.12% Liq) 15 ml BID@08,20 MT 04/23/17 08:00 05/02/17 20:00 (Dilantin Liq) 100 mg Q12H PO 04/25/17 04:00 05/04/17 05:33 (Bactroban Nasal 2% Oint) 1 applic BID NASAL 04/25/17 09:00 05/04/17 09:08 (Free Water) 300 ml Q4H NG 04/26/17 12:00 05/03/17 16:00 (Lopressor) 50 mg Q12H PO 04/28/17 21:00 05/04/17 09:09 (Catapres) 0.1 mg Q6H PO 04/28/17 17:00 05/03/17 23:03 A/P Assessment and Plan 1. Moderate size right subdural hygroma versus chronic hematoma, findings present on CT scan 02/21/17, asymptomatic as per Neurosurgery, the patient is not following commands, most likely will have persistent subdural hygroma with some mass effect Status post Right parietal bur hole for evacuation of right hemisphere subdural hygroma, 04/22/17, asked for Stat CT brain due to worsening neuro status, removed surgical wound mariah, removed drain insertion site. recommended to discharge to his residential facility, plan is for new CT brain on 12/04/17 if patient still in house. -repeat CT head follow up 04/28/17- Persistent bilateral subdural collections being larger on the right. 6 mm of [id number]-[id number] midline shift. continue Dilantin 100 mg BID. 2. Agitated Delirium Improved 3. UTI treated. 4. Acute respiratory failure resolved Extubated 04/26/17 5. Hypernatremia Improved. 6. chronic behavioral problems due to mental retardation Gastric protection with Famotidine on hold pharmacologic DVT prophylaxis SCDs Discharge Planning Discharge planning to SNF started. Kenn Reynoso MD May 04, 2017 10:35
[2017-05-04] MEDS ORDERED: Albuterol-Ipratropium Neb INH (11:26)
[2017-05-04] MEDS ORDERED: VALP250UDC PO (11:26)
[2017-05-04] MEDS ORDERED: PHEN100O PO (11:26)
[2017-05-04] MEDS ORDERED: FAMO20TA2 PO (11:26)
[2017-05-04] MEDS ORDERED: HYDR-3516 PO (11:26)
[2017-05-04] MEDS ORDERED: CLON.1 PO (11:26)
--- NOTE | 2017-05-04 11:30 | HHI.DS ---
Discharge Summary Admission Date Apr 21, 2017 at 01:36 Discharge Date: May 04, 2017 Admitting Diagnosis (1) Altered mental status ICD Code: R41.82 - Altered mental status, unspecified Diagnosis: Principal Status: Acute (2) Subdural hematoma, chronic ICD Code: I62.03 - Nontraumatic chronic subdural hemorrhage Diagnosis: Principal Status: Acute Procedures With Diagnosis of Right Hemisphere Subdural Hygroma, 04/22/17 status post Right parietal bur hole for evacuation of right hemisphere subdural hygroma by Doctor Art Martinez Brief History - From Admission 66 y/o man in assisted facility fell and received some minor bruising to his side. Aid thought he was more confused and disoriented than normal, so brought to ED. CT Head reveals right subdural hygroma / chronic subdural bleed. CBC/BMP: 05/01/17 0434 05/02/17 0501 Significant Findings Laboratory Tests Test 05/02/17 05:01 Blood Urea Nitrogen 23 MG/DL (7-18) Random Glucose 133 MG/DL (74-106) Chloride Level 112 MEQ/L (98-107) Estimat Glomerular Filtration Rate 85 ML/MIN (>89) Imaging Last Impressions Upper Extremity Ultrasound 05/01/17 0000 Signed Impressions: Service Date/Time: Monday, May 01, 2017 18:44 - CONCLUSION: 1. Limited exam due to patient's contracted condition and unwillingness to participate with the procedure. 2. There does appear to be occlusive thrombus throughout the left basilic vein, however. 3. Could not definitively identify the subclavian veins due to the depth of the vessels. Terrell Tobias MD Head CT 04/29/17 0000 Signed Impressions: Service Date/Time: Saturday, April 29, 2017 05:02 - CONCLUSION: 1. Persistent bilateral subdural collections being larger on the right. There is a right subdural drain in place. There is 6 mm of [id number] midline shift. 2. Persistent small parenchymal hemorrhage in the left occipital lobe. 3. Suspected cerebellar atrophy with expansion of the extra axial spaces in the posterior fossa. Carlos Eubanks MD Chest X-Ray 04/26/17 0600 Signed Impressions: Service Date/Time: Wednesday, April 26, 2017 02:45 - CONCLUSION: 1. No confluent infiltrate now identified. 2. The endotracheal tube remains in place with the tip at the level of the sarah. 3. The patient is mildly rotated. Esvin Raza MD Abdomen X-Ray 04/21/17 0000 Signed Impressions: Service Date/Time: Friday, April 21, 2017 10:21 - CONCLUSION: Suspected ileus. Dobbhoff feeding tube tip is in the upper stomach. Carlos Cole MD Hand X-Ray 04/20/17 1950 Signed Impressions: Service Date/Time: Thursday, April 20, 2017 19:54 - CONCLUSION: Flexion contractures of the fingers. No fracture or acute appearing malalignment demonstrated. Carlos Cole MD Pelvis X-Ray 04/20/17 1923 Signed Impressions: Service Date/Time: Thursday, April 20, 2017 19:53 - CONCLUSION: Intact pelvis. Carlos Cole MD PE at Discharge GENERAL: Awake alert, mental status probably at base-line HEAD: Incision clean, dry. EYES: No conjunctival icterus. No injection or drainage. +corneal opacities. ENT: No nasal bleeding or discharge. NECK: Trachea midline. Airway widely patent. CARDIOVASCULAR: Sinus tachycardia. No JVD. No murmurs. NL S1S2. RESPIRATORY: Clear, no adventitious sounds. GASTROINTESTINAL: Abdomen soft, non-tender, nondistended. No guarding. MUSCULOSKELETAL: No edema. Well perfused. Right arm diffuse generalized edema. NEUROLOGICAL: Eyes are spontaneously open, tracking, moves all extremities. Mumbling incomprehensible words. Pupils 2mm bilaterally +corneal opacities, responds to threat Hospital Course Floor Work[employer] [place] Notes: 66 y/o man in assisted facility fell and received some minor bruising to his side. Aid thought he was more confused and disoriented than normal, so brought to ED. CT Head reveals right subdural hygroma / chronic subdural bleed. 04/22: agitation persists. responded well to geodon IM yesterday. plan to go to OR for felicia hole. 04/23: taken for felicia hole yesterday. remains intubated post-op. post-op scan with significant pneumocephalus and new left SDH. non-op per Dr. Martinez. baseline mental status will make it significantly difficult to assess current neuro exam and appropriateness of extubation. 04/24: Remains intubated sedated. CT head today improved pneumocephalus and improved subfalcine herniation. Difficult to assess for vent wean due to developmental delay 04/25: On sedation vacation patient remained apneic on attempted CPAP. Placed back on forced vent support. We'll discontinue continuous sedation. CT from yesterday shows improvement 04/26: Tolerating CPAP today. Moving all extremities. Maintaining good oxygen saturation. We will attempt trial extubation (Unable to assess neuro improvement) 04/27: Extubated 04/26. Tolerating well. Moving all extremities. Mumbling speech. Drain in place 04/28: Breathing comfortably moving all extremities. Sodium 155, 1/4 normal saline increase to 150 mL per hour. Follow-up CT of the head tomorrow a.m. 04/29: Remains stable clinically. Ct head today shows persistent bilateral subdural collections being larger on the right despite a right subdural drain in place, 6 mm of [id number] midline shift. Persistent small parenchymal hemorrhage left occipital lobe. 04/30: No acute events overnight. Patient is awake, not following commands. Tracks. Subdural drain removed today by neurosurgery. 05/01: No change. Has developed large edema right arm and lessor amount left - will check US. 05/02: Occlusive thrombus left arm. Can't anticoagulate due to recent head bleed. Hospitalist Notes: 05/03: Seen in Intensive Care Unit, he is been transferred to hospitalist team, he had Moderate size right subdural hygroma versus chronic hematoma, findings present on CT scan 02/21/17, asymptomatic as per Neurosurgery, the patient is not following commands, most likely will have persistent subdural hygroma with some mass effect Status post Right parietal bur hole for evacuation of right hemisphere subdural hygroma, 04/22/17, asked for Stat CT brain due to worsening neuro status, removed surgical wound mariah, removed drain insertion site. recommended to discharge to his residential facility, plan is for new CT brain on 05/06/17 if patient still in house. he was seen in his bedroom in the presence of nurse Miss Kaylin st. 05/04: Stable in his bedroom, okay to Discharge to SNF as per Neurosurgery, his Hyponatremia improved, he was cleared to go yesterday by Neurosurgery, discussed with nurse Miss Quijano and with medical case manager will place an order for discharge to SNF once bed available. No nausea, vomit or diarrhea Assessment and Plan 1. Moderate size right subdural hygroma versus chronic hematoma, findings present on CT scan 02/21/17, asymptomatic as per Neurosurgery, the patient is not following commands, most likely will have persistent subdural hygroma with some mass effect Status post Right parietal bur hole for evacuation of right hemisphere subdural hygroma, 04/22/17, asked for Stat CT brain due to worsening neuro status, removed surgical wound mariah, removed drain insertion site. recommended to discharge to his residential facility, plan is for new CT brain on 05/06/17 if patient still in house. -repeat CT head follow up 04/28/17- Persistent bilateral subdural collections being larger on the right. 6 mm of mfvuq-[id number] midline shift. continue Dilantin 100 mg BID. 2. Agitated Delirium Improved 3. UTI treated. 4. Acute respiratory failure resolved Extubated 04/26/17 5. Hypernatremia Improved. 6. chronic behavioral problems due to mental retardation Gastric protection with Famotidine on hold pharmacologic DVT prophylaxis SCDs Discharge Planning Discharge to Home he has a managing facility for Mental pathologies before will go there Pt Condition on Discharge: Stable Discharge Disposition: Discharge Home Discharge Time: > 30 minutes Discharge Instructions DIET: Follow Instructions for: Heart Healthy Diet Activities you can perform: Regular-No Restrictions Other Activity Instructions: Follow recommendations given by Physical Therapy team. Kenn Reynoso MD May 04, 2017 11:30
[2017-05-04 11:48] VITALS: BP 137/74; PULSE 97; RESP 20; TEMP 98.3; O2SAT 100
== END 2017-05-04 12:08 | disposition home or self-care (01) | DRG 25 ==
LOC: NEPC 19:09 → NEDA 04-21 01:36 → N03A 04-21 06:28 → N05A 05-03 18:45
PROVIDERS: ADMIT Internal Medicine; ATTEND Internal Medicine
PROC: 5A1945Z Respiratory Ventilation, 24-96 Consecutive Hours (ICD-10-PCS; 2017-04-22)
PROC: 00C43ZZ Extirpation of Matter from Intracranial Subdural Space, Percutaneous Approach (ICD-10-PCS; principal; 2017-04-22 18:41)
PROC: 0DH67UZ Insertion of Feeding Device into Stomach, Via Natural or Artificial Opening (ICD-10-PCS; 2017-04-29)
DX: I62.03 Nontraumatic chronic subdural hemorrhage (principal); J96.00 Acute respiratory failure, unspecified whether with hypoxia or hypercapnia; G97.62 Postprocedural hematoma of a nervous system organ or structure following other procedure; G93.5 Compression of brain; G93.40 Encephalopathy, unspecified; I47.1 Supraventricular tachycardia; N39.0 Urinary tract infection, site not specified; I82.629 Acute embolism and thrombosis of deep veins of unspecified upper extremity; E87.0 Hyperosmolality and hypernatremia; I10 Essential (primary) hypertension; F79 Unspecified intellectual disabilities; S60.221A Contusion of right hand, initial encounter; S70.01XA Contusion of right hip, initial encounter; W19.XXXA Unspecified fall, initial encounter; Y93.89 Activity, other specified; I73.9 Peripheral vascular disease, unspecified; I61.9 Nontraumatic intracerebral hemorrhage, unspecified; Z79.02 Long term (current) use of antithrombotics/antiplatelets; G40.909 Epilepsy, unspecified, not intractable, without status epilepticus; Z78.1 Physical restraint status; Y83.8 Other surgical procedures as the cause of abnormal reaction of the patient, or of later complication, without mention of misadventure at the time of the procedure; Y92.239 Unspecified place in hospital as the place of occurrence of the external cause; G93.89 Other specified disorders of brain
CPT/HCPCS: 70450; 71010; 72170; 73120; 74000; 76937; 80048; 80053; 80164; 80185; 81001; 82805; 83605; 83735; 84100; 84295; 84484; 85025; 85027; 86077; 86850; 86870; 86900; 86901; 86920; 86922; 87040; 87070; 87077; 87086; 87186; 87205; 87641; 93005; 93970; 94003; 96365; 96375; J0360; J0690; J0696; J1580; J1630; J2060; J2250; J2370; J2543; J3010; J3480; J3486; J7030; J7050

== ENCOUNTER 2017-05-13 17:17 | Inpatient (IN) | payer MEDICARE, OTHER ==
[~2017-05-13 17:17] MED LIST changes: -ASCO500T PO; +Albuterol-Ipratropium Neb INH; +CALC0.25 PO; +CHOL10008 PO; +CLON.1 PO; -CLON0.5T PO; -DIVA125C PO; +FAMO20TA2 PO; +FIBE625T10 PO; +HYDR-3516 PO; +RISP2TAB2 PO; +VALP250UDC PO; -XARE20TA PO
[2017-05-13 17:20] VITALS: BP 128/77; PULSE 69; RESP 19; TEMP 96.8; O2SAT 98
[2017-05-13 18:02] LABS: AUTOMATED NEUTROPHIL # 11.1 TH/MM3 (1.8-7.7); BASOPHIL # 0.1 TH/MM3 (0-0.2); BASOPHIL % 0.9 % (0.0-2.0); EOSINOPHIL # 0.4 TH/MM3 (0-0.4); EOSINOPHIL % 2.5 % (0.0-4.0); HEMATOCRIT 33.9 % (39.0-51.0); HEMO FLAGS DIFF FINAL; LYMPH % 17.8 % (9.0-44.0); LYMPHOCYTE # 2.7 TH/MM3 (1.0-4.8); MEAN CELL VOLUME 97.8 FL (80.0-100.0); MEAN CORPUSCULAR HEMOGLOBIN 31.8 PG (27.0-34.0); MEAN CORPUSCULAR HGB CONC 32.5 % (32.0-36.0); MONO % 6.3 % (0.0-8.0); NEUT % 72.5 % (16.0-70.0); PLATELET COUNT 265 TH/MM3 (150-450); RED BLOOD COUNT 3.47 MIL/MM3 (4.50-5.90); RED CELL DISTRIBUTION WIDTH 17.2 % (11.6-17.2); WHITE BLOOD COUNT 15.4 TH/MM3 (4.0-11.0)
[2017-05-13 18:17] LABS: ANION GAP 7 MEQ/L (5-15)
[2017-05-13 18:27] LABS: ALKALINE PHOSPHATASE 91 U/L (45-117); ALT (GPT) 15 U/L (12-78); AST (GOT) 16 U/L (15-37); BICARBONATE 24.5 MEQ/L (21.0-32.0); BLOOD UREA NITROGEN 36 MG/DL (7-18); CHLORIDE 127 MEQ/L (98-107); GLOMERULAR FILTRATION RATE 49 ML/MIN (>89); MAGNESIUM 2.6 MG/DL (1.5-2.5); TOTAL BILIRUBIN ADULT 0.2 MG/DL (0.2-1.0)
[2017-05-13 18:30] LABS: POTASSIUM 4.5 MEQ/L (3.5-5.1)
[2017-05-13 18:33] LABS: SODIUM (NA) 158 MEQ/L (136-145)
[2017-05-13 19:05] VITALS: BP 145/74; PULSE 56; RESP 16; O2SAT 99
--- NOTE | 2017-05-13 19:29 | PD ---
HPI Chief Complaint: Abnormal Results Time Seen by Provider: 19:20 Travel History International Travel<30 days: No Contact w/Intl Traveler<30days: No Traveled to known affect area: No History of Present Illness HPI 66-year-old male presents to emergency Department with abnormal labs. According to his splitter head, labs were drawn for a regular checkup and found to be hypernatremic. Caregiver states that he has had decreased oral intake since discharge May 05. Patient has also been nonverbal which is not normal for him. Patient is not responding to his name and just seems "out of it". Denies any recent falls. Denies fever, chills, chest pain, shortness of breath, abdominal pain. Denies history of cardiac or pulmonary issues. He does have a chronic subdural hematoma and mental retardation. PFSH Past Medical History Hx Anticoagulant Therapy: Yes Arthritis: Yes Autoimmune Disease: No Anxiety: Yes Heart Rhythm Problems: Yes (bradycardia) Cancer: No Cardiovascular Problems: Yes (Orthostatic hypotension,Bradycardia, venous insufficiency) High Cholesterol: No Chest Pain: No Congestive Heart Failure: No Cerebrovascular Accident: No Diabetes: No Patient Takes Glucophage: No Diminished Hearing: No Endocrine: No Genitourinary: Yes (multiple urinary tract infection,) Headaches: No Hypertension: Yes Immune Disorder: No Kidney Stones: No Musculoskeletal: Yes (chronic cellulitis lower extremities) Neurologic: Yes (Mentally challenged, tremors per record) Psychiatric: Yes (Bipolar, obsessive compulsive, combative at staff in snf) Reproductive: No Respiratory: No Immunizations Current: Yes Migraines: No Renal Failure: Yes Seizures: Yes Thyroid Disease: No Tetanus Vaccination: > 5 Years Influenza Vaccination: No Past Surgical History Other Surgery: No ( ) Social History Alcohol Use: No Tobacco Use: No (UNABLE TO ASSESS) Substance Use: No Allergies-Medications (Allergen,Severity, Reaction): Coded Allergies: gabapentin (Verified Allergy, Unknown, 05/13/17) thioridazine (Verified Allergy, Unknown, 05/13/17) sulfamethoxazole (Verified Adverse Reaction, Severe, 05/13/17) trimethoprim (Verified Adverse Reaction, Severe, 05/13/17) Reported Meds & Prescriptions Reported Meds & Active Scripts Active Famotidine 20 Mg Tab 20 Mg PO Q12HR Catapres (Clonidine) 0.1 Mg Tab 0.1 Mg PO Q6H Hold for systolic blood pressure in 110 mm Hg or below [Albuterol-Ipratropium Neb] 1 AMPULE Nebu 1 Ampule INH Q4HR NEB PRN Valproic Acid 250 Mg/5 Ml (5 Ml) Solution 250 Mg PO Q8H Hydrocodone-Acetamin 5-325 mg (Hydrocodone/Acetaminophen) 5 Mg-325 Mg Tablet 1 Tab PO Q6H PRN Digoxin 0.125 Mg Tab 0.125 Mg PO DAILY Reported Diltiazem (Diltiazem HCl) 30 Mg Tab 30 Mg PO QID Lopressor (Metoprolol Tartrate) 50 Mg Tab 25 Mg PO QID Ranitidine (Ranitidine HCl) 150 Mg Tab 150 Mg PO BID Depakote Sprinkles (Divalproex Sodium) 125 mg Cap 1,000 Mg PO BID Clonazepam 0.5 Mg Tab 0.5 Mg PO BID Phenytoin Liq (Phenytoin) 125 Mg/5 Ml Jaelyn 250 Mg PO Q8HR Calcitriol 0.25 Mcg Cap 0.25 Mcg PO DAILY Fiber (Calcium Polycarbophil) 625 Mg Tab 1,250 Mg PO PRN Vitamin D3 (Cholecalciferol) 1,000 Unit Cap 1,000 Units PO DAILY Risperidone 2 Mg Tab 2 Mg PO HS Ferrous Sulfate 325 Mg (65 Mg Iron) Tablet 325 Mg PO BIDPC Multiple Vitamin 1 Tab 1 Tab PO DAILY Escitalopram (Escitalopram Oxalate) 20 Mg Tab 20 Mg PO DAILY Review of Systems Except as stated in HPI: all other systems reviewed are Neg Physical Exam Exam Limitations: Poor Historian Narrative GENERAL: Well-developed, cachectic, obtunded SKIN: Focused skin assessment warm/dry. HEAD: Atraumatic. Normocephalic. EYES: Pupils equal and round. No scleral icterus. No injection or drainage. Left eye-scleral injection ENT: No nasal bleeding or discharge. Mucous membranes pink and moist. NECK: Trachea midline. No JVD. CARDIOVASCULAR: Regular rate and rhythm. No murmur appreciated. RESPIRATORY: No accessory muscle use. Clear to auscultation. Breath sounds equal bilaterally. GASTROINTESTINAL: Abdomen soft, non-tender, nondistended. Hepatic and splenic margins not palpable. MUSCULOSKELETAL: No obvious deformities. No clubbing. No cyanosis. No edema. NEUROLOGICAL: Awake and alert. No obvious cranial nerve deficits. Motor grossly within normal limits. Normal speech. PSYCHIATRIC: Appropriate mood and affect; insight and judgment normal. Data Data Last Documented VS Vital Signs Date Time Temp Pulse Resp B/P (MAP) Pulse Ox O2 Delivery O2 Flow Rate FiO2 05/13/17 19:05 56 16 145/74 (97) 99 Room Air 05/13/17 17:20 96.8 Orders Orders Complete Blood Count With Diff (05/13/17 17:31) Comprehensive Metabolic Panel (05/13/17 17:31) Magnesium (Mg) (05/13/17 17:31) Sodium Chlorid 0.9% 500 Ml Inj (Ns 500 M (05/13/17 19:45) Ct Brain W/O Iv Contrast(Rout) (05/13/17 ) Admit Order (Ed Use Only) (05/13/17 21:17) Lactated Ringer's 1000 Ml Inj (Lr 1000 M (05/13/17 22:15) Place In Observation (05/13/17 ) Vital Signs (Adult) Q4H (05/13/17 22:06) Neuro Checks Q4H (05/13/17 22:06) Activity Bed Rest (05/13/17 22:06) [employer] / Telemetry .CONTINUOUS (05/13/17 22:06) Intake + Output CATERINA.QSHIFT (05/13/17 22:06) Diet Heart Healthy (05/14/17 Breakfast) Sodium Chloride 0.9% Flush (Ns Flush) (05/13/17 22:15) Sodium Chloride 0.9% Flush (Ns Flush) (05/14/17 09:00) Acetaminophen (Tylenol) (05/13/17 22:15) Ondansetron Inj (Zofran Inj) (05/13/17 22:15) Basic Metabolic Panel (Bmp) (05/14/17 06:00) Complete Blood Count With Diff (05/14/17 06:00) Naloxone Inj (Narcan Inj) (05/13/17 22:15) Enoxaparin Inj (Lovenox Inj) (05/13/17 22:15) Calcitriol (Rocaltrol) (05/14/17 09:00) Clonazepam (Klonopin) (05/13/17 22:15) Clonidine (Catapres) (05/13/17 22:15) Digoxin (Lanoxin) (05/14/17 09:00) Diltiazem (Cardizem) (05/14/17 09:00) Divalproex Sprinkles (Depakote Sprinkles (05/14/17 09:00) Escitalopram (Lexapro) (05/14/17 09:00) Ferrous Sulfate (Ferrous Sulfate) (05/14/17 09:00) Phenytoin Liq (Dilantin Liq) (05/13/17 22:15) Famotidine (Pepcid) (05/13/17 22:15) Risperidone (Risperdal) (05/13/17 22:15) Labs Laboratory Tests Test 05/13/17 17:50 White Blood Count 15.4 TH/MM3 Red Blood Count 3.47 MIL/MM3 Hemoglobin 11.0 GM/DL Hematocrit 33.9 % Mean Corpuscular Volume 97.8 FL Mean Corpuscular Hemoglobin 31.8 PG Mean Corpuscular Hemoglobin Concent 32.5 % Red Cell Distribution Width 17.2 % Platelet Count 265 TH/MM3 Mean Platelet Volume 8.6 FL Neutrophils (%) (Auto) 72.5 % Lymphocytes (%) (Auto) 17.8 % Monocytes (%) (Auto) 6.3 % Eosinophils (%) (Auto) 2.5 % Basophils (%) (Auto) 0.9 % Neutrophils # (Auto) 11.1 TH/MM3 Lymphocytes # (Auto) 2.7 TH/MM3 Monocytes # (Auto) 1.0 TH/MM3 Eosinophils # (Auto) 0.4 TH/MM3 Basophils # (Auto) 0.1 TH/MM3 CBC Comment DIFF FINAL Differential Comment Blood Urea Nitrogen 36 MG/DL Creatinine 1.44 MG/DL Random Glucose 97 MG/DL Total Protein 8.6 GM/DL Albumin 2.2 GM/DL Calcium Level 8.7 MG/DL Magnesium Level 2.6 MG/DL Alkaline Phosphatase 91 U/L Aspartate Amino Transf (AST/SGOT) 16 U/L Alanine Aminotransferase (ALT/SGPT) 15 U/L Total Bilirubin 0.2 MG/DL Sodium Level 158 MEQ/L Potassium Level 4.5 MEQ/L Chloride Level 127 MEQ/L Carbon Dioxide Level 24.5 MEQ/L Anion Gap 7 MEQ/L Estimat Glomerular Filtration Rate 49 ML/MIN MDM Medical Decision Making Medical Screen Exam Complete: Yes Emergency Medical Condition: Yes Differential Diagnosis Dehydration, epidural hematoma, subretinal hemorrhage, malnourishment Narrative Course 66-year-old male presents to emergency Department with abnormal labs. According to his splitter head, labs were drawn for a regular checkup and found to be hypernatremic. Caregiver states that he has had decreased oral intake since discharge May 05 from [facility]. Patient has also been nonverbal which is not normal for him. Patient is not responding to his name and just seems "out of it". Denies any recent falls. Denies fever, chills, chest pain, shortness of breath, abdominal pain. Denies history of cardiac or pulmonary issues. Vital signs stable. Physical exam limited secondary to patient's inability and reluctance to follow commands. Concerning for dehydration, neurological abnormality. Laboratory Tests Test 05/13/17 17:50 Blood Urea Nitrogen 36 MG/DL Creatinine 1.44 MG/DL Random Glucose 97 MG/DL Total Protein 8.6 GM/DL Albumin 2.2 GM/DL Calcium Level 8.7 MG/DL Magnesium Level 2.6 MG/DL Alkaline Phosphatase 91 U/L Aspartate Amino Transf (AST/SGOT) 16 U/L Alanine Aminotransferase (ALT/SGPT) 15 U/L Total Bilirubin 0.2 MG/DL Sodium Level 158 MEQ/L Potassium Level 4.5 MEQ/L Chloride Level 127 MEQ/L Carbon Dioxide Level 24.5 MEQ/L Last Impressions Head CT 05/13/17 0000 Signed Impressions: Service Date/Time: Saturday, May 13, 2017 20:15 - CONCLUSION: 1. Removal of previous right subdural drain with persistent bilateral chronic subdural fluid collections. This is larger on the right measuring up to 1.3 cm in diameter, similar to prior exam. Midline shift from right to left is about 7 mm compared with previous measurement of about 6 mm. Mike Naik MD No significant change in head CT from earlier this month. Because of age and health status, limited fluid bolus to 500cc NS. PT likely is dehydrated with AMS and requires inpatient monitoring and fluid replacement. I requested that the splitter head remain with this patient until complete hand off to the hospital as she was familiar with this now non-verbal patient. Thank you again Dr. Santa for taking this patient. Diagnosis Primary Impression: Hypernatremia Additional Impressions: Dehydration Altered mental status Qualified Codes: R40.0 - Somnolence Admitting Information Admitting Physician Requests: Admit Condition: Stable Justice,Cynthia PA May 13, 2017 19:29
[2017-05-13] MEDS ORDERED: DILT30TA PO (19:34)
[2017-05-13] MEDS ORDERED: RANI150T PO (19:34)
[2017-05-13] MEDS ORDERED: PHEN125S PO (19:34)
[2017-05-13] MEDS ORDERED: METO-309 PO (19:34)
[2017-05-13] MEDS ORDERED: CLON0.5T PO (19:34)
[2017-05-13] MEDS ORDERED: DIVA125C PO (19:34)
[2017-05-13] MEDS ORDERED: SODIUM CHLORID 0.9% 500 ML INJ 500 ML IV ONE (19:45)
[2017-05-13 20:22] VITALS: BP_SYST 120; BP_SYST 137; BP_SYST 141; BP_DIAS 85; BP_DIAS 91; BP_DIAS 96; RESP 18
--- NOTE | 2017-05-13 20:52 | RADRPT ---
EXAM DATE/TIME: 05/13/2017 20:15 [facility] COMPARISON: No previous studies available for comparison. INDICATIONS : Altered mental status, history of recent subural bleed. RADIATION DOSE: 56.36 CTDIvol (mGy) MEDICAL HISTORY : Cardiovascular disease. Seizures. Hypertension.Right subdural hygroma SURGICAL HISTORY : None. ENCOUNTER: Initial ACUITY: 1 day PAIN SCALE: Non-responsive LOCATION: cranial TECHNIQUE: Multiple contiguous axial images were obtained of the head. Using automated exposure control and adj ustment of the mA and/or kV according to patient size, radiation dose was kept as low as reasonably a chievable to obtain optimal diagnostic quality images. DICOM format image data is available electro nically for review and comparison. FINDINGS: Comparison is April 29. Again seen are chronic bilateral subdural fluid collections, larger on the right side measuring up to about 1.3 cm in diameter. It is about 7 mm of [id number] midline shift compared with previous measurement of about 6 mm. Previous pneumocephalus has resolved. No new bony abnormality. Previous subdural drain has been removed. CONCLUSION: 1. Removal of previous right subdural drain with persistent bilateral chronic subdural fluid collecti ons. This is larger on the right measuring up to 1.3 cm in diameter, similar to prior exam. Midline s hift from right to left is about 7 mm compared with previous measurement of about 6 mm. Mike Naik MD on May 13, 2017 at 20:49 Board Certified Radiologist. This report was verified electronically.
[2017-05-13] MEDS ORDERED: ACETAMINOPHEN 325 MG TAB PO PRN (22:15)
[2017-05-13] MEDS ORDERED: ONDANSETRON HCL 4 MG/2 ML VIAL IVP PRN (22:15)
[2017-05-13] MEDS ORDERED: SODIUM CHLORIDE 0.9% FLUSH 10 ML FLUSH IV FLUSH PRN (22:15)
[2017-05-13] MEDS ORDERED: ENOXAPARIN SODIUM 40 MG/0.4 ML SYRINGE SQ SCH (22:15)
[2017-05-13] MEDS ORDERED: NALOXONE HCL 0.4 MG/ML AMP IV PUSH PRN (22:15)
--- NOTE | 2017-05-13 23:09 | HHI.HP ---
[facility] Primary [facility] Physician Cesario Martin MD Admission Diagnosis dehydration, AMS, hypernatremia Diagnoses: Travel History International Travel<30 Days: No Contact w/Intl Traveler <30 Da: No Traveled to Known Affected Are: No History of Present Illness 66-year-old male an extensive past medical history with chronic subdural hematoma and mental retardation presents to the emergency department after an abnormal outpatient labs resulted. I spoke with his caregiver at length who states that since the patient was released from the hospital on 05/04 where he was treated for altered mental status and a fall secondary to his subdural hematoma he has had decreased by mouth intake. She also reports that the patient's mental status has been somewhat muted, he has decreased interest in things that normally excite him. Laboratory values significant for a sodium of 158, chloride of 127, BUN/creatinine 1.44 (baseline 0.90). The patient also has a leukocytosis of 15.4 which is chronic for him. He is afebrile and normotensive. Review of Systems Unable to obtain secondary to patient's clinical condition Past Family Social History Past Medical History (Obtained from medical records) Bipolar disorder Obsessive-compulsive disorder BPH Arachnoid cyst Chronic kidney disease Seizures Bradycardia Orthostatic hypotension Peripheral vascular disease Hypertension Seizure disorder Mental retardation Venous insufficiency History of DVT Past Surgical History Unable to obtain Reported Medications Reported Meds & Active Scripts Active Famotidine 20 Mg Tab 20 Mg PO Q12HR Catapres (Clonidine) 0.1 Mg Tab 0.1 Mg PO Q6H Hold for systolic blood pressure in 110 mm Hg or below [Albuterol-Ipratropium Neb] 1 AMPULE Nebu 1 Ampule INH Q4HR NEB PRN Valproic Acid 250 Mg/5 Ml (5 Ml) Solution 250 Mg PO Q8H Hydrocodone-Acetamin 5-325 mg (Hydrocodone/Acetaminophen) 5 Mg-325 Mg Tablet 1 Tab PO Q6H PRN Digoxin 0.125 Mg Tab 0.125 Mg PO DAILY Reported Diltiazem (Diltiazem HCl) 30 Mg Tab 30 Mg PO QID Lopressor (Metoprolol Tartrate) 50 Mg Tab 25 Mg PO QID Ranitidine (Ranitidine HCl) 150 Mg Tab 150 Mg PO BID Depakote Sprinkles (Divalproex Sodium) 125 mg Cap 1,000 Mg PO BID Clonazepam 0.5 Mg Tab 0.5 Mg PO BID Phenytoin Liq (Phenytoin) 125 Mg/5 Ml Jaelyn 250 Mg PO Q8HR Calcitriol 0.25 Mcg Cap 0.25 Mcg PO DAILY Fiber (Calcium Polycarbophil) 625 Mg Tab 1,250 Mg PO PRN Vitamin D3 (Cholecalciferol) 1,000 Unit Cap 1,000 Units PO DAILY Risperidone 2 Mg Tab 2 Mg PO HS Ferrous Sulfate 325 Mg (65 Mg Iron) Tablet 325 Mg PO BIDPC Multiple Vitamin 1 Tab 1 Tab PO DAILY Escitalopram (Escitalopram Oxalate) 20 Mg Tab 20 Mg PO DAILY Allergies: Coded Allergies: gabapentin (Verified Allergy, Unknown, 05/13/17) thioridazine (Verified Allergy, Unknown, 05/13/17) sulfamethoxazole (Verified Adverse Reaction, Severe, 05/13/17) trimethoprim (Verified Adverse Reaction, Severe, 05/13/17) Family History Unable to obtain Social History There is no history of smoking, alcohol or substance abuse. The patient is a resident of [facility]. Physical Exam Vital Signs Vital Signs Date Time Temp Pulse Resp B/P (MAP) Pulse Ox O2 Delivery O2 Flow Rate FiO2 05/13/17 22:38 05/13/17 19:05 56 16 145/74 (97) 99 Room Air 05/13/17 17:20 96.8 69 19 128/77 (94) 98 Room Air Physical Exam GENERAL: Cachectic, male lying in bed SKIN: No rashes, ecchymoses or lesions. Cool and dry. HEAD: Atraumatic. Normocephalic. No temporal or scalp tenderness. EYES: Pupils equal round and reactive. Extraocular motions intact. No scleral icterus. No injection or drainage. ENT: Nose without bleeding, purulent drainage or septal hematoma. Throat without erythema, tonsillar hypertrophy or exudate. Uvula midline. Airway patent. NECK: Trachea midline. No JVD or lymphadenopathy. Supple, nontender, no meningeal signs. CARDIOVASCULAR: Regular rate and rhythm without murmurs, gallops, or rubs. RESPIRATORY: Clear to auscultation. Breath sounds equal bilaterally. No wheezes , rales, or rhonchi. GASTROINTESTINAL: Abdomen soft, non-tender, nondistended. No hepato-splenomegaly , or palpable masses. MUSCULOSKELETAL: Extremities without clubbing, cyanosis, or edema. No joint tenderness, effusion, or edema noted. NEUROLOGICAL: Alert. Moves all 4 extremities. Further evaluation not possible as patient would not follow commands. No obvious lateralizing signs. Laboratory Laboratory Tests Test 05/13/17 17:50 White Blood Count 15.4 Red Blood Count 3.47 Hemoglobin 11.0 Hematocrit 33.9 Mean Corpuscular Volume 97.8 Mean Corpuscular Hemoglobin 31.8 Mean Corpuscular Hemoglobin Concent 32.5 Red Cell Distribution Width 17.2 Platelet Count 265 Mean Platelet Volume 8.6 Neutrophils (%) (Auto) 72.5 Lymphocytes (%) (Auto) 17.8 Monocytes (%) (Auto) 6.3 Eosinophils (%) (Auto) 2.5 Basophils (%) (Auto) 0.9 Neutrophils # (Auto) 11.1 Lymphocytes # (Auto) 2.7 Monocytes # (Auto) 1.0 Eosinophils # (Auto) 0.4 Basophils # (Auto) 0.1 CBC Comment DIFF FINAL Differential Comment Blood Urea Nitrogen 36 Creatinine 1.44 Random Glucose 97 Total Protein 8.6 Albumin 2.2 Calcium Level 8.7 Magnesium Level 2.6 Alkaline Phosphatase 91 Aspartate Amino Transf (AST/SGOT) 16 Alanine Aminotransferase (ALT/SGPT) 15 Total Bilirubin 0.2 Sodium Level 158 Potassium Level 4.5 Chloride Level 127 Carbon Dioxide Level 24.5 Anion Gap 7 Estimat Glomerular Filtration Rate 49 Result Diagram: 05/13/17174905/13/171749 Caprini VTE Risk Assessment Caprini VTE Risk Assessment: Mod/High Risk (score >= 2) Caprini Risk Assessment Model Point Value = 1 Point Value = 2 Point Value = 3 Point Value = 5 Age 41-60 Minor surgery BMI > 25 kg/m2 Swollen legs Varicose veins or History of unexplained or recurrent spontaneous Oral contraceptives or hormone replacement Sepsis (< 1 month) Serious lung disease, including pneumonia (< 1 month) Abnormal pulmonary function Acute myocardial infarction Congestive heart failure (< 1 month) History of inflammatory bowel disease Medical patient at bed rest Age 61-74 Arthroscopic surgery Major open surgery (> 45 min) Laparoscopic surgery (> 45 min) Malignancy Confined to bed (> 72 hours) Immobilizing plaster cast Central venous access Age >= 75 History of VTE Family history of VTE Factor V Leiden Prothrombin [id number] Lupus anticoagulant Anticardiolipin antibodies Elevated serum homocysteine Heparin-induced thrombocytopenia Other congenital or acquired thrombophilia Stroke (< 1 month) Elective arthroplasty Hip, pelvis, or leg fracture Acute spinal cord injury (< 1 month) Prophylaxis Regimen Total Risk Factor Score Risk Level Prophylaxis Regimen 0-1 Low Early ambulation 2 Moderate Order ONE of the following: *Sequential Compression Device (SCD) *Heparin 5000 units SQ BID 3-4 Higher Order ONE of the following medications: *Heparin 5000 units SQ TID *Enoxaparin/Lovenox 40 mg SQ daily (WT < 150 kg, CrCl > 30 mL/min) *Enoxaparin/Lovenox 30 mg SQ daily (WT < 150 kg, CrCl > 10-29 mL/min) *Enoxaparin/Lovenox 30 mg SQ BID (WT < 150 kg, CrCl > 30 mL/min) AND/OR *Sequential Compression Device (SCD) 5 or more Highest Order ONE of the following medications: *Heparin 5000 units SQ TID (Preferred with Epidurals) *Enoxaparin/Lovenox 40 mg SQ daily (WT < 150 kg, CrCl > 30 mL/min) *Enoxaparin/Lovenox 30 mg SQ daily (WT < 150 kg, CrCl > 10-29 mL/min) *Enoxaparin/Lovenox 30 mg SQ BID (WT < 150 kg, CrCl > 30 mL/min) AND *Sequential Compression Device (SCD) Assessment and Plan Assessment and Plan Assessment/plan: 1. Electrolyte abnormalities Sodium 158, chloride 127 LR at 75 cc/hour Follow-up BMP 2. PATRICIA Suspect secondary to decreased by mouth intake BUN/creatinine 36/1.44 (baseline 0.90) IV fluids as above 3. Chronic subdural hematoma Head CT significant for persistent bilateral chronic subdural fluid collections which is unchanged from previous 4. Hypertension/seizure disorder/bipolar disorder Continue home medication FEN Heart healthy diet Electrolytes: as above LR at 75 cc/hr Holding pharmacologic anticoagulation as patient has chronic subdural bleed Case discussed with ER physician at length Michelle Santa MD May 13, 2017 23:09
[2017-05-13] MEDS: clonazePAM 0.5 MG TAB PO SCH (23:40)
[2017-05-13] MEDS: PHENYTOIN SUSP 100 MG/4 ML CUP PO SCH (23:40)
[2017-05-13] MEDS: cloNIDine HCL 0.1 MG TAB PO SCH (23:40)
[2017-05-13] MEDS: FAMOTIDINE 20 MG TAB PO SCH (23:41)
[2017-05-13] MEDS: risperiDONE 1 MG TAB PO SCH (23:41)
[2017-05-13] MEDS: LACTATED RINGER'S 1000 ML INJ 1,000 ML IV SCH (23:41)
[2017-05-14] VITALS (8 sets, daily range): BP systolic 124–146; BP diastolic 63–93; PULSE 40–78; RESP 18–22; TEMP 96.3–98.4; O2SAT 97–100
[2017-05-14] MEDS: LACTATED RINGER'S 1000 ML INJ 1,000 ML IV SCH (00:58)
[2017-05-14] MEDS: cloNIDine HCL 0.1 MG TAB PO SCH ×4 (04:53→22:15)
[2017-05-14] MEDS: PHENYTOIN SUSP 100 MG/4 ML CUP PO SCH ×3 (05:20→22:04)
[2017-05-14 06:17] LABS: AUTOMATED NEUTROPHIL # 11.6 TH/MM3 (1.8-7.7); BASOPHIL # 0.3 TH/MM3 (0-0.2); BASOPHIL % 1.9 % (0.0-2.0); EOSINOPHIL # 0.3 TH/MM3 (0-0.4); EOSINOPHIL % 1.8 % (0.0-4.0); HEMATOCRIT 32.5 % (39.0-51.0); HEMO FLAGS DIFF FINAL; LYMPH % 14.8 % (9.0-44.0); LYMPHOCYTE # 2.3 TH/MM3 (1.0-4.8); MEAN CORPUSCULAR HEMOGLOBIN 31.3 PG (27.0-34.0); MEAN CORPUSCULAR HGB CONC 32.2 % (32.0-36.0); MONO % 5.5 % (0.0-8.0); PLATELET COUNT 193 TH/MM3 (150-450); RED BLOOD COUNT 3.35 MIL/MM3 (4.50-5.90); RED CELL DISTRIBUTION WIDTH 16.6 % (11.6-17.2); WHITE BLOOD COUNT 15.3 TH/MM3 (4.0-11.0)
[2017-05-14 06:43] LABS: BICARBONATE 24.3 MEQ/L (21.0-32.0); POTASSIUM 4.2 MEQ/L (3.5-5.1)
[2017-05-14] MEDS: ESCITALOPRAM OXALATE 20 MG TAB PO SCH (11:38)
[2017-05-14] MEDS: FERROUS SULFATE 325 MG (65 MG ELEMENTAL IRON) TAB PO SCH ×2 (11:39→18:31)
[2017-05-14] MEDS: clonazePAM 0.5 MG TAB PO SCH ×2 (11:39→22:29)
[2017-05-14] MEDS: DIGOXIN 0.125 MG TAB PO SCH (11:39)
[2017-05-14] MEDS: METOPROLOL TARTRATE 25 MG TAB PO SCH ×4 (11:39→22:00)
[2017-05-14] MEDS: DIVALPROEX SODIUM SPRINKLES 125 MG CAP PO SCH ×2 (11:40→22:04)
[2017-05-14] MEDS: FAMOTIDINE 20 MG TAB PO SCH ×2 (11:40→22:04)
[2017-05-14] MEDS: SODIUM CHLORIDE 0.9% FLUSH 10 ML FLUSH IV FLUSH SCH ×2 (11:41→21:00)
[2017-05-14] MEDS: CALCITRIOL 0.25 MCG CAP PO SCH (12:45)
[2017-05-14] MEDS: DEXTROSE 5% IN WATE 1000ML INJ 1,000 ML IV SCH ×2 (12:46→23:53)
[2017-05-14] MEDS: DILTIAZEM HCL 30 MG TAB PO SCH ×4 (12:46→23:41)
[2017-05-14 15:50] LABS: BICARBONATE 25.2 MEQ/L (21.0-32.0); POTASSIUM 4.2 MEQ/L (3.5-5.1)
--- NOTE | 2017-05-14 16:08 | HHI.PR ---
Subjective Remarks Patient sitting in the bed he is nonverbal, demented I discussed with the nurse earlier he was little agitated trying to pull out his iv Objective Vitals Vital Signs Date Time Temp Pulse Resp B/P (MAP) Pulse Ox O2 Delivery O2 Flow Rate FiO2 05/14/17 11:59 97.6 58 20 146/70 (95) 100 05/14/17 08:32 98.4 78 22 125/93 (104) 97 05/14/17 04:23 97.9 78 18 124/74 (91) 97 05/14/17 00:00 97.8 78 18 138/78 (98) 98 05/13/17 22:38 05/13/17 19:05 56 16 145/74 (97) 99 Room Air 05/13/17 17:20 96.8 69 19 128/77 (94) 98 Room Air I/O 05/13/17 05/13/17 05/13/17 05/14/17 05/14/17 05/14/17 07:00 15:00 23:00 07:00 15:00 23:00 Intake Total 500 ml Balance 500 ml Intake IV Total 500 ml Result Diagram: 05/14/17 0537 05/14/17 1430 Objective Remarks GENERAL: This 66 years old demented nonverbal patient SKIN: No rashes, warm and dry HEAD: Atraumatic. Normocephalic. EYES: Pupils equal round and reactive. Extraocular motions intact. No scleral icterus. ENT: Nose without bleeding, or drainage, Airway patent. NECK: Trachea midline. Supple CARDIOVASCULAR: Regular rate and rhythm without murmurs, gallops, or rubs. RESPIRATORY: Fair air entry bilaterally. No wheezes, rales, or rhonchi. GASTROINTESTINAL: Abdomen soft, non-tender, nondistended. Positive bowel sounds MUSCULOSKELETAL: Extremities without clubbing, cyanosis, or edema. Pedal pulses appreciated NEUROLOGICAL: Awake and alert not oriented, demented. Moves all extremity. A/P Assessment and Plan Severe hypernatremia sodium increased to 160 Dehydration PATRICIA on possible baseline of CKD History of chronic subdural hematoma Hypertension/seizure disorder/ bipolar disorder DVT prophylaxis SCD no chemical due to history of subdural hematoma Plan: Change Ringer lactate to D5 dextrose at 80 cc/h, water deficit around 3 L Most likely patient was deprived water at the facility We will slowly not more than 8 minimal per 24 hours, will check BMP every 8 hours Monitor BUN over creatinine expect to improve, avoid nephrotoxin Continue antihypertensive medication, seizure and bipolar medication Head CT negative for bleeding Holding pharmacologic anticoagulation as patient has chronic subdural bleed Chikis Feldman MD May 14, 2017 16:08
[2017-05-14] MEDS: risperiDONE 1 MG TAB PO SCH (22:04)
[2017-05-14 23:16] LABS: BICARBONATE 27.8 MEQ/L (21.0-32.0); POTASSIUM 4.2 MEQ/L (3.5-5.1)
[2017-05-15] VITALS (9 sets, daily range): BP systolic 116–142; BP diastolic 65–80; PULSE 43–87; RESP 16–18; TEMP 96.4–98; O2SAT 97–100
[2017-05-15] MEDS: cloNIDine HCL 0.1 MG TAB PO SCH ×4 (04:15→21:27)
[2017-05-15] MEDS: METOPROLOL TARTRATE 25 MG TAB PO SCH ×3 (05:38→21:17)
[2017-05-15] MEDS: DILTIAZEM HCL 30 MG TAB PO SCH ×4 (05:38→21:17)
[2017-05-15] MEDS: PHENYTOIN SUSP 100 MG/4 ML CUP PO SCH ×3 (05:56→21:27)
[2017-05-15 07:07] LABS: BICARBONATE 24.2 MEQ/L (21.0-32.0); POTASSIUM 4.3 MEQ/L (3.5-5.1)
[2017-05-15] MEDS: SODIUM CHLORIDE 0.9% FLUSH 10 ML FLUSH IV FLUSH SCH ×2 (09:00→21:00)
[2017-05-15] MEDS: DEXTROSE 5% IN WATE 1000ML INJ 1,000 ML IV SCH ×2 (09:27→12:45)
[2017-05-15] MEDS: DIVALPROEX SODIUM SPRINKLES 125 MG CAP PO SCH ×2 (09:30→21:00)
[2017-05-15] MEDS: DIGOXIN 0.125 MG TAB PO SCH (09:31)
[2017-05-15] MEDS: clonazePAM 0.5 MG TAB PO SCH ×2 (09:31→21:27)
[2017-05-15] MEDS: FERROUS SULFATE 325 MG (65 MG ELEMENTAL IRON) TAB PO SCH ×2 (09:31→19:35)
[2017-05-15] MEDS: ESCITALOPRAM OXALATE 20 MG TAB PO SCH (09:31)
[2017-05-15] MEDS: CALCITRIOL 0.25 MCG CAP PO SCH (09:32)
[2017-05-15] MEDS: FAMOTIDINE 20 MG TAB PO SCH ×2 (09:32→21:27)
--- NOTE | 2017-05-15 12:49 | HHI.PR ---
Subjective Remarks Laying in bed, awake, nonverbal, he seems to be quiet, he is in restrain Sodium improved to 153 today, will continue on D5 water Objective Vitals Vital Signs Date Time Temp Pulse Resp B/P (MAP) Pulse Ox O2 Delivery O2 Flow Rate FiO2 05/15/17 12:12 97.7 50 16 116/80 (92) 97 05/15/17 08:57 97.8 48 16 130/67 (88) 100 05/15/17 07:33 45 05/15/17 04:30 55 05/15/17 04:24 96.4 43 18 117/65 (82) 98 05/15/17 00:06 43 05/14/17 22:24 96.3 40 18 144/65 (91) 97 05/14/17 20:04 43 05/14/17 19:38 96.4 40 18 127/63 (84) 97 05/14/17 17:42 97.3 52 18 140/66 (90) 100 I/O 05/14/17 05/14/17 05/14/17 05/15/17 05/15/17 05/15/17 07:00 15:00 23:00 07:00 15:00 23:00 Intake Total 240 ml 480 ml Balance 240 ml 480 ml Intake Oral 240 ml 480 ml # Voids 2 3 # Bowel Movements 1 Result Diagram: 05/14/17 0537 05/15/17 0500 Objective Remarks GENERAL: This 66 years old demented nonverbal patient SKIN: No rashes, warm and dry HEAD: Atraumatic. Normocephalic. EYES: Pupils equal round and reactive. Extraocular motions intact. No scleral icterus. ENT: Nose without bleeding, or drainage, Airway patent. NECK: Trachea midline. Supple CARDIOVASCULAR: Regular rate and rhythm without murmurs, gallops, or rubs. RESPIRATORY: Fair air entry bilaterally. No wheezes, rales, or rhonchi. GASTROINTESTINAL: Abdomen soft, non-tender, nondistended. Positive bowel sounds MUSCULOSKELETAL: Extremities without clubbing, cyanosis, or edema. Pedal pulses appreciated NEUROLOGICAL: Awake and alert not oriented, demented. Moves all extremity. A/P Assessment and Plan 05/15: Sodium improved to 153, will continue D5 water, will check BMP at 6 PM and in the morning, PT OT, hopefully discharge back to another facility within 1 -2 days Severe hypernatremia sodium increased to 160 Dehydration PATRICIA on possible baseline of CKD History of chronic subdural hematoma Hypertension/seizure disorder/ bipolar disorder DVT prophylaxis SCD no chemical due to history of subdural hematoma Plan: Change Ringer lactate to D5 dextrose at 80 cc/h, water deficit around 3 L Most likely patient was deprived water at the facility We will slowly not more than 8 minimal per 24 hours, will check BMP every 8 hours Monitor BUN over creatinine expect to improve, avoid nephrotoxin Continue antihypertensive medication, seizure and bipolar medication Head CT negative for bleeding Holding pharmacologic anticoagulation as patient has chronic subdural bleed Discharge Planning Back to SNF within 1-2 days Chikis Feldman MD May 15, 2017 12:49
[2017-05-15 21:16] LABS: BICARBONATE 26.1 MEQ/L (21.0-32.0); MAGNESIUM 1.9 MG/DL (1.5-2.5)
[2017-05-15 21:26] LABS: POTASSIUM 3.9 MEQ/L (3.5-5.1)
[2017-05-15] MEDS: risperiDONE 1 MG TAB PO SCH (21:28)
[2017-05-16] VITALS (7 sets, daily range): BP systolic 110–134; BP diastolic 58–78; PULSE 50–64; RESP 16–26; TEMP 96.9–98.1; O2SAT 95–98
[2017-05-16] MEDS: DEXTROSE 5% IN WATE 1000ML INJ 1,000 ML IV SCH ×2 (00:40→14:43)
[2017-05-16] MEDS: cloNIDine HCL 0.1 MG TAB PO SCH ×3 (04:15→22:45)
[2017-05-16] MEDS: DILTIAZEM HCL 30 MG TAB PO SCH ×3 (06:00→19:32)
[2017-05-16] MEDS: METOPROLOL TARTRATE 25 MG TAB PO SCH ×3 (06:00→22:45)
[2017-05-16] MEDS: PHENYTOIN SUSP 100 MG/4 ML CUP PO SCH ×3 (06:00→22:00)
[2017-05-16 06:27] LABS: BICARBONATE 24.9 MEQ/L (21.0-32.0)
[2017-05-16 06:28] LABS: POTASSIUM 4.2 MEQ/L (3.5-5.1)
[2017-05-16] MEDS: DIGOXIN 0.125 MG TAB PO SCH (09:00)
[2017-05-16] MEDS: CALCITRIOL 0.25 MCG CAP PO SCH (10:17)
[2017-05-16] MEDS: ESCITALOPRAM OXALATE 20 MG TAB PO SCH (10:17)
[2017-05-16] MEDS: FAMOTIDINE 20 MG TAB PO SCH ×2 (10:17→22:46)
[2017-05-16] MEDS: FERROUS SULFATE 325 MG (65 MG ELEMENTAL IRON) TAB PO SCH ×2 (10:18→19:32)
[2017-05-16] MEDS: clonazePAM 0.5 MG TAB PO SCH ×2 (10:18→22:46)
[2017-05-16] MEDS: DIVALPROEX SODIUM SPRINKLES 125 MG CAP PO SCH ×2 (10:20→22:46)
[2017-05-16] MEDS: SODIUM CHLORIDE 0.9% FLUSH 10 ML FLUSH IV FLUSH SCH ×2 (10:21→21:00)
[2017-05-16] MEDS ORDERED: CLON0.1T PO (12:04)
[2017-05-16 14:38] LABS: AUTOMATED NEUTROPHIL # 9.7 TH/MM3 (1.8-7.7); BASOPHIL # 0.1 TH/MM3 (0-0.2); BASOPHIL % 0.5 % (0.0-2.0); EOSINOPHIL # 0.2 TH/MM3 (0-0.4); EOSINOPHIL % 1.6 % (0.0-4.0); HEMATOCRIT 29.9 % (39.0-51.0); HEMO FLAGS DIFF FINAL; LYMPH % 18.4 % (9.0-44.0); LYMPHOCYTE # 2.4 TH/MM3 (1.0-4.8); MEAN CELL VOLUME 96.9 FL (80.0-100.0); MEAN CORPUSCULAR HEMOGLOBIN 31.8 PG (27.0-34.0); MEAN CORPUSCULAR HGB CONC 32.8 % (32.0-36.0); MONO % 5.5 % (0.0-8.0); PLATELET COUNT 130 TH/MM3 (150-450); RED BLOOD COUNT 3.08 MIL/MM3 (4.50-5.90); RED CELL DISTRIBUTION WIDTH 16.6 % (11.6-17.2); WHITE BLOOD COUNT 13.1 TH/MM3 (4.0-11.0)
--- NOTE | 2017-05-16 16:14 | EKG ---
Date Performed: 05/15/2017 Time Performed: 14:24:32 PTAGE: 66 years EKG: SINUS BRADYCARDIA MARKED LEFT AXIS DEVIATION Nonspecific intraventricular conduction delay ABNORMAL ECG PREVIOUS TRACING : 04/22/2017 21.05 Since the prior tracing, inferolateral ST segment changes h ave improved. The PVCs have resolved. DOCTOR: Alberta Knapp Interpretating Date/Time 05/16/2017 16:13:30
--- NOTE | 2017-05-16 16:28 | HHI.PR ---
Subjective Remarks No change in clinical picture patient resting in bed he is nonverbal, his demented But he looks stable, sodium much improved slowly it's 148 today Objective Vitals Vital Signs Date Time Temp Pulse Resp B/P (MAP) Pulse Ox O2 Delivery O2 Flow Rate FiO2 05/16/17 13:07 97.8 50 16 130/78 (95) 96 05/16/17 08:39 97.8 55 16 128/68 (88) 95 05/16/17 04:15 97.8 61 19 134/68 (90) 97 05/16/17 01:14 56 18 110/59 (76) 98 05/15/17 20:40 98.0 52 18 139/67 (91) 100 I/O 05/15/17 05/15/17 05/15/17 05/16/17 05/16/17 05/16/17 06:59 14:59 22:59 06:59 14:59 22:59 Intake Total 480 ml Balance 480 ml Intake Oral 480 ml # Voids 3 1 Result Diagram: 05/16/17 1416 05/16/17 0534 Objective Remarks GENERAL: This 66 years old demented nonverbal patient SKIN: No rashes, warm and dry HEAD: Atraumatic. Normocephalic. EYES: Pupils equal round and reactive. Extraocular motions intact. No scleral icterus. ENT: Nose without bleeding, or drainage, Airway patent. NECK: Trachea midline. Supple CARDIOVASCULAR: Regular rate and rhythm without murmurs, gallops, or rubs. RESPIRATORY: Fair air entry bilaterally. No wheezes, rales, or rhonchi. GASTROINTESTINAL: Abdomen soft, non-tender, nondistended. Positive bowel sounds MUSCULOSKELETAL: Extremities without clubbing, cyanosis, or edema. Pedal pulses appreciated NEUROLOGICAL: Awake and alert not oriented, demented. Moves all extremity. A/P Assessment and Plan 05/15: Sodium improved to 153, will continue D5 water, will check BMP at 6 PM and in the morning, PT OT, hopefully discharge back to another facility within 1 -2 days 05/16: Sodium continue to improve 148 now, I will continue with D5 water with potassium, expected to go into normal range distal evening therefore will proceed with discharging patient this evening, I will also check Depakote and phenytoin level as well as digoxin, patient will need urology follow up as an outpatient to adjust his antiepileptic medication A/P: Severe hypernatremia sodium increased to 160 Dehydration mostly due to water deprivation PATRICIA on possible baseline of CKD History of chronic subdural hematoma Hypertension/seizure disorder/ bipolar disorder DVT prophylaxis SCD no chemical due to history of subdural hematoma Plan: Change Ringer lactate to D5 dextrose at 80 cc/h, water deficit around 3 L Most likely patient was deprived water at the facility We will slowly not more than 8 minimal per 24 hours, will check BMP every 8 hours Monitor BUN over creatinine expect to improve, avoid nephrotoxin Continue antihypertensive medication, seizure and bipolar medication Head CT negative for bleeding Holding pharmacologic anticoagulation as patient has chronic subdural bleed Discharge Planning Later this evening Addendum: I received message from the watch caser saying the facility refused to take patient because of "abnormal lab "!, They asked me to call Dr. Cesario Martin at [phone] I called and talked to his information assurance officer she wasn't aware of that call request so I left my phone number to call me back to discuss the reason for declining the discharge Chikis Feldman MD May 16, 2017 16:27
[2017-05-16 22:40] LABS: BICARBONATE 25.2 MEQ/L (21.0-32.0)
[2017-05-16 22:41] LABS: POTASSIUM 4.6 MEQ/L (3.5-5.1)
[2017-05-16] MEDS: risperiDONE 1 MG TAB PO SCH (22:45)
[2017-05-17 00:39] VITALS: BP 132/73; PULSE 60; RESP 24; TEMP 96; O2SAT 99
[2017-05-17] MEDS: DEXTROSE 5% IN WATE 1000ML INJ 1,000 ML IV SCH (00:39)
[2017-05-17 03:50] VITALS: PULSE 42
[2017-05-17] MEDS: METOPROLOL TARTRATE 25 MG TAB PO SCH (04:53)
[2017-05-17] MEDS: DILTIAZEM HCL 30 MG TAB PO SCH ×2 (04:53)
[2017-05-17] MEDS: PHENYTOIN SUSP 100 MG/4 ML CUP PO SCH (05:22)
[2017-05-17 05:46] VITALS: BP 116/56; PULSE 44; RESP 20; TEMP 96.1; O2SAT 100
[2017-05-17 07:53] VITALS: PULSE 44
[2017-05-17 08:14] VITALS: BP 110/58; PULSE 45; RESP 20; TEMP 98.2; O2SAT 95
[2017-05-17] MEDS: CALCITRIOL 0.25 MCG CAP PO SCH (09:00)
[2017-05-17] MEDS: ESCITALOPRAM OXALATE 20 MG TAB PO SCH (09:00)
[2017-05-17] MEDS: clonazePAM 0.5 MG TAB PO SCH (09:00)
[2017-05-17] MEDS: DIGOXIN 0.125 MG TAB PO SCH (09:00)
[2017-05-17] MEDS: SODIUM CHLORIDE 0.9% FLUSH 10 ML FLUSH IV FLUSH SCH (09:00)
[2017-05-17] MEDS: FERROUS SULFATE 325 MG (65 MG ELEMENTAL IRON) TAB PO SCH (09:00)
[2017-05-17] MEDS: FAMOTIDINE 20 MG TAB PO SCH (09:00)
[2017-05-17] MEDS: DIVALPROEX SODIUM SPRINKLES 125 MG CAP PO SCH (09:00)
[2017-05-17] MEDS: cloNIDine HCL 0.1 MG TAB PO SCH (09:00)
[2017-05-17 11:38] LABS: AUTOMATED NEUTROPHIL # 7.4 TH/MM3 (1.8-7.7); BASOPHIL # 0.1 TH/MM3 (0-0.2); BASOPHIL % 0.5 % (0.0-2.0); EOSINOPHIL # 0.2 TH/MM3 (0-0.4); EOSINOPHIL % 2.2 % (0.0-4.0); HEMATOCRIT 29.9 % (39.0-51.0); HEMO FLAGS DIFF FINAL; LYMPH % 23.3 % (9.0-44.0); LYMPHOCYTE # 2.5 TH/MM3 (1.0-4.8); MEAN CELL VOLUME 96.6 FL (80.0-100.0); MEAN CORPUSCULAR HEMOGLOBIN 31.7 PG (27.0-34.0); MEAN CORPUSCULAR HGB CONC 32.9 % (32.0-36.0); MONO % 5.4 % (0.0-8.0); NEUT % 68.6 % (16.0-70.0); PLATELET COUNT 128 TH/MM3 (150-450); RED CELL DISTRIBUTION WIDTH 16.6 % (11.6-17.2); WHITE BLOOD COUNT 10.8 TH/MM3 (4.0-11.0)
[2017-05-17 11:59] LABS: BICARBONATE 24.5 MEQ/L (21.0-32.0); POTASSIUM 4.3 MEQ/L (3.5-5.1)
--- NOTE | 2017-05-17 12:08 | HHI.PR ---
Subjective Remarks No change in clinical picture, he is open eyes resting in bed, sodium improving gradually on D5 water iv fluid Objective Vitals Vital Signs Date Time Temp Pulse Resp B/P (MAP) Pulse Ox O2 Delivery O2 Flow Rate FiO2 05/17/17 08:14 98.2 45 20 110/58 (75) 95 05/17/17 05:46 96.1 44 20 116/56 (76) 100 05/17/17 03:50 42 05/17/17 00:39 96.0 60 24 132/73 (92) 99 05/16/17 23:51 98 21 05/16/17 21:26 96.9 64 26 128/61 (83) 98 05/16/17 17:35 98.1 52 16 122/58 (79) 96 05/16/17 13:07 97.8 50 16 130/78 (95) 96 I/O 05/16/17 05/16/17 05/16/17 05/17/17 05/17/17 05/17/17 07:00 15:00 23:00 07:00 15:00 23:00 # Voids 1 2 4 # Bowel Movements 2 Result Diagram: 05/17/17 1111 05/17/17 1110 Objective Remarks GENERAL: This 66 years old demented nonverbal patient SKIN: No rashes, warm and dry HEAD: Atraumatic. Normocephalic. EYES: Pupils equal round and reactive. Extraocular motions intact. No scleral icterus. ENT: Nose without bleeding, or drainage, Airway patent. NECK: Trachea midline. Supple CARDIOVASCULAR: Regular rate and rhythm without murmurs, gallops, or rubs. RESPIRATORY: Fair air entry bilaterally. No wheezes, rales, or rhonchi. GASTROINTESTINAL: Abdomen soft, non-tender, nondistended. Positive bowel sounds MUSCULOSKELETAL: Extremities without clubbing, cyanosis, or edema. Pedal pulses appreciated NEUROLOGICAL: Awake and alert not oriented, demented. Moves all extremity. A/P Assessment and Plan 05/15: Sodium improved to 153, will continue D5 water, will check BMP at 6 PM and in the morning, PT OT, hopefully discharge back to another facility within 1 -2 days 05/16: Sodium continue to improve 148 now, I will continue with D5 water with potassium, expected to go into normal range distal evening therefore will proceed with discharging patient this evening, I will also check Depakote and phenytoin level as well as digoxin, patient will need urology follow up as an outpatient to adjust his antiepileptic medication A/P: Severe hypernatremia sodium increased to 160 Dehydration mostly due to water deprivation PATRICIA on possible baseline of CKD History of chronic subdural hematoma Hypertension/seizure disorder/ bipolar disorder DVT prophylaxis SCD no chemical due to history of subdural hematoma Plan: Change Ringer lactate to D5 dextrose at 80 cc/h, water deficit around 3 L Most likely patient was deprived water at the facility We will slowly not more than 8 minimal per 24 hours, will check BMP every 8 hours Monitor BUN over creatinine expect to improve, avoid nephrotoxin Continue antihypertensive medication, seizure and bipolar medication Head CT negative for bleeding Holding pharmacologic anticoagulation as patient has chronic subdural bleed Discharge Planning Later this evening Addendum: I received message from the case sealer saying the facility refused to take patient because of "abnormal lab "!, They asked me to call Dr. Cesario Martin at [phone] I called and talked to his registration officer she wasn't aware of that call request so I left my phone number to call me back to discuss the reason for declining the discharge Chikis Feldman MD May 17, 2017 12:08
[2017-05-17 12:09] VITALS: BP 112/60; PULSE 45; RESP 18; TEMP 98.2; O2SAT 97
[2017-05-17] MEDS ORDERED: CLON.1 PO (14:20)
== END 2017-05-17 15:11 | disposition home or self-care (01) | DRG 683 ==
LOC: NEPD 17:17 → NEDA 21:18 → UNDOADMIN 21:18 → NEDA 22:16 → INTOOBSV 22:16 → NEPFCDU 22:52 → OBSVTOIN 05-14 11:01
PROVIDERS: ADMIT Hospitalist; ATTEND Hospitalist
DX: N17.9 Acute kidney failure, unspecified (principal); E87.0 Hyperosmolality and hypernatremia; R64 Cachexia; E86.0 Dehydration; I12.9 Hypertensive chronic kidney disease with stage 1 through stage 4 chronic kidney disease, or unspecified chronic kidney disease; M19.90 Unspecified osteoarthritis, unspecified site; N18.9 Chronic kidney disease, unspecified; D72.829 Elevated white blood cell count, unspecified; N40.0 Benign prostatic hyperplasia without lower urinary tract symptoms; I73.9 Peripheral vascular disease, unspecified; G40.909 Epilepsy, unspecified, not intractable, without status epilepticus; I87.2 Venous insufficiency (chronic) (peripheral); S06.5X9D Traumatic subdural hemorrhage with loss of consciousness of unspecified duration, subsequent encounter; F03.90 Unspecified dementia, unspecified severity, without behavioral disturbance, psychotic disturbance, mood disturbance, and anxiety; F31.9 Bipolar disorder, unspecified; F41.9 Anxiety disorder, unspecified; F42.9 Obsessive-compulsive disorder, unspecified; F79 Unspecified intellectual disabilities; Z78.1 Physical restraint status; Z86.718 Personal history of other venous thrombosis and embolism; Z88.2 Allergy status to sulfonamides
CPT/HCPCS: 70450; 76937; 80048; 80053; 80162; 80164; 80185; 83735; 84100; 85025; 93005; 96360; G8987-GP; G8988-GP; J7040; J7070; J7120